=== PATIENT | male | born 1945 | race Asian ===

== ENCOUNTER 2019-09-09 20:58 | Inpatient (IN) | payer MEDICARE, OTHER ==
[~2019-09-09] VITALS: Ht 165.1 cm; Wt 74.1 kg
[2019-09-09] MEDS ORDERED: LYRICA75 M1 ORAL (21:13)
[2019-09-09] MEDS ORDERED: BROMOCRIPTINE2.5 MG PO (21:14)
[2019-09-09] MEDS ORDERED: ATORVASTATIN CA20 MG ORAL (21:14)
[2019-09-09] MEDS ORDERED: METFORMIN HCL500 M1 ORAL (21:15)
[2019-09-09] MEDS ORDERED: LEXAPRO10 MG ORAL (21:16)
[2019-09-09] MEDS ORDERED: FLOMAX0.4 MG ORAL (21:17)
[2019-09-09] MEDS ORDERED: JANUVIA25 MG ORAL (21:18)
[2019-09-09] MEDS ORDERED: CELEBREX200 MG ORAL (21:18)
--- NOTE | 2019-09-09 21:19 | Emergency Room Report ---
History of Present Illness General Chief Complaint: Fever Source: Patient, EMS Present Illness HPI This is a 73 yo Pashto speaking male with h/o htn, DM2 and colon cancer with ? met to lungs. He presents with c/o SOB and weakness. also with fever. onset for 3 days. decreased appetite. mild cough. no n/v/d. family called 911 and EMS said that his oxygenation on RA was 89%. worse with exertion. better with rest. no cp. history is limited bc of language barrier. At 1020pm, daughter came to ER and I was able to get a clearer picture. 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 It was dx at [facility] about 6 months ago. he was started on Cabergoline initially but could not tolerated the side effect. It was switched to Bromocriptine. He developed flu like sx 4-5 days ago with fever and cough. Got much worse today. When she visited him today, he was confused and was very weak. He complained of right sided pain and shortness of breath. she called 911. Pt has no h/o colon cancer. no lungs issues before. Allergies: Coded Allergies: No Known Allergies (Unverified , 09/09/19) Patient History Past Medical History: see triage record, old chart reviewed, DM, HTN Past Surgical History: other Pertinent Family History: none Social History: Denies: smoking Immunizations: other Reviewed Nursing Documentation: PMH: Agreed; PSxH: Agreed Nursing Documentation-PMH Past Medical History: No History, Except For Hx Diabetes: Yes Hx Cancer: Yes Review of Systems Constitutional: Reports: fever, weakness Eye: Denies: eye pain, blurred vision ENT: Denies: ear pain, nose congestion, throat swelling Respiratory: Reports: cough, shortness of breath Cardiovascular: Denies: chest pain, palpitations Gastrointestinal: Denies: abdominal pain, diarrhea, nausea, vomiting Musculoskeletal: Denies: back pain, joint pain Skin: Denies: rash Neurological: Denies: headache, numbness Endocrine: Denies: increased thirst, increased urine Hematologic/Lymphatic: Denies: easy bruising All Other Systems: negative except mentioned in HPI Physical Exam Vital Signs Date Time Temp Pulse Resp B/P (MAP) Pulse Ox O2 Delivery O2 Flow Rate FiO2 09/09/19 20:52 99.5 115 22 156/83 (107) 98 Non-Rebreather 15.0 vitals with htn and hypoxia Sp02 EP Interpretation: reviewed, abnormal General Appearance: alert, mild distress, Chronically Ill Head: normocephalic, atraumatic Eyes: bilateral eye PERRL, bilateral eye EOMI ENT: hearing grossly normal, normal pharynx Neck: full range of motion, supple, no meningismus Respiratory: chest non-tender, decreased breath sounds Cardiovascular #1: regular rate, rhythm, no murmur, tachycardia Gastrointestinal: normal bowel sounds, non tender, no mass, no organomegaly, no bruit, non-distended Musculoskeletal: back normal, normal range of motion, gait/station normal Psychiatric: mood/affect normal Procedures Critical Care Time Critical Care Time Critical care is mandated in this patient who presented with sepsis from pneumonia. Patient require my urgent intervention to attenuate the risks of metabolic collapse which may lead to cardiovascular collapse and . Critical care time is 35 minutes excluding any reportable procedure. Critical care time included evaluation, multiple reevaluation, looking at old charts, interpreting laboratory and diagnostic data, discussing case with patient and family and consultants, and charting. Medical Decision Making Diagnostic Impression: Primary Impression: Sepsis Qualified Codes: A41.9 - Sepsis, unspecified organism; R65.20 - Severe sepsis without septic shock; J96.01 - Acute respiratory failure with hypoxia Additional Impressions: Community acquired bacterial pneumonia Acute respiratory failure with hypoxemia ER Course Patient with sepsis from pneumonia. Influenza testing pending. He is improved with IV fluid and oxygen. Wide spectrum antibiotic started. Will admit for further work-up. I discussed the case with Dr. Rodríguez who will admit for Dr. Lemons. EKG Diagnostic Results Rate: tachycardiac Rhythm: NSR ST Segments: other - RBBB Rhythm Strip Diag. Results EP Interpretation: yes Rate: 97 Rhythm: NSR, no PVC's, no ectopy Chest X-Ray Diagnostic Results Chest X-Ray Diagnostic Results : Chest X-Ray Ordered: Yes # of Views/Limited/Complete: 1 View Indication: Shortness of Breath EP Interpretation: Yes Interpretation: no effusion, no pneumothorax, other - RLL infiltrate Impression: Other - RLL infiltrate Electronically Signed by: Rasheed Cowart MD Last Vital Signs Date Time Temp Pulse Resp B/P (MAP) Pulse Ox O2 Delivery O2 Flow Rate FiO2 09/09/19 20:52 99.5 115 22 156/83 (107) 98 Non-Rebreather 15.0 Status: improved Disposition: ADMITTED INPATIENT Condition: Serious Rasheed Cowart MD Sep 09, 2019 21:19
[2019-09-09] MEDS ORDERED: Cefepime HCl 1 GM in D5W 55 ML IVPB ONE (21:45)
[2019-09-09 22:00] VITALS: BP 94/52
[2019-09-09 22:10] LABS: HEMATOCRIT 35.5 % (42.0-52.0); HEMOGLOBIN 12.6 G/DL (14.2-18.0); MEAN CORPUSCULAR VOLUME 89 FL (80-99); PLATELET COUNT 244 K/UL (150-450); RED BLOOD COUNT 3.97 M/UL (4.70-6.10); RED CELL DISTRIBUTION WIDTH 10.4 % (11.6-14.8); WHITE BLOOD COUNT 16.9 K/UL (4.8-10.8)
[2019-09-09 22:11] LABS: BASOPHILS % (AUTO) 0.4 % (0.0-2.0); LYMPHOCYTES % (AUTO) 4.8 % (20.0-45.0); MONOCYTES % (AUTO) 4.7 % (1.0-10.0); NEUTROPHILS % (AUTO) 90.2 % (45.0-75.0)
[2019-09-09 22:15] LABS: ANION GAP 11 mmol/L (5-15); BLOOD UREA NITROGEN 22 mg/dL (7-18); CALCIUM 8.5 MG/DL (8.5-10.1); CARBON DIOXIDE 26 MMOL/L (21-32); CHLORIDE 95 MMOL/L (98-107); CREATININE 1.1 MG/DL (0.55-1.30); POTASSIUM 3.5 MMOL/L (3.5-5.1); SODIUM 132 MMOL/L (136-145)
[2019-09-09 22:29] LABS: ALANINE AMINOTRANSFERASE 17 U/L (12-78); ALBUMIN 3.2 G/DL (3.4-5.0); ALBUMIN/GLOBULIN RATIO 0.7 (1.0-2.7); ALKALINE PHOSPHATASE 51 U/L (46-116); ASPARTATE AMINO TRANSFERASE 11 U/L (15-37); BILIRUBIN,TOTAL 0.8 MG/DL (0.2-1.0); CKMB < 0.5 NG/ML (0.0-3.6); CREATINE KINASE 135 U/L (26-308)
[2019-09-09 22:34] LABS: APPEARANCE,URINE CLEAR; BILIRUBIN, URINE NEGATIVE (NEGATIVE); COLOR,URINE PALE YELLOW; GLUCOSE, URINE (UA) 4+ (NEGATIVE); KETONES,URINE 1+ (NEGATIVE); LEUKOCYTE ESTERASE ,URINE NEGATIVE (NEGATIVE); NITRITE,URINE NEGATIVE (NEGATIVE); PH,URINE 7 (4.5-8.0); PROTEIN,URINE 2+ (NEGATIVE); UROBILINOGEN,URINE NORMAL MG/DL (0.0-1.0)
[2019-09-09 22:36] LABS: INR 1.1 (0.9-1.1)
[2019-09-09] MEDS ORDERED: Miralax 17gm pkt ORAL PRN (23:15)
[2019-09-09] MEDS ORDERED: Acetaminophen 650 MG SUPP RECTAL PRN ×2 (23:15)
[2019-09-09] MEDS ORDERED: Ketorolac 30mg Inj IV ONE (23:45)
[2019-09-10] VITALS (7 sets, daily range): BP systolic 91–147; BP diastolic 56–77
[2019-09-10] MEDS ORDERED: Morphine Sulfate 2mg/ml Inj(IV/IM USE ONLY) IVP ONE ×4 (01:00→14:00)
[2019-09-10 07:28] LABS: ANION GAP 9 mmol/L (5-15); BLOOD UREA NITROGEN 20 mg/dL (7-18); CALCIUM 6.2 MG/DL (8.5-10.1); CARBON DIOXIDE 22 MMOL/L (21-32); CHLORIDE 104 MMOL/L (98-107); SODIUM 135 MMOL/L (136-145)
[2019-09-10 07:40] LABS: HEMATOCRIT 29.6 % (42.0-52.0); HEMOGLOBIN 10.3 G/DL (14.2-18.0); MEAN CORPUSCULAR VOLUME 91 FL (80-99); PLATELET COUNT 183 K/UL (150-450); RED BLOOD COUNT 3.25 M/UL (4.70-6.10); RED CELL DISTRIBUTION WIDTH 10.4 % (11.6-14.8); WHITE BLOOD COUNT 20.9 K/UL (4.8-10.8)
[2019-09-10] MEDS: Azithromycin 500 MG in NS 275 ML IV SCH (07:53)
[2019-09-10] MEDS: Lyrica 50mg cap ORAL SCH ×3 (09:00→18:00)
[2019-09-10] MEDS ORDERED: Heparin 5000 units/ml inj SUBQ SCH (09:00)
[2019-09-10] MEDS ORDERED: BROMOCRIPTINE 2.5 MG ORAL SCH (09:00)
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
[2019-09-10] MEDS: NovoLOG Insulin Flexpen SUBQ SCH ×4 (09:10→21:32)
[2019-09-10] MEDS: Cefepime HCl 2 GM in D5W 55 ML IVPB SCH ×2 (09:58→22:33)
[2019-09-10] MEDS: Tamsulosin 0.4mg cap ORAL SCH (10:58)
[2019-09-10] MEDS: Docusate 100mg cap ORAL SCH ×2 (11:03→21:31)
--- NOTE | 2019-09-10 11:33 | Diagnostic Imaging Report ---
Indication: Dyspnea Comparison: None A single view chest radiograph was obtained. Findings: Pulmonary vascular congestion demonstrated. Heart is enlarged. There is a right basilar pleural effusion present. There is also parenchymal infiltrate versus atelectasis. IMPRESSION: CHF with a right pleural effusion. Right basal pneumonia versus atelectasis.
--- NOTE | 2019-09-10 13:03 | Infectious Diseases Prog Note ---
Assessment/Plan Assessment/Plan Full consult dictated: A) 1) cap, sepsis, leukocytosis, fevers 2) pmh noted 3) allergies - nkda P) 1) cefepime and azithromycin, add vancomycin 2) check sputum culture, labs and chest x-ray 3) will f/u 4) thank you Subjective Allergies: Coded Allergies: No Known Allergies (Unverified , 09/09/19) Objective Vital Signs Last 24 Hour Vital Signs Date Time Temp Pulse Resp B/P (MAP) Pulse Ox O2 Delivery O2 Flow Rate FiO2 09/10/19 09:30 98.7 91 21 105/71 98 Room Air 09/10/19 05:45 98.4 92 16 102/60 97 Room Air 15.0 09/10/19 04:00 98.4 90 16 100/66 97 Room Air 15.0 09/10/19 02:00 99.1 96 20 92/60 97 Room Air 15.0 09/10/19 00:00 99.8 107 24 91/56 97 Room Air 15.0 09/09/19 22:00 99.8 111 24 94/52 97 Room Air 15.0 09/09/19 21:10 115 22 Non-Rebreather 15.0 09/09/19 20:52 99.5 115 22 156/83 (107) 98 Non-Rebreather 15.0 Height (Feet): 5 Height (Inches): 8.00 Weight (Pounds): 180 Microbiology Date/Time Source Procedure Growth Status 09/09/19 22:30 Nasal Nares - Final Complete 09/09/19 22:30 Nasal Nares - Final Complete Laboratory Tests Test 09/09/19 21:05 09/09/19 21:45 09/09/19 23:30 09/10/19 06:35 White Blood Count 16.9 K/UL (4.8-10.8) H 20.9 K/UL (4.8-10.8) H Red Blood Count 3.97 M/UL (4.70-6.10) L 3.25 M/UL (4.70-6.10) L Hemoglobin 12.6 G/DL (14.2-18.0) L 10.3 G/DL (14.2-18.0) L Hematocrit 35.5 % (42.0-52.0) L 29.6 % (42.0-52.0) L Mean Corpuscular Volume 89 FL (80-99) 91 FL (80-99) Mean Corpuscular Hemoglobin 31.8 PG (27.0-31.0) H 31.7 PG (27.0-31.0) H Mean Corpuscular Hemoglobin Concent 35.6 G/DL (32.0-36.0) 34.9 G/DL (32.0-36.0) Red Cell Distribution Width 10.4 % (11.6-14.8) L 10.4 % (11.6-14.8) L Platelet Count 244 K/UL (150-450) 183 K/UL (150-450) Mean Platelet Volume 5.6 FL (6.5-10.1) L 5.4 FL (6.5-10.1) L Neutrophils (%) (Auto) 90.2 % (45.0-75.0) H % (45.0-75.0) Lymphocytes (%) (Auto) 4.8 % (20.0-45.0) L % (20.0-45.0) Monocytes (%) (Auto) 4.7 % (1.0-10.0) % (1.0-10.0) Eosinophils (%) (Auto) 0.0 % (0.0-3.0) % (0.0-3.0) Basophils (%) (Auto) 0.4 % (0.0-2.0) % (0.0-2.0) Prothrombin Time 11.4 SEC (9.30-11.50) Prothromb Time International Ratio 1.1 (0.9-1.1) Activated Partial Thromboplast Time 30 SEC (23-33) Sodium Level 132 MMOL/L (136-145) L 135 MMOL/L (136-145) L Potassium Level 3.5 MMOL/L (3.5-5.1) 4.0 MMOL/L (3.5-5.1) Chloride Level 95 MMOL/L (98-107) L 104 MMOL/L (98-107) Carbon Dioxide Level 26 MMOL/L (21-32) 22 MMOL/L (21-32) Anion Gap 11 mmol/L (5-15) 9 mmol/L (5-15) Blood Urea Nitrogen 22 mg/dL (7-18) H 20 mg/dL (7-18) H Creatinine 1.1 MG/DL (0.55-1.30) 1.0 MG/DL (0.55-1.30) Estimat Glomerular Filtration Rate mL/min (>60) mL/min (>60) Glucose Level 276 MG/DL (74-106) H 186 MG/DL (74-106) H Lactic Acid Level 2.10 mmol/L (0.4-2.0) H 2.50 mmol/L (0.66-2.22) H Calcium Level 8.5 MG/DL (8.5-10.1) 6.2 MG/DL (8.5-10.1) #L Total Bilirubin 0.8 MG/DL (0.2-1.0) Aspartate Amino Transf (AST/SGOT) 11 U/L (15-37) L Alanine Aminotransferase (ALT/SGPT) 17 U/L (12-78) Alkaline Phosphatase 51 U/L (46-116) Total Creatine Kinase 135 U/L (26-308) Creatine Kinase MB < 0.5 NG/ML (0.0-3.6) Creatine Kinase MB Relative Index 0.3 Troponin I 0.006 ng/mL (0.000-0.056) Total Protein 7.7 G/DL (6.4-8.2) Albumin 3.2 G/DL (3.4-5.0) L Globulin 4.5 g/dL Albumin/Globulin Ratio 0.7 (1.0-2.7) L Urine Color Pale yellow Urine Appearance Clear Urine pH 7 (4.5-8.0) Urine Specific [place] 1.005 (1.005-1.035) Urine Protein 2+ (NEGATIVE) H Urine Glucose (UA) 4+ (NEGATIVE) H Urine Ketones 1+ (NEGATIVE) H Urine Blood 1+ (NEGATIVE) H Urine Nitrite Negative (NEGATIVE) Urine Bilirubin Negative (NEGATIVE) Urine Urobilinogen Normal MG/DL (0.0-1.0) Urine Leukocyte Esterase Negative (NEGATIVE) Urine RBC 0-2 /HPF (0 - 0) H Urine WBC 0 /HPF (0 - 0) Urine Squamous Epithelial Cells Few /LPF (NONE/OCC) Urine Bacteria None /HPF (NONE) Differential Total Cells Counted 100 Neutrophils % (Manual) 85 % (45-75) H Lymphocytes % (Manual) 7 % (20-45) L Monocytes % (Manual) 6 % (1-10) Eosinophils % (Manual) 0 % (0-3) Basophils % (Manual) 0 % (0-2) Band Neutrophils 2 % (0-8) Platelet Estimate Adequate Platelet Morphology Normal Hypochromasia 1+ Anisocytosis 1+ Hemoglobin A1c 6.9 % (4.3-6.0) H Magnesium Level 1.2 MG/DL (1.8-2.4) L Current Medications Medications (Trade) Dose Ordered Sig/Ishaan Route PRN Reason Start Time Stop Time Status Last Admin Dose Admin Acetaminophen (Tylenol) 650 mg Q4H PRN ORAL Mild Pain (Pain Scale 1-3) 09/09/19 23:15 10/09/19 23:14 Acetaminophen (Tylenol) 650 mg Q4H PRN ORAL fever 09/09/19 23:15 10/09/19 23:14 Acetaminophen (Tylenol) 650 mg Q4H PRN RECTAL Mild Pain (Pain Scale 1-3) 09/09/19 23:15 10/09/19 23:14 Acetaminophen (Tylenol) 650 mg Q4H PRN RECTAL fever 09/09/19 23:15 10/09/19 23:14 Albuterol/ Ipratropium (Albuterol/ Ipratropium) 3 ml Q6HR PRN HHN Shortness of Breath 09/09/19 23:15 09/14/19 23:14 Atorvastatin Calcium (Lipitor) 10 mg BEDTIME ORAL 09/10/19 21:00 10/10/19 20:59 UNV Azithromycin 500 mg/Sodium Chloride 275 ml @ 275 mls/hr Q24HRS IV 09/10/19 08:00 09/17/19 07:59 09/10/19 07:53 Bromocriptine Mesylate (Parlodel) 2.5 mg DAILY ORAL 09/10/19 09:00 10/10/19 08:59 Cefepime HCl 2 gm/ Dextrose 55 ml @ 110 mls/hr EVERY 12 HOURS IVPB 09/10/19 09:00 09/17/19 08:59 09/10/19 09:58 Dextrose (Dextrose 50%) 25 ml Q30M PRN IV Hypoglycemia 09/09/19 23:30 10/09/19 23:29 Dextrose (Dextrose 50%) 50 ml Q30M PRN IV Hypoglycemia 09/09/19 23:30 10/09/19 23:29 Docusate Sodium (Colace) 100 mg EVERY 12 HOURS ORAL 09/10/19 09:00 10/10/19 08:59 09/10/19 11:03 Escitalopram Oxalate (Lexapro) 5 mg DAILY ORAL 09/10/19 09:00 10/10/19 08:59 09/10/19 10:57 Heparin Sodium (Porcine) (Heparin 5000 units/ml) 5,000 units EVERY 12 HOURS SUBQ 09/10/19 09:00 10/10/19 08:59 09/10/19 11:02 Insulin Aspart (NovoLOG) BEFORE MEALS AND HS SUBQ 09/10/19 06:30 10/10/19 06:29 09/10/19 09:10 Ondansetron HCl (Zofran) 4 mg Q6H PRN IVP Nausea & Vomiting 09/09/19 23:15 10/09/19 23:14 09/10/19 10:17 Polyethylene Glycol (Miralax) 17 gm DAILYPRN PRN ORAL Constipation 09/09/19 23:15 10/09/19 23:14 Pregabalin (Lyrica) 50 mg THREE TIMES A DAY ORAL 09/10/19 09:00 10/10/19 08:59 Tamsulosin HCl (Flomax) 0.4 mg DAILY ORAL 09/10/19 09:00 10/10/19 08:59 09/10/19 10:58 Kesha Rebollar MD Sep 10, 2019 13:03
[2019-09-10] MEDS ORDERED: Hydromorphone 0.5mg/0.5ml inj IVP PRN (14:15)
[2019-09-10] MEDS ORDERED: Vancomycin 1.25gm/NS Premix IVPB ONE (16:00)
[2019-09-10 20:14] LABS: APPEARANCE,URINE TURBID; BILIRUBIN, URINE NEGATIVE (NEGATIVE); GLUCOSE, URINE (UA) 4+ (NEGATIVE); KETONES,URINE 1+ (NEGATIVE); LEUKOCYTE ESTERASE ,URINE NEGATIVE (NEGATIVE); NITRITE,URINE NEGATIVE (NEGATIVE); PH,URINE 6 (4.5-8.0); PROTEIN,URINE 3+ (NEGATIVE); UROBILINOGEN,URINE NORMAL MG/DL (0.0-1.0)
[2019-09-10 20:20] LABS: COLOR,URINE RED
--- NOTE | 2019-09-10 20:45 | Consultation ---
DATE OF CONSULTATION: 09/10/2019 ENDOCRINOLOGY CONSULTATION CONSULTING PHYSICIAN: Sunny Mcneil M.D. REFERRING PHYSICIAN: Tim Lemons M.D. REASON FOR CONSULTATION: 1. Diabetes management. 2. Hyperprolactinemia. HISTORY OF PRESENT ILLNESS: It is important to note that history is obtained mostly from the review of the chart and medical record and discussion with the patient's daughter at the bedside. The patient is not coherent enough to provide a history. The patient is a 73-year-old Georgian male with history of hypertension, diabetes, and colon cancer with questionable metastasis to the lungs, who also has a diagnosis of hyperprolactinemia followed at [facility]. The patient presented with shortness of breath and weakness and fever for the past 3 days, which was getting progressively worse. The patient's mental status has been deteriorating when the daughter came to visit him on Tuesday, found the situation to be grave and she called 911, therefore was brought to the emergency room for evaluation. Oxygenation was down to 89%. The patient was started on oxygen, antibiotic, diagnosed with sepsis, and admitted to the telemetry unit for observation and treatment. The history of prolactinemia goes back to last 6 months ago. Initially was treated with cabergoline, which he was not able to tolerate it because it would make him anxious and some confusion. Therefore, this medication was changed to bromocriptine and it is unsure that if the patient's mental status deteriorated again due to bromocriptine or the recent sepsis. Glucose is elevated to up to 300 and I was called to manage diabetes as well as prolactinemia. PAST MEDICAL HISTORY: 1. Diabetes. 2. Hypertension. 3. Hyperprolactinemia. 4. Colon cancer. PAST SURGICAL HISTORY: None. FAMILY HISTORY: Noncontributory. SOCIAL HISTORY: History of smoking. No alcohol or drug use. REVIEW OF SYSTEMS: Unobtainable. ALLERGIES TO MEDICATIONS: None. MEDICATIONS: Reviewed and reconciled. LABORATORY VALUES: WBC 20,000, hemoglobin 10, hematocrit 29, platelets of 183. Sodium 135, potassium 4, chloride 104, bicarb 22, BUN 20, creatinine 1.0, glucose of 186. Hemoglobin A1c of 6.9. Lactic acid of 2.5. PHYSICAL EXAMINATION: GENERAL: The patient is incoherent. VITAL SIGNS: Blood pressure is 147/74, pulse 86, temperature 100.4, respiratory rate 22. HEENT: Pupils are reactive to light. Sclerae anicteric. NECK: No JVD. HEART: Regular. LUNGS: Scattered rhonchi. ABDOMEN: Positive bowel sounds. EXTREMITIES: No clubbing, cyanosis, edema. DIAGNOSES: 1. Sepsis. 2. Diabetes out of control. 3. 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 4. Toxic metabolic encephalopathy. 5. Lactic acidosis. PLAN: 1. Do not resume oral diabetes medication, especially metformin since the patient's lactic acid is elevated. 2. We will treat the patient's diabetes with basal bolus insulin. We will start with Levemir 24 units now and then NovoLog 6 units before each meal to be held because if the patient is not eating. NovoLog sliding scale before meals and at bedtime will be in order. Further adjustment according to blood glucose values. 3. Bromocriptine should be discontinued and we will check a prolactin level. It could be a possible contributing factor to patient's encephalopathy and there is no need to use it in this acute setting. I will follow him during the hospital stay. The patient is normally followed by endocrinology service at [facility] Thank you, Dr. Lemons, for the courtesy of this consultation. Sunny Mcneil M.D. DR: MANJINDER JOB#: [id number] CC: BLANCA
[2019-09-10] MEDS ORDERED: Levemir Flexpen SUBQ SCH (21:00)
[2019-09-11] VITALS: BP 137/61
[2019-09-11] MEDS: Albuterol/Ipratropium 3ml neb HHN PRN ×2 (03:39→22:42)
[2019-09-11 04:00] VITALS: BP 145/66
[2019-09-11] MEDS: Vancomycin 750mg/NS 275ml IVPB SCH ×4 (04:46→15:48)
[2019-09-11] MEDS: NovoLOG Insulin Flexpen SUBQ SCH ×7 (06:20→21:40)
[2019-09-11 06:51] LABS: HEMATOCRIT 26.9 % (42.0-52.0); HEMOGLOBIN 9.5 G/DL (14.2-18.0); MEAN CORPUSCULAR VOLUME 90 FL (80-99); PLATELET COUNT 192 K/UL (150-450); RED BLOOD COUNT 2.99 M/UL (4.70-6.10); RED CELL DISTRIBUTION WIDTH 10.7 % (11.6-14.8); WHITE BLOOD COUNT 19.7 K/UL (4.8-10.8)
--- NOTE | 2019-09-11 07:03 | General Progress Note ---
Assessment/Plan Problem List: (1) Hyperprolactinemia ICD Codes: E22.1 - Hyperprolactinemia SNOMED: 317017172 (2) Lactic acidosis ICD Codes: E87.2 - Acidosis SNOMED: 81601702 (3) Diabetes mellitus out of control ICD Codes: E11.65 - Type 2 diabetes mellitus with hyperglycemia SNOMED: 54435763, 348464387 (4) Community acquired bacterial pneumonia ICD Codes: J15.9 - Unspecified bacterial pneumonia SNOMED: 860612629, 38066742 (5) Acute respiratory failure with hypoxemia ICD Codes: J96.01 - Acute respiratory failure with hypoxia SNOMED: 863670644 (6) Sepsis ICD Codes: A41.9 - Sepsis, unspecified organism SNOMED: 38018853, 48262776 Qualifiers: Qualified Codes: A41.9 - Sepsis, unspecified organism; R65.20 - Severe sepsis without septic shock; J96.01 - Acute respiratory failure with hypoxia Assessment/Plan: change Levemir to 20 units bid continue Novolog 6 units ac tid - hold if not eating continue NISS ac / hs continue to keep off Bromocriptine follow prolactin level - pending Subjective ROS Limited/Unobtainable: Yes Allergies: Coded Allergies: No Known Allergies (Unverified , 09/09/19) Subjective events noted fasting glucose still very high despite addition of Levemir 24 units last night Item Value Date Time Bedside Blood Glucose 264 mg/dl H 09/11/19 0630 Bedside Blood Glucose 335 mg/dl H 09/10/19 2132 Bedside Blood Glucose 315 mg/dl H 09/10/19 1630 Bedside Blood Glucose 404 mg/dl H 09/10/19 1343 Bedside Blood Glucose 155 mg/dl H 09/10/19 0910 Bedside Blood Glucose 155 mg/dl H 09/10/19 0650 Objective Last 24 Hour Vital Signs Date Time Temp Pulse Resp B/P (MAP) Pulse Ox O2 Delivery O2 Flow Rate FiO2 09/11/19 04:31 99.4 09/11/19 04:00 91 09/11/19 04:00 6.0 09/11/19 04:00 99.4 88 19 145/66 (92) 97 09/11/19 03:44 74 19 94 Nasal Cannula 3.0 32 09/11/19 03:43 94 Nasal Cannula 3.0 32 09/11/19 03:41 76 18 98 Simple Mask 6.0 74 18 94 09/11/19 00:00 6.0 09/11/19 00:00 98.2 84 18 137/61 (86) 98 09/11/19 00:00 78 09/10/19 21:00 Nasal Cannula 6.0 09/10/19 20:00 98.6 88 18 118/77 (91) 94 09/10/19 20:00 6.0 09/10/19 20:00 100 09/10/19 16:55 97 09/10/19 16:11 Nasal Cannula 6.0 09/10/19 15:30 100.4 86 22 147/74 (98) 94 09/10/19 14:50 98.5 89 23 145/84 94 Room Air 09/10/19 09:30 98.7 91 21 105/71 98 Room Air Intake and Output 09/10/19 09/11/19 19:00 07:00 Intake Total 480 ml Output Total 800 ml Balance 480 ml -800 ml Intake Oral 150 ml IV Total 330 ml Output Urine Total 800 ml Laboratory Tests 09/10/19 20:03: Urine Color Red, Urine Appearance Turbid, Urine pH 6, Urine Specific [place] 1.020, Urine Protein 3+H, Urine Glucose (UA) 4+H, Urine Ketones 1+H, Urine Blood 5+H, Urine Nitrite Negative, Urine Bilirubin Negative, Urine Urobilinogen Normal, Urine Leukocyte Esterase Negative, Urine RBC TntcH, Urine WBC 0-2, Urine Squamous Epithelial Cells Occasional, Urine Bacteria ModerateH 09/11/19 05:35: White Blood Count [Pending], Red Blood Count [Pending], Hemoglobin [Pending], Hematocrit [Pending], Mean Corpuscular Volume [Pending], Mean Corpuscular Hemoglobin [Pending], Mean Corpuscular Hemoglobin Concent [Pending], Red Cell Distribution Width [Pending], Platelet Count [Pending], Mean Platelet Volume [ Pending], Neutrophils (%) (Auto) [Pending], Lymphocytes (%) (Auto) [Pending], Monocytes (%) (Auto) [Pending], Eosinophils (%) (Auto) [Pending], Basophils (%) (Auto) [Pending], Sodium Level [Pending], Potassium Level [Pending], Chloride Level [Pending], Carbon Dioxide Level [Pending], Blood Urea Nitrogen [Pending], Creatinine [Pending], Estimat Glomerular Filtration Rate [Pending], Glucose Level [Pending], Lactic Acid Level [Pending], Calcium Level [Pending], Total Bilirubin [Pending], Aspartate Amino Transf (AST/SGOT) [Pending], Alanine Aminotransferase (ALT/SGPT) [Pending], Alkaline Phosphatase [Pending], Total Protein [Pending], Albumin [Pending], Globulin [Pending], Prolactin [Pending] Height (Feet): 5 Height (Inches): 5.00 Weight (Pounds): 155 General Appearance: lethargic Neck: normal alignment Cardiovascular: normal rate Respiratory/Chest: lungs clear Abdomen: normal bowel sounds Pelvis: normal external exam Objective Current Medications Medications (Trade) Dose Ordered Sig/Ishaan Route PRN Reason Start Time Stop Time Status Last Admin Dose Admin Acetaminophen (Tylenol) 650 mg Q4H PRN ORAL Mild Pain (Pain Scale 1-3) 09/09/19 23:15 10/09/19 23:14 09/11/19 03:23 Acetaminophen (Tylenol) 650 mg Q4H PRN ORAL fever 09/09/19 23:15 10/09/19 23:14 Acetaminophen (Tylenol) 650 mg Q4H PRN RECTAL Mild Pain (Pain Scale 1-3) 09/09/19 23:15 10/09/19 23:14 Acetaminophen (Tylenol) 650 mg Q4H PRN RECTAL fever 09/09/19 23:15 10/09/19 23:14 Albuterol/ Ipratropium (Albuterol/ Ipratropium) 3 ml Q6HR PRN HHN Shortness of Breath 09/09/19 23:15 09/14/19 23:14 09/11/19 03:39 Atorvastatin Calcium (Lipitor) 10 mg BEDTIME ORAL 09/10/19 21:00 10/10/19 20:59 09/10/19 21:31 Azithromycin 500 mg/Sodium Chloride 275 ml @ 275 mls/hr Q24HRS IV 09/10/19 08:00 09/17/19 07:59 09/10/19 07:53 Cefepime HCl 2 gm/ Dextrose 55 ml @ 110 mls/hr EVERY 12 HOURS IVPB 09/10/19 09:00 09/17/19 08:59 09/10/19 22:33 Dextrose (Dextrose 50%) 25 ml Q30M PRN IV Hypoglycemia 09/10/19 19:00 10/10/19 18:59 Dextrose (Dextrose 50%) 50 ml Q30M PRN IV Hypoglycemia 09/10/19 19:00 10/10/19 18:59 Docusate Sodium (Colace) 100 mg EVERY 12 HOURS ORAL 09/10/19 09:00 10/10/19 08:59 09/10/19 21:31 Escitalopram Oxalate (Lexapro) 5 mg DAILY ORAL 09/10/19 09:00 10/10/19 08:59 09/10/19 10:57 Hydromorphone HCl (Dilaudid) 0.5 mg Q4H PRN IVP For Pain 3-6 09/10/19 14:15 09/17/19 14:14 Hydromorphone HCl (Dilaudid) 1 mg Q4H PRN IVP For Pain 7-10 09/10/19 14:15 09/17/19 14:14 Insulin Aspart (NovoLOG) BEFORE MEALS AND HS SUBQ 09/10/19 06:30 10/10/19 06:29 09/11/19 06:20 Insulin Aspart (NovoLOG) 6 units NOVOTIAC SUBQ 09/11/19 06:30 10/11/19 06:29 09/11/19 06:20 Insulin Detemir (Levemir) 24 units BEDTIME SUBQ 09/10/19 21:00 10/10/19 20:59 09/10/19 21:32 Ondansetron HCl (Zofran) 4 mg Q6H PRN IVP Nausea & Vomiting 09/09/19 23:15 10/09/19 23:14 09/10/19 10:17 Polyethylene Glycol (Miralax) 17 gm DAILYPRN PRN ORAL Constipation 09/09/19 23:15 10/09/19 23:14 Pregabalin (Lyrica) 50 mg THREE TIMES A DAY ORAL 09/10/19 09:00 10/10/19 08:59 09/10/19 15:34 Tamsulosin HCl (Flomax) 0.4 mg DAILY ORAL 09/10/19 09:00 10/10/19 08:59 09/10/19 10:58 Vancomycin HCl (Vanco rx to dose) 1 ea DAILY PRN MISC Per rx protocol 09/10/19 13:15 10/10/19 13:14 Vancomycin HCl 750 mg/Sodium Chloride 275 ml @ 183.333 mls/hr Q12H IVPB 09/11/19 04:00 09/16/19 03:59 09/11/19 04:46 Sunny Mcneil MD Sep 11, 2019 07:03
[2019-09-11 07:50] LABS: ALANINE AMINOTRANSFERASE 334 U/L (12-78); ALBUMIN 2.2 G/DL (3.4-5.0); ALBUMIN/GLOBULIN RATIO 0.6 (1.0-2.7); ALKALINE PHOSPHATASE 49 U/L (46-116); ANION GAP 10 mmol/L (5-15); ASPARTATE AMINO TRANSFERASE 346 U/L (15-37); BILIRUBIN,TOTAL 0.5 MG/DL (0.2-1.0); BLOOD UREA NITROGEN 28 mg/dL (7-18); CALCIUM 7.6 MG/DL (8.5-10.1); CARBON DIOXIDE 20 MMOL/L (21-32); CHLORIDE 99 MMOL/L (98-107); CREATININE 1.1 MG/DL (0.55-1.30); POTASSIUM 3.4 MMOL/L (3.5-5.1); SODIUM 129 MMOL/L (136-145)
[2019-09-11 08:00] VITALS: BP 122/79
[2019-09-11] MEDS: Docusate 100mg cap ORAL SCH ×2 (08:38→21:37)
[2019-09-11] MEDS: Tamsulosin 0.4mg cap ORAL SCH (08:38)
[2019-09-11] MEDS: Lyrica 50mg cap ORAL SCH ×3 (08:39→18:00)
[2019-09-11] MEDS: Cefepime HCl 2 GM in D5W 55 ML IVPB SCH ×2 (08:41→21:44)
[2019-09-11] MEDS: Levemir Flexpen SUBQ SCH ×2 (08:53→18:13)
[2019-09-11] MEDS: Azithromycin 500 MG in NS 275 ML IV SCH (09:01)
--- NOTE | 2019-09-11 10:37 | Cardiac Electrophysiology PN ---
Subjective Subjective [id number] Objective Last 24 Hour Vital Signs Date Time Temp Pulse Resp B/P (MAP) Pulse Ox O2 Delivery O2 Flow Rate FiO2 09/11/19 08:00 97.5 86 20 122/79 (93) 96 09/11/19 08:00 86 09/11/19 04:31 99.4 09/11/19 04:00 91 09/11/19 04:00 6.0 09/11/19 04:00 99.4 88 19 145/66 (92) 97 09/11/19 03:44 74 19 94 Nasal Cannula 3.0 32 09/11/19 03:43 94 Nasal Cannula 3.0 32 09/11/19 03:41 76 18 98 Simple Mask 6.0 74 18 94 09/11/19 00:00 6.0 09/11/19 00:00 98.2 84 18 137/61 (86) 98 09/11/19 00:00 78 09/10/19 21:00 Nasal Cannula 6.0 09/10/19 20:00 98.6 88 18 118/77 (91) 94 09/10/19 20:00 6.0 09/10/19 20:00 100 09/10/19 16:55 97 09/10/19 16:11 Nasal Cannula 6.0 09/10/19 15:30 100.4 86 22 147/74 (98) 94 09/10/19 14:50 98.5 89 23 145/84 94 Room Air Intake and Output 09/10/19 09/11/19 19:00 07:00 Intake Total 480 ml Output Total 800 ml Balance 480 ml -800 ml Intake Oral 150 ml IV Total 330 ml Output Urine Total 800 ml Laboratory Tests Test 09/10/19 20:03 09/11/19 05:35 09/11/19 06:32 Urine Color Red Urine Appearance Turbid Urine pH 6 (4.5-8.0) Urine Specific [place] 1.020 (1.005-1.035) Urine Protein 3+ (NEGATIVE) H Urine Glucose (UA) 4+ (NEGATIVE) H Urine Ketones 1+ (NEGATIVE) H Urine Blood 5+ (NEGATIVE) H Urine Nitrite Negative (NEGATIVE) Urine Bilirubin Negative (NEGATIVE) Urine Urobilinogen Normal MG/DL (0.0-1.0) Urine Leukocyte Esterase Negative (NEGATIVE) Urine RBC Tntc /HPF (0 - 0) H Urine WBC 0-2 /HPF (0 - 0) Urine Squamous Epithelial Cells Occasional /LPF Urine Bacteria Moderate /HPF (NONE) H White Blood Count 19.7 K/UL (4.8-10.8) H Red Blood Count 2.99 M/UL (4.70-6.10) L Hemoglobin 9.5 G/DL (14.2-18.0) L Hematocrit 26.9 % (42.0-52.0) L Mean Corpuscular Volume 90 FL (80-99) Mean Corpuscular Hemoglobin 31.7 PG (27.0-31.0) H Mean Corpuscular Hemoglobin Concent 35.3 G/DL (32.0-36.0) Red Cell Distribution Width 10.7 % (11.6-14.8) L Platelet Count 192 K/UL (150-450) Mean Platelet Volume 5.4 FL (6.5-10.1) L Neutrophils (%) (Auto) % (45.0-75.0) Lymphocytes (%) (Auto) % (20.0-45.0) Monocytes (%) (Auto) % (1.0-10.0) Eosinophils (%) (Auto) % (0.0-3.0) Basophils (%) (Auto) % (0.0-2.0) Neutrophils % (Manual) Pending Lymphocytes % (Manual) Pending Platelet Estimate Pending Platelet Morphology Pending Sodium Level 129 MMOL/L (136-145) L Potassium Level 3.4 MMOL/L (3.5-5.1) L Chloride Level 99 MMOL/L (98-107) Carbon Dioxide Level 20 MMOL/L (21-32) L Anion Gap 10 mmol/L (5-15) Blood Urea Nitrogen 28 mg/dL (7-18) H Creatinine 1.1 MG/DL (0.55-1.30) Estimat Glomerular Filtration Rate mL/min (>60) Glucose Level 235 MG/DL (74-106) H Lactic Acid Level 1.60 mmol/L (0.4-2.0) Calcium Level 7.6 MG/DL (8.5-10.1) #L Total Bilirubin 0.5 MG/DL (0.2-1.0) Aspartate Amino Transf (AST/SGOT) 346 U/L (15-37) H Alanine Aminotransferase (ALT/SGPT) 334 U/L (12-78) H Alkaline Phosphatase 49 U/L (46-116) Total Protein 5.9 G/DL (6.4-8.2) L Albumin 2.2 G/DL (3.4-5.0) L Globulin 3.7 g/dL Albumin/Globulin Ratio 0.6 (1.0-2.7) L Prolactin Pending Magnesium Level 2.1 MG/DL (1.8-2.4) Microbiology Date/Time Source Procedure Growth Status 09/09/19 21:20 Blood Blood Culture - Preliminary NO GROWTH AFTER 24 HOURS Resulted 09/09/19 21:05 Blood Blood Culture - Preliminary NO GROWTH AFTER 24 HOURS Resulted 09/09/19 22:30 Nasal Nares - Final Complete 09/09/19 22:30 Nasal Nares - Final Complete 09/10/19 20:03 Urine,Clean Catch Urine Culture - Preliminary NO GROWTH Resulted Irving Joy MD Sep 11, 2019 10:37
[2019-09-11] MEDS: HYDROmorphone 1mg/ml Carpuject IVP PRN ×2 (10:47→19:11)
--- NOTE | 2019-09-11 10:49 | Consultation ---
History of Present Illness General Date patient seen: Sep 11, 2019 Chief Complaint: Fever Reason for Consultation: Pneumonia Present Illness HPI 73 yo Maori speaking male with h/o htn, DM2 and prolactinoma admitted after presenting with SOB and weakness. Noted fever at home with flu-like symptoms for about a week. Noted with b/l infiltrates and leukocytosis. Abx started with high oxygen need. Seen by ID and vancomycin now added. Still feeling weak but some improvement per daughter at bedside. Allergies: Coded Allergies: No Known Allergies (Unverified , 09/09/19) Medication History Scheduled Atorvastatin Calcium* (Atorvastatin Calcium*), 10 MG ORAL BEDTIME, (Reported) Celecoxib* (Celebrex*), 200 MG ORAL DAILY, (Reported) Escitalopram Oxalate* (Lexapro*), 5 MG ORAL DAILY, (Reported) Metformin Hcl* (Metformin Hcl*), 500 MG ORAL TWICE A DAY, (Reported) Pregabalin* (Lyrica*), 50 MG ORAL THREE TIMES A DAY, (Reported) Sitagliptin* (Januvia*), 100 MG ORAL DAILY, (Reported) Tamsulosin HCl (Flomax), 0.4 MG ORAL DAILY, (Reported) Miscellaneous Medications Bromocriptine Mesylate (Bromocriptine Mesylate), 2.5 MG PO, (Reported) Patient History Limited by: language barrier, medical condition History Provided By: Family Member, Medical Record Healthcare decision maker patient self Resuscitation status Full Code Advanced Directive on File Past Medical/Surgical History Past Medical/Surgical History: (1) Hyperprolactinemia (2) Diabetes mellitus out of control Review of Systems ROS Narrative Unable to obtain due to patient factors Physical Exam General Appearance: WD/WN, lethargic HEENT: normocephalic, atraumatic, mucous membranes moist Neck: supple, normal inspection Respiratory/Chest: crackles/rales Cardiovascular/Chest: normal rate, regular rhythm Abdomen: non tender, soft Extremities: no edema Skin Exam: normal pigmentation Neurologic: alert Last 24 Hour Vital Signs Date Time Temp Pulse Resp B/P (MAP) Pulse Ox O2 Delivery O2 Flow Rate FiO2 09/11/19 08:00 97.5 86 20 122/79 (93) 96 09/11/19 08:00 86 09/11/19 04:31 99.4 09/11/19 04:00 91 09/11/19 04:00 6.0 09/11/19 04:00 99.4 88 19 145/66 (92) 97 09/11/19 03:44 74 19 94 Nasal Cannula 3.0 32 09/11/19 03:43 94 Nasal Cannula 3.0 32 09/11/19 03:41 76 18 98 Simple Mask 6.0 74 18 94 09/11/19 00:00 6.0 09/11/19 00:00 98.2 84 18 137/61 (86) 98 09/11/19 00:00 78 09/10/19 21:00 Nasal Cannula 6.0 09/10/19 20:00 98.6 88 18 118/77 (91) 94 09/10/19 20:00 6.0 09/10/19 20:00 100 09/10/19 16:55 97 09/10/19 16:11 Nasal Cannula 6.0 09/10/19 15:30 100.4 86 22 147/74 (98) 94 09/10/19 14:50 98.5 89 23 145/84 94 Room Air Intake and Output 09/10/19 09/11/19 19:00 07:00 Intake Total 480 ml Output Total 800 ml Balance 480 ml -800 ml Intake Oral 150 ml IV Total 330 ml Output Urine Total 800 ml Laboratory Tests Test 09/10/19 20:03 09/11/19 05:35 09/11/19 06:32 Urine Color Red Urine Appearance Turbid Urine pH 6 (4.5-8.0) Urine Specific [place] 1.020 (1.005-1.035) Urine Protein 3+ (NEGATIVE) H Urine Glucose (UA) 4+ (NEGATIVE) H Urine Ketones 1+ (NEGATIVE) H Urine Blood 5+ (NEGATIVE) H Urine Nitrite Negative (NEGATIVE) Urine Bilirubin Negative (NEGATIVE) Urine Urobilinogen Normal MG/DL (0.0-1.0) Urine Leukocyte Esterase Negative (NEGATIVE) Urine RBC Tntc /HPF (0 - 0) H Urine WBC 0-2 /HPF (0 - 0) Urine Squamous Epithelial Cells Occasional /LPF Urine Bacteria Moderate /HPF (NONE) H White Blood Count 19.7 K/UL (4.8-10.8) H Red Blood Count 2.99 M/UL (4.70-6.10) L Hemoglobin 9.5 G/DL (14.2-18.0) L Hematocrit 26.9 % (42.0-52.0) L Mean Corpuscular Volume 90 FL (80-99) Mean Corpuscular Hemoglobin 31.7 PG (27.0-31.0) H Mean Corpuscular Hemoglobin Concent 35.3 G/DL (32.0-36.0) Red Cell Distribution Width 10.7 % (11.6-14.8) L Platelet Count 192 K/UL (150-450) Mean Platelet Volume 5.4 FL (6.5-10.1) L Neutrophils (%) (Auto) % (45.0-75.0) Lymphocytes (%) (Auto) % (20.0-45.0) Monocytes (%) (Auto) % (1.0-10.0) Eosinophils (%) (Auto) % (0.0-3.0) Basophils (%) (Auto) % (0.0-2.0) Neutrophils % (Manual) Pending Lymphocytes % (Manual) Pending Platelet Estimate Pending Platelet Morphology Pending Sodium Level 129 MMOL/L (136-145) L Potassium Level 3.4 MMOL/L (3.5-5.1) L Chloride Level 99 MMOL/L (98-107) Carbon Dioxide Level 20 MMOL/L (21-32) L Anion Gap 10 mmol/L (5-15) Blood Urea Nitrogen 28 mg/dL (7-18) H Creatinine 1.1 MG/DL (0.55-1.30) Estimat Glomerular Filtration Rate mL/min (>60) Glucose Level 235 MG/DL (74-106) H Lactic Acid Level 1.60 mmol/L (0.4-2.0) Calcium Level 7.6 MG/DL (8.5-10.1) #L Total Bilirubin 0.5 MG/DL (0.2-1.0) Aspartate Amino Transf (AST/SGOT) 346 U/L (15-37) H Alanine Aminotransferase (ALT/SGPT) 334 U/L (12-78) H Alkaline Phosphatase 49 U/L (46-116) Total Protein 5.9 G/DL (6.4-8.2) L Albumin 2.2 G/DL (3.4-5.0) L Globulin 3.7 g/dL Albumin/Globulin Ratio 0.6 (1.0-2.7) L Prolactin Pending Magnesium Level 2.1 MG/DL (1.8-2.4) Microbiology Date/Time Source Procedure Growth Status 09/10/19 20:03 Urine,Clean Catch Urine Culture - Preliminary NO GROWTH Resulted Height (Feet): 5 Height (Inches): 5.00 Weight (Pounds): 155 Medications Current Medications Medications (Trade) Dose Ordered Sig/Ishaan Route PRN Reason Start Time Stop Time Status Last Admin Dose Admin Acetaminophen (Tylenol) 650 mg Q4H PRN ORAL Mild Pain (Pain Scale 1-3) 09/09/19 23:15 10/09/19 23:14 09/11/19 03:23 Acetaminophen (Tylenol) 650 mg Q4H PRN ORAL fever 09/09/19 23:15 10/09/19 23:14 Acetaminophen (Tylenol) 650 mg Q4H PRN RECTAL Mild Pain (Pain Scale 1-3) 09/09/19 23:15 10/09/19 23:14 Acetaminophen (Tylenol) 650 mg Q4H PRN RECTAL fever 09/09/19 23:15 10/09/19 23:14 Albuterol/ Ipratropium (Albuterol/ Ipratropium) 3 ml Q6HR PRN HHN Shortness of Breath 09/09/19 23:15 09/14/19 23:14 09/11/19 03:39 Atorvastatin Calcium (Lipitor) 10 mg BEDTIME ORAL 09/10/19 21:00 10/10/19 20:59 09/10/19 21:31 Azithromycin 500 mg/Sodium Chloride 275 ml @ 275 mls/hr Q24HRS IV 09/10/19 08:00 09/17/19 07:59 09/11/19 09:01 Cefepime HCl 2 gm/ Dextrose 55 ml @ 110 mls/hr EVERY 12 HOURS IVPB 09/10/19 09:00 09/17/19 08:59 09/11/19 08:41 Dextrose (Dextrose 50%) 25 ml Q30M PRN IV Hypoglycemia 09/10/19 19:00 10/10/19 18:59 Dextrose (Dextrose 50%) 50 ml Q30M PRN IV Hypoglycemia 09/10/19 19:00 10/10/19 18:59 Docusate Sodium (Colace) 100 mg EVERY 12 HOURS ORAL 09/10/19 09:00 10/10/19 08:59 09/11/19 08:38 Escitalopram Oxalate (Lexapro) 5 mg DAILY ORAL 09/10/19 09:00 10/10/19 08:59 09/11/19 08:38 Hydromorphone HCl (Dilaudid) 0.5 mg Q4H PRN IVP For Pain 3-6 09/10/19 14:15 09/17/19 14:14 Hydromorphone HCl (Dilaudid) 1 mg Q4H PRN IVP For Pain 7-10 09/10/19 14:15 09/17/19 14:14 Insulin Aspart (NovoLOG) BEFORE MEALS AND HS SUBQ 09/10/19 06:30 10/10/19 06:29 09/11/19 06:20 Insulin Aspart (NovoLOG) 6 units NOVOTIAC SUBQ 09/11/19 06:30 10/11/19 06:29 09/11/19 06:20 Insulin Detemir (Levemir) 20 units BID SUBQ 09/11/19 09:00 10/10/19 20:59 09/11/19 08:53 Ondansetron HCl (Zofran) 4 mg Q6H PRN IVP Nausea & Vomiting 09/09/19 23:15 10/09/19 23:14 09/10/19 10:17 Polyethylene Glycol (Miralax) 17 gm DAILYPRN PRN ORAL Constipation 09/09/19 23:15 10/09/19 23:14 Pregabalin (Lyrica) 50 mg THREE TIMES A DAY ORAL 09/10/19 09:00 10/10/19 08:59 09/11/19 08:39 Tamsulosin HCl (Flomax) 0.4 mg DAILY ORAL 09/10/19 09:00 10/10/19 08:59 09/11/19 08:38 Vancomycin HCl (Vanco rx to dose) 1 ea DAILY PRN MISC Per rx protocol 09/10/19 13:15 10/10/19 13:14 Vancomycin HCl 750 mg/Sodium Chloride 275 ml @ 183.333 mls/hr Q12H IVPB 09/11/19 04:00 09/16/19 03:59 09/11/19 04:46 Assessment/Plan Problem List: (1) Community acquired bacterial pneumonia ICD Codes: J15.9 - Unspecified bacterial pneumonia SNOMED: 260123861, 11549798 (2) Acute respiratory failure with hypoxemia ICD Codes: J96.01 - Acute respiratory failure with hypoxia SNOMED: 911083377 (3) Lactic acidosis ICD Codes: E87.2 - Acidosis SNOMED: 00912219 (4) Hyperprolactinemia ICD Codes: E22.1 - Hyperprolactinemia SNOMED: 185387563 (5) Sepsis ICD Codes: A41.9 - Sepsis, unspecified organism SNOMED: 46760343, 13127712 Qualifiers: Qualified Codes: A41.9 - Sepsis, unspecified organism; R65.20 - Severe sepsis without septic shock; J96.01 - Acute respiratory failure with hypoxia (6) Diabetes mellitus out of control ICD Codes: E11.65 - Type 2 diabetes mellitus with hyperglycemia SNOMED: 53136094, 803224191 Assessment/Plan: Plan: * Abx per ID: cefepime/vanco/azithro * f/u cultures * f/u repeat CXr * Monitor volumes * Wean oxygen * Endocrine f/u Landry Barlow MD Sep 11, 2019 10:49
[2019-09-11 12:00] VITALS: BP 126/77
--- NOTE | 2019-09-11 13:30 | General Progress Note ---
Assessment/Plan Problem List: (1) Severe sepsis ICD Codes: A41.9 - Sepsis, unspecified organism; R65.20 - Severe sepsis without septic shock SNOMED: 68189528 (2) Acute respiratory failure with hypoxemia ICD Codes: J96.01 - Acute respiratory failure with hypoxia SNOMED: 862332362 (3) Encephalopathy due to infection ICD Codes: G93.49 - Other encephalopathy; B99.9 - Unspecified infectious disease SNOMED: 96959117, 49001214 (4) Community acquired bacterial pneumonia ICD Codes: J15.9 - Unspecified bacterial pneumonia SNOMED: 345054053, 65040479 (5) Diabetes mellitus out of control ICD Codes: E11.65 - Type 2 diabetes mellitus with hyperglycemia SNOMED: 02356891, 699541912 (6) Lactic acidosis ICD Codes: E87.2 - Acidosis SNOMED: 19086235 (7) Hyperprolactinemia ICD Codes: E22.1 - Hyperprolactinemia SNOMED: 631576974 Status: stable, progressing Assessment/Plan: 73 year old presented with fever, chills, sob. Found to be hypoxic, tachycardic and febrile, +leukocytosis, CXR with infiltrates. influenza A/B negative. #Sever sepsis secondary to CAP #Acute respiratory failure with hypoxia #Acute encephalopathy, infection and hypoxic Admit to telemetry cefepime and azithromycin, vancomycin check sputum culture, blood cultures IVF NPO speech therapy evaluation o2 to keep o2 sat >95% Monitor mental status pain control ID and pulmonary consults 2d echocardiogram #DM uncontrolled #Prolactinoma Hold home po meds Insulin basal bolus, monitor fsbg. increase hold Bromocriptine prolactin levels endocrinology consult Tarun Olson #Transient Afib Cardiology consult follow up 2D echocardiogram ASA #Hematuria #BPH hold heparin UA sent Flomax Vte ppx: heparin subq- hold due to hematuria Code: full code per daughter at bedside I spent 40 minutes on this encounter. >50% spent on counselling and care coordination. I spent an additional 35 minutes in reviewing records. Subjective Date patient seen: Sep 11, 2019 ROS Limited/Unobtainable: No Constitutional: Reports: malaise, weakness HEENT: Denies: no symptoms, eye pain, blurred vision, tearing, double vision, ear pain, ear discharge, nose pain, nose congestion, throat pain, throat swelling, mouth pain, mouth swelling, other Cardiovascular: Denies: no symptoms, chest pain, edema, irregular heart rate, lightheadedness, palpitations, syncope, other Respiratory: Reports: cough, shortness of breath Gastrointestinal/Abdominal: Denies: no symptoms, abdomen distended, abdominal pain, black stools, tarry stools, blood in stool, constipated, diarrhea, difficulty swallowing, nausea, poor appetite, poor fluid intake, rectal bleeding , vomiting, other Genitourinary: Reports: hematuria Neurologic/Psychiatric: Denies: no symptoms, anxiety, depressed, emotional problems, headache, numbness, paresthesia, pre-existing deficit, seizure, tingling, tremors, weakness, other Endocrine: Denies: no symptoms, excessive sweating, flushing, intolerance to cold, intolerance to heat, increased hunger, increased thirst, increased urine, unexplained weight gain, unexplained weight loss, other Hematologic/Lymphatic: Denies: no symptoms, anemia, easy bleeding, easy bruising, other Allergies: Coded Allergies: No Known Allergies (Unverified , 09/09/19) Subjective feeling somewhat better. stills ob, febrile last night. daughter at bedside. Brief burst of afib, converted to sinus Objective Last 24 Hour Vital Signs Date Time Temp Pulse Resp B/P (MAP) Pulse Ox O2 Delivery O2 Flow Rate FiO2 09/11/19 09:00 Nasal Cannula 6.0 09/11/19 08:00 97.5 86 20 122/79 (93) 96 09/11/19 08:00 6.0 09/11/19 08:00 86 09/11/19 04:31 99.4 09/11/19 04:00 91 09/11/19 04:00 6.0 09/11/19 04:00 99.4 88 19 145/66 (92) 97 09/11/19 03:44 74 19 94 Nasal Cannula 3.0 32 09/11/19 03:43 94 Nasal Cannula 3.0 32 09/11/19 03:41 76 18 98 Simple Mask 6.0 74 18 94 09/11/19 00:00 6.0 09/11/19 00:00 98.2 84 18 137/61 (86) 98 09/11/19 00:00 78 09/10/19 21:00 Nasal Cannula 6.0 09/10/19 20:00 98.6 88 18 118/77 (91) 94 09/10/19 20:00 6.0 09/10/19 20:00 100 09/10/19 16:55 97 09/10/19 16:11 Nasal Cannula 6.0 09/10/19 15:30 100.4 86 22 147/74 (98) 94 09/10/19 14:50 98.5 89 23 145/84 94 Room Air Intake and Output 09/10/19 09/11/19 19:00 07:00 Intake Total 480 ml Output Total 800 ml Balance 480 ml -800 ml Intake Oral 150 ml IV Total 330 ml Output Urine Total 800 ml Laboratory Tests 09/10/19 20:03: Urine Color Red, Urine Appearance Turbid, Urine pH 6, Urine Specific [place] 1.020, Urine Protein 3+H, Urine Glucose (UA) 4+H, Urine Ketones 1+H, Urine Blood 5+H, Urine Nitrite Negative, Urine Bilirubin Negative, Urine Urobilinogen Normal, Urine Leukocyte Esterase Negative, Urine RBC TntcH, Urine WBC 0-2, Urine Squamous Epithelial Cells Occasional, Urine Bacteria ModerateH 09/11/19 05:35: White Blood Count 19.7H, Red Blood Count 2.99L, Hemoglobin 9.5L, Hematocrit 26.9L, Mean Corpuscular Volume 90, Mean Corpuscular Hemoglobin 31.7H, Mean Corpuscular Hemoglobin Concent 35.3, Red Cell Distribution Width 10.7L, Platelet Count 192, Mean Platelet Volume 5.4L, Neutrophils (%) (Auto) , Lymphocytes (%) (Auto) , Monocytes (%) (Auto) , Eosinophils (%) (Auto) , Basophils (%) (Auto) , Differential Total Cells Counted 100, Neutrophils % ( Manual) 89H, Lymphocytes % (Manual) 5L, Monocytes % (Manual) 6, Eosinophils % ( Manual) 0, Basophils % (Manual) 0, Band Neutrophils 0, Platelet Estimate Adequate, Platelet Morphology Normal, Hypochromasia 2+, Anisocytosis 1+, Spherocytes 1+, Sodium Level 129L, Potassium Level 3.4L, Chloride Level 99, Carbon Dioxide Level 20L, Anion Gap 10, Blood Urea Nitrogen 28H, Creatinine 1.1 , Estimat Glomerular Filtration Rate , Glucose Level 235H, Lactic Acid Level 1.60, Calcium Level 7.6#L, Total Bilirubin 0.5, Aspartate Amino Transf (AST/SGOT ) 346H, Alanine Aminotransferase (ALT/SGPT) 334H, Alkaline Phosphatase 49, Total Protein 5.9L, Albumin 2.2L, Globulin 3.7, Albumin/Globulin Ratio 0.6L, Prolactin [Pending] 09/11/19 06:32: Magnesium Level 2.1 Height (Feet): 5 Height (Inches): 5.00 Weight (Pounds): 155 General Appearance: no apparent distress, alert EENT: PERRL/EOMI, normal ENT inspection Neck: non-tender, supple Cardiovascular: normal peripheral pulses, normal rate, regular rhythm, no gallop/murmur, no JVD Respiratory/Chest: no accessory muscle use, rhonchi - bilaterally, other - chest wall tender, anterior right side Abdomen: normal bowel sounds, non tender, soft, no organomegaly, no mass Extremities: normal range of motion, non-tender, normal inspection, no calf tenderness Neurologic: minister assistant II-XII grossly normal, no motor/sensory deficits, alert, oriented x 3, responsive Skin: normal pigmentation, warm/dry Rick Banerjee M.D. Sep 11, 2019 13:30
[2019-09-11 16:00] VITALS: BP 127/70
--- NOTE | 2019-09-11 17:30 | Consultation ---
DATE OF CONSULTATION: 09/11/2019 CARDIOLOGY CONSULTATION CONSULTING PHYSICIAN: Irving Joy M.D. REASON FOR CONSULTATION: Tachycardia, right bundle-branch block, management of hypertension. HISTORY OF PRESENT ILLNESS: The patient is a 73-year-old Italian gentleman with history of hypertension, diabetes, history of history of colon cancer with questionable metastasis to the lungs as well as history of prolactinemia, was followed up at [facility]. The patient presented to the emergency room for shortness of breath, weakness, and fever for the last three days. The patient's mental status was also deteriorating, so the daughter who is a pharmaceutical rep called 911 and was brought to the emergency room. The patient denies any prior myocardial infarction or coronary artery disease or congestive heart failure. Glucose was around 300. The patient was evaluated by Dr. Mcneil from diabetes perspective. REVIEW OF SYSTEMS: Review of systems cannot be obtained as currently the patient is confused. PAST MEDICAL HISTORY: As mentioned above. FAMILY HISTORY: Noncontributory. SOCIAL HISTORY: He lives at home. Does not smoke or drink alcohol. PHYSICAL EXAMINATION: VITAL SIGNS: Show blood pressure of 122/79, pulse 86, respirations 18, and temperature 97.5. HEAD AND NECK: No JVD. LUNGS: Clear. CARDIOVASCULAR: Regular S1 and S2 with no gallop or murmur. ABDOMEN: Soft. EXTREMITIES: No pitting edema. LABORATORY AND DIAGNOSTIC DATA: His EKG shows sinus tachycardia with complete right bundle-branch block. Labs show white count of 19.7, hemoglobin of 9.5, hematocrit of 27, and platelet count is 192. Sodium 129, potassium 3.4, BUN of 28, creatinine 1.1, glucose of 235. Hemoglobin A1c 6.9. Troponin was negative. ASSESSMENT AND PLAN: 1. Atrial fibrillation, rate of 110. The patient already converted to sinus rhythm. There is no known history of coronary artery disease or congestive heart failure or prior atrial fibrillation. We will get an echocardiogram and completely rule out myocardial infarction protocol. I will start the patient on beta imer at this time in view of his diabetes. We will watch the patient on telemetry. We will hold off on anticoagulation as well. 2. Complete right bundle-branch block. We will get an echocardiogram for further evaluation. 3. History of hypertension. Add p.r.n. clonidine and hydralazine. 4. Pneumonia on IV antibiotic. 5. Uncontrolled diabetes. 6. Hyperprolactinemia. Further evaluation by Dr. Mcneil. Thank you very much for allowing me to participate in the care of this patient. Please do not hesitate to contact me for any questions regarding my evaluation. Irving Joy M.D. DR: Carolina JOB#: [id number] CC:
[2019-09-11 20:00] VITALS: BP 130/78
--- NOTE | 2019-09-11 20:56 | Infectious Diseases Prog Note ---
Assessment/Plan Assessment/Plan A) 1) cap, sepsis, leukocytosis, fevers 2) pmh noted 3) allergies - nkda P) 1) cefepime, azithromycin and vancomycin 2) check sputum culture, labs and chest x-ray 3) monitor clinically and leukocytosis 4) will f/u Subjective Constitutional: Denies: fever HEENT: Reports: congestion Respiratory: Reports: shortness of breath Cardiovascular: Denies: chest pain Gastrointestinal/Abdominal: Denies: nausea, vomiting, diarrhea Allergies: Coded Allergies: No Known Allergies (Unverified , 09/09/19) Objective Vital Signs Last 24 Hour Vital Signs Date Time Temp Pulse Resp B/P (MAP) Pulse Ox O2 Delivery O2 Flow Rate FiO2 09/11/19 16:00 6.0 09/11/19 16:00 94 09/11/19 16:00 97.8 97 20 127/70 (89) 94 09/11/19 12:00 6.0 09/11/19 12:00 97 09/11/19 12:00 97.5 96 20 126/77 (93) 95 09/11/19 09:43 84 18 95 Nasal Cannula 3.0 32 09/11/19 09:43 95 Nasal Cannula 3.0 32 09/11/19 09:00 Nasal Cannula 6.0 09/11/19 08:00 97.5 86 20 122/79 (93) 96 09/11/19 08:00 6.0 09/11/19 08:00 86 09/11/19 04:31 99.4 09/11/19 04:00 91 09/11/19 04:00 6.0 09/11/19 04:00 99.4 88 19 145/66 (92) 97 09/11/19 03:44 74 19 94 Nasal Cannula 3.0 32 09/11/19 03:43 94 Nasal Cannula 3.0 32 09/11/19 03:41 76 18 98 Simple Mask 6.0 74 18 94 09/11/19 00:00 6.0 09/11/19 00:00 98.2 84 18 137/61 (86) 98 09/11/19 00:00 78 09/10/19 21:00 Nasal Cannula 6.0 Height (Feet): 5 Height (Inches): 5.00 Weight (Pounds): 155 General Appearance: no acute distress HEENT: normocephalic, atraumatic, anicteric, mucous membranes moist Respiratory/Chest: crackles/rales, rhonchi - bilaterally Cardiovascular: normal rate, regular rhythm Abdomen: normal bowel sounds, soft, non tender, no organomegaly Microbiology Date/Time Source Procedure Growth Status 09/09/19 21:20 Blood Blood Culture - Preliminary NO GROWTH AFTER 24 HOURS Resulted 09/09/19 21:05 Blood Blood Culture - Preliminary NO GROWTH AFTER 24 HOURS Resulted 09/09/19 22:30 Nasal Nares - Final Complete 09/09/19 22:30 Nasal Nares - Final Complete 09/10/19 20:03 Urine,Clean Catch Urine Culture - Preliminary NO GROWTH Resulted Laboratory Tests Test 09/11/19 05:35 09/11/19 06:32 White Blood Count 19.7 K/UL (4.8-10.8) H Red Blood Count 2.99 M/UL (4.70-6.10) L Hemoglobin 9.5 G/DL (14.2-18.0) L Hematocrit 26.9 % (42.0-52.0) L Mean Corpuscular Volume 90 FL (80-99) Mean Corpuscular Hemoglobin 31.7 PG (27.0-31.0) H Mean Corpuscular Hemoglobin Concent 35.3 G/DL (32.0-36.0) Red Cell Distribution Width 10.7 % (11.6-14.8) L Platelet Count 192 K/UL (150-450) Mean Platelet Volume 5.4 FL (6.5-10.1) L Neutrophils (%) (Auto) % (45.0-75.0) Lymphocytes (%) (Auto) % (20.0-45.0) Monocytes (%) (Auto) % (1.0-10.0) Eosinophils (%) (Auto) % (0.0-3.0) Basophils (%) (Auto) % (0.0-2.0) Differential Total Cells Counted 100 Neutrophils % (Manual) 89 % (45-75) H Lymphocytes % (Manual) 5 % (20-45) L Monocytes % (Manual) 6 % (1-10) Eosinophils % (Manual) 0 % (0-3) Basophils % (Manual) 0 % (0-2) Band Neutrophils 0 % (0-8) Platelet Estimate Adequate Platelet Morphology Normal Hypochromasia 2+ Anisocytosis 1+ Spherocytes 1+ Sodium Level 129 MMOL/L (136-145) L Potassium Level 3.4 MMOL/L (3.5-5.1) L Chloride Level 99 MMOL/L (98-107) Carbon Dioxide Level 20 MMOL/L (21-32) L Anion Gap 10 mmol/L (5-15) Blood Urea Nitrogen 28 mg/dL (7-18) H Creatinine 1.1 MG/DL (0.55-1.30) Estimat Glomerular Filtration Rate mL/min (>60) Glucose Level 235 MG/DL (74-106) H Lactic Acid Level 1.60 mmol/L (0.4-2.0) Calcium Level 7.6 MG/DL (8.5-10.1) #L Total Bilirubin 0.5 MG/DL (0.2-1.0) Aspartate Amino Transf (AST/SGOT) 346 U/L (15-37) H Alanine Aminotransferase (ALT/SGPT) 334 U/L (12-78) H Alkaline Phosphatase 49 U/L (46-116) Total Protein 5.9 G/DL (6.4-8.2) L Albumin 2.2 G/DL (3.4-5.0) L Globulin 3.7 g/dL Albumin/Globulin Ratio 0.6 (1.0-2.7) L Prolactin Pending Magnesium Level 2.1 MG/DL (1.8-2.4) Current Medications Medications (Trade) Dose Ordered Sig/Ishaan Route PRN Reason Start Time Stop Time Status Last Admin Dose Admin Acetaminophen (Tylenol) 650 mg Q4H PRN ORAL Mild Pain (Pain Scale 1-3) 09/09/19 23:15 10/09/19 23:14 09/11/19 03:23 Acetaminophen (Tylenol) 650 mg Q4H PRN ORAL fever 09/09/19 23:15 10/09/19 23:14 Acetaminophen (Tylenol) 650 mg Q4H PRN RECTAL Mild Pain (Pain Scale 1-3) 09/09/19 23:15 10/09/19 23:14 Acetaminophen (Tylenol) 650 mg Q4H PRN RECTAL fever 09/09/19 23:15 10/09/19 23:14 Albuterol/ Ipratropium (Albuterol/ Ipratropium) 3 ml Q6HR PRN HHN Shortness of Breath 09/09/19 23:15 09/14/19 23:14 09/11/19 03:39 Atorvastatin Calcium (Lipitor) 10 mg BEDTIME ORAL 09/10/19 21:00 10/10/19 20:59 09/10/19 21:31 Azithromycin 500 mg/Sodium Chloride 275 ml @ 275 mls/hr Q24HRS IV 09/10/19 08:00 09/17/19 07:59 09/11/19 09:01 Cefepime HCl 2 gm/ Dextrose 55 ml @ 110 mls/hr EVERY 12 HOURS IVPB 09/10/19 09:00 09/17/19 08:59 09/11/19 08:41 Dextrose (Dextrose 50%) 25 ml Q30M PRN IV Hypoglycemia 09/10/19 19:00 10/10/19 18:59 Dextrose (Dextrose 50%) 50 ml Q30M PRN IV Hypoglycemia 09/10/19 19:00 10/10/19 18:59 Docusate Sodium (Colace) 100 mg EVERY 12 HOURS ORAL 09/10/19 09:00 10/10/19 08:59 09/11/19 08:38 Escitalopram Oxalate (Lexapro) 5 mg DAILY ORAL 09/10/19 09:00 10/10/19 08:59 09/11/19 08:38 Hydromorphone HCl (Dilaudid) 0.5 mg Q4H PRN IVP For Pain 3-6 09/10/19 14:15 09/17/19 14:14 Hydromorphone HCl (Dilaudid) 1 mg Q4H PRN IVP For Pain 7-10 09/10/19 14:15 09/17/19 14:14 09/11/19 19:11 Insulin Aspart (NovoLOG) BEFORE MEALS AND HS SUBQ 09/11/19 16:30 10/11/19 16:29 09/11/19 18:13 Insulin Aspart (NovoLOG) 6 units NOVOTIAC SUBQ 09/11/19 06:30 10/11/19 06:29 09/11/19 18:12 Insulin Detemir (Levemir) 20 units BID SUBQ 09/11/19 09:00 10/10/19 20:59 09/11/19 18:13 Ondansetron HCl (Zofran) 4 mg Q6H PRN IVP Nausea & Vomiting 09/09/19 23:15 10/09/19 23:14 09/10/19 10:17 Polyethylene Glycol (Miralax) 17 gm DAILYPRN PRN ORAL Constipation 09/09/19 23:15 10/09/19 23:14 Pregabalin (Lyrica) 50 mg THREE TIMES A DAY ORAL 09/10/19 09:00 10/10/19 08:59 09/11/19 18:00 Sodium Chloride 1,000 ml @ 100 mls/hr Q10H IV 09/11/19 15:46 10/11/19 15:45 09/11/19 15:47 Tamsulosin HCl (Flomax) 0.4 mg DAILY ORAL 09/10/19 09:00 10/10/19 08:59 09/11/19 08:38 Vancomycin HCl (Vanco rx to dose) 1 ea DAILY PRN MISC Per rx protocol 09/10/19 13:15 10/10/19 13:14 Vancomycin HCl 750 mg/Sodium Chloride 275 ml @ 183.333 mls/hr Q12H IVPB 09/11/19 04:00 09/16/19 03:59 09/11/19 15:48 Kesha Rebollar MD Sep 11, 2019 20:56
[2019-09-12] VITALS: BP 138/83
--- NOTE | 2019-09-12 | Consultation ---
DATE OF CONSULTATION: 09/11/2019 INFECTIOUS DISEASE CONSULTATION CONSULTING PHYSICIAN: Kesha Rebollar M.D. ATTENDING PHYSICIAN: Tim Lemons M.D. REFERRING PHYSICIAN: Rick Banerjee M.D. REASON FOR CONSULTATION: Sepsis, pneumonia, fever, leukocytosis. CHIEF COMPLAINT: Coming into the hospital is sepsis and pneumonia. HISTORY OF PRESENT ILLNESS: This is a 73-year-old male, who comes into [facility] with altered mental status, sepsis, fevers, leukocytosis, SIRS criteria, severe sepsis, and pneumonia. The patient is not a very good historian at this time. He did come in with some congestion and hypoxia. Infectious Disease consultation was requested for antibiotic management. I saw the patient yesterday in the emergency room, put him on vancomycin, Rocephin, and azithromycin. Sputum culture at that time is pending. Blood and urine culture so far negative. Chest x-ray shows a right-sided infiltrate. The patient is sleeping. MAR was noted. Orders were noted. Notes and records were reviewed. Case was discussed with RN. REVIEW OF SYSTEMS: CONSTITUTIONAL: Generalized fatigue, weakness, and altered mental status. He came in with fevers. SKIN: No rash. No seizures. He has no Cali. No central lines. HEAD AND NECK: No head pain or neck pain. PULMONARY: Mild cough and congestion. No secretions or hemoptysis. CARDIAC: No chest pain or pressure. GENITOURINARY: No Cali. No CVA tenderness. He maybe mildly responsive, but not very responsive GASTROINTESTINAL: No nausea, vomiting, or diarrhea. No obvious abdominal pain. PAST MEDICAL HISTORY: The patient has past medical history of diabetes, hyperlipidemia, and prolactinoma. He does have a history of prolactinoma and cancer. Again, diabetes and hypertension, and also hyperlipidemia. ALLERGIES: No known drug allergies. No antibiotic allergies. SOCIAL HISTORY: Negative for smoking, alcohol, and drug abuse. FAMILY HISTORY: Negative for tuberculosis or cancer per the records. MEDICATIONS: Upon reviewing the MAR, he is on the following medications: he is on insulin. He is on vancomycin, Rocephin, Flagyl, atorvastatin, hydromorphone, and docusate. He is on Lexapro, Lyrica, tamsulosin, azithromycin, vancomycin, cefepime, albuterol treatments, acetaminophen, and Zofran. Outside medications were noted and reconciliated. PHYSICAL EXAMINATION: VITAL SIGNS: Temperature is 97.8, pulse rate 97, respiratory rate 20, and blood pressure 127/70. Saturation 94%. Temperature has been as high as 100.4. Pulse rate has been as high as 115 and respiratory rate has been as high as 24. GENERAL: Lethargic, weak, maybe opens his eyes occasionally, but somewhat lethargic. HEAD AND NECK: Oral exam, no thrush. Eye exam, no icterus. Normocephalic. Neck is supple. No JVD. HEART: Regular. No gallop or murmur. No friction rub. LUNGS: Few bilateral rhonchi with right-sided rales. ABDOMEN: Soft. Positive bowel sounds. Nontender. SKIN: No rash. MUSCULOSKELETAL: No effusions. Legs are without cellulitis. PERIPHERAL VASCULAR: No cyanosis or gangrene. GENITOURINARY: No Cali. LINE SITES: Without phlebitis. NEUROLOGIC: General weakness, poorly responsive, and lethargic. LABORATORY AND DIAGNOSTIC DATA: Cultures, urine and blood cultures are negative. Creatinine 1.1. LFTs are noted and elevated. White count 19.7, hemoglobin 9.5. White count was as high as 20.9. UA, leukocyte esterase negative. Blood and urine cultures negative. Chest x-ray shows right basal pneumonia. Possible atelectasis, probable infiltrate versus atelectasis of the right lung. Sputum culture pending. ASSESSMENT AND PLAN: 1. The patient has severe sepsis, SIRS criteria, fevers, leukocytosis, tachycardia, elevated respiratory rate, and altered mental status. The patient will be continued on antibiotics of vancomycin, cefepime, and azithromycin to cover community-acquired pneumonia with sepsis. Vancomycin and cefepime for gram-positive and gram-negative coverage for sepsis, and azithromycin for atypical coverage. Continue vancomycin, cefepime, and azithromycin for sepsis and pneumonia. Check cultures, labs, microbiology, legionella and sputum culture, followup chest x-ray. The patient does have altered mental status and does not wake up fairly soon. If mental status improves, the patient may need a lumbar puncture, however, neck is supple at this time. 2. Diabetes. 3. Hypertension. 4. Hyperlipidemia. 5. Blood sugar and blood pressure treatment per primary care team for diabetes, hypertension, and hyperlipidemia. 6. Hyponatremia. 7. Hypoxia. 8. Pulmonary followup. 9. History of prolactinoma. 10. No known drug allergies. 11. Social history is negative. 12. Family history is noncontributory. 13. MAR is noted. 14. Case was discussed with RN. 15. Continue treatment per primary consultants. 16. continue per primary team 17. Skin care protocol. 18. Orders were noted and entered. 19. The patient does have elevated LFTs. We will check a hepatitis panel and also abdominal ultrasound. Kesha Rebollar M.D. DR: REYNALDO JOB#: [id number] CC: [email or web address]
[2019-09-12] MEDS: HYDROmorphone 1mg/ml Carpuject IVP PRN ×3 (02:37→20:43)
[2019-09-12 03:37] LABS: ANION GAP 10 mmol/L (5-15); BLOOD UREA NITROGEN 16 mg/dL (7-18); CALCIUM 7.9 MG/DL (8.5-10.1); CARBON DIOXIDE 25 MMOL/L (21-32); CHLORIDE 97 MMOL/L (98-107); CREATININE 0.8 MG/DL (0.55-1.30); POTASSIUM 3.2 MMOL/L (3.5-5.1); SODIUM 132 MMOL/L (136-145)
[2019-09-12 04:00] VITALS: BP 141/84
[2019-09-12 04:04] LABS: CHOLESTEROL 94 MG/DL (< 200); HDL CHOLESTEROL 15 MG/DL (40-60); TRIGLYCERIDES 158 MG/DL (30-150)
[2019-09-12 04:21] LABS: HEMATOCRIT 29.7 % (42.0-52.0); HEMOGLOBIN 10.5 G/DL (14.2-18.0); MEAN CORPUSCULAR VOLUME 89 FL (80-99); PLATELET COUNT 221 K/UL (150-450); RED BLOOD COUNT 3.35 M/UL (4.70-6.10); RED CELL DISTRIBUTION WIDTH 10.2 % (11.6-14.8)
[2019-09-12 04:24] LABS: WHITE BLOOD COUNT 23.9 K/UL (4.8-10.8)
[2019-09-12] MEDS: Vancomycin 750mg/NS 275ml IVPB SCH ×2 (04:55)
[2019-09-12] MEDS: NovoLOG Insulin Flexpen SUBQ SCH ×7 (06:30→21:14)
[2019-09-12 08:00] VITALS: BP 142/83
[2019-09-12] MEDS: Azithromycin 500 MG in NS 275 ML IV SCH (08:07)
--- NOTE | 2019-09-12 08:37 | General Progress Note ---
Assessment/Plan Problem List: (1) Severe sepsis ICD Codes: A41.9 - Sepsis, unspecified organism; R65.20 - Severe sepsis without septic shock SNOMED: 16660274 (2) Acute respiratory failure with hypoxemia ICD Codes: J96.01 - Acute respiratory failure with hypoxia SNOMED: 054851644 (3) Encephalopathy due to infection ICD Codes: G93.49 - Other encephalopathy; B99.9 - Unspecified infectious disease SNOMED: 81376857, 42365948 (4) Community acquired bacterial pneumonia ICD Codes: J15.9 - Unspecified bacterial pneumonia SNOMED: 555463167, 96812206 (5) Diabetes mellitus out of control ICD Codes: E11.65 - Type 2 diabetes mellitus with hyperglycemia SNOMED: 02081322, 472617947 (6) Lactic acidosis ICD Codes: E87.2 - Acidosis SNOMED: 25233782 (7) Hyperprolactinemia ICD Codes: E22.1 - Hyperprolactinemia SNOMED: 246788602 (8) Pulmonary HTN ICD Codes: I27.20 - Pulmonary hypertension, unspecified SNOMED: 45095012 (9) Diastolic CHF, acute ICD Codes: I50.31 - Acute diastolic (congestive) heart failure SNOMED: 91424680, 039546629 (10) Pleural effusion, right ICD Codes: J90 - Pleural effusion, not elsewhere classified SNOMED: 64890580 Status: stable, progressing Assessment/Plan: 73 year old presented with fever, chills, sob. Found to be hypoxic, tachycardic and febrile, +leukocytosis, CXR with infiltrates. influenza A/B negative. #Sever sepsis secondary to CAP #Acute respiratory failure with hypoxia #Acute encephalopathy, infection and hypoxic #Right sided pleural effusion #Pulmonary HTN telemetry cefepime and azithromycin, vancomycin check sputum culture, blood cultures speech therapy evaluation appreciated--> pureed to ground texture o2 to keep o2 sat >95% Monitor mental status pain control ID and pulmonary consults IV lasix 40mg once. reassess, order daily, try diuresis then CT chest, then evaluate for thoracentesis. d/w Kris Barlow and Rufino #Diastolic CHF, acute #R pleural effusion #Transient Afib/Flutter #pulmonary HTN Echo reviewed: Diastolic dysfunction, pulmonary HTN, systolic function seems to be okay IV lasix 40 mg once, then reassess and order daily d/w cardiology Metoprolol 12.5 mg BID, ASA, Atorvastatin. Will hold Atorvastatin given rise in LFTs #Transaminitis, ?passive congestion, patten not obstructive , normal ALP and total bili AST/ALT 300's normal on admission monitor follow up hepatitis panel US abdomen reviewed: Gallbladder sludge and possible small stones. Mildly ectatic common bile duct, probably related to patient's age but downstream obstruction not completely excludable. Correlate with liver function tests, consider MRCP if clinically indicated. Liver demonstrates diffusely increased echogenicity, consistent with diffuse hepatocellular disease, most likely fatty change. Trace perihepatic ascites. Large right pleural effusion. Incidental finding small lateral renal cysts. Note inability to visualize portions of the abdominal aorta #DM uncontrolled #Prolactinoma Hold home po meds Insulin basal bolus, monitor fsbg. increase hold Bromocriptine prolactin levels endocrinology consult Tarun Olson #Hematuria #BPH hold heparin UA sent Flomax #Hypokalemia Replace Vte ppx: heparin subq- hold due to hematuria Code: full code per daughter at bedside I spent 40 minutes on this encounter. >50% spent on counselling and care coordination. case d/w daughter and RN at bedside. Subjective Date patient seen: Sep 12, 2019 Constitutional: Reports: diaphoresis, malaise HEENT: Denies: no symptoms, eye pain, blurred vision, tearing, double vision, ear pain, ear discharge, nose pain, nose congestion, throat pain, throat swelling, mouth pain, mouth swelling, other Cardiovascular: Denies: no symptoms, chest pain, edema, irregular heart rate, lightheadedness, palpitations, syncope, other Respiratory: Reports: cough, orthopnea, shortness of breath, SOB at rest Gastrointestinal/Abdominal: Reports: abdomen distended Genitourinary: Denies: no symptoms, burning, discharge, frequency, flank pain, hematuria, incontinence, pain, urgency, other Neurologic/Psychiatric: Denies: no symptoms, anxiety, depressed, emotional problems, headache, numbness, paresthesia, pre-existing deficit, seizure, tingling, tremors, weakness, other Endocrine: Denies: no symptoms, excessive sweating, flushing, intolerance to cold, intolerance to heat, increased hunger, increased thirst, increased urine, unexplained weight gain, unexplained weight loss, other Hematologic/Lymphatic: Denies: no symptoms, anemia, easy bleeding, easy bruising, other Allergies: Coded Allergies: No Known Allergies (Unverified , 09/09/19) Subjective seen and examined, daughter at bedside, patient feels like he is dying, he is alert and awake, in mild respiratory distress. audible wheezing. diaphoretic. Right chest hurts. interval development : bouts of Afib, worsening right sided effusion, echo with normal LV function, +diastolic dysfunction and pulmonary HTN, bnp 6000 AST/ALT in the 300's now, normal on admission. wbc increased to 23.9 Objective Last 24 Hour Vital Signs Date Time Temp Pulse Resp B/P (MAP) Pulse Ox O2 Delivery O2 Flow Rate FiO2 09/12/19 04:00 6.0 09/12/19 04:00 104 09/12/19 04:00 98.2 98 19 141/84 (103) 95 09/12/19 01:48 141 09/12/19 00:00 99.1 96 20 138/83 (101) 94 09/12/19 00:00 101 09/12/19 00:00 6.0 09/11/19 22:42 81 18 99 Nasal Cannula 3.0 32 82 18 96 09/11/19 21:00 Nasal Cannula 6.0 09/11/19 20:00 100 09/11/19 20:00 82 18 96 Nasal Cannula 3.0 32 09/11/19 20:00 98.6 97 20 130/78 (95) 94 09/11/19 20:00 3.0 09/11/19 20:00 96 Nasal Cannula 3.0 32 09/11/19 16:00 6.0 09/11/19 16:00 94 09/11/19 16:00 97.8 97 20 127/70 (89) 94 09/11/19 12:00 6.0 09/11/19 12:00 97 09/11/19 12:00 97.5 96 20 126/77 (93) 95 09/11/19 09:43 84 18 95 Nasal Cannula 3.0 32 09/11/19 09:43 95 Nasal Cannula 3.0 32 09/11/19 09:00 Nasal Cannula 6.0 Intake and Output 09/11/19 09/12/19 18:59 06:59 Intake Total 1580 ml Output Total 1200 ml 1200 ml Balance 380 ml -1200 ml Intake Oral 720 ml IV Total 860 ml Output Urine Total 1200 ml 1200 ml # Bowel Movements 1 Laboratory Tests 09/12/19 03:17: White Blood Count 23.9*H, Red Blood Count 3.35L, Hemoglobin 10.5L, Hematocrit 29.7L, Mean Corpuscular Volume 89, Mean Corpuscular Hemoglobin 31.3H, Mean Corpuscular Hemoglobin Concent 35.2, Red Cell Distribution Width 10.2L, Platelet Count 221, Mean Platelet Volume 5.7L, Neutrophils (%) (Auto) , Lymphocytes (%) (Auto) , Monocytes (%) (Auto) , Eosinophils (%) (Auto) , Basophils (%) (Auto) , Neutrophils % (Manual) [Pending], Lymphocytes % (Manual) [Pending], Platelet Estimate [Pending], Platelet Morphology [Pending], Sodium Level 132L, Potassium Level 3.2L, Chloride Level 97L, Carbon Dioxide Level 25, Anion Gap 10, Blood Urea Nitrogen 16, Creatinine 0.8, Estimat Glomerular Filtration Rate , Glucose Level 114#H, Calcium Level 7.9L, Troponin I 0.198H, Pro-B-Type Natriuretic Peptide 6819H, Triglycerides Level 158H, Cholesterol Level 94, LDL Cholesterol 45, HDL Cholesterol 15L, Cholesterol/HDL Ratio 6.3H, Thyroid Stimulating Hormone (TSH) 0.750, Vancomycin Level Trough [Pending], Hepatitis A IgM Antibody [Pending], Hepatitis B Surface Antigen [Pending], Hepatitis B Core IgM Antibody [Pending], Hepatitis C Antibody [Pending], Mycoplasma pneumoniae IgG Antibody [Pending], Mycoplasma pneumoniae IgM Ab Titer [Pending] Height (Feet): 5 Height (Inches): 5.00 Weight (Pounds): 154 General Appearance: alert, moderate distress EENT: PERRL/EOMI, normal ENT inspection Neck: non-tender, normal alignment, supple Cardiovascular: normal peripheral pulses, normal rate, regular rhythm, no gallop/murmur, no JVD Respiratory/Chest: crackles/rales Abdomen: normal bowel sounds, non tender, soft, no organomegaly, no mass, distended Extremities: normal range of motion, no calf tenderness Rick Banerjee M.D. Sep 12, 2019 08:37
[2019-09-12] MEDS: Levemir Flexpen SUBQ SCH ×2 (09:00→17:31)
[2019-09-12] MEDS: Docusate 100mg cap ORAL SCH ×2 (09:29→21:09)
--- NOTE | 2019-09-12 09:29 | Diagnostic Imaging Report ---
Indication: Abdominal distention, abnormal liver function tests, leukocytosis Technique: Black-scale and duplex images of the upper abdomen were obtained Comparison: none Findings: Gallbladder demonstrates sludge and possible small gallstones. Sonographic Steward's sign is negative. Common bile duct measures 7 mm in diameter. No intrahepatic biliary ductal dilatation. Liver demonstrates diffusely increased echogenicity, consistent with diffuse hepatocellular disease, most likely fatty change. Area of focal sparing is seen in the usual location adjacent to the gallbladder fossa. Portal vein and hepatic veins are patent. Pancreas is unremarkable. Spleen is unremarkable. Left kidney measures 11.9 cm in length. Right kidney measures 10.6 cm length. Both kidneys demonstrate normal echogenicity. There is no hydronephrosis. There are bilateral renal cysts noted. . Abdominal aorta is partially obscured by bowel gas, visualized portions are non-aneurysmal . There is trace perihepatic ascites. There is a large right pleural effusion Impression: Gallbladder sludge and possible small stones Mildly ectatic common bile duct, probably related to patient's age but downstream obstruction not completely excludable. Correlate with liver function tests, consider MRCP if clinically indicated Liver demonstrates diffusely increased echogenicity, consistent with diffuse hepatocellular disease, most likely fatty change. Trace perihepatic ascites Large right pleural effusion Incidental finding small lateral renal cysts Note inability to visualize portions of the abdominal aorta
[2019-09-12] MEDS: Lyrica 50mg cap ORAL SCH ×3 (09:30→17:26)
[2019-09-12] MEDS: Tamsulosin 0.4mg cap ORAL SCH (09:30)
[2019-09-12] MEDS: Aspirin Baby 81mg ORAL SCH (09:30)
[2019-09-12] MEDS: Cefepime HCl 2 GM in D5W 55 ML IVPB SCH ×2 (09:31→21:09)
--- NOTE | 2019-09-12 09:31 | Diagnostic Imaging Report ---
Indication: Shortness of breath Technique: One view of the chest Comparison: 09/09/2019 Findings: The heart is enlarged. There is increased interstitial edema. There is increased right pleural fluid. Impression: Increased and now large right pleural effusion Increased interstitial edema, over 3 days Cardiomegaly
[2019-09-12] MEDS: Metoprolol Tartrate 12.5mg TAB ORAL SCH ×2 (09:40→21:10)
[2019-09-12 12:00] VITALS: BP 123/74
--- NOTE | 2019-09-12 13:28 | Cardiac Electrophysiology PN ---
Assessment/Plan Assessment/Plan 1. Atrial fibrillation, rate of 110. The patient already converted to sinus rhythm. There is no known history of coronary artery disease or congestive heart failure or prior atrial fibrillation. Echo EF 55%. 2. Troponin leak negative to 0.198. Right side CP only when coughs. On Aspirin, Lopressor 12.5 bid and Lipitor 10 3. RBBB 3. HTN 4. Right sided pleural effusion. Started on Lasix 20 iv bid. May need Chest CT and Thoracentesis if not improved. 5. Pneumonia on IV antibiotic. 6. Uncontrolled diabetes. 7. Hyperprolactinemia. Further evaluation by Dr. Mcneil. DW Dr Banerjee. Subjective Subjective Had atrial fib overnight. Very weak. Objective Last 24 Hour Vital Signs Date Time Temp Pulse Resp B/P (MAP) Pulse Ox O2 Delivery O2 Flow Rate FiO2 09/12/19 12:18 85 21 97 Simple Mask 8.0 52 09/12/19 12:16 97 Simple Mask 8.0 52 09/12/19 11:14 98.0 09/12/19 09:40 92 142/83 09/12/19 09:00 Simple Mask 6.0 09/12/19 09:00 6.0 09/12/19 08:00 104 09/12/19 08:00 98.0 92 20 142/83 (102) 98 09/12/19 04:00 6.0 09/12/19 04:00 104 09/12/19 04:00 98.2 98 19 141/84 (103) 95 09/12/19 01:48 141 09/12/19 00:00 99.1 96 20 138/83 (101) 94 09/12/19 00:00 101 09/12/19 00:00 6.0 09/11/19 22:42 81 18 99 Nasal Cannula 3.0 32 82 18 96 09/11/19 21:00 Nasal Cannula 6.0 09/11/19 20:00 100 09/11/19 20:00 82 18 96 Nasal Cannula 3.0 32 09/11/19 20:00 98.6 97 20 130/78 (95) 94 09/11/19 20:00 3.0 09/11/19 20:00 96 Nasal Cannula 3.0 32 09/11/19 16:00 6.0 09/11/19 16:00 94 09/11/19 16:00 97.8 97 20 127/70 (89) 94 Intake and Output 09/11/19 09/12/19 19:00 07:00 Intake Total 1250 ml Output Total 1200 ml 1200 ml Balance 50 ml -1200 ml Intake Oral 720 ml IV Total 530 ml Output Urine Total 1200 ml 1200 ml # Bowel Movements 1 Laboratory Tests Test 09/12/19 03:17 White Blood Count 23.9 K/UL (4.8-10.8) *H Red Blood Count 3.35 M/UL (4.70-6.10) L Hemoglobin 10.5 G/DL (14.2-18.0) L Hematocrit 29.7 % (42.0-52.0) L Mean Corpuscular Volume 89 FL (80-99) Mean Corpuscular Hemoglobin 31.3 PG (27.0-31.0) H Mean Corpuscular Hemoglobin Concent 35.2 G/DL (32.0-36.0) Red Cell Distribution Width 10.2 % (11.6-14.8) L Platelet Count 221 K/UL (150-450) Mean Platelet Volume 5.7 FL (6.5-10.1) L Neutrophils (%) (Auto) % (45.0-75.0) Lymphocytes (%) (Auto) % (20.0-45.0) Monocytes (%) (Auto) % (1.0-10.0) Eosinophils (%) (Auto) % (0.0-3.0) Basophils (%) (Auto) % (0.0-2.0) Differential Total Cells Counted 100 Neutrophils % (Manual) 82 % (45-75) H Lymphocytes % (Manual) 4 % (20-45) L Monocytes % (Manual) 6 % (1-10) Eosinophils % (Manual) 0 % (0-3) Basophils % (Manual) 0 % (0-2) Band Neutrophils 8 % (0-8) Platelet Estimate Adequate Platelet Morphology Normal Red Blood Cell Morphology Normal Sodium Level 132 MMOL/L (136-145) L Potassium Level 3.2 MMOL/L (3.5-5.1) L Chloride Level 97 MMOL/L (98-107) L Carbon Dioxide Level 25 MMOL/L (21-32) Anion Gap 10 mmol/L (5-15) Blood Urea Nitrogen 16 mg/dL (7-18) Creatinine 0.8 MG/DL (0.55-1.30) Estimat Glomerular Filtration Rate mL/min (>60) Glucose Level 114 MG/DL (74-106) #H Calcium Level 7.9 MG/DL (8.5-10.1) L Troponin I 0.198 ng/mL (0.000-0.056) Pro-B-Type Natriuretic Peptide 6819 pg/mL (0-125) H Triglycerides Level 158 MG/DL (30-150) H Cholesterol Level 94 MG/DL (< 200) LDL Cholesterol 45 mg/dL (<100) HDL Cholesterol 15 MG/DL (40-60) L Cholesterol/HDL Ratio 6.3 (3.3-4.4) H Thyroid Stimulating Hormone (TSH) 0.750 uiU/mL (0.358-3.740) Vancomycin Level Trough 6.7 ug/mL (5.0-12.0) Hepatitis A IgM Antibody Pending Hepatitis B Surface Antigen Pending Hepatitis B Core IgM Antibody Pending Hepatitis C Antibody Pending Mycoplasma pneumoniae IgG Antibody Pending Mycoplasma pneumoniae IgM Ab Titer Pending Microbiology Date/Time Source Procedure Growth Status 09/09/19 21:20 Blood Blood Culture - Preliminary NO GROWTH AFTER 48 HOURS Resulted 09/09/19 21:05 Blood Blood Culture - Preliminary NO GROWTH AFTER 48 HOURS Resulted 09/09/19 22:30 Nasal Nares - Final Complete 09/09/19 22:30 Nasal Nares - Final Complete 09/10/19 20:03 Urine,Clean Catch Urine Culture - Preliminary NO GROWTH AFTER 24 HOURS Resulted Objective HEAD AND NECK: No JVD. LUNGS: Clear. CARDIOVASCULAR: Regular S1 and S2 with no gallop or murmur. ABDOMEN: Soft. EXTREMITIES: No pitting edema. Irving Joy MD Sep 12, 2019 13:28
--- NOTE | 2019-09-12 15:03 | Diagnostic Imaging Report ---
Clinical Indication: Shortness of breath, abnormal recent chest radiograph Technique: Spiral acquisitions obtained through the chest. No IV contrast utilized, reason not stated. Multiplanar reconstructions generated. Total dose length product 854 mGycm. CTDIvol(s) 18 mGy. Dose reduction achieved using automated exposure control Comparison: none Findings: There is a large right pleural effusion, occupying nearly 50% of the right hemithorax. There is resultant compressive atelectasis of most of the right lower lobe. There are also compressive atelectatic changes of nearly the entire right middle lobe. Only minimal atelectasis of the right upper lobe is demonstrated. Some fluid is also seen in the major fissure. There is a trace left pleural effusion. There are compressive atelectatic changes at the left lung base. Minimal atelectatic changes are seen in the left upper lobe. No definite nodules. The heart is borderline enlarged. There is minimal pericardial thickening versus fluid noted. The right main pulmonary artery is dilated, measuring 3.1 cm in diameter. The ascending thoracic aorta is ectatic but not frankly aneurysmal, measuring 4.2 cm. There are prominent but not frankly enlarged mediastinal lymph nodes demonstrated. The included thyroid is unremarkable. No axillary or chest wall mass or adenopathy. The bones are unremarkable. Included upper abdominal anatomy demonstrates a large right renal cyst. There is nonspecific bilateral perinephric fat stranding. Impression: Large right pleural effusion, occupying approximately 50% of the right hemithorax. This results in compressive atelectasis of most of the right lower and middle lobes. Trace left pleural effusion and minimal left basilar atelectatic changes Borderline cardiomegaly Dilated right main pulmonary artery, consistent with pulmonary arterial hypertension Ectatic but not frankly aneurysmal ascending thoracic aorta, measuring 4.2 cm. Incidental finding of large right renal cyst and nonspecific bilateral perinephric fat stranding The CT scanner at [facility] is accredited by the [employer] and the scans are performed using protocols designed to limit radiation exposure to as low as reasonably achievable to attain images of sufficient resolution adequate for diagnostic evaluation.
[2019-09-12] MEDS: Vancomycin 1 GM in NS 275 ML IVPB SCH (15:39)
[2019-09-12 16:00] VITALS: BP 139/92
--- NOTE | 2019-09-12 18:45 | General Progress Note ---
Assessment/Plan Problem List: (1) Hyperprolactinemia ICD Codes: E22.1 - Hyperprolactinemia SNOMED: 217668837 (2) Lactic acidosis ICD Codes: E87.2 - Acidosis SNOMED: 55115337 (3) Diabetes mellitus out of control ICD Codes: E11.65 - Type 2 diabetes mellitus with hyperglycemia SNOMED: 97941639, 068002582 (4) Community acquired bacterial pneumonia ICD Codes: J15.9 - Unspecified bacterial pneumonia SNOMED: 224279807, 68218615 (5) Acute respiratory failure with hypoxemia ICD Codes: J96.01 - Acute respiratory failure with hypoxia SNOMED: 098128457 (6) Sepsis ICD Codes: A41.9 - Sepsis, unspecified organism SNOMED: 56982757, 64639105 Qualifiers: Qualified Codes: A41.9 - Sepsis, unspecified organism; R65.20 - Severe sepsis without septic shock; J96.01 - Acute respiratory failure with hypoxia Status: stable, progressing Assessment/Plan: change Levemir to 16 units bid change Novolog to 4 units ac tid - hold if not eating continue NISS ac / hs continue to keep off Bromocriptine - to be resumed as OP elevated prolactin level noted Subjective ROS Limited/Unobtainable: Yes Allergies: Coded Allergies: No Known Allergies (Unverified , 09/09/19) Subjective events noted glucose values improved Item Value Date Time Bedside Blood Glucose 192 mg/dl H 09/12/19 1733 Bedside Blood Glucose 108 mg/dl 09/12/19 1150 Bedside Blood Glucose 76 mg/dl 09/12/19 0930 Bedside Blood Glucose 115 mg/dl 09/12/19 0630 Bedside Blood Glucose 167 mg/dl H 09/11/19 2140 Bedside Blood Glucose 275 mg/dl H 09/11/19 1813 Objective Last 24 Hour Vital Signs Date Time Temp Pulse Resp B/P (MAP) Pulse Ox O2 Delivery O2 Flow Rate FiO2 09/12/19 16:00 6.0 09/12/19 16:00 97.7 91 20 139/92 (108) 99 09/12/19 12:18 85 21 97 Simple Mask 8.0 52 09/12/19 12:16 97 Simple Mask 8.0 52 09/12/19 12:00 98.0 90 20 123/74 (90) 95 09/12/19 12:00 85 09/12/19 12:00 6.0 09/12/19 11:14 98.0 09/12/19 09:40 92 142/83 09/12/19 09:00 Simple Mask 6.0 09/12/19 09:00 6.0 09/12/19 08:00 104 09/12/19 08:00 98.0 92 20 142/83 (102) 98 09/12/19 04:00 6.0 09/12/19 04:00 104 09/12/19 04:00 98.2 98 19 141/84 (103) 95 09/12/19 01:48 141 09/12/19 00:00 99.1 96 20 138/83 (101) 94 09/12/19 00:00 101 09/12/19 00:00 6.0 09/11/19 22:42 81 18 99 Nasal Cannula 3.0 32 82 18 96 09/11/19 21:00 Nasal Cannula 6.0 09/11/19 20:00 100 09/11/19 20:00 82 18 96 Nasal Cannula 3.0 32 09/11/19 20:00 98.6 97 20 130/78 (95) 94 09/11/19 20:00 3.0 09/11/19 20:00 96 Nasal Cannula 3.0 32 Intake and Output 09/11/19 09/12/19 19:00 07:00 Intake Total 1250 ml Output Total 1200 ml 1200 ml Balance 50 ml -1200 ml Intake Oral 720 ml IV Total 530 ml Output Urine Total 1200 ml 1200 ml # Bowel Movements 1 Laboratory Tests 09/12/19 03:17: White Blood Count 23.9*H, Red Blood Count 3.35L, Hemoglobin 10.5L, Hematocrit 29.7L, Mean Corpuscular Volume 89, Mean Corpuscular Hemoglobin 31.3H, Mean Corpuscular Hemoglobin Concent 35.2, Red Cell Distribution Width 10.2L, Platelet Count 221, Mean Platelet Volume 5.7L, Neutrophils (%) (Auto) , Lymphocytes (%) (Auto) , Monocytes (%) (Auto) , Eosinophils (%) (Auto) , Basophils (%) (Auto) , Differential Total Cells Counted 100, Neutrophils % ( Manual) 82H, Lymphocytes % (Manual) 4L, Monocytes % (Manual) 6, Eosinophils % ( Manual) 0, Basophils % (Manual) 0, Band Neutrophils 8, Platelet Estimate Adequate, Platelet Morphology Normal, Red Blood Cell Morphology Normal, Sodium Level 132L, Potassium Level 3.2L, Chloride Level 97L, Carbon Dioxide Level 25, Anion Gap 10, Blood Urea Nitrogen 16, Creatinine 0.8, Estimat Glomerular Filtration Rate , Glucose Level 114#H, Calcium Level 7.9L, Troponin I 0.198H, Pro-B-Type Natriuretic Peptide 6819H, Triglycerides Level 158H, Cholesterol Level 94, LDL Cholesterol 45, HDL Cholesterol 15L, Cholesterol/HDL Ratio 6.3H, Thyroid Stimulating Hormone (TSH) 0.750, Vancomycin Level Trough 6.7, Hepatitis A IgM Antibody [Pending], Hepatitis B Surface Antigen [Pending], Hepatitis B Core IgM Antibody [Pending], Hepatitis C Antibody [Pending], Mycoplasma pneumoniae IgG Antibody [Pending], Mycoplasma pneumoniae IgM Ab Titer [Pending] 09/12/19 17:30: Urine Legionella Antigen [Pending] Height (Feet): 5 Height (Inches): 5.00 Weight (Pounds): 154 General Appearance: no apparent distress Neck: normal alignment Cardiovascular: normal rate Respiratory/Chest: chest wall non-tender Abdomen: normal bowel sounds Objective Current Medications Medications (Trade) Dose Ordered Sig/Ishaan Route PRN Reason Start Time Stop Time Status Last Admin Dose Admin Acetaminophen (Tylenol) 650 mg Q4H PRN ORAL Mild Pain (Pain Scale 1-3) 09/09/19 23:15 10/09/19 23:14 09/11/19 03:23 Acetaminophen (Tylenol) 650 mg Q4H PRN ORAL fever 09/09/19 23:15 10/09/19 23:14 Acetaminophen (Tylenol) 650 mg Q4H PRN RECTAL Mild Pain (Pain Scale 1-3) 09/09/19 23:15 10/09/19 23:14 Acetaminophen (Tylenol) 650 mg Q4H PRN RECTAL fever 09/09/19 23:15 10/09/19 23:14 Albuterol/ Ipratropium (Albuterol/ Ipratropium) 3 ml Q6HR PRN HHN Shortness of Breath 09/09/19 23:15 09/14/19 23:14 09/11/19 22:42 Aspirin (ASA) 81 mg DAILY ORAL 09/12/19 09:00 10/12/19 08:59 09/12/19 09:30 Atorvastatin Calcium (Lipitor) 10 mg BEDTIME ORAL 09/10/19 21:00 10/10/19 20:59 09/11/19 21:37 Azithromycin (Zithromax) 250 mg DAILY ORAL 09/13/19 09:00 09/20/19 08:59 Cefepime HCl 2 gm/ Dextrose 55 ml @ 110 mls/hr EVERY 12 HOURS IVPB 09/10/19 09:00 09/17/19 08:59 09/12/19 09:31 Dextrose (Dextrose 50%) 25 ml Q30M PRN IV Hypoglycemia 09/10/19 19:00 10/10/19 18:59 Dextrose (Dextrose 50%) 50 ml Q30M PRN IV Hypoglycemia 09/10/19 19:00 10/10/19 18:59 Docusate Sodium (Colace) 100 mg EVERY 12 HOURS ORAL 09/10/19 09:00 10/10/19 08:59 09/12/19 09:29 Escitalopram Oxalate (Lexapro) 5 mg DAILY ORAL 09/10/19 09:00 10/10/19 08:59 09/12/19 09:30 Furosemide (Lasix) 20 mg EVERY 12 HOURS IV 09/12/19 21:00 10/12/19 20:59 Hydromorphone HCl (Dilaudid) 0.5 mg Q4H PRN IVP For Pain 3-6 09/10/19 14:15 09/17/19 14:14 Hydromorphone HCl (Dilaudid) 1 mg Q4H PRN IVP For Pain 7-10 09/10/19 14:15 09/17/19 14:14 09/12/19 10:44 Insulin Aspart (NovoLOG) BEFORE MEALS AND HS SUBQ 09/11/19 16:30 10/11/19 16:29 09/12/19 17:33 Insulin Aspart (NovoLOG) 6 units NOVOTIAC SUBQ 09/11/19 06:30 10/11/19 06:29 09/11/19 18:12 Insulin Detemir (Levemir) 20 units BID SUBQ 09/11/19 09:00 10/10/19 20:59 09/12/19 17:31 Metoprolol Tartrate (Lopressor) 12.5 mg Q12HR ORAL 09/12/19 09:00 10/12/19 08:59 09/12/19 09:40 Ondansetron HCl (Zofran) 4 mg Q6H PRN IVP Nausea & Vomiting 09/09/19 23:15 10/09/19 23:14 09/10/19 10:17 Polyethylene Glycol (Miralax) 17 gm DAILYPRN PRN ORAL Constipation 09/09/19 23:15 10/09/19 23:14 Pregabalin (Lyrica) 50 mg THREE TIMES A DAY ORAL 09/10/19 09:00 10/10/19 08:59 09/12/19 17:26 Tamsulosin HCl (Flomax) 0.4 mg DAILY ORAL 09/10/19 09:00 10/10/19 08:59 09/12/19 09:30 Vancomycin HCl (Vanco rx to dose) 1 ea DAILY PRN MISC Per rx protocol 09/10/19 13:15 10/10/19 13:14 Vancomycin HCl 1 gm/Sodium Chloride 275 ml @ 183.708 mls/hr Q12HR@0300,1500 IVPB 09/12/19 15:00 09/17/19 14:59 09/12/19 15:39 Sunny Mcneil MD Sep 12, 2019 18:45
[2019-09-12 20:00] VITALS: BP 140/85
[2019-09-12] MEDS: Albuterol/Ipratropium 3ml neb HHN PRN (20:40)
[2019-09-13] VITALS: BP 152/91
[2019-09-13] MEDS: HYDROmorphone 1mg/ml Carpuject IVP PRN ×3 (01:37→13:48)
[2019-09-13] MEDS: Vancomycin 1 GM in NS 275 ML IVPB SCH ×2 (03:51→15:07)
[2019-09-13 04:00] VITALS: BP 133/71
[2019-09-13] MEDS: NovoLOG Insulin Flexpen SUBQ SCH ×7 (06:28→21:40)
[2019-09-13 06:52] LABS: HEMATOCRIT 29.1 % (42.0-52.0); HEMOGLOBIN 10.6 G/DL (14.2-18.0); MEAN CORPUSCULAR VOLUME 88 FL (80-99); PLATELET COUNT 223 K/UL (150-450); RED CELL DISTRIBUTION WIDTH 10.3 % (11.6-14.8); WHITE BLOOD COUNT 19.6 K/UL (4.8-10.8)
--- NOTE | 2019-09-13 07:02 | General Progress Note ---
Assessment/Plan Problem List: (1) Hyperprolactinemia ICD Codes: E22.1 - Hyperprolactinemia SNOMED: 453628073 (2) Lactic acidosis ICD Codes: E87.2 - Acidosis SNOMED: 81343851 (3) Diabetes mellitus out of control ICD Codes: E11.65 - Type 2 diabetes mellitus with hyperglycemia SNOMED: 47842619, 264614106 (4) Community acquired bacterial pneumonia ICD Codes: J15.9 - Unspecified bacterial pneumonia SNOMED: 061278870, 24370707 (5) Acute respiratory failure with hypoxemia ICD Codes: J96.01 - Acute respiratory failure with hypoxia SNOMED: 978403209 (6) Sepsis ICD Codes: A41.9 - Sepsis, unspecified organism SNOMED: 36326166, 15503974 Qualifiers: Qualified Codes: A41.9 - Sepsis, unspecified organism; R65.20 - Severe sepsis without septic shock; J96.01 - Acute respiratory failure with hypoxia Status: stable, progressing Assessment/Plan: continue Levemir 16 units bid continu Novolog 4 units ac tid - hold if not eating continue NISS ac / hs continue to keep off Bromocriptine - as it might have contributed to AMS elevated prolactin level noted he will follow with [facility] endo service Subjective Allergies: Coded Allergies: No Known Allergies (Unverified , 09/09/19) Subjective events noted glucose values improved Item Value Date Time Bedside Blood Glucose 149 mg/dl H 09/13/19 0628 Bedside Blood Glucose 200 mg/dl H 09/12/19 2114 Bedside Blood Glucose 192 mg/dl H 09/12/19 1733 Bedside Blood Glucose 108 mg/dl 09/12/19 1150 Bedside Blood Glucose 76 mg/dl 09/12/19 0930 Bedside Blood Glucose 115 mg/dl 09/12/19 0630 Objective Last 24 Hour Vital Signs Date Time Temp Pulse Resp B/P (MAP) Pulse Ox O2 Delivery O2 Flow Rate FiO2 09/13/19 04:00 85 09/13/19 00:00 98.6 98 25 152/91 (111) 97 09/13/19 00:00 114 09/12/19 21:10 81 140/85 09/12/19 21:00 Simple Mask 6.0 09/12/19 20:40 81 18 99 Simple Mask 8.0 90 18 95 09/12/19 20:16 87 20 96 Simple Mask 8.0 52 09/12/19 20:16 96 Simple Mask 8.0 52 09/12/19 20:00 6.0 09/12/19 20:00 98.2 101 24 140/85 (103) 99 09/12/19 20:00 94 09/12/19 16:00 6.0 09/12/19 16:00 97.7 91 20 139/92 (108) 99 09/12/19 16:00 87 09/12/19 12:18 85 21 97 Simple Mask 8.0 52 09/12/19 12:16 97 Simple Mask 8.0 52 09/12/19 12:00 98.0 90 20 123/74 (90) 95 09/12/19 12:00 85 09/12/19 12:00 6.0 09/12/19 11:14 98.0 09/12/19 09:40 92 142/83 09/12/19 09:00 Simple Mask 6.0 09/12/19 09:00 6.0 09/12/19 08:00 104 09/12/19 08:00 98.0 92 20 142/83 (102) 98 Intake and Output 09/12/19 09/13/19 19:00 07:00 Intake Total 118 ml 360 ml Output Total 2400 ml 3500 ml Balance -2282 ml -3140 ml Intake Oral 118 ml 360 ml Output Urine Total 2400 ml 3500 ml # Voids 5 8 Laboratory Tests 09/12/19 17:30: Urine Legionella Antigen [Pending] 09/13/19 05:54: White Blood Count [Pending], Red Blood Count [Pending], Hemoglobin [Pending], Hematocrit [Pending], Mean Corpuscular Volume [Pending], Mean Corpuscular Hemoglobin [Pending], Mean Corpuscular Hemoglobin Concent [Pending], Red Cell Distribution Width [Pending], Platelet Count [Pending], Mean Platelet Volume [ Pending], Neutrophils (%) (Auto) [Pending], Lymphocytes (%) (Auto) [Pending], Monocytes (%) (Auto) [Pending], Eosinophils (%) (Auto) [Pending], Basophils (%) (Auto) [Pending], Sodium Level [Pending], Potassium Level [Pending], Chloride Level [Pending], Carbon Dioxide Level [Pending], Blood Urea Nitrogen [Pending], Creatinine [Pending], Estimat Glomerular Filtration Rate [Pending], Glucose Level [Pending], Calcium Level [Pending], Total Bilirubin [Pending], Aspartate Amino Transf (AST/SGOT) [Pending], Alanine Aminotransferase (ALT/SGPT) [Pending] , Alkaline Phosphatase [Pending], Total Protein [Pending], Albumin [Pending], Globulin [Pending] Height (Feet): 5 Height (Inches): 5.00 Weight (Pounds): 154 General Appearance: no apparent distress Neck: normal alignment Cardiovascular: normal rate Respiratory/Chest: lungs clear Abdomen: normal bowel sounds Objective Current Medications Medications (Trade) Dose Ordered Sig/Ishaan Route PRN Reason Start Time Stop Time Status Last Admin Dose Admin Acetaminophen (Tylenol) 650 mg Q4H PRN ORAL Mild Pain (Pain Scale 1-3) 09/09/19 23:15 10/09/19 23:14 09/11/19 03:23 Acetaminophen (Tylenol) 650 mg Q4H PRN ORAL fever 09/09/19 23:15 10/09/19 23:14 Acetaminophen (Tylenol) 650 mg Q4H PRN RECTAL Mild Pain (Pain Scale 1-3) 09/09/19 23:15 10/09/19 23:14 Acetaminophen (Tylenol) 650 mg Q4H PRN RECTAL fever 09/09/19 23:15 10/09/19 23:14 Albuterol/ Ipratropium (Albuterol/ Ipratropium) 3 ml Q6HR PRN HHN Shortness of Breath 09/09/19 23:15 09/14/19 23:14 09/12/19 20:40 Aspirin (ASA) 81 mg DAILY ORAL 09/12/19 09:00 10/12/19 08:59 09/12/19 09:30 Atorvastatin Calcium (Lipitor) 10 mg BEDTIME ORAL 09/10/19 21:00 10/10/19 20:59 09/12/19 21:10 Azithromycin (Zithromax) 250 mg DAILY ORAL 09/13/19 09:00 09/20/19 08:59 Cefepime HCl 2 gm/ Dextrose 55 ml @ 110 mls/hr EVERY 12 HOURS IVPB 09/10/19 09:00 09/17/19 08:59 09/12/19 21:09 Dextrose (Dextrose 50%) 25 ml Q30M PRN IV Hypoglycemia 09/10/19 19:00 10/10/19 18:59 Dextrose (Dextrose 50%) 50 ml Q30M PRN IV Hypoglycemia 09/10/19 19:00 10/10/19 18:59 Docusate Sodium (Colace) 100 mg EVERY 12 HOURS ORAL 09/10/19 09:00 10/10/19 08:59 09/12/19 21:09 Escitalopram Oxalate (Lexapro) 5 mg DAILY ORAL 09/10/19 09:00 10/10/19 08:59 09/12/19 09:30 Furosemide (Lasix) 20 mg EVERY 12 HOURS IV 09/12/19 21:00 10/12/19 20:59 09/12/19 20:57 Hydromorphone HCl (Dilaudid) 0.5 mg Q4H PRN IVP For Pain 3-6 09/10/19 14:15 09/17/19 14:14 Hydromorphone HCl (Dilaudid) 1 mg Q4H PRN IVP For Pain 7-10 09/10/19 14:15 09/17/19 14:14 09/13/19 01:37 Insulin Aspart (NovoLOG) BEFORE MEALS AND HS SUBQ 09/11/19 16:30 10/11/19 16:29 09/13/19 06:28 Insulin Aspart (NovoLOG) 4 units NOVOTIAC SUBQ 09/13/19 06:30 10/11/19 06:29 09/13/19 06:28 Insulin Detemir (Levemir) 16 units BID SUBQ 09/13/19 09:00 10/10/19 20:59 Metoprolol Tartrate (Lopressor) 12.5 mg Q12HR ORAL 09/12/19 09:00 10/12/19 08:59 09/12/19 21:10 Ondansetron HCl (Zofran) 4 mg Q6H PRN IVP Nausea & Vomiting 09/09/19 23:15 10/09/19 23:14 09/10/19 10:17 Polyethylene Glycol (Miralax) 17 gm DAILYPRN PRN ORAL Constipation 09/09/19 23:15 10/09/19 23:14 Pregabalin (Lyrica) 50 mg THREE TIMES A DAY ORAL 09/10/19 09:00 10/10/19 08:59 09/12/19 17:26 Tamsulosin HCl (Flomax) 0.4 mg DAILY ORAL 09/10/19 09:00 10/10/19 08:59 09/12/19 09:30 Vancomycin HCl (Vanco rx to dose) 1 ea DAILY PRN MISC Per rx protocol 09/10/19 13:15 10/10/19 13:14 Vancomycin HCl 1 gm/Sodium Chloride 275 ml @ 183.708 mls/hr Q12HR@0300,1500 IVPB 09/12/19 15:00 09/17/19 14:59 09/13/19 03:51 Sunny Mcneil MD Sep 13, 2019 07:02
[2019-09-13 07:05] LABS: ALANINE AMINOTRANSFERASE 236 U/L (12-78); ALBUMIN 2.1 G/DL (3.4-5.0); ALBUMIN/GLOBULIN RATIO 0.5 (1.0-2.7); ALKALINE PHOSPHATASE 64 U/L (46-116); ANION GAP 6 mmol/L (5-15); ASPARTATE AMINO TRANSFERASE 102 U/L (15-37); BILIRUBIN,TOTAL 0.5 MG/DL (0.2-1.0); BLOOD UREA NITROGEN 11 mg/dL (7-18); CALCIUM 7.9 MG/DL (8.5-10.1); CARBON DIOXIDE 33 MMOL/L (21-32); CHLORIDE 93 MMOL/L (98-107); CREATININE 0.8 MG/DL (0.55-1.30); POTASSIUM 2.8 MMOL/L (3.5-5.1); SODIUM 132 MMOL/L (136-145)
[2019-09-13 08:00] VITALS: BP 164/95
--- NOTE | 2019-09-13 08:52 | Pulmonology Progress Note ---
Assessment/Plan Problems: (1) Community acquired bacterial pneumonia (2) Acute respiratory failure with hypoxemia (3) Lactic acidosis (4) Hyperprolactinemia (5) Sepsis (6) Diabetes mellitus out of control Assessment/Plan Plan: * Abx per ID: cefepime/vanco/[email or web address] * f/u cultures * Recommend thoracentesis eval with studies be sent for cytology, culture, ldh, total protein, glucose * Monitor volumes * Wean oxygen * Endocrine f/u Subjective ROS Limited/Unobtainable: Yes Interval Events: Noted large R effusion, WBC improved, getting diuresis Allergies: Coded Allergies: No Known Allergies (Unverified , 09/09/19) All Systems: reviewed and negative except above Objective Last 24 Hour Vital Signs Date Time Temp Pulse Resp B/P (MAP) Pulse Ox O2 Delivery O2 Flow Rate FiO2 09/13/19 07:50 89 20 98 Simple Mask 9.0 09/13/19 07:50 98 Simple Mask 9.0 09/13/19 04:00 85 09/13/19 04:00 97.8 90 19 133/71 (91) 97 09/13/19 04:00 8.0 09/13/19 00:00 98.6 98 25 152/91 (111) 97 09/13/19 00:00 114 09/12/19 21:10 81 140/85 09/12/19 21:00 Simple Mask 6.0 09/12/19 20:40 81 18 99 Simple Mask 8.0 90 18 95 09/12/19 20:16 87 20 96 Simple Mask 8.0 52 09/12/19 20:16 96 Simple Mask 8.0 52 09/12/19 20:00 6.0 09/12/19 20:00 98.2 101 24 140/85 (103) 99 09/12/19 20:00 94 09/12/19 16:00 6.0 09/12/19 16:00 97.7 91 20 139/92 (108) 99 09/12/19 16:00 87 09/12/19 12:18 85 21 97 Simple Mask 8.0 52 09/12/19 12:16 97 Simple Mask 8.0 52 09/12/19 12:00 98.0 90 20 123/74 (90) 95 09/12/19 12:00 85 1/29/20 12:00 6.0 09/12/19 11:14 98.0 09/12/19 09:40 92 142/83 09/12/19 09:00 Simple Mask 6.0 09/12/19 09:00 6.0 Intake and Output 09/12/19 09/13/19 19:00 07:00 Intake Total 118 ml 360 ml Output Total 2400 ml 3500 ml Balance -2282 ml -3140 ml Intake Oral 118 ml 360 ml Output Urine Total 2400 ml 3500 ml # Voids 5 8 General Appearance: no acute distress HEENT: atraumatic Respiratory/Chest: decreased breath sounds Cardiovascular: normal rate, regular rhythm Abdomen: soft, non tender Extremities: no edema Neurologic/Psychiatric: alert Microbiology Date/Time Source Procedure Growth Status 09/10/19 20:03 Urine,Clean Catch Urine Culture - Final NO GROWTH AFTER 48 HOURS Complete Laboratory Tests 09/12/19 17:30: Urine Legionella Antigen [Pending] 09/13/19 05:54: White Blood Count 19.6H, Red Blood Count 3.30L, Hemoglobin 10.6L, Hematocrit 29.1L, Mean Corpuscular Volume 88, Mean Corpuscular Hemoglobin 32.1H, Mean Corpuscular Hemoglobin Concent 36.4H, Red Cell Distribution Width 10.3L, Platelet Count 223, Mean Platelet Volume 5.6L, Neutrophils (%) (Auto) , Lymphocytes (%) (Auto) , Monocytes (%) (Auto) , Eosinophils (%) (Auto) , Basophils (%) (Auto) , Neutrophils % (Manual) [Pending], Lymphocytes % (Manual) [Pending], Platelet Estimate [Pending], Platelet Morphology [Pending], Sodium Level 132L, Potassium Level 2.8L, Chloride Level 93L, Carbon Dioxide Level 33H, Anion Gap 6, Blood Urea Nitrogen 11, Creatinine 0.8, Estimat Glomerular Filtration Rate , Glucose Level 149H, Calcium Level 7.9L, Total Bilirubin 0.5, Aspartate Amino Transf (AST/SGOT) 102H, Alanine Aminotransferase (ALT/SGPT) 236H , Alkaline Phosphatase 64, Total Protein 6.3L, Albumin 2.1L, Globulin 4.2, Albumin/Globulin Ratio 0.5L Current Medications Medications (Trade) Dose Ordered Sig/Ishaan Route PRN Reason Start Time Stop Time Status Last Admin Dose Admin Acetaminophen (Tylenol) 650 mg Q4H PRN ORAL Mild Pain (Pain Scale 1-3) 09/09/19 23:15 10/09/19 23:14 09/11/19 03:23 Acetaminophen (Tylenol) 650 mg Q4H PRN ORAL fever 09/09/19 23:15 10/09/19 23:14 Acetaminophen (Tylenol) 650 mg Q4H PRN RECTAL Mild Pain (Pain Scale 1-3) 09/09/19 23:15 10/09/19 23:14 Acetaminophen (Tylenol) 650 mg Q4H PRN RECTAL fever 09/09/19 23:15 10/09/19 23:14 Albuterol/ Ipratropium (Albuterol/ Ipratropium) 3 ml Q6HR PRN HHN Shortness of Breath 09/09/19 23:15 09/14/19 23:14 09/12/19 20:40 Aspirin (ASA) 81 mg DAILY ORAL 09/12/19 09:00 10/12/19 08:59 09/12/19 09:30 Atorvastatin Calcium (Lipitor) 10 mg BEDTIME ORAL 09/10/19 21:00 10/10/19 20:59 09/12/19 21:10 Azithromycin (Zithromax) 250 mg DAILY ORAL 09/13/19 09:00 09/20/19 08:59 Cefepime HCl 2 gm/ Dextrose 55 ml @ 110 mls/hr EVERY 12 HOURS IVPB 09/10/19 09:00 09/17/19 08:59 09/12/19 21:09 Dextrose (Dextrose 50%) 25 ml Q30M PRN IV Hypoglycemia 09/10/19 19:00 10/10/19 18:59 Dextrose (Dextrose 50%) 50 ml Q30M PRN IV Hypoglycemia 09/10/19 19:00 10/10/19 18:59 Docusate Sodium (Colace) 100 mg EVERY 12 HOURS ORAL 09/10/19 09:00 10/10/19 08:59 09/12/19 21:09 Escitalopram Oxalate (Lexapro) 5 mg DAILY ORAL 09/10/19 09:00 10/10/19 08:59 09/12/19 09:30 Furosemide (Lasix) 20 mg EVERY 12 HOURS IV 09/12/19 21:00 10/12/19 20:59 09/12/19 20:57 Hydromorphone HCl (Dilaudid) 0.5 mg Q4H PRN IVP For Pain 3-6 09/10/19 14:15 09/17/19 14:14 Hydromorphone HCl (Dilaudid) 1 mg Q4H PRN IVP For Pain 7-10 09/10/19 14:15 09/17/19 14:14 09/13/19 07:38 Insulin Aspart (NovoLOG) BEFORE MEALS AND HS SUBQ 09/11/19 16:30 10/11/19 16:29 09/13/19 06:28 Insulin Aspart (NovoLOG) 4 units NOVOTIAC SUBQ 09/13/19 06:30 10/11/19 06:29 09/13/19 06:28 Insulin Detemir (Levemir) 16 units BID SUBQ 09/13/19 09:00 10/10/19 20:59 Metoprolol Tartrate (Lopressor) 12.5 mg Q12HR ORAL 09/12/19 09:00 10/12/19 08:59 09/12/19 21:10 Ondansetron HCl (Zofran) 4 mg Q6H PRN IVP Nausea & Vomiting 09/09/19 23:15 10/09/19 23:14 09/10/19 10:17 Polyethylene Glycol (Miralax) 17 gm DAILYPRN PRN ORAL Constipation 09/09/19 23:15 10/09/19 23:14 Pregabalin (Lyrica) 50 mg THREE TIMES A DAY ORAL 09/10/19 09:00 10/10/19 08:59 09/12/19 17:26 Tamsulosin HCl (Flomax) 0.4 mg DAILY ORAL 09/10/19 09:00 10/10/19 08:59 09/12/19 09:30 Vancomycin HCl (Vanco rx to dose) 1 ea DAILY PRN MISC Per rx protocol 09/10/19 13:15 10/10/19 13:14 Vancomycin HCl 1 gm/Sodium Chloride 275 ml @ 183.708 mls/hr Q12HR@0300,1500 IVPB 09/12/19 15:00 09/17/19 14:59 09/13/19 03:51 Landry Barlow MD Sep 13, 2019 08:52
[2019-09-13] MEDS: Docusate 100mg cap ORAL SCH ×2 (09:40→21:34)
[2019-09-13] MEDS: Metoprolol Tartrate 12.5mg TAB ORAL SCH ×2 (09:40→21:35)
[2019-09-13] MEDS: Lyrica 50mg cap ORAL SCH ×3 (09:41→17:54)
[2019-09-13] MEDS: Azithromycin 250mg tab ORAL SCH (09:41)
[2019-09-13] MEDS: Tamsulosin 0.4mg cap ORAL SCH (09:41)
[2019-09-13] MEDS: Aspirin Baby 81mg ORAL SCH (09:41)
[2019-09-13] MEDS: Cefepime HCl 2 GM in D5W 55 ML IVPB SCH (09:42)
--- NOTE | 2019-09-13 09:43 | General Progress Note ---
Assessment/Plan Problem List: (1) Severe sepsis ICD Codes: A41.9 - Sepsis, unspecified organism; R65.20 - Severe sepsis without septic shock SNOMED: 87691709 (2) Acute respiratory failure with hypoxemia ICD Codes: J96.01 - Acute respiratory failure with hypoxia SNOMED: 881366010 (3) Encephalopathy due to infection ICD Codes: G93.49 - Other encephalopathy; B99.9 - Unspecified infectious disease SNOMED: 89503409, 37106967 (4) Community acquired bacterial pneumonia ICD Codes: J15.9 - Unspecified bacterial pneumonia SNOMED: 264084908, 40617561 (5) Diabetes mellitus out of control ICD Codes: E11.65 - Type 2 diabetes mellitus with hyperglycemia SNOMED: 19871875, 451734682 (6) Lactic acidosis ICD Codes: E87.2 - Acidosis SNOMED: 71941876 (7) Hyperprolactinemia ICD Codes: E22.1 - Hyperprolactinemia SNOMED: 484115460 (8) Pulmonary HTN ICD Codes: I27.20 - Pulmonary hypertension, unspecified SNOMED: 73741400 (9) Diastolic CHF, acute ICD Codes: I50.31 - Acute diastolic (congestive) heart failure SNOMED: 12677478, 431870231 (10) Pleural effusion, right ICD Codes: J90 - Pleural effusion, not elsewhere classified SNOMED: 16170194 Status: stable, progressing Assessment/Plan: 73 year old presented with fever, chills, sob. Found to be hypoxic, tachycardic and febrile, +leukocytosis, CXR with infiltrates. influenza A/B negative. #Sever sepsis secondary to CAP, ? empyema #Acute respiratory failure with hypoxia #Acute encephalopathy, infection and hypoxic #large Right sided pleural effusion #Pulmonary arterial HTN telemetry cefepime and azithromycin, vancomycin check sputum culture, blood cultures speech therapy evaluation appreciated--> pureed to ground texture o2 to keep o2 sat >95% Monitor mental status pain control ID and pulmonary consults IV lasix [address] chest reviewed: Large R effusion Thoracentesis today. Check fluid for culture, gram stain, cytology, LDH, total protein, glucose pulmonary and cardiology follow up for pulmonary arterial hypertension d/w Kris Barlow and Rufino #Diastolic CHF, acute #R pleural effusion #Transient Afib/Flutter #pulmonary arterial HTN Echo reviewed: Diastolic dysfunction, pulmonary HTN, systolic function seems to be okay IV lasix 40 mg once, 20 mg BID d/w cardiology Metoprolol 12.5 mg BID, ASA, Atorvastatin. Will hold Atorvastatin given rise in LFTs #Transaminitis, ?passive congestion, pattern not obstructive , normal ALP and total bili AST/ALT 300's normal on admission, now trending down monitor follow up hepatitis panel US abdomen reviewed: Gallbladder sludge and possible small stones. Mildly ectatic common bile duct, probably related to patient's age but downstream obstruction not completely excludable. Correlate with liver function tests, consider MRCP if clinically indicated. Liver demonstrates diffusely increased echogenicity, consistent with diffuse hepatocellular disease, most likely fatty change. Trace perihepatic ascites. Large right pleural effusion. Incidental finding small lateral renal cysts. Note inability to visualize portions of the abdominal aorta #DM uncontrolled #Prolactinoma Hold home po meds Insulin basal bolus, monitor fsbg. Levemir 16 units BID, NovoLog 4 units with meals, SSI hold Bromocriptine as may have been contributing to AMS prolactin levels reviewed and high ~100 endocrinology consult Tarun Olson #Hematuria #BPH hold heparin due to hematuria UA sent Flomax #Hypokalemia Replace Vte ppx: heparin subq- hold due to hematuria, SCD boots Code: full code per daughter at bedside I spent 40 minutes on this encounter. >50% spent on counselling and care coordination. case d/w daughter and RN at bedside. Subjective Date patient seen: Sep 13, 2019 ROS Limited/Unobtainable: No Constitutional: Reports: weakness HEENT: Denies: no symptoms, eye pain, blurred vision, tearing, double vision, ear pain, ear discharge, nose pain, nose congestion, throat pain, throat swelling, mouth pain, mouth swelling, other Cardiovascular: Denies: no symptoms, chest pain, edema, irregular heart rate, lightheadedness, palpitations, syncope, other Respiratory: Reports: orthopnea, shortness of breath, SOB with excertion Gastrointestinal/Abdominal: Denies: no symptoms, abdomen distended, abdominal pain, black stools, tarry stools, blood in stool, constipated, diarrhea, difficulty swallowing, nausea, poor appetite, poor fluid intake, rectal bleeding , vomiting, other Genitourinary: Denies: no symptoms, burning, discharge, frequency, flank pain, hematuria, incontinence, pain, urgency, other Neurologic/Psychiatric: Denies: no symptoms, anxiety, depressed, emotional problems, headache, numbness, paresthesia, pre-existing deficit, seizure, tingling, tremors, weakness, other Endocrine: Denies: no symptoms, excessive sweating, flushing, intolerance to cold, intolerance to heat, increased hunger, increased thirst, increased urine, unexplained weight gain, unexplained weight loss, other Hematologic/Lymphatic: Denies: no symptoms, anemia, easy bleeding, easy bruising, other Allergies: Coded Allergies: No Known Allergies (Unverified , 09/09/19) Subjective seen and examined, patient says he feels better today. breathing is better. afebrile vss AST/ALT, trending down WBC trending down responding well to diuresis CT chest: Large right effusion, possible loculation Objective Last 24 Hour Vital Signs Date Time Temp Pulse Resp B/P (MAP) Pulse Ox O2 Delivery O2 Flow Rate FiO2 09/13/19 08:00 91 09/13/19 07:50 89 20 98 Simple Mask 9.0 09/13/19 07:50 98 Simple Mask 9.0 09/13/19 04:00 85 09/13/19 04:00 97.8 90 19 133/71 (91) 97 09/13/19 04:00 8.0 09/13/19 00:00 98.6 98 25 152/91 (111) 97 09/13/19 00:00 114 09/12/19 21:10 81 140/85 09/12/19 21:00 Simple Mask 6.0 09/12/19 20:40 81 18 99 Simple Mask 8.0 90 18 95 09/12/19 20:16 87 20 96 Simple Mask 8.0 52 09/12/19 20:16 96 Simple Mask 8.0 52 09/12/19 20:00 6.0 09/12/19 20:00 98.2 101 24 140/85 (103) 99 09/12/19 20:00 94 09/12/19 16:00 6.0 09/12/19 16:00 97.7 91 20 139/92 (108) 99 09/12/19 16:00 87 09/12/19 12:18 85 21 97 Simple Mask 8.0 52 09/12/19 12:16 97 Simple Mask 8.0 52 09/12/19 12:00 98.0 90 20 123/74 (90) 95 09/12/19 12:00 85 09/12/19 12:00 6.0 09/12/19 11:14 98.0 Intake and Output 09/12/19 09/13/19 19:00 07:00 Intake Total 118 ml 360 ml Output Total 2400 ml 3500 ml Balance -2282 ml -3140 ml Intake Oral 118 ml 360 ml Output Urine Total 2400 ml 3500 ml # Voids 5 8 Laboratory Tests 09/12/19 17:30: Urine Legionella Antigen [Pending] 09/13/19 05:54: White Blood Count 19.6H, Red Blood Count 3.30L, Hemoglobin 10.6L, Hematocrit 29.1L, Mean Corpuscular Volume 88, Mean Corpuscular Hemoglobin 32.1H, Mean Corpuscular Hemoglobin Concent 36.4H, Red Cell Distribution Width 10.3L, Platelet Count 223, Mean Platelet Volume 5.6L, Neutrophils (%) (Auto) , Lymphocytes (%) (Auto) , Monocytes (%) (Auto) , Eosinophils (%) (Auto) , Basophils (%) (Auto) , Differential Total Cells Counted 100, Neutrophils % ( Manual) 83H, Lymphocytes % (Manual) 12L, Monocytes % (Manual) 4, Eosinophils % ( Manual) 1, Basophils % (Manual) 0, Band Neutrophils 0, Platelet Estimate Adequate, Platelet Morphology Normal, Hypochromasia 1+, Anisocytosis 1+, Sodium Level 132L, Potassium Level 2.8L, Chloride Level 93L, Carbon Dioxide Level 33H, Anion Gap 6, Blood Urea Nitrogen 11, Creatinine 0.8, Estimat Glomerular Filtration Rate , Glucose Level 149H, Calcium Level 7.9L, Total Bilirubin 0.5, Aspartate Amino Transf (AST/SGOT) 102H, Alanine Aminotransferase (ALT/SGPT) 236H , Alkaline Phosphatase 64, Total Protein 6.3L, Albumin 2.1L, Globulin 4.2, Albumin/Globulin Ratio 0.5L Height (Feet): 5 Height (Inches): 5.00 Weight (Pounds): 154 Objective General Appearance: alert, moderate distress EENT: PERRL/EOMI, normal ENT inspection Neck: non-tender, normal alignment, supple Cardiovascular: normal peripheral pulses, normal rate, regular rhythm, no gallop/murmur, no JVD Respiratory/Chest: rales Abdomen: normal bowel sounds, non tender, soft, no organomegaly, no mass, distended Extremities: normal range of motion, no calf tenderness Rick Banerjee M.D. Sep 13, 2019 09:43
[2019-09-13] MEDS: Levemir Flexpen SUBQ SCH ×2 (09:58→17:51)
--- NOTE | 2019-09-13 11:27 | Diagnostic Imaging Report ---
Indication: Shortness of breath Technique: One view of the chest Comparison: 09/12/2019 Findings: Previously demonstrated large right pleural effusion again demonstrated, may have improved slightly since previous exam. There is likewise suggestion of slightly increased aeration of the right lung. There is improved aeration of left lung, probably due to better inspiration on the current exam. The heart remains borderline enlarged. Impression: Equivocally minimally improved but still large right pleural effusion. Improved aeration of the left lung base, since previous day's exam Stable cardiomegaly
--- NOTE | 2019-09-13 12:43 | Pre-Procedure Note/Attestation ---
Pre-Procedure Note/Attestation Complete Prior to Procedure Planned Procedure: right Procedure Narrative: Thoracentesis Indications for Procedure Pre-Operative Diagnosis: pleural effusion Attestation I attest that I discussed the nature of the procedure; its benefits; risks and complications; and alternatives (and the risks and benefits of such alternatives ), prior to the procedure, with the patient (or the patient's legal technical sales representatives). I attest that, if there was a reasonable possibility of needing a blood transfusion, the patient (or the patient's legal technical sales representatives) was given the [facility] standardized written summary, pursuant to the [place] Blood Safety Act ([place] Health and Safety Code # 1645, as amended). I attest that I re-evaluated the patient just prior to the surgery and that there has been no change in the patient's H&P, except as documented below: Mynro Davila MD Sep 13, 2019 12:43
--- NOTE | 2019-09-13 14:01 | Diagnostic Imaging Report ---
Indication: Status post thoracentesis Technique: One view of the chest Comparison: 09/13/2019 Findings: Interim improvement of previously demonstrated right-sided pleural effusion. Some pleural fluid versus thickening persists, however. There is persistent interstitial prominence and hazy airspace opacity. There is no pneumothorax. Left lung and pleural space remain clear. The heart appears enlarged. Impression: Improved right pleural effusion, status post thoracentesis. There is residual pleural fluid versus thickening and right-sided parenchymal disease, however. No radiographically evident complication Cardiomegaly
--- NOTE | 2019-09-13 14:47 | Diagnostic Imaging Report ---
Indications: Pleural effusion Technique: Ultrasound used to localize optimal puncture site. Sterile prepping and draping right chest. Local anesthesia with 1% lidocaine. Under real-time ultrasound guidance, puncture pleural space using thoracentesis needle. Stylet removed. Catheter placed to vacuum bottle suction. Total 950 milliliters of fluid aspirated. Patient tolerated procedure well, without immediate complication. Findings: Followup sonography demonstrates markedly decreased pleural fluid Impression: Successful ultrasound-guided thoracentesis, yielding 950 milliliters of fluid
--- NOTE | 2019-09-13 15:44 | Cardiac Electrophysiology PN ---
Assessment/Plan Assessment/Plan 1. Atrial fibrillation, rate of 110. The patient already converted to sinus rhythm. There is no known history of coronary artery disease or congestive heart failure or prior atrial fibrillation. Echo EF 55%. 2. Troponin leak negative to 0.198. Right side CP only when coughs due to pleural effusion On Aspirin, Lopressor 12.5 bid and Lipitor 10 3. RBBB 3. HTN 4. Right sided pleural effusion. S/P Chest CT and 950cc Thoracentesis today. Awaiting Cytology On Lasix 20 iv bid 5. Pneumonia on IV antibiotic. 6. Uncontrolled diabetes. 7. Hyperprolactinemia. Further evaluation by Dr. Mcneil. 8. K 2.8m Replaced RIO RN and Dr Banerjee. Subjective Subjective No more atrial fib overnight. S/P 950cc yellow, greenish thoracentesis today. at bedside Objective Last 24 Hour Vital Signs Date Time Temp Pulse Resp B/P (MAP) Pulse Ox O2 Delivery O2 Flow Rate FiO2 09/13/19 12:00 6.0 09/13/19 12:00 96 09/13/19 09:40 97 164/95 09/13/19 09:00 Nasal Cannula 6.0 09/13/19 08:00 97.9 97 19 164/95 (118) 97 09/13/19 08:00 91 09/13/19 08:00 6.0 09/13/19 07:50 89 20 98 Simple Mask 9.0 09/13/19 07:50 98 Simple Mask 9.0 09/13/19 04:00 85 09/13/19 04:00 97.8 90 19 133/71 (91) 97 09/13/19 04:00 8.0 09/13/19 00:00 98.6 98 25 152/91 (111) 97 09/13/19 00:00 114 09/12/19 21:10 81 140/85 09/12/19 21:00 Simple Mask 6.0 09/12/19 20:40 81 18 99 Simple Mask 8.0 90 18 95 09/12/19 20:16 87 20 96 Simple Mask 8.0 52 09/12/19 20:16 96 Simple Mask 8.0 52 09/12/19 20:00 6.0 09/12/19 20:00 98.2 101 24 140/85 (103) 99 09/12/19 20:00 94 09/12/19 16:00 6.0 09/12/19 16:00 97.7 91 20 139/92 (108) 99 09/12/19 16:00 87 Intake and Output 09/12/19 09/13/19 19:00 07:00 Intake Total 118 ml 360 ml Output Total 2400 ml 3500 ml Balance -2282 ml -3140 ml Intake Oral 118 ml 360 ml Output Urine Total 2400 ml 3500 ml # Voids 5 8 Laboratory Tests Test 09/12/19 17:30 09/13/19 05:54 09/13/19 09:55 09/13/19 12:22 Urine Legionella Antigen Pending White Blood Count 19.6 K/UL (4.8-10.8) H Red Blood Count 3.30 M/UL (4.70-6.10) L Hemoglobin 10.6 G/DL (14.2-18.0) L Hematocrit 29.1 % (42.0-52.0) L Mean Corpuscular Volume 88 FL (80-99) Mean Corpuscular Hemoglobin 32.1 PG (27.0-31.0) H Mean Corpuscular Hemoglobin Concent 36.4 G/DL (32.0-36.0) H Red Cell Distribution Width 10.3 % (11.6-14.8) L Platelet Count 223 K/UL (150-450) Mean Platelet Volume 5.6 FL (6.5-10.1) L Neutrophils (%) (Auto) % (45.0-75.0) Lymphocytes (%) (Auto) % (20.0-45.0) Monocytes (%) (Auto) % (1.0-10.0) Eosinophils (%) (Auto) % (0.0-3.0) Basophils (%) (Auto) % (0.0-2.0) Differential Total Cells Counted 100 Neutrophils % (Manual) 83 % (45-75) H Lymphocytes % (Manual) 12 % (20-45) L Monocytes % (Manual) 4 % (1-10) Eosinophils % (Manual) 1 % (0-3) Basophils % (Manual) 0 % (0-2) Band Neutrophils 0 % (0-8) Platelet Estimate Adequate Platelet Morphology Normal Hypochromasia 1+ Anisocytosis 1+ Sodium Level 132 MMOL/L (136-145) L Potassium Level 2.8 MMOL/L (3.5-5.1) L Chloride Level 93 MMOL/L (98-107) L Carbon Dioxide Level 33 MMOL/L (21-32) H Anion Gap 6 mmol/L (5-15) Blood Urea Nitrogen 11 mg/dL (7-18) Creatinine 0.8 MG/DL (0.55-1.30) Estimat Glomerular Filtration Rate mL/min (>60) Glucose Level 149 MG/DL (74-106) H Calcium Level 7.9 MG/DL (8.5-10.1) L Total Bilirubin 0.5 MG/DL (0.2-1.0) Aspartate Amino Transf (AST/SGOT) 102 U/L (15-37) H Alanine Aminotransferase (ALT/SGPT) 236 U/L (12-78) H Alkaline Phosphatase 64 U/L (46-116) Total Protein 6.3 G/DL (6.4-8.2) L Albumin 2.1 G/DL (3.4-5.0) L Globulin 4.2 g/dL Albumin/Globulin Ratio 0.5 (1.0-2.7) L Prothrombin Time 11.1 SEC (9.30-11.50) Prothromb Time International Ratio 1.0 (0.9-1.1) Body Fluid Glucose Pending Body Fluid Total Protein Pending Body Fluid Lactate Dehydrogenase Pending Microbiology Date/Time Source Procedure Growth Status 09/10/19 20:03 Urine,Clean Catch Urine Culture - Final NO GROWTH AFTER 48 HOURS Complete Objective HEAD AND NECK: No JVD. LUNGS: Clear. CARDIOVASCULAR: Regular S1 and S2 with no gallop or murmur. ABDOMEN: Soft. EXTREMITIES: No pitting edema. Irving Joy MD Sep 13, 2019 15:44
[2019-09-13 16:00] VITALS: BP 130/73
--- NOTE | 2019-09-13 18:41 | Infectious Diseases Prog Note ---
Assessment/Plan Assessment/Plan ASSESSMENT AND PLAN: 1. sepsis, pneumonia, ? empyema, effusion, leukocytosis, fevers, sirs, elevated lft's - vancomycin, cefepime, flagyl, azithromycin - f/u on thoracentesis studies - monitor leukocytosis, fevers better - f/u chest x-ray - liver enzymes improved, hepatitis panel negative 2. Diabetes. 3. Hypertension. 4. Hyperlipidemia. 5. Blood sugar and blood pressure treatment per primary care team for diabetes, hypertension, and hyperlipidemia. 6. Hyponatremia. 7. Hypoxia. 8. Pulmonary followup. 9. History of prolactinoma. 10. No known drug allergies. 11. Social history is negative. 12. Family history is noncontributory. 13. MAR is noted. 14. Case was discussed with RN. 15. Continue treatment per primary consultants. 16. continue per primary team 17. Skin care protocol. 18. Orders were noted and entered. Subjective Constitutional: Reports: fatigue, other - much more alert ; Denies: fever HEENT: Reports: congestion - less Respiratory: Reports: shortness of breath - less Cardiovascular: Denies: chest pain Gastrointestinal/Abdominal: Denies: nausea, vomiting, diarrhea Genitourinary: Reports: other - no holloway Neurologic: Denies: headache Psychiatric: Denies: depression Skin: Denies: rash Hematologic: Denies: bleeding Musculoskeletal: Denies: pain Allergies: Coded Allergies: No Known Allergies (Unverified , 09/09/19) Objective Vital Signs Last 24 Hour Vital Signs Date Time Temp Pulse Resp B/P (MAP) Pulse Ox O2 Delivery O2 Flow Rate FiO2 09/13/19 16:00 97.3 67 20 130/73 (92) 95 09/13/19 16:00 6.0 09/13/19 12:00 6.0 09/13/19 12:00 96 09/13/19 09:40 97 164/95 09/13/19 09:00 Nasal Cannula 6.0 09/13/19 08:00 97.9 97 19 164/95 (118) 97 09/13/19 08:00 91 09/13/19 08:00 6.0 09/13/19 07:50 89 20 98 Simple Mask 9.0 09/13/19 07:50 98 Simple Mask 9.0 09/13/19 04:00 85 09/13/19 04:00 97.8 90 19 133/71 (91) 97 09/13/19 04:00 8.0 09/13/19 00:00 98.6 98 25 152/91 (111) 97 09/13/19 00:00 114 09/12/19 21:10 81 140/85 09/12/19 21:00 Simple Mask 6.0 09/12/19 20:40 81 18 99 Simple Mask 8.0 90 18 95 09/12/19 20:16 87 20 96 Simple Mask 8.0 52 09/12/19 20:16 96 Simple Mask 8.0 52 09/12/19 20:00 6.0 09/12/19 20:00 98.2 101 24 140/85 (103) 99 09/12/19 20:00 94 Height (Feet): 5 Height (Inches): 5.00 Weight (Pounds): 154 General Appearance: no acute distress HEENT: normocephalic, atraumatic, anicteric, mucous membranes moist Respiratory/Chest: no respiratory distress, no accessory muscle use, decreased breath sounds, crackles/rales, rhonchi - bilaterally Cardiovascular: normal rate, regular rhythm, no gallop/murmur, no JVD Abdomen: normal bowel sounds, soft, non tender, no organomegaly, non distended Genitourinary: other - no hollwoay Extremities: no cyanosis Skin: no rash 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 This results in compressive atelectasis of most of the right lower and middle lobes. Trace left pleural effusion and minimal left basilar atelectatic changes Borderline cardiomegaly Dilated right main pulmonary artery, consistent with pulmonary arterial hypertension Ectatic but not frankly aneurysmal ascending thoracic aorta, measuring 4.2 cm. Incidental finding of large right renal cyst and nonspecific bilateral perinephric fat stranding Chest x-ray - 09/13/19 - Indication: Shortness of breath Technique: One view of the chest Comparison: 09/12/2019 Findings: Previously demonstrated large right pleural effusion again demonstrated, may have improved slightly since previous exam. There is likewise suggestion of slightly increased aeration of the right lung. There is improved aeration of left lung, probably due to better inspiration on the current exam. The heart remains borderline enlarged. Impression: Equivocally minimally improved but still large right pleural effusion. Improved aeration of the left lung base, since previous day's exam Microbiology Date/Time Source Procedure Growth Status 09/09/19 21:20 Blood Blood Culture - Preliminary NO GROWTH AFTER 72 HOURS Resulted 09/09/19 22:30 Nasal Nares - Final Complete 09/09/19 22:30 Nasal Nares - Final Complete 09/10/19 20:03 Urine,Clean Catch Urine Culture - Final NO GROWTH AFTER 48 HOURS Complete Microbiology Date/Time Source Procedure Growth Status 09/10/19 20:03 Urine,Clean Catch Urine Culture - Final NO GROWTH AFTER 48 HOURS Complete Laboratory Tests Test 09/13/19 05:54 09/13/19 09:55 09/13/19 12:22 09/13/19 14:38 White Blood Count 19.6 K/UL (4.8-10.8) H Red Blood Count 3.30 M/UL (4.70-6.10) L Hemoglobin 10.6 G/DL (14.2-18.0) L Hematocrit 29.1 % (42.0-52.0) L Mean Corpuscular Volume 88 FL (80-99) Mean Corpuscular Hemoglobin 32.1 PG (27.0-31.0) H Mean Corpuscular Hemoglobin Concent 36.4 G/DL (32.0-36.0) H Red Cell Distribution Width 10.3 % (11.6-14.8) L Platelet Count 223 K/UL (150-450) Mean Platelet Volume 5.6 FL (6.5-10.1) L Neutrophils (%) (Auto) % (45.0-75.0) Lymphocytes (%) (Auto) % (20.0-45.0) Monocytes (%) (Auto) % (1.0-10.0) Eosinophils (%) (Auto) % (0.0-3.0) Basophils (%) (Auto) % (0.0-2.0) Differential Total Cells Counted 100 Neutrophils % (Manual) 83 % (45-75) H Lymphocytes % (Manual) 12 % (20-45) L Monocytes % (Manual) 4 % (1-10) Eosinophils % (Manual) 1 % (0-3) Basophils % (Manual) 0 % (0-2) Band Neutrophils 0 % (0-8) Platelet Estimate Adequate Platelet Morphology Normal Hypochromasia 1+ Anisocytosis 1+ Sodium Level 132 MMOL/L (136-145) L Potassium Level 2.8 MMOL/L (3.5-5.1) L 3.4 MMOL/L (3.5-5.1) L Chloride Level 93 MMOL/L (98-107) L Carbon Dioxide Level 33 MMOL/L (21-32) H Anion Gap 6 mmol/L (5-15) Blood Urea Nitrogen 11 mg/dL (7-18) Creatinine 0.8 MG/DL (0.55-1.30) Estimat Glomerular Filtration Rate mL/min (>60) Glucose Level 149 MG/DL (74-106) H Calcium Level 7.9 MG/DL (8.5-10.1) L Total Bilirubin 0.5 MG/DL (0.2-1.0) Aspartate Amino Transf (AST/SGOT) 102 U/L (15-37) H Alanine Aminotransferase (ALT/SGPT) 236 U/L (12-78) H Alkaline Phosphatase 64 U/L (46-116) Total Protein 6.3 G/DL (6.4-8.2) L Albumin 2.1 G/DL (3.4-5.0) L Globulin 4.2 g/dL Albumin/Globulin Ratio 0.5 (1.0-2.7) L Prothrombin Time 11.1 SEC (9.30-11.50) Prothromb Time International Ratio 1.0 (0.9-1.1) Body Fluid Glucose Pending Body Fluid Total Protein Pending Body Fluid Lactate Dehydrogenase Pending Current Medications Medications (Trade) Dose Ordered Sig/Ishaan Route PRN Reason Start Time Stop Time Status Last Admin Dose Admin Acetaminophen (Tylenol) 650 mg Q4H PRN ORAL Mild Pain (Pain Scale 1-3) 09/09/19 23:15 10/09/19 23:14 09/11/19 03:23 Acetaminophen (Tylenol) 650 mg Q4H PRN ORAL fever 09/09/19 23:15 10/09/19 23:14 Acetaminophen (Tylenol) 650 mg Q4H PRN RECTAL Mild Pain (Pain Scale 1-3) 09/09/19 23:15 10/09/19 23:14 Acetaminophen (Tylenol) 650 mg Q4H PRN RECTAL fever 09/09/19 23:15 10/09/19 23:14 Albuterol/ Ipratropium (Albuterol/ Ipratropium) 3 ml Q6HR PRN HHN Shortness of Breath 09/09/19 23:15 09/14/19 23:14 09/12/19 20:40 Aspirin (ASA) 81 mg DAILY ORAL 09/12/19 09:00 10/12/19 08:59 09/13/19 09:41 Atorvastatin Calcium (Lipitor) 10 mg BEDTIME ORAL 09/10/19 21:00 10/10/19 20:59 09/12/19 21:10 Azithromycin (Zithromax) 250 mg DAILY ORAL 09/13/19 09:00 09/20/19 08:59 09/13/19 09:41 Cefepime HCl 2 gm/ Sodium Chloride 55 ml @ 110 mls/hr EVERY 12 HOURS IVPB 09/13/19 21:00 09/17/19 23:59 Dextrose (Dextrose 50%) 25 ml Q30M PRN IV Hypoglycemia 09/10/19 19:00 10/10/19 18:59 Dextrose (Dextrose 50%) 50 ml Q30M PRN IV Hypoglycemia 09/10/19 19:00 10/10/19 18:59 Docusate Sodium (Colace) 100 mg EVERY 12 HOURS ORAL 09/10/19 09:00 10/10/19 08:59 09/13/19 09:40 Escitalopram Oxalate (Lexapro) 5 mg DAILY ORAL 09/10/19 09:00 10/10/19 08:59 09/13/19 09:41 Furosemide (Lasix) 20 mg EVERY 12 HOURS IV 09/12/19 21:00 10/12/19 20:59 09/13/19 09:41 Hydralazine HCl (Apresoline) 10 mg Q4H PRN IV sbp>150, dbp>100 09/13/19 14:15 10/13/19 14:14 Hydromorphone HCl (Dilaudid) 0.5 mg Q4H PRN IVP For Pain 3-6 09/10/19 14:15 09/17/19 14:14 Hydromorphone HCl (Dilaudid) 1 mg Q4H PRN IVP For Pain 7-10 09/10/19 14:15 09/17/19 14:14 09/13/19 13:48 Insulin Aspart (NovoLOG) BEFORE MEALS AND HS SUBQ 09/11/19 16:30 10/11/19 16:29 09/13/19 17:50 Insulin Aspart (NovoLOG) 4 units NOVOTIAC SUBQ 09/13/19 06:30 10/11/19 06:29 09/13/19 17:50 Insulin Detemir (Levemir) 16 units BID SUBQ 09/13/19 09:00 10/10/19 20:59 09/13/19 17:51 Metoprolol Tartrate (Lopressor) 12.5 mg Q12HR ORAL 09/12/19 09:00 10/12/19 08:59 09/13/19 09:40 Ondansetron HCl (Zofran) 4 mg Q6H PRN IVP Nausea & Vomiting 09/09/19 23:15 10/09/19 23:14 09/10/19 10:17 Polyethylene Glycol (Miralax) 17 gm DAILYPRN PRN ORAL Constipation 09/09/19 23:15 10/09/19 23:14 Pregabalin (Lyrica) 50 mg THREE TIMES A DAY ORAL 09/10/19 09:00 10/10/19 08:59 09/13/19 17:54 Tamsulosin HCl (Flomax) 0.4 mg DAILY ORAL 09/10/19 09:00 10/10/19 08:59 09/13/19 09:41 Vancomycin HCl (Vanco rx to dose) 1 ea DAILY PRN MISC Per rx protocol 09/10/19 13:15 10/10/19 13:14 Vancomycin HCl 1 gm/Sodium Chloride 275 ml @ 183.708 mls/hr Q12HR@0300,1500 IVPB 09/12/19 15:00 09/17/19 14:59 09/13/19 15:07 Kesha Rebollar MD Sep 13, 2019 18:41
[2019-09-13 20:00] VITALS: BP 126/72
[2019-09-13] MEDS: Cefepime HCl 2 GM in NS 55 ML IVPB SCH (23:09)
[2019-09-14] VITALS: BP 117/73
[2019-09-14] MEDS: Albuterol/Ipratropium 3ml neb HHN PRN (00:05)
[2019-09-14 04:00] VITALS: BP 120/81
[2019-09-14] MEDS: Vancomycin 1 GM in NS 275 ML IVPB SCH ×3 (04:44→20:37)
[2019-09-14 05:08] LABS: BASOPHILS % (AUTO) 0.8 % (0.0-2.0); EOSINOPHILS % (AUTO) 2.2 % (0.0-3.0); HEMATOCRIT 31.7 % (42.0-52.0); HEMOGLOBIN 11.2 G/DL (14.2-18.0); MEAN CORPUSCULAR VOLUME 87 FL (80-99); MONOCYTES % (AUTO) 10.9 % (1.0-10.0); PLATELET COUNT 244 K/UL (150-450); RED BLOOD COUNT 3.63 M/UL (4.70-6.10); RED CELL DISTRIBUTION WIDTH 10.4 % (11.6-14.8); WHITE BLOOD COUNT 15.8 K/UL (4.8-10.8)
[2019-09-14 05:26] LABS: ALANINE AMINOTRANSFERASE 200 U/L (12-78); ALBUMIN 2.1 G/DL (3.4-5.0); ALBUMIN/GLOBULIN RATIO 0.5 (1.0-2.7); ALKALINE PHOSPHATASE 65 U/L (46-116); ANION GAP 4 mmol/L (5-15); ASPARTATE AMINO TRANSFERASE 72 U/L (15-37); BILIRUBIN,TOTAL 0.5 MG/DL (0.2-1.0); BLOOD UREA NITROGEN 13 mg/dL (7-18); CALCIUM 8.1 MG/DL (8.5-10.1); CARBON DIOXIDE 34 MMOL/L (21-32); CHLORIDE 94 MMOL/L (98-107); CREATININE 0.7 MG/DL (0.55-1.30); POTASSIUM 3.1 MMOL/L (3.5-5.1); SODIUM 132 MMOL/L (136-145)
[2019-09-14] MEDS: NovoLOG Insulin Flexpen SUBQ SCH ×5 (05:56→21:55)
--- NOTE | 2019-09-14 06:53 | General Progress Note ---
Assessment/Plan Problem List: (1) Hyperprolactinemia ICD Codes: E22.1 - Hyperprolactinemia SNOMED: 986773252 (2) Lactic acidosis ICD Codes: E87.2 - Acidosis SNOMED: 86698102 (3) Diabetes mellitus out of control ICD Codes: E11.65 - Type 2 diabetes mellitus with hyperglycemia SNOMED: 18047500, 257444922 (4) Community acquired bacterial pneumonia ICD Codes: J15.9 - Unspecified bacterial pneumonia SNOMED: 603070094, 57183723 (5) Acute respiratory failure with hypoxemia ICD Codes: J96.01 - Acute respiratory failure with hypoxia SNOMED: 446806688 (6) Sepsis ICD Codes: A41.9 - Sepsis, unspecified organism SNOMED: 98637141, 63738274 Qualifiers: Qualified Codes: A41.9 - Sepsis, unspecified organism; R65.20 - Severe sepsis without septic shock; J96.01 - Acute respiratory failure with hypoxia Status: stable, progressing Assessment/Plan: continue Levemir 16 units bid continu Novolog 4 units ac tid - hold if not eating continue NISS ac / hs continue to keep off Bromocriptine - as it might have contributed to AMS elevated prolactin level noted he will follow with [facility] endo service Subjective ROS Limited/Unobtainable: Yes Allergies: Coded Allergies: No Known Allergies (Unverified , 09/09/19) Subjective events noted glucose values improved Item Value Date Time Bedside Blood Glucose 106 mg/dl 09/14/19 0647 Bedside Blood Glucose 179 mg/dl H 09/13/19 2140 Bedside Blood Glucose 190 mg/dl H 09/13/19 1751 Bedside Blood Glucose 239 mg/dl H 09/13/19 1219 Bedside Blood Glucose 156 mg/dl H 09/13/19 0958 Bedside Blood Glucose 149 mg/dl H 09/13/19 0630 Objective Last 24 Hour Vital Signs Date Time Temp Pulse Resp B/P (MAP) Pulse Ox O2 Delivery O2 Flow Rate FiO2 09/14/19 04:00 86 09/14/19 04:00 6.0 09/14/19 04:00 98.6 74 18 120/81 (94) 97 09/14/19 00:07 85 18 97 Simple Mask 6.0 83 18 94 09/14/19 00:00 Simple Mask 6.0 Simple Mask 6.0 Simple Mask 6.0 09/14/19 00:00 98.2 83 18 117/73 (88) 94 09/14/19 00:00 82 09/14/19 00:00 6.0 09/13/19 22:00 6.0 09/13/19 21:35 80 126/72 09/13/19 21:00 Nasal Cannula 4.0 Nasal Cannula 4.0 Nasal Cannula 4.0 09/13/19 20:00 77 09/13/19 20:00 98.4 80 18 126/72 (90) 94 09/13/19 20:00 4.0 09/13/19 19:45 78 20 95 Nasal Cannula 2.0 09/13/19 19:45 95 Nasal Cannula 2.0 28 09/13/19 16:00 97.3 67 20 130/73 (92) 95 09/13/19 16:00 6.0 09/13/19 16:00 86 09/13/19 12:00 6.0 09/13/19 12:00 96 09/13/19 09:40 97 164/95 09/13/19 09:00 Nasal Cannula 6.0 09/13/19 08:00 97.9 97 19 164/95 (118) 97 09/13/19 08:00 91 09/13/19 08:00 6.0 09/13/19 07:50 89 20 98 Simple Mask 9.0 09/13/19 07:50 98 Simple Mask 9.0 Intake and Output 09/13/19 09/14/19 19:00 07:00 Intake Total 118 ml Output Total 1900 ml 1000 ml Balance -1782 ml -1000 ml Intake Oral 118 ml Output Urine Total 1900 ml 1000 ml # Voids 4 Laboratory Tests 09/13/19 09:55: Prothrombin Time 11.1, Prothromb Time International Ratio 1.0 09/13/19 12:22: Body Fluid Glucose [Pending], Body Fluid Total Protein [Pending], Body Fluid Lactate Dehydrogenase [Pending] 09/13/19 14:38: Potassium Level 3.4L 09/14/19 01:50: Vancomycin Level Trough 9.8 09/14/19 04:30: White Blood Count 15.8H, Red Blood Count 3.63L, Hemoglobin 11.2L, Hematocrit 31.7L, Mean Corpuscular Volume 87, Mean Corpuscular Hemoglobin 31.0, Mean Corpuscular Hemoglobin Concent 35.4, Red Cell Distribution Width 10.4L, Platelet Count 244, Mean Platelet Volume 5.0L, Neutrophils (%) (Auto) 75.0, Lymphocytes (%) (Auto) 11.0L, Monocytes (%) (Auto) 10.9H, Eosinophils (%) (Auto ) 2.2, Basophils (%) (Auto) 0.8, Sodium Level 132L, Potassium Level 3.1L, Chloride Level 94L, Carbon Dioxide Level 34H, Anion Gap 4L, Blood Urea Nitrogen 13, Creatinine 0.7, Estimat Glomerular Filtration Rate , Glucose Level 53L, Calcium Level 8.1L, Total Bilirubin 0.5, Aspartate Amino Transf (AST/SGOT) 72H, Alanine Aminotransferase (ALT/SGPT) 200H, Alkaline Phosphatase 65, Total Protein 6.3L, Albumin 2.1L, Globulin 4.2, Albumin/Globulin Ratio 0.5L Height (Feet): 5 Height (Inches): 5.00 Weight (Pounds): 154 General Appearance: no apparent distress Neck: normal alignment Cardiovascular: normal rate Respiratory/Chest: lungs clear Abdomen: normal bowel sounds Pelvis: normal external exam Objective Current Medications Medications (Trade) Dose Ordered Sig/Ishaan Route PRN Reason Start Time Stop Time Status Last Admin Dose Admin Acetaminophen (Tylenol) 650 mg Q4H PRN ORAL Mild Pain (Pain Scale 1-3) 09/09/19 23:15 10/09/19 23:14 09/11/19 03:23 Acetaminophen (Tylenol) 650 mg Q4H PRN ORAL fever 09/09/19 23:15 10/09/19 23:14 Acetaminophen (Tylenol) 650 mg Q4H PRN RECTAL Mild Pain (Pain Scale 1-3) 09/09/19 23:15 10/09/19 23:14 Acetaminophen (Tylenol) 650 mg Q4H PRN RECTAL fever 09/09/19 23:15 10/09/19 23:14 Albuterol/ Ipratropium (Albuterol/ Ipratropium) 3 ml Q6HR PRN HHN Shortness of Breath 09/09/19 23:15 09/14/19 23:14 09/14/19 00:05 Aspirin (ASA) 81 mg DAILY ORAL 09/12/19 09:00 10/12/19 08:59 09/13/19 09:41 Atorvastatin Calcium (Lipitor) 10 mg BEDTIME ORAL 09/10/19 21:00 10/10/19 20:59 09/13/19 21:34 Azithromycin (Zithromax) 250 mg DAILY ORAL 09/13/19 09:00 09/20/19 08:59 09/13/19 09:41 Cefepime HCl 2 gm/ Sodium Chloride 55 ml @ 110 mls/hr EVERY 12 HOURS IVPB 09/13/19 21:00 09/17/19 23:59 09/13/19 23:09 Dextrose (Dextrose 50%) 25 ml Q30M PRN IV Hypoglycemia 09/10/19 19:00 10/10/19 18:59 Dextrose (Dextrose 50%) 50 ml Q30M PRN IV Hypoglycemia 09/10/19 19:00 10/10/19 18:59 Docusate Sodium (Colace) 100 mg EVERY 12 HOURS ORAL 09/10/19 09:00 10/10/19 08:59 09/13/19 21:34 Escitalopram Oxalate (Lexapro) 5 mg DAILY ORAL 09/10/19 09:00 10/10/19 08:59 09/13/19 09:41 Furosemide (Lasix) 20 mg EVERY 12 HOURS IV 09/12/19 21:00 10/12/19 20:59 09/13/19 21:41 Hydralazine HCl (Apresoline) 10 mg Q4H PRN IV sbp>150, dbp>100 09/13/19 14:15 10/13/19 14:14 Hydromorphone HCl (Dilaudid) 0.5 mg Q4H PRN IVP For Pain 3-6 09/10/19 14:15 09/17/19 14:14 Hydromorphone HCl (Dilaudid) 1 mg Q4H PRN IVP For Pain 7-10 09/10/19 14:15 09/17/19 14:14 09/13/19 13:48 Insulin Aspart (NovoLOG) BEFORE MEALS AND HS SUBQ 09/11/19 16:30 10/11/19 16:29 09/13/19 21:40 Insulin Aspart (NovoLOG) 4 units NOVOTIAC SUBQ 09/13/19 06:30 10/11/19 06:29 09/14/19 06:19 Insulin Detemir (Levemir) 16 units BID SUBQ 09/13/19 09:00 10/10/19 20:59 09/13/19 17:51 Metoprolol Tartrate (Lopressor) 12.5 mg Q12HR ORAL 09/12/19 09:00 10/12/19 08:59 09/13/19 21:35 Metronidazole 100 ml @ 100 mls/hr Q8H IVPB 09/13/19 20:00 09/20/19 19:59 09/14/19 04:45 Ondansetron HCl (Zofran) 4 mg Q6H PRN IVP Nausea & Vomiting 09/09/19 23:15 10/09/19 23:14 09/10/19 10:17 Polyethylene Glycol (Miralax) 17 gm DAILYPRN PRN ORAL Constipation 09/09/19 23:15 10/09/19 23:14 Pregabalin (Lyrica) 50 mg THREE TIMES A DAY ORAL 09/10/19 09:00 10/10/19 08:59 09/13/19 17:54 Tamsulosin HCl (Flomax) 0.4 mg DAILY ORAL 09/10/19 09:00 10/10/19 08:59 09/13/19 09:41 Vancomycin HCl (Vanco rx to dose) 1 ea DAILY PRN MISC Per rx protocol 09/10/19 13:15 10/10/19 13:14 Vancomycin HCl 1 gm/Sodium Chloride 275 ml @ 183.708 mls/hr Q8H IVPB 09/14/19 04:00 09/19/19 03:59 09/14/19 04:44 Sunny Mcneil MD Sep 14, 2019 06:53
[2019-09-14 08:00] VITALS: BP 140/83
[2019-09-14] MEDS: Metoprolol Tartrate 12.5mg TAB ORAL SCH ×2 (08:55→20:35)
[2019-09-14] MEDS: Aspirin Baby 81mg ORAL SCH (08:55)
[2019-09-14] MEDS: Lyrica 50mg cap ORAL SCH ×3 (08:55→17:03)
[2019-09-14] MEDS: Docusate 100mg cap ORAL SCH ×2 (08:55→20:36)
[2019-09-14] MEDS: Azithromycin 250mg tab ORAL SCH (08:55)
[2019-09-14] MEDS: Cefepime HCl 2 GM in NS 55 ML IVPB SCH (08:56)
[2019-09-14] MEDS: Tamsulosin 0.4mg cap ORAL SCH (08:56)
[2019-09-14] MEDS: Levemir Flexpen SUBQ SCH (09:00)
--- NOTE | 2019-09-14 09:09 | General Progress Note ---
Assessment/Plan Problem List: (1) Severe sepsis ICD Codes: A41.9 - Sepsis, unspecified organism; R65.20 - Severe sepsis without septic shock SNOMED: 85895644 (2) Acute respiratory failure with hypoxemia ICD Codes: J96.01 - Acute respiratory failure with hypoxia SNOMED: 282155502 (3) Encephalopathy due to infection ICD Codes: G93.49 - Other encephalopathy; B99.9 - Unspecified infectious disease SNOMED: 46967995, 71566019 (4) Community acquired bacterial pneumonia ICD Codes: J15.9 - Unspecified bacterial pneumonia SNOMED: 314653286, 89106169 (5) Diabetes mellitus out of control ICD Codes: E11.65 - Type 2 diabetes mellitus with hyperglycemia SNOMED: 77735449, 338018615 (6) Lactic acidosis ICD Codes: E87.2 - Acidosis SNOMED: 07409734 (7) Hyperprolactinemia ICD Codes: E22.1 - Hyperprolactinemia SNOMED: 794296382 (8) Pulmonary HTN ICD Codes: I27.20 - Pulmonary hypertension, unspecified SNOMED: 45881785 (9) Diastolic CHF, acute ICD Codes: I50.31 - Acute diastolic (congestive) heart failure SNOMED: 23495082, 388895630 (10) Pleural effusion, right ICD Codes: J90 - Pleural effusion, not elsewhere classified SNOMED: 14995836 Status: stable, progressing Assessment/Plan: 73 year old presented with fever, chills, sob. Found to be hypoxic, tachycardic and febrile, +leukocytosis, CXR with infiltrates. influenza A/B negative. #Sever sepsis secondary to CAP, ? empyema #Acute respiratory failure with hypoxia #Acute encephalopathy, infection and hypoxic #large Right sided pleural effusion #Pulmonary arterial HTN telemetry s/p thoracentesis 950 cc green pleural fluid took out. Check fluid for culture, gram stain, cytology, LDH, total protein, glucose cefepime and azithromycin, vancomycin check sputum culture, blood cultures speech therapy evaluation appreciated--> pureed to ground texture o2 to keep o2 sat >95% Monitor mental status pain control ID and pulmonary consults IV lasix [address] chest reviewed: Large R effusion now s/p thoracentesis Pulmonary and cardiology follow up for pulmonary arterial hypertension d/w Kris Barlow and Rufino #Diastolic CHF, acute #R pleural effusion #Transient Afib/Flutter #pulmonary arterial HTN Echo reviewed: Diastolic dysfunction, pulmonary HTN, systolic function seems to be okay IV lasix 40 mg once, 20 mg BID d/w cardiology Metoprolol 12.5 mg BID, ASA, Atorvastatin. #Transaminitis, ?passive congestion, pattern not obstructive , normal ALP and total bili AST/ALT 300's normal on admission, now trending down monitor follow up hepatitis panel US abdomen reviewed: Gallbladder sludge and possible small stones. Mildly ectatic common bile duct, probably related to patient's age but downstream obstruction not completely excludable. Correlate with liver function tests, consider MRCP if clinically indicated. Liver demonstrates diffusely increased echogenicity, consistent with diffuse hepatocellular disease, most likely fatty change. Trace perihepatic ascites. Large right pleural effusion. Incidental finding small lateral renal cysts. Note inability to visualize portions of the abdominal aorta #DM uncontrolled #Prolactinoma Hold home po meds Insulin basal bolus, monitor fsbg. Levemir 16 units BID, NovoLog 4 units with meals, SSI. hold Levemir and NovoLog due to poor po intake. continue sliding scale hold Bromocriptine as may have been contributing to AMS prolactin levels reviewed and high ~100 endocrinology consult Tarun Olson #Hematuria- resolved #BPH Dced heparin due to hematuria UA sent Flomax #Hypokalemia Replace Vte ppx: start lovenox 40 mg daily 09/14, SCD boots Code: full code per daughter at bedside I spent 40 minutes on this encounter. >50% spent on counselling and care coordination. case d/w daughter and RN at bedside. Subjective Date patient seen: Sep 14, 2019 ROS Limited/Unobtainable: No Constitutional: Reports: weakness HEENT: Denies: no symptoms, eye pain, blurred vision, tearing, double vision, ear pain, ear discharge, nose pain, nose congestion, throat pain, throat swelling, mouth pain, mouth swelling, other Cardiovascular: Reports: chest pain - right side when coughs Respiratory: Reports: cough, shortness of breath Gastrointestinal/Abdominal: Denies: no symptoms, abdomen distended, abdominal pain, black stools, tarry stools, blood in stool, constipated, diarrhea, difficulty swallowing, nausea, poor appetite, poor fluid intake, rectal bleeding , vomiting, other Genitourinary: Denies: no symptoms, burning, discharge, frequency, flank pain, hematuria, incontinence, pain, urgency, other Neurologic/Psychiatric: Denies: no symptoms, anxiety, depressed, emotional problems, headache, numbness, paresthesia, pre-existing deficit, seizure, tingling, tremors, weakness, other Endocrine: Reports: increased urine Hematologic/Lymphatic: Denies: no symptoms, anemia, easy bleeding, easy bruising, other Allergies: Coded Allergies: No Known Allergies (Unverified , 09/09/19) Subjective seen and examined, daughter and at bedside. s/p thoracentesis 09/13, 950 cc yellow/green fluid taken out he is afebrile, vss Objective Last 24 Hour Vital Signs Date Time Temp Pulse Resp B/P (MAP) Pulse Ox O2 Delivery O2 Flow Rate FiO2 09/14/19 08:55 86 140/83 09/14/19 08:18 4.0 09/14/19 08:15 Nasal Cannula 4.0 Nasal Cannula 4.0 Nasal Cannula 4.0 09/14/19 08:00 97.3 86 17 140/83 (102) 91 09/14/19 04:00 86 09/14/19 04:00 6.0 09/14/19 04:00 98.6 74 18 120/81 (94) 97 09/14/19 00:07 85 18 97 Simple Mask 6.0 83 18 94 09/14/19 00:00 Simple Mask 6.0 Simple Mask 6.0 Simple Mask 6.0 09/14/19 00:00 98.2 83 18 117/73 (88) 94 09/14/19 00:00 82 09/14/19 00:00 6.0 09/13/19 22:00 6.0 09/13/19 21:35 80 126/72 09/13/19 21:00 Nasal Cannula 4.0 Nasal Cannula 4.0 Nasal Cannula 4.0 09/13/19 20:00 77 09/13/19 20:00 98.4 80 18 126/72 (90) 94 09/13/19 20:00 4.0 09/13/19 19:45 78 20 95 Nasal Cannula 2.0 09/13/19 19:45 95 Nasal Cannula 2.0 28 09/13/19 16:00 97.3 67 20 130/73 (92) 95 09/13/19 16:00 6.0 09/13/19 16:00 86 09/13/19 12:00 6.0 09/13/19 12:00 96 09/13/19 09:40 97 164/95 Intake and Output 09/13/19 09/14/19 19:00 07:00 Intake Total 118 ml Output Total 1900 ml 1000 ml Balance -1782 ml -1000 ml Intake Oral 118 ml Output Urine Total 1900 ml 1000 ml # Voids 4 Laboratory Tests 09/13/19 09:55: Prothrombin Time 11.1, Prothromb Time International Ratio 1.0 09/13/19 12:22: Body Fluid Glucose [Pending], Body Fluid Total Protein [Pending], Body Fluid Lactate Dehydrogenase [Pending] 09/13/19 14:38: Potassium Level 3.4L 09/14/19 01:50: Vancomycin Level Trough 9.8 09/14/19 04:30: White Blood Count 15.8H, Red Blood Count 3.63L, Hemoglobin 11.2L, Hematocrit 31.7L, Mean Corpuscular Volume 87, Mean Corpuscular Hemoglobin 31.0, Mean Corpuscular Hemoglobin Concent 35.4, Red Cell Distribution Width 10.4L, Platelet Count 244, Mean Platelet Volume 5.0L, Neutrophils (%) (Auto) 75.0, Lymphocytes (%) (Auto) 11.0L, Monocytes (%) (Auto) 10.9H, Eosinophils (%) (Auto ) 2.2, Basophils (%) (Auto) 0.8, Sodium Level 132L, Potassium Level 3.1L, Chloride Level 94L, Carbon Dioxide Level 34H, Anion Gap 4L, Blood Urea Nitrogen 13, Creatinine 0.7, Estimat Glomerular Filtration Rate , Glucose Level 53L, Calcium Level 8.1L, Total Bilirubin 0.5, Aspartate Amino Transf (AST/SGOT) 72H, Alanine Aminotransferase (ALT/SGPT) 200H, Alkaline Phosphatase 65, Total Protein 6.3L, Albumin 2.1L, Globulin 4.2, Albumin/Globulin Ratio 0.5L Height (Feet): 5 Height (Inches): 5.00 Weight (Pounds): 154 Objective General Appearance: alert, moderate distress EENT: PERRL/EOMI, normal ENT inspection Neck: non-tender, normal alignment, supple Cardiovascular: normal peripheral pulses, normal rate, regular rhythm, no gallop/murmur, no JVD Respiratory/Chest: rales Abdomen: normal bowel sounds, non tender, soft, no organomegaly, no mass, distended Extremities: normal range of motion, no calf tenderness Rick Banerjee M.D. Sep 14, 2019 09:09
--- NOTE | 2019-09-14 10:31 | Cardiac Electrophysiology PN ---
Assessment/Plan Assessment/Plan 1. Atrial fibrillation, rate of 110. Converted to sinus rhythm. No known history of coronary artery disease or congestive heart failure or prior atrial fibrillation. Echo EF 55%. 2. Troponin leak negative to 0.198. Right side CP only when coughs due to pleural effusion On Aspirin, Lopressor 12.5 bid and Lipitor 10 3. RBBB 3. HTN 4. Right sided pleural effusion. S/P Chest CT and 950cc Thoracentesis 09/13/2019 Awaiting Cytology On Lasix 20 iv bid 5. Pneumonia on IV antibiotic. 6. Uncontrolled diabetes. 7. Hyperprolactinemia. Further evaluation by Dr. Mcneil. 8. K 2.8m Replaced but still 3.1 today. Add 40 KCL po daily DW RN., daughter and Dr Banerjee. Subjective Subjective No more atrial fib overnight. S/P 950cc yellow, greenish thoracentesis yesterday. Daughter at bedside Objective Last 24 Hour Vital Signs Date Time Temp Pulse Resp B/P (MAP) Pulse Ox O2 Delivery O2 Flow Rate FiO2 09/14/19 08:55 86 140/83 09/14/19 08:18 4.0 09/14/19 08:15 Nasal Cannula 4.0 Nasal Cannula 4.0 Nasal Cannula 4.0 09/14/19 08:00 97.3 86 17 140/83 (102) 91 09/14/19 08:00 81 09/14/19 04:00 86 09/14/19 04:00 6.0 09/14/19 04:00 98.6 74 18 120/81 (94) 97 09/14/19 00:07 85 18 97 Simple Mask 6.0 83 18 94 09/14/19 00:00 Simple Mask 6.0 Simple Mask 6.0 Simple Mask 6.0 09/14/19 00:00 98.2 83 18 117/73 (88) 94 09/14/19 00:00 82 09/14/19 00:00 6.0 09/13/19 22:00 6.0 09/13/19 21:35 80 126/72 09/13/19 21:00 Nasal Cannula 4.0 Nasal Cannula 4.0 Nasal Cannula 4.0 09/13/19 20:00 77 09/13/19 20:00 98.4 80 18 126/72 (90) 94 09/13/19 20:00 4.0 09/13/19 19:45 78 20 95 Nasal Cannula 2.0 09/13/19 19:45 95 Nasal Cannula 2.0 28 09/13/19 16:00 97.3 67 20 130/73 (92) 95 09/13/19 16:00 6.0 09/13/19 16:00 86 09/13/19 12:00 6.0 09/13/19 12:00 96 Intake and Output 09/13/19 09/14/19 19:00 07:00 Intake Total 118 ml Output Total 1900 ml 1000 ml Balance -1782 ml -1000 ml Intake Oral 118 ml Output Urine Total 1900 ml 1000 ml # Voids 4 Laboratory Tests Test 09/13/19 12:22 09/13/19 14:38 09/14/19 01:50 09/14/19 04:30 Body Fluid Glucose Pending Body Fluid Total Protein Pending Body Fluid Lactate Dehydrogenase Pending Potassium Level 3.4 MMOL/L (3.5-5.1) L 3.1 MMOL/L (3.5-5.1) L Vancomycin Level Trough 9.8 ug/mL (5.0-12.0) White Blood Count 15.8 K/UL (4.8-10.8) H Red Blood Count 3.63 M/UL (4.70-6.10) L Hemoglobin 11.2 G/DL (14.2-18.0) L Hematocrit 31.7 % (42.0-52.0) L Mean Corpuscular Volume 87 FL (80-99) Mean Corpuscular Hemoglobin 31.0 PG (27.0-31.0) Mean Corpuscular Hemoglobin Concent 35.4 G/DL (32.0-36.0) Red Cell Distribution Width 10.4 % (11.6-14.8) L Platelet Count 244 K/UL (150-450) Mean Platelet Volume 5.0 FL (6.5-10.1) L Neutrophils (%) (Auto) 75.0 % (45.0-75.0) Lymphocytes (%) (Auto) 11.0 % (20.0-45.0) L Monocytes (%) (Auto) 10.9 % (1.0-10.0) H Eosinophils (%) (Auto) 2.2 % (0.0-3.0) Basophils (%) (Auto) 0.8 % (0.0-2.0) Sodium Level 132 MMOL/L (136-145) L Chloride Level 94 MMOL/L (98-107) L Carbon Dioxide Level 34 MMOL/L (21-32) H Anion Gap 4 mmol/L (5-15) L Blood Urea Nitrogen 13 mg/dL (7-18) Creatinine 0.7 MG/DL (0.55-1.30) Estimat Glomerular Filtration Rate mL/min (>60) Glucose Level 53 MG/DL (74-106) L Calcium Level 8.1 MG/DL (8.5-10.1) L Total Bilirubin 0.5 MG/DL (0.2-1.0) Aspartate Amino Transf (AST/SGOT) 72 U/L (15-37) H Alanine Aminotransferase (ALT/SGPT) 200 U/L (12-78) H Alkaline Phosphatase 65 U/L (46-116) Total Protein 6.3 G/DL (6.4-8.2) L Albumin 2.1 G/DL (3.4-5.0) L Globulin 4.2 g/dL Albumin/Globulin Ratio 0.5 (1.0-2.7) L Microbiology Date/Time Source Procedure Growth Status 09/13/19 12:22 Body Fluid Drainage Gram Stain - Final Resulted 09/13/19 12:22 Body Fluid Drainage Body Fluid Culture - Preliminary NO GROWTH Resulted Objective HEAD AND NECK: No JVD. LUNGS: Clear. CARDIOVASCULAR: Regular S1 and S2 with no gallop or murmur. ABDOMEN: Soft. EXTREMITIES: No pitting edema. Irving Joy MD Sep 14, 2019 10:31
--- NOTE | 2019-09-14 10:54 | Pulmonology Progress Note ---
Assessment/Plan Problems: (1) Community acquired bacterial pneumonia (2) Acute respiratory failure with hypoxemia (3) Lactic acidosis (4) Hyperprolactinemia (5) Sepsis (6) Diabetes mellitus out of control Assessment/Plan Plan: * Abx per ID: [email or web address] * f/u cultures * f/u pleural fluid studies * Repeat CXR in several days * Monitor volumes * Wean oxygen * Endocrine f/u Subjective ROS Limited/Unobtainable: Yes Interval Events: 950 cc yellow green thoracentesis done yesterday. WBC down. feels better Allergies: Coded Allergies: No Known Allergies (Unverified , 09/09/19) All Systems: reviewed and negative except above Objective Last 24 Hour Vital Signs Date Time Temp Pulse Resp B/P (MAP) Pulse Ox O2 Delivery O2 Flow Rate FiO2 09/14/19 08:55 86 140/83 09/14/19 08:18 4.0 09/14/19 08:15 Nasal Cannula 4.0 Nasal Cannula 4.0 Nasal Cannula 4.0 09/14/19 08:00 97.3 86 17 140/83 (102) 91 09/14/19 08:00 81 09/14/19 04:00 86 09/14/19 04:00 6.0 09/14/19 04:00 98.6 74 18 120/81 (94) 97 09/14/19 00:07 85 18 97 Simple Mask 6.0 83 18 94 09/14/19 00:00 Simple Mask 6.0 Simple Mask 6.0 Simple Mask 6.0 09/14/19 00:00 98.2 83 18 117/73 (88) 94 09/14/19 00:00 82 09/14/19 00:00 6.0 09/13/19 22:00 6.0 09/13/19 21:35 80 126/72 09/13/19 21:00 Nasal Cannula 4.0 Nasal Cannula 4.0 Nasal Cannula 4.0 09/13/19 20:00 77 09/13/19 20:00 98.4 80 18 126/72 (90) 94 09/13/19 20:00 4.0 09/13/19 19:45 78 20 95 Nasal Cannula 2.0 09/13/19 19:45 95 Nasal Cannula 2.0 28 09/13/19 16:00 97.3 67 20 130/73 (92) 95 09/13/19 16:00 6.0 09/13/19 16:00 86 09/13/19 12:00 6.0 09/13/19 12:00 96 Intake and Output 09/13/19 09/14/19 19:00 07:00 Intake Total 118 ml Output Total 1900 ml 1000 ml Balance -1782 ml -1000 ml Intake Oral 118 ml Output Urine Total 1900 ml 1000 ml # Voids 4 General Appearance: no acute distress HEENT: mucous membranes moist Respiratory/Chest: decreased breath sounds - on right Cardiovascular: normal rate, regular rhythm Abdomen: soft, non tender, non distended Extremities: no edema Neurologic/Psychiatric: alert Microbiology Date/Time Source Procedure Growth Status 09/13/19 12:22 Body Fluid Drainage Gram Stain - Final Resulted 09/13/19 12:22 Body Fluid Drainage Body Fluid Culture - Preliminary NO GROWTH Resulted Laboratory Tests 09/13/19 12:22: Body Fluid Glucose [Pending], Body Fluid Total Protein [Pending], Body Fluid Lactate Dehydrogenase [Pending] 09/13/19 14:38: Potassium Level 3.4L 09/14/19 01:50: Vancomycin Level Trough 9.8 09/14/19 04:30: Potassium Level 3.1L, White Blood Count 15.8H, Red Blood Count 3.63L, Hemoglobin 11.2L, Hematocrit 31.7L, Mean Corpuscular Volume 87, Mean Corpuscular Hemoglobin 31.0, Mean Corpuscular Hemoglobin Concent 35.4, Red Cell Distribution Width 10.4L, Platelet Count 244, Mean Platelet Volume 5.0L, Neutrophils (%) (Auto) 75.0, Lymphocytes (%) (Auto) 11.0L, Monocytes (%) (Auto) 10.9H, Eosinophils (%) (Auto) 2.2, Basophils (%) (Auto) 0.8, Sodium Level 132L, Chloride Level 94L, Carbon Dioxide Level 34H, Anion Gap 4L, Blood Urea Nitrogen 13, Creatinine 0.7, Estimat Glomerular Filtration Rate , Glucose Level 53L, Calcium Level 8.1L, Total Bilirubin 0.5, Aspartate Amino Transf (AST/SGOT) 72H, Alanine Aminotransferase (ALT/SGPT) 200H, Alkaline Phosphatase 65, Total Protein 6.3L, Albumin 2.1L, Globulin 4.2, Albumin/Globulin Ratio 0.5L Current Medications Medications (Trade) Dose Ordered Sig/Ishaan Route PRN Reason Start Time Stop Time Status Last Admin Dose Admin Acetaminophen (Tylenol) 650 mg Q4H PRN ORAL Mild Pain (Pain Scale 1-3) 09/09/19 23:15 10/09/19 23:14 09/11/19 03:23 Acetaminophen (Tylenol) 650 mg Q4H PRN ORAL fever 09/09/19 23:15 10/09/19 23:14 Acetaminophen (Tylenol) 650 mg Q4H PRN RECTAL Mild Pain (Pain Scale 1-3) 09/09/19 23:15 10/09/19 23:14 Acetaminophen (Tylenol) 650 mg Q4H PRN RECTAL fever 09/09/19 23:15 10/09/19 23:14 Albuterol/ Ipratropium (Albuterol/ Ipratropium) 3 ml Q6HR PRN HHN Shortness of Breath 09/09/19 23:15 09/14/19 23:14 09/14/19 00:05 Aspirin (ASA) 81 mg DAILY ORAL 09/12/19 09:00 10/12/19 08:59 09/14/19 08:55 Atorvastatin Calcium (Lipitor) 10 mg BEDTIME ORAL 09/10/19 21:00 10/10/19 20:59 09/13/19 21:34 Azithromycin (Zithromax) 250 mg DAILY ORAL 09/13/19 09:00 09/20/19 08:59 09/14/19 08:55 Cefepime HCl 2 gm/ Sodium Chloride 55 ml @ 110 mls/hr Q24H IVPB 09/15/19 09:00 09/20/19 20:59 Dextrose (Dextrose 50%) 25 ml Q30M PRN IV Hypoglycemia 09/10/19 19:00 10/10/19 18:59 Dextrose (Dextrose 50%) 50 ml Q30M PRN IV Hypoglycemia 09/10/19 19:00 10/10/19 18:59 Docusate Sodium (Colace) 100 mg EVERY 12 HOURS ORAL 09/10/19 09:00 10/10/19 08:59 09/14/19 08:55 Enoxaparin Sodium (Lovenox) 40 mg DAILY SUBQ 09/14/19 10:45 10/14/19 10:44 Escitalopram Oxalate (Lexapro) 5 mg DAILY ORAL 09/10/19 09:00 10/10/19 08:59 09/14/19 08:56 Furosemide (Lasix) 20 mg EVERY 12 HOURS IV 09/12/19 21:00 10/12/19 20:59 09/14/19 08:55 Hydralazine HCl (Apresoline) 10 mg Q4H PRN IV sbp>150, dbp>100 09/13/19 14:15 10/13/19 14:14 Hydromorphone HCl (Dilaudid) 0.5 mg Q4H PRN IVP For Pain 3-6 09/10/19 14:15 09/17/19 14:14 Hydromorphone HCl (Dilaudid) 1 mg Q4H PRN IVP For Pain 7-10 09/10/19 14:15 09/17/19 14:14 09/13/19 13:48 Insulin Aspart (NovoLOG) BEFORE MEALS AND HS SUBQ 09/11/19 16:30 10/11/19 16:29 09/13/19 21:40 Metoprolol Tartrate (Lopressor) 12.5 mg Q12HR ORAL 09/12/19 09:00 10/12/19 08:59 09/14/19 08:55 Metronidazole 100 ml @ 100 mls/hr Q8H IVPB 09/13/19 20:00 09/20/19 19:59 09/14/19 04:45 Ondansetron HCl (Zofran) 4 mg Q6H PRN IVP Nausea & Vomiting 09/09/19 23:15 10/09/19 23:14 09/10/19 10:17 Polyethylene Glycol (Miralax) 17 gm DAILYPRN PRN ORAL Constipation 09/09/19 23:15 10/09/19 23:14 Potassium Chloride (K-Dur) 40 meq DAILY ORAL 09/15/19 09:00 10/15/19 08:59 Potassium Chloride (K-Dur) 60 meq ONCE ORAL 09/14/19 10:30 09/14/19 11:30 Pregabalin (Lyrica) 50 mg THREE TIMES A DAY ORAL 09/10/19 09:00 10/10/19 08:59 09/14/19 08:55 Tamsulosin HCl (Flomax) 0.4 mg DAILY ORAL 09/10/19 09:00 10/10/19 08:59 09/14/19 08:56 Vancomycin HCl (Vanco rx to dose) 1 ea DAILY PRN MISC Per rx protocol 09/10/19 13:15 10/10/19 13:14 Vancomycin HCl 1 gm/Sodium Chloride 275 ml @ 183.708 mls/hr Q8H IVPB 09/14/19 04:00 09/19/19 03:59 09/14/19 04:44 Landry Barlow MD Sep 14, 2019 10:54
[2019-09-14] MEDS: Enoxaparin 40mg Inj SUBQ SCH (11:02)
[2019-09-14 12:00] VITALS: BP 117/70
[2019-09-14 16:00] VITALS: BP 121/71
[2019-09-14 20:00] VITALS: BP 131/78
[2019-09-14] MEDS: HYDROmorphone 1mg/ml Carpuject IVP PRN (21:20)
[2019-09-15] VITALS: BP 126/94
[2019-09-15 03:07] LABS: BASOPHILS % (AUTO) 0.8 % (0.0-2.0); EOSINOPHILS % (AUTO) 2.2 % (0.0-3.0); HEMATOCRIT 32.4 % (42.0-52.0); HEMOGLOBIN 11.5 G/DL (14.2-18.0); LYMPHOCYTES % (AUTO) 10.3 % (20.0-45.0); MEAN CORPUSCULAR VOLUME 88 FL (80-99); MONOCYTES % (AUTO) 10.5 % (1.0-10.0); NEUTROPHILS % (AUTO) 76.3 % (45.0-75.0); PLATELET COUNT 280 K/UL (150-450); RED CELL DISTRIBUTION WIDTH 10.2 % (11.6-14.8); WHITE BLOOD COUNT 16.4 K/UL (4.8-10.8)
[2019-09-15 03:24] LABS: ANION GAP 6 mmol/L (5-15); BLOOD UREA NITROGEN 14 mg/dL (7-18); CALCIUM 7.6 MG/DL (8.5-10.1); CARBON DIOXIDE 36 MMOL/L (21-32); CHLORIDE 90 MMOL/L (98-107); CREATININE 0.8 MG/DL (0.55-1.30); POTASSIUM 3.3 MMOL/L (3.5-5.1); SODIUM 132 MMOL/L (136-145)
[2019-09-15 04:00] VITALS: BP 122/62
[2019-09-15] MEDS: Vancomycin 1 GM in NS 275 ML IVPB SCH ×3 (04:55→20:09)
[2019-09-15] MEDS: NovoLOG Insulin Flexpen SUBQ SCH ×4 (06:30→20:18)
[2019-09-15 08:00] VITALS: BP 134/70
[2019-09-15] MEDS: Docusate 100mg cap ORAL SCH ×2 (09:01→20:10)
[2019-09-15] MEDS: Lyrica 50mg cap ORAL SCH ×3 (09:01→17:35)
[2019-09-15] MEDS: Aspirin Baby 81mg ORAL SCH (09:01)
[2019-09-15] MEDS: Azithromycin 250mg tab ORAL SCH (09:01)
[2019-09-15] MEDS: Tamsulosin 0.4mg cap ORAL SCH (09:01)
[2019-09-15] MEDS: Cefepime HCl 2 GM in NS 55 ML IVPB SCH (09:03)
[2019-09-15] MEDS: Metoprolol Tartrate 12.5mg TAB ORAL SCH ×2 (09:04→20:10)
[2019-09-15] MEDS: Enoxaparin 40mg Inj SUBQ SCH (09:10)
[2019-09-15] MEDS: HYDROmorphone 1mg/ml Carpuject IVP PRN ×2 (11:58→20:14)
[2019-09-15 12:00] VITALS: BP 127/69
--- NOTE | 2019-09-15 12:31 | Cardiac Electrophysiology PN ---
Assessment/Plan Assessment/Plan 1. Atrial fibrillation, rate of 110. Converted to sinus rhythm. No known history of CAD or CHF or prior atrial fibrillation. Echo EF 55%. 2. Troponin leak negative to 0.198. Right side CP only when coughs due to pleural effusion On Aspirin, Lopressor 12.5 bid and Lipitor 10 3. RBBB 3. HTN 4. Right sided pleural effusion. S/P Chest CT and 950cc Thoracentesis 09/13/2019 Awaiting Cytology. On Lasix 20 iv bid 5. Pneumonia on IV antibiotic. 6. Uncontrolled diabetes. 7. Hyperprolactinemia. Further evaluation by Dr. Mcneil. 8. K 3.1, On 40 KCL po daily DW RN and daughter Subjective Subjective No more atrial fib overnight. S/P 950cc yellow, greenish thoracentesis . Daughter at bedside Objective Last 24 Hour Vital Signs Date Time Temp Pulse Resp B/P (MAP) Pulse Ox O2 Delivery O2 Flow Rate FiO2 09/15/19 09:04 80 134/70 09/15/19 08:12 Nasal Cannula 4.0 Nasal Cannula 4.0 Nasal Cannula 4.0 09/15/19 08:00 97.9 80 20 134/70 (91) 93 09/15/19 08:00 79 09/15/19 04:00 98.9 88 16 122/62 (82) 93 09/15/19 04:00 85 09/15/19 00:00 77 09/15/19 00:00 98.4 86 18 126/94 (105) 94 09/14/19 21:12 80 20 94 Nasal Cannula 3.0 09/14/19 21:11 94 Nasal Cannula 3.0 32 09/14/19 21:00 Nasal Cannula 4.0 Nasal Cannula 4.0 Nasal Cannula 4.0 09/14/19 20:35 90 131/78 09/14/19 20:00 85 09/14/19 20:00 98.8 90 18 131/78 (95) 95 09/14/19 16:00 79 09/14/19 16:00 4.0 09/14/19 16:00 98.8 76 18 121/71 (88) 96 Intake and Output 09/14/19 09/15/19 19:00 07:00 Intake Total 890 ml Output Total 1000 ml Balance 890 ml -1000 ml Other 890 ml Output Urine Total 1000 ml Laboratory Tests Test 09/15/19 02:59 White Blood Count 16.4 K/UL (4.8-10.8) H Red Blood Count 3.70 M/UL (4.70-6.10) L Hemoglobin 11.5 G/DL (14.2-18.0) L Hematocrit 32.4 % (42.0-52.0) L Mean Corpuscular Volume 88 FL (80-99) Mean Corpuscular Hemoglobin 31.0 PG (27.0-31.0) Mean Corpuscular Hemoglobin Concent 35.5 G/DL (32.0-36.0) Red Cell Distribution Width 10.2 % (11.6-14.8) L Platelet Count 280 K/UL (150-450) Mean Platelet Volume 5.2 FL (6.5-10.1) L Neutrophils (%) (Auto) 76.3 % (45.0-75.0) H Lymphocytes (%) (Auto) 10.3 % (20.0-45.0) L Monocytes (%) (Auto) 10.5 % (1.0-10.0) H Eosinophils (%) (Auto) 2.2 % (0.0-3.0) Basophils (%) (Auto) 0.8 % (0.0-2.0) Sodium Level 132 MMOL/L (136-145) L Potassium Level 3.3 MMOL/L (3.5-5.1) L Chloride Level 90 MMOL/L (98-107) L Carbon Dioxide Level 36 MMOL/L (21-32) H Anion Gap 6 mmol/L (5-15) Blood Urea Nitrogen 14 mg/dL (7-18) Creatinine 0.8 MG/DL (0.55-1.30) Estimat Glomerular Filtration Rate mL/min (>60) Glucose Level 137 MG/DL (74-106) H Calcium Level 7.6 MG/DL (8.5-10.1) L Magnesium Level 1.3 MG/DL (1.8-2.4) L Vancomycin Level Trough 16.4 ug/mL (5.0-12.0) H Microbiology Date/Time Source Procedure Growth Status 09/13/19 12:22 Body Fluid Drainage Gram Stain - Final Resulted 09/13/19 12:22 Body Fluid Drainage Body Fluid Culture - Preliminary NO GROWTH AFTER 48 HOURS Resulted Objective HEAD AND NECK: No JVD. LUNGS: Clear. CARDIOVASCULAR: Regular S1 and S2 with no gallop or murmur. ABDOMEN: Soft. EXTREMITIES: No pitting edema. Irving Joy MD Sep 15, 2019 12:31
--- NOTE | 2019-09-15 12:45 | General Progress Note ---
Assessment/Plan Problem List: (1) Pulmonary HTN ICD Codes: I27.20 - Pulmonary hypertension, unspecified SNOMED: 87249470 (2) Pleural effusion, right ICD Codes: J90 - Pleural effusion, not elsewhere classified SNOMED: 90622255 (3) Diastolic CHF, acute ICD Codes: I50.31 - Acute diastolic (congestive) heart failure SNOMED: 78894123, 985282943 (4) Community acquired bacterial pneumonia ICD Codes: J15.9 - Unspecified bacterial pneumonia SNOMED: 480398177, 39907204 (5) Acute respiratory failure with hypoxemia ICD Codes: J96.01 - Acute respiratory failure with hypoxia SNOMED: 576575088 (6) Hyperprolactinemia ICD Codes: E22.1 - Hyperprolactinemia SNOMED: 967705172 (7) Sepsis ICD Codes: A41.9 - Sepsis, unspecified organism SNOMED: 84574793, 77284425 Qualifiers: Qualified Codes: A41.9 - Sepsis, unspecified organism; R65.20 - Severe sepsis without septic shock; J96.01 - Acute respiratory failure with hypoxia (8) Lactic acidosis ICD Codes: E87.2 - Acidosis SNOMED: 97740325 (9) Diabetes mellitus out of control ICD Codes: E11.65 - Type 2 diabetes mellitus with hyperglycemia SNOMED: 56061042, 893795354 (10) Severe sepsis ICD Codes: A41.9 - Sepsis, unspecified organism; R65.20 - Severe sepsis without septic shock SNOMED: 02807678 (11) Diastolic dysfunction ICD Codes: I51.89 - Other ill-defined heart diseases SNOMED: 6973264 (12) Encephalopathy due to infection ICD Codes: G93.49 - Other encephalopathy; B99.9 - Unspecified infectious disease SNOMED: 47395768, 54766388 Status: stable, progressing Assessment/Plan: 73 year old presented with fever, chills, sob. Found to be hypoxic, tachycardic and febrile, +leukocytosis, CXR with infiltrates. influenza A/B negative. #Sever sepsis secondary to CAP, ? empyema #Acute respiratory failure with hypoxia #Acute encephalopathy, infection and hypoxic #large Right sided pleural effusion #Pulmonary arterial HTN telemetry s/p thoracentesis 950 cc green pleural fluid took out. Check fluid for culture, gram stain, cytology, LDH, total protein, glucose cefepime and azithromycin, vancomycin check sputum culture, blood cultures speech therapy evaluation appreciated--> pureed to ground texture o2 to keep o2 sat >95%, downtitrate prn. Monitor mental status pain control ID and pulmonary consults IV lasix [address] chest reviewed: Large R effusion now s/p thoracentesis Holloway inserted for patient comfort given diuresis. (09/15) Pulmonary and cardiology follow up for pulmonary arterial hypertension PT consult ruben (09/15) d/w Dr Joy. #Diastolic CHF, acute #R pleural effusion #Transient Afib/Flutter #pulmonary arterial HTN Echo reviewed: Diastolic dysfunction, pulmonary HTN, systolic function seems to be okay IV lasix 40 mg once, 20 mg BID d/w cardiology Metoprolol 12.5 mg BID, ASA, Atorvastatin. #Transaminitis, ?passive congestion, pattern not obstructive , normal ALP and total bili AST/ALT 300's normal on admission, now trending down monitor follow up hepatitis panel US abdomen reviewed: Gallbladder sludge and possible small stones. Mildly ectatic common bile duct, probably related to patient's age but downstream obstruction not completely excludable. Correlate with liver function tests, consider MRCP if clinically indicated. Liver demonstrates diffusely increased echogenicity, consistent with diffuse hepatocellular disease, most likely fatty change. Trace perihepatic ascites. Large right pleural effusion. Incidental finding small lateral renal cysts. Note inability to visualize portions of the abdominal aorta #DM uncontrolled #Prolactinoma Hold home po meds Insulin basal bolus, monitor fsbg. Levemir 16 units BID, NovoLog 4 units with meals, SSI. hold Levemir and NovoLog due to poor po intake. continue sliding scale hold Bromocriptine as may have been contributing to AMS prolactin levels reviewed and high ~100 endocrinology consult Tarun Olson #Hematuria- resolved #BPH Dced heparin due to hematuria UA sent Flomax #Hypokalemia #Hypomagnesemia Replace Vte ppx: start lovenox 40 mg daily 09/14, SCD boots Code: full code per daughter at bedside I spent 36 minutes on this encounter. >50% spent on counselling and care coordination. case d/w daughter, , RN and cardiology. Extra 35 minutes spent on chart review of relevant information regarding patient care, including labs, imaging, clinical practice consultant/RN notes, and all other pertinent information on patient care. Subjective Date patient seen: Sep 15, 2019 Time patient seen: 12:00 ROS Limited/Unobtainable: No Constitutional: Reports: no symptoms, chills, diaphoresis, fever, malaise, weakness, other HEENT: Denies: no symptoms, eye pain, blurred vision, tearing, double vision, ear pain, ear discharge, nose pain, nose congestion, throat pain, throat swelling, mouth pain, mouth swelling, other Cardiovascular: Denies: no symptoms, chest pain, edema, irregular heart rate, lightheadedness, palpitations, syncope, other Respiratory: Reports: no symptoms, cough, orthopnea, shortness of breath, SOB with excertion, SOB at rest, sputum, stridor, wheezing, other Gastrointestinal/Abdominal: Denies: no symptoms, abdomen distended, abdominal pain, black stools, tarry stools, blood in stool, constipated, diarrhea, difficulty swallowing, nausea, poor appetite, poor fluid intake, rectal bleeding , vomiting, other Genitourinary: Denies: no symptoms, burning, discharge, frequency, flank pain, hematuria, incontinence, pain, urgency, other Neurologic/Psychiatric: Denies: no symptoms, anxiety, depressed, emotional problems, headache, numbness, paresthesia, pre-existing deficit, seizure, tingling, tremors, weakness, other Endocrine: Denies: no symptoms, excessive sweating, flushing, intolerance to cold, intolerance to heat, increased hunger, increased thirst, increased urine, unexplained weight gain, unexplained weight loss, other Hematologic/Lymphatic: Denies: no symptoms, anemia, easy bleeding, easy bruising, other Allergies: Coded Allergies: No Known Allergies (Unverified , 09/09/19) All Systems: reviewed and negative except above Subjective still complaining of SOB, very weak. Complianing of frequent urination on Lasix. Discussed plan of care with daughter, at bedside in Hungarian. Decided to insert holloway for patient comfort. Also decided to order PT. Objective Last 24 Hour Vital Signs Date Time Temp Pulse Resp B/P (MAP) Pulse Ox O2 Delivery O2 Flow Rate FiO2 09/15/19 09:04 80 134/70 09/15/19 08:12 Nasal Cannula 4.0 Nasal Cannula 4.0 Nasal Cannula 4.0 09/15/19 08:00 97.9 80 20 134/70 (91) 93 09/15/19 08:00 79 09/15/19 04:00 98.9 88 16 122/62 (82) 93 09/15/19 04:00 85 09/15/19 00:00 77 09/15/19 00:00 98.4 86 18 126/94 (105) 94 09/14/19 21:12 80 20 94 Nasal Cannula 3.0 09/14/19 21:11 94 Nasal Cannula 3.0 32 09/14/19 21:00 Nasal Cannula 4.0 Nasal Cannula 4.0 Nasal Cannula 4.0 09/14/19 20:35 90 131/78 09/14/19 20:00 85 09/14/19 20:00 98.8 90 18 131/78 (95) 95 09/14/19 16:00 79 09/14/19 16:00 4.0 09/14/19 16:00 98.8 76 18 121/71 (88) 96 Intake and Output 09/14/19 09/15/19 19:00 07:00 Intake Total 890 ml Output Total 1000 ml Balance 890 ml -1000 ml Other 890 ml Output Urine Total 1000 ml Laboratory Tests 09/15/19 02:59: White Blood Count 16.4H, Red Blood Count 3.70L, Hemoglobin 11.5L, Hematocrit 32.4L, Mean Corpuscular Volume 88, Mean Corpuscular Hemoglobin 31.0, Mean Corpuscular Hemoglobin Concent 35.5, Red Cell Distribution Width 10.2L, Platelet Count 280, Mean Platelet Volume 5.2L, Neutrophils (%) (Auto) 76.3H, Lymphocytes (%) (Auto) 10.3L, Monocytes (%) (Auto) 10.5H, Eosinophils (%) (Auto ) 2.2, Basophils (%) (Auto) 0.8, Sodium Level 132L, Potassium Level 3.3L, Chloride Level 90L, Carbon Dioxide Level 36H, Anion Gap 6, Blood Urea Nitrogen 14, Creatinine 0.8, Estimat Glomerular Filtration Rate , Glucose Level 137H, Calcium Level 7.6L, Magnesium Level 1.3L, Vancomycin Level Trough 16.4H Height (Feet): 5 Height (Inches): 5.00 Weight (Pounds): 154 General Appearance: alert, mild distress, alert oriented x3 EENT: PERRL/EOMI Neck: supple Cardiovascular: normal rate, regular rhythm, no gallop/murmur Respiratory/Chest: lungs clear, no respiratory distress Abdomen: normal bowel sounds, non tender, soft Extremities: normal range of motion Edema: no edema noted Arm (L), no edema noted Arm (R), no edema noted Leg (L), no edema noted Leg (R), no edema noted Pedal (L), no edema noted Pedal (R), no edema noted Generalized Edema: non-pitting Neurologic: alert, oriented x 3, responsive Malik Rascon M.D. Sep 15, 2019 12:45
--- NOTE | 2019-09-15 13:19 | General Progress Note ---
Assessment/Plan Problem List: (1) Hyperprolactinemia ICD Codes: E22.1 - Hyperprolactinemia SNOMED: 277031223 (2) Lactic acidosis ICD Codes: E87.2 - Acidosis SNOMED: 43740086 (3) Diabetes mellitus out of control ICD Codes: E11.65 - Type 2 diabetes mellitus with hyperglycemia SNOMED: 20481154, 381608985 (4) Community acquired bacterial pneumonia ICD Codes: J15.9 - Unspecified bacterial pneumonia SNOMED: 575514267, 89895124 (5) Acute respiratory failure with hypoxemia ICD Codes: J96.01 - Acute respiratory failure with hypoxia SNOMED: 262246969 (6) Sepsis ICD Codes: A41.9 - Sepsis, unspecified organism SNOMED: 73646406, 84909221 Qualifiers: Qualified Codes: A41.9 - Sepsis, unspecified organism; R65.20 - Severe sepsis without septic shock; J96.01 - Acute respiratory failure with hypoxia Status: stable, progressing Assessment/Plan: start Levemir 10 units daily continue NISS ac / hs continue to keep off Bromocriptine - as it might have contributed to AMS elevated prolactin level noted he will follow with [facility] endo service Subjective ROS Limited/Unobtainable: Yes Allergies: Coded Allergies: No Known Allergies (Unverified , 09/09/19) Subjective events noted glucose values elevated scheduled Levemir and Novolog well held due to poor oral intake is at bedside Item Value Date Time Bedside Blood Glucose 360 mg/dl H 09/15/19 1207 Bedside Blood Glucose 203 mg/dl H 09/15/19 0630 Bedside Blood Glucose 257 mg/dl H 09/14/19 2155 Bedside Blood Glucose 192 mg/dl H 09/14/19 1702 Objective Last 24 Hour Vital Signs Date Time Temp Pulse Resp B/P (MAP) Pulse Ox O2 Delivery O2 Flow Rate FiO2 09/15/19 12:00 97.7 74 20 127/69 (88) 96 09/15/19 09:04 80 134/70 09/15/19 08:12 Nasal Cannula 4.0 Nasal Cannula 4.0 Nasal Cannula 4.0 09/15/19 08:00 97.9 80 20 134/70 (91) 93 09/15/19 08:00 79 09/15/19 04:00 98.9 88 16 122/62 (82) 93 09/15/19 04:00 85 09/15/19 00:00 77 09/15/19 00:00 98.4 86 18 126/94 (105) 94 09/14/19 21:12 80 20 94 Nasal Cannula 3.0 09/14/19 21:11 94 Nasal Cannula 3.0 32 09/14/19 21:00 Nasal Cannula 4.0 Nasal Cannula 4.0 Nasal Cannula 4.0 09/14/19 20:35 90 131/78 09/14/19 20:00 85 09/14/19 20:00 98.8 90 18 131/78 (95) 95 09/14/19 16:00 79 09/14/19 16:00 4.0 09/14/19 16:00 98.8 76 18 121/71 (88) 96 Intake and Output 09/14/19 09/15/19 19:00 07:00 Intake Total 890 ml Output Total 1000 ml Balance 890 ml -1000 ml Other 890 ml Output Urine Total 1000 ml Laboratory Tests 09/15/19 02:59: White Blood Count 16.4H, Red Blood Count 3.70L, Hemoglobin 11.5L, Hematocrit 32.4L, Mean Corpuscular Volume 88, Mean Corpuscular Hemoglobin 31.0, Mean Corpuscular Hemoglobin Concent 35.5, Red Cell Distribution Width 10.2L, Platelet Count 280, Mean Platelet Volume 5.2L, Neutrophils (%) (Auto) 76.3H, Lymphocytes (%) (Auto) 10.3L, Monocytes (%) (Auto) 10.5H, Eosinophils (%) (Auto ) 2.2, Basophils (%) (Auto) 0.8, Sodium Level 132L, Potassium Level 3.3L, Chloride Level 90L, Carbon Dioxide Level 36H, Anion Gap 6, Blood Urea Nitrogen 14, Creatinine 0.8, Estimat Glomerular Filtration Rate , Glucose Level 137H, Calcium Level 7.6L, Magnesium Level 1.3L, Vancomycin Level Trough 16.4H Height (Feet): 5 Height (Inches): 5.00 Weight (Pounds): 154 General Appearance: no apparent distress Neck: normal alignment Cardiovascular: normal rate Respiratory/Chest: decreased breath sounds Abdomen: normal bowel sounds Edema: no edema noted Arm (L), no edema noted Arm (R), no edema noted Leg (L), no edema noted Leg (R), no edema noted Pedal (L), no edema noted Pedal (R), no edema noted Generalized Objective Current Medications Medications (Trade) Dose Ordered Sig/Ishaan Route PRN Reason Start Time Stop Time Status Last Admin Dose Admin Acetaminophen (Tylenol) 650 mg Q4H PRN ORAL Mild Pain (Pain Scale 1-3) 09/09/19 23:15 10/09/19 23:14 09/11/19 03:23 Acetaminophen (Tylenol) 650 mg Q4H PRN ORAL fever 09/09/19 23:15 10/09/19 23:14 Acetaminophen (Tylenol) 650 mg Q4H PRN RECTAL Mild Pain (Pain Scale 1-3) 09/09/19 23:15 10/09/19 23:14 Acetaminophen (Tylenol) 650 mg Q4H PRN RECTAL fever 09/09/19 23:15 10/09/19 23:14 Aspirin (ASA) 81 mg DAILY ORAL 09/12/19 09:00 10/12/19 08:59 09/15/19 09:01 Atorvastatin Calcium (Lipitor) 10 mg BEDTIME ORAL 09/10/19 21:00 10/10/19 20:59 09/13/19 21:34 Azithromycin (Zithromax) 250 mg DAILY ORAL 09/13/19 09:00 09/20/19 08:59 09/15/19 09:01 Cefepime HCl 2 gm/ Sodium Chloride 55 ml @ 110 mls/hr Q24H IVPB 09/15/19 09:00 09/20/19 20:59 09/15/19 09:03 Dextrose (Dextrose 50%) 25 ml Q30M PRN IV Hypoglycemia 09/10/19 19:00 10/10/19 18:59 Dextrose (Dextrose 50%) 50 ml Q30M PRN IV Hypoglycemia 09/10/19 19:00 10/10/19 18:59 Docusate Sodium (Colace) 100 mg EVERY 12 HOURS ORAL 09/10/19 09:00 10/10/19 08:59 09/15/19 09:01 Enoxaparin Sodium (Lovenox) 40 mg DAILY SUBQ 09/14/19 10:45 10/14/19 10:44 09/15/19 09:10 Escitalopram Oxalate (Lexapro) 5 mg DAILY ORAL 09/10/19 09:00 10/10/19 08:59 09/15/19 09:03 Furosemide (Lasix) 20 mg EVERY 12 HOURS IV 09/12/19 21:00 10/12/19 20:59 09/15/19 09:02 Hydralazine HCl (Apresoline) 10 mg Q4H PRN IV sbp>150, dbp>100 09/13/19 14:15 10/13/19 14:14 Hydromorphone HCl (Dilaudid) 0.5 mg Q4H PRN IVP For Pain 3-6 09/10/19 14:15 09/17/19 14:14 Hydromorphone HCl (Dilaudid) 1 mg Q4H PRN IVP For Pain 7-10 09/10/19 14:15 09/17/19 14:14 09/15/19 11:58 Insulin Aspart (NovoLOG) BEFORE MEALS AND HS SUBQ 09/11/19 16:30 10/11/19 16:29 09/15/19 12:07 Magnesium Sulfate 100 ml @ 100 mls/hr Q1H IVPB 09/15/19 13:00 09/15/19 16:59 Metoprolol Tartrate (Lopressor) 12.5 mg Q12HR ORAL 09/12/19 09:00 10/12/19 08:59 09/15/19 09:04 Metronidazole 100 ml @ 100 mls/hr Q8H IVPB 09/13/19 20:00 09/20/19 19:59 09/15/19 11:58 Ondansetron HCl (Zofran) 4 mg Q6H PRN IVP Nausea & Vomiting 09/09/19 23:15 10/09/19 23:14 09/10/19 10:17 Polyethylene Glycol (Miralax) 17 gm DAILYPRN PRN ORAL Constipation 09/09/19 23:15 10/09/19 23:14 Potassium Chloride (K-Dur) 40 meq DAILY ORAL 09/15/19 09:00 10/15/19 08:59 09/15/19 09:03 Pregabalin (Lyrica) 50 mg THREE TIMES A DAY ORAL 09/10/19 09:00 10/10/19 08:59 09/15/19 12:35 Tamsulosin HCl (Flomax) 0.4 mg DAILY ORAL 09/10/19 09:00 10/10/19 08:59 09/15/19 09:01 Vancomycin HCl (Vanco rx to dose) 1 ea DAILY PRN MISC Per rx protocol 09/10/19 13:15 10/10/19 13:14 Vancomycin HCl 1 gm/Sodium Chloride 275 ml @ 183.708 mls/hr Q8H IVPB 09/14/19 04:00 09/19/19 03:59 09/15/19 11:58 Sunny Mcneil MD Sep 15, 2019 13:19
[2019-09-15 16:00] VITALS: BP 132/75
[2019-09-15] MEDS: Levemir Flexpen SUBQ SCH (16:42)
--- NOTE | 2019-09-15 17:20 | Infectious Diseases Prog Note ---
Assessment/Plan Assessment/Plan ASSESSMENT AND PLAN: 1. sepsis, pneumonia, ? empyema, effusion, leukocytosis, fevers, sirs, elevated lft's - vancomycin, cefepime, flagyl, azithromycin - day # 5 abx - f/u on thoracentesis studies - culture negative to date - monitor leukocytosis, fevers better - f/u chest x-ray - liver enzymes improved, hepatitis panel negative - d/w daughter 2. Diabetes. 3. Hypertension. 4. Hyperlipidemia. 5. Blood sugar and blood pressure treatment per primary care team for diabetes, hypertension, and hyperlipidemia. 6. Hyponatremia. 7. Hypoxia. 8. Pulmonary followup. 9. History of prolactinoma. 10. No known drug allergies. 11. Social history is negative. 12. Family history is noncontributory. 13. MAR is noted. 14. Case was discussed with RN. 15. Continue treatment per primary consultants. 16. continue per primary team 17. Skin care protocol. 18. Orders were noted and entered. Subjective Constitutional: Reports: fatigue; Denies: fever HEENT: Reports: congestion - less Respiratory: Reports: shortness of breath - less Cardiovascular: Denies: chest pain Gastrointestinal/Abdominal: Denies: nausea, vomiting, diarrhea Genitourinary: Reports: other - no holloway ; Denies: dysuria, hematuria Neurologic: Denies: headache Psychiatric: Denies: depression Skin: Denies: rash Hematologic: Denies: bleeding Musculoskeletal: Denies: pain Allergies: Coded Allergies: No Known Allergies (Unverified , 09/09/19) Objective Vital Signs Last 24 Hour Vital Signs Date Time Temp Pulse Resp B/P (MAP) Pulse Ox O2 Delivery O2 Flow Rate FiO2 09/15/19 16:00 97.9 80 20 132/75 (94) 93 09/15/19 12:00 97.7 74 20 127/69 (88) 96 09/15/19 12:00 73 09/15/19 09:04 80 134/70 09/15/19 08:12 Nasal Cannula 4.0 Nasal Cannula 4.0 Nasal Cannula 4.0 09/15/19 08:00 97.9 80 20 134/70 (91) 93 09/15/19 08:00 79 09/15/19 04:00 98.9 88 16 122/62 (82) 93 2/1/20 04:00 85 09/15/19 00:00 77 09/15/19 00:00 98.4 86 18 126/94 (105) 94 09/14/19 21:12 80 20 94 Nasal Cannula 3.0 09/14/19 21:11 94 Nasal Cannula 3.0 32 09/14/19 21:00 Nasal Cannula 4.0 Nasal Cannula 4.0 Nasal Cannula 4.0 09/14/19 20:35 90 131/78 09/14/19 20:00 85 09/14/19 20:00 98.8 90 18 131/78 (95) 95 Height (Feet): 5 Height (Inches): 5.00 Weight (Pounds): 154 General Appearance: no acute distress HEENT: normocephalic, atraumatic, anicteric, mucous membranes moist Respiratory/Chest: decreased breath sounds - right , crackles/rales, rhonchi - bilaterally Cardiovascular: normal rate, regular rhythm, no gallop/murmur, no JVD Abdomen: normal bowel sounds, soft, non tender, no organomegaly, non distended Genitourinary: other - no holloway Extremities: no cyanosis Skin: no rash Neurologic/Psychiatric: caul fat puller II-XII grossly normal, alert, responsive Lymphatic: no neck adenopathy Musculoskeletal: no effusion Objective CT chest - Impression: Large right pleural effusion, occupying approximately 50% of the right hemithorax. This results in compressive atelectasis of most of the right lower and middle lobes. Trace left pleural effusion and minimal left basilar atelectatic changes Borderline cardiomegaly Dilated right main pulmonary artery, consistent with pulmonary arterial hypertension Ectatic but not frankly aneurysmal ascending thoracic aorta, measuring 4.2 cm. Incidental finding of large right renal cyst and nonspecific bilateral perinephric fat stranding Chest x-ray - 09/13/19 - Indication: Shortness of breath Technique: One view of the chest Comparison: 09/12/2019 Findings: Previously demonstrated large right pleural effusion again demonstrated, may have improved slightly since previous exam. There is likewise suggestion of slightly increased aeration of the right lung. There is improved aeration of left lung, probably due to better inspiration on the current exam. The heart remains borderline enlarged. Impression: Equivocally minimally improved but still large right pleural effusion. Improved aeration of the left lung base, since previous day's exam Microbiology Date/Time Source Procedure Growth Status 1/26/20 21:20 Blood Blood Culture - Final NO GROWTH AFTER 5 DAYS Complete 09/13/19 12:22 Body Fluid Drainage Gram Stain - Final Resulted 09/13/19 12:22 Body Fluid Drainage Body Fluid Culture - Preliminary NO GROWTH AFTER 48 HOURS Resulted 09/09/19 22:30 Nasal Nares - Final Complete 09/09/19 22:30 Nasal Nares - Final Complete 09/10/19 20:03 Urine,Clean Catch Urine Culture - Final NO GROWTH AFTER 48 HOURS Complete Microbiology Date/Time Source Procedure Growth Status 09/13/19 12:22 Body Fluid Drainage Gram Stain - Final Resulted 09/13/19 12:22 Body Fluid Drainage Body Fluid Culture - Preliminary NO GROWTH AFTER 48 HOURS Resulted Laboratory Tests Test 09/15/19 02:59 White Blood Count 16.4 K/UL (4.8-10.8) H Red Blood Count 3.70 M/UL (4.70-6.10) L Hemoglobin 11.5 G/DL (14.2-18.0) L Hematocrit 32.4 % (42.0-52.0) L Mean Corpuscular Volume 88 FL (80-99) Mean Corpuscular Hemoglobin 31.0 PG (27.0-31.0) Mean Corpuscular Hemoglobin Concent 35.5 G/DL (32.0-36.0) Red Cell Distribution Width 10.2 % (11.6-14.8) L Platelet Count 280 K/UL (150-450) Mean Platelet Volume 5.2 FL (6.5-10.1) L Neutrophils (%) (Auto) 76.3 % (45.0-75.0) H Lymphocytes (%) (Auto) 10.3 % (20.0-45.0) L Monocytes (%) (Auto) 10.5 % (1.0-10.0) H Eosinophils (%) (Auto) 2.2 % (0.0-3.0) Basophils (%) (Auto) 0.8 % (0.0-2.0) Sodium Level 132 MMOL/L (136-145) L Potassium Level 3.3 MMOL/L (3.5-5.1) L Chloride Level 90 MMOL/L (98-107) L Carbon Dioxide Level 36 MMOL/L (21-32) H Anion Gap 6 mmol/L (5-15) Blood Urea Nitrogen 14 mg/dL (7-18) Creatinine 0.8 MG/DL (0.55-1.30) Estimat Glomerular Filtration Rate mL/min (>60) Glucose Level 137 MG/DL (74-106) H Calcium Level 7.6 MG/DL (8.5-10.1) L Magnesium Level 1.3 MG/DL (1.8-2.4) L Vancomycin Level Trough 16.4 ug/mL (5.0-12.0) H Current Medications Medications (Trade) Dose Ordered Sig/Ishaan Route PRN Reason Start Time Stop Time Status Last Admin Dose Admin Acetaminophen (Tylenol) 650 mg Q4H PRN ORAL Mild Pain (Pain Scale 1-3) 09/09/19 23:15 10/09/19 23:14 09/11/19 03:23 Acetaminophen (Tylenol) 650 mg Q4H PRN ORAL fever 09/09/19 23:15 10/09/19 23:14 Acetaminophen (Tylenol) 650 mg Q4H PRN RECTAL Mild Pain (Pain Scale 1-3) 09/09/19 23:15 10/09/19 23:14 Acetaminophen (Tylenol) 650 mg Q4H PRN RECTAL fever 09/09/19 23:15 10/09/19 23:14 Aspirin (ASA) 81 mg DAILY ORAL 09/12/19 09:00 10/12/19 08:59 09/15/19 09:01 Atorvastatin Calcium (Lipitor) 10 mg BEDTIME ORAL 09/10/19 21:00 10/10/19 20:59 09/13/19 21:34 Azithromycin (Zithromax) 250 mg DAILY ORAL 09/13/19 09:00 09/20/19 08:59 09/15/19 09:01 Cefepime HCl 2 gm/ Sodium Chloride 55 ml @ 110 mls/hr Q24H IVPB 09/15/19 09:00 09/20/19 20:59 09/15/19 09:03 Dextrose (Dextrose 50%) 25 ml Q30M PRN IV Hypoglycemia 09/15/19 13:30 10/15/19 13:29 Dextrose (Dextrose 50%) 50 ml Q30M PRN IV Hypoglycemia 09/15/19 13:30 10/15/19 13:29 Docusate Sodium (Colace) 100 mg EVERY 12 HOURS ORAL 09/10/19 09:00 10/10/19 08:59 09/15/19 09:01 Enoxaparin Sodium (Lovenox) 40 mg DAILY SUBQ 09/14/19 10:45 10/14/19 10:44 09/15/19 09:10 Escitalopram Oxalate (Lexapro) 5 mg DAILY ORAL 09/10/19 09:00 10/10/19 08:59 09/15/19 09:03 Furosemide (Lasix) 20 mg BID IV 09/15/19 18:00 10/12/19 20:59 Hydralazine HCl (Apresoline) 10 mg Q4H PRN IV sbp>150, dbp>100 09/13/19 14:15 10/13/19 14:14 Hydromorphone HCl (Dilaudid) 0.5 mg Q4H PRN IVP For Pain 3-6 09/10/19 14:15 09/17/19 14:14 Hydromorphone HCl (Dilaudid) 1 mg Q4H PRN IVP For Pain 7-10 09/10/19 14:15 09/17/19 14:14 09/15/19 11:58 Insulin Aspart (NovoLOG) BEFORE MEALS AND HS SUBQ 09/11/19 16:30 10/11/19 16:29 09/15/19 16:43 Insulin Detemir (Levemir) 10 units DAILY SUBQ 09/15/19 15:00 10/15/19 14:59 09/15/19 16:42 Metoprolol Tartrate (Lopressor) 12.5 mg Q12HR ORAL 09/12/19 09:00 10/12/19 08:59 09/15/19 09:04 Metronidazole 100 ml @ 100 mls/hr Q8H IVPB 09/13/19 20:00 09/20/19 19:59 09/15/19 11:58 Ondansetron HCl (Zofran) 4 mg Q6H PRN IVP Nausea & Vomiting 09/09/19 23:15 10/09/19 23:14 09/10/19 10:17 Polyethylene Glycol (Miralax) 17 gm DAILYPRN PRN ORAL Constipation 09/09/19 23:15 10/09/19 23:14 Potassium Chloride (K-Dur) 40 meq DAILY ORAL 09/15/19 09:00 10/15/19 08:59 09/15/19 09:03 Pregabalin (Lyrica) 50 mg THREE TIMES A DAY ORAL 09/10/19 09:00 10/10/19 08:59 09/15/19 12:35 Tamsulosin HCl (Flomax) 0.4 mg DAILY ORAL 09/10/19 09:00 10/10/19 08:59 09/15/19 09:01 Vancomycin HCl (Vanco rx to dose) 1 ea DAILY PRN MISC Per rx protocol 09/10/19 13:15 10/10/19 13:14 Vancomycin HCl 1 gm/Sodium Chloride 275 ml @ 183.708 mls/hr Q8H IVPB 09/14/19 04:00 09/19/19 03:59 09/15/19 11:58 Kesha Rebollar MD Sep 15, 2019 17:20
[2019-09-15 18:34] LABS: ALANINE AMINOTRANSFERASE 114 U/L (12-78); ALBUMIN 2.2 G/DL (3.4-5.0); ALBUMIN/GLOBULIN RATIO 0.7 (1.0-2.7); ALKALINE PHOSPHATASE 74 U/L (46-116); ANION GAP 6 mmol/L (5-15); ASPARTATE AMINO TRANSFERASE 20 U/L (15-37); BILIRUBIN,TOTAL 0.3 MG/DL (0.2-1.0); BLOOD UREA NITROGEN 18 mg/dL (7-18); CALCIUM 7.5 MG/DL (8.5-10.1); CARBON DIOXIDE 32 MMOL/L (21-32); CHLORIDE 88 MMOL/L (98-107); CREATININE 0.9 MG/DL (0.55-1.30); POTASSIUM 3.8 MMOL/L (3.5-5.1); SODIUM 126 MMOL/L (136-145)
[2019-09-15 18:54] LABS: BASOPHILS % (AUTO) 0.6 % (0.0-2.0); EOSINOPHILS % (AUTO) 1.8 % (0.0-3.0); HEMATOCRIT 35.1 % (42.0-52.0); HEMOGLOBIN 11.2 G/DL (14.2-18.0); LYMPHOCYTES % (AUTO) 8.3 % (20.0-45.0); MEAN CORPUSCULAR VOLUME 93 FL (80-99); MONOCYTES % (AUTO) 8.9 % (1.0-10.0); NEUTROPHILS % (AUTO) 80.4 % (45.0-75.0); PLATELET COUNT 280 K/UL (150-450); RED BLOOD COUNT 3.75 M/UL (4.70-6.10); RED CELL DISTRIBUTION WIDTH 11.3 % (11.6-14.8); WHITE BLOOD COUNT 17.3 K/UL (4.8-10.8)
--- NOTE | 2019-09-15 18:55 | Pulmonology Progress Note ---
Assessment/Plan Assessment/Plan (1) Community acquired bacterial pneumonia (2) Acute respiratory failure with hypoxemia (3) Lactic acidosis (4) Hyperprolactinemia (5) Sepsis (6) Diabetes mellitus out of control Assessment/Plan Plan: * Abx per ID: cefepime/vanco/azithro * f/u cultures * f/u pleural fluid studies all pending * Repeat CXR next week * Monitor volumes * Wean oxygen * Endocrine f/u Subjective ROS Limited/Unobtainable: Yes Allergies: Coded Allergies: No Known Allergies (Unverified , 09/09/19) Subjective awake minimal po postiive cough no diarrhea on o2 Objective Last 24 Hour Vital Signs Date Time Temp Pulse Resp B/P (MAP) Pulse Ox O2 Delivery O2 Flow Rate FiO2 09/15/19 16:00 90 09/15/19 16:00 97.9 80 20 132/75 (94) 93 09/15/19 12:00 97.7 74 20 127/69 (88) 96 09/15/19 12:00 73 09/15/19 09:04 80 134/70 09/15/19 08:12 Nasal Cannula 4.0 Nasal Cannula 4.0 Nasal Cannula 4.0 09/15/19 08:00 97.9 80 20 134/70 (91) 93 09/15/19 08:00 79 09/15/19 04:00 98.9 88 16 122/62 (82) 93 09/15/19 04:00 85 09/15/19 00:00 77 09/15/19 00:00 98.4 86 18 126/94 (105) 94 09/14/19 21:12 80 20 94 Nasal Cannula 3.0 09/14/19 21:11 94 Nasal Cannula 3.0 32 09/14/19 21:00 Nasal Cannula 4.0 Nasal Cannula 4.0 Nasal Cannula 4.0 09/14/19 20:35 90 131/78 09/14/19 20:00 85 09/14/19 20:00 98.8 90 18 131/78 (95) 95 Intake and Output 09/14/19 09/15/19 19:00 07:00 Intake Total 890 ml Output Total 1000 ml Balance 890 ml -1000 ml Other 890 ml Output Urine Total 1000 ml General Appearance: WD/WN Respiratory/Chest: rhonchi Cardiovascular: normal rate, regular rhythm Abdomen: no organomegaly Extremities: no cyanosis Skin: no lesions Neurologic/Psychiatric: alert, oriented x 3, responsive Microbiology Date/Time Source Procedure Growth Status 09/13/19 12:22 Body Fluid Drainage Gram Stain - Final Resulted 09/13/19 12:22 Body Fluid Drainage Body Fluid Culture - Preliminary NO GROWTH AFTER 48 HOURS Resulted Laboratory Tests 09/15/19 02:59: White Blood Count 16.4H, Red Blood Count 3.70L, Hemoglobin 11.5L, Hematocrit 32.4L, Mean Corpuscular Volume 88, Mean Corpuscular Hemoglobin 31.0, Mean Corpuscular Hemoglobin Concent 35.5, Red Cell Distribution Width 10.2L, Platelet Count 280, Mean Platelet Volume 5.2L, Neutrophils (%) (Auto) 76.3H, Lymphocytes (%) (Auto) 10.3L, Monocytes (%) (Auto) 10.5H, Eosinophils (%) (Auto ) 2.2, Basophils (%) (Auto) 0.8, Sodium Level 132L, Potassium Level 3.3L, Chloride Level 90L, Carbon Dioxide Level 36H, Anion Gap 6, Blood Urea Nitrogen 14, Creatinine 0.8, Estimat Glomerular Filtration Rate , Glucose Level 137H, Calcium Level 7.6L, Magnesium Level 1.3L, Vancomycin Level Trough 16.4H 09/15/19 17:30: White Blood Count [Pending], Red Blood Count [Pending], Hemoglobin [Pending], Hematocrit [Pending], Mean Corpuscular Volume [Pending], Mean Corpuscular Hemoglobin [Pending], Mean Corpuscular Hemoglobin Concent [Pending], Red Cell Distribution Width [Pending], Platelet Count [Pending], Mean Platelet Volume [ Pending], Neutrophils (%) (Auto) [Pending], Lymphocytes (%) (Auto) [Pending], Monocytes (%) (Auto) [Pending], Eosinophils (%) (Auto) [Pending], Basophils (%) (Auto) [Pending], Sodium Level [Pending], Potassium Level [Pending], Chloride Level [Pending], Carbon Dioxide Level [Pending], Blood Urea Nitrogen [Pending], Creatinine [Pending], Estimat Glomerular Filtration Rate [Pending], Glucose Level [Pending], Calcium Level [Pending], Total Bilirubin [Pending], Aspartate Amino Transf (AST/SGOT) [Pending], Alanine Aminotransferase (ALT/SGPT) [Pending] , Alkaline Phosphatase [Pending], Total Protein [Pending], Albumin [Pending], Globulin [Pending] Current Medications Medications (Trade) Dose Ordered Sig/Ishaan Route PRN Reason Start Time Stop Time Status Last Admin Dose Admin Acetaminophen (Tylenol) 650 mg Q4H PRN ORAL Mild Pain (Pain Scale 1-3) 09/09/19 23:15 10/09/19 23:14 09/11/19 03:23 Acetaminophen (Tylenol) 650 mg Q4H PRN ORAL fever 09/09/19 23:15 10/09/19 23:14 Acetaminophen (Tylenol) 650 mg Q4H PRN RECTAL Mild Pain (Pain Scale 1-3) 09/09/19 23:15 10/09/19 23:14 Acetaminophen (Tylenol) 650 mg Q4H PRN RECTAL fever 09/09/19 23:15 10/09/19 23:14 Aspirin (ASA) 81 mg DAILY ORAL 09/12/19 09:00 10/12/19 08:59 09/15/19 09:01 Atorvastatin Calcium (Lipitor) 10 mg BEDTIME ORAL 09/10/19 21:00 10/10/19 20:59 09/13/19 21:34 Azithromycin (Zithromax) 250 mg DAILY ORAL 09/13/19 09:00 09/20/19 08:59 09/15/19 09:01 Cefepime HCl 2 gm/ Sodium Chloride 55 ml @ 110 mls/hr Q24H IVPB 09/15/19 09:00 09/20/19 20:59 09/15/19 09:03 Dextrose (Dextrose 50%) 25 ml Q30M PRN IV Hypoglycemia 09/15/19 13:30 10/15/19 13:29 Dextrose (Dextrose 50%) 50 ml Q30M PRN IV Hypoglycemia 09/15/19 13:30 10/15/19 13:29 Docusate Sodium (Colace) 100 mg EVERY 12 HOURS ORAL 09/10/19 09:00 10/10/19 08:59 09/15/19 09:01 Enoxaparin Sodium (Lovenox) 40 mg DAILY SUBQ 09/14/19 10:45 10/14/19 10:44 09/15/19 09:10 Escitalopram Oxalate (Lexapro) 5 mg DAILY ORAL 09/10/19 09:00 10/10/19 08:59 09/15/19 09:03 Furosemide (Lasix) 20 mg BID IV 09/15/19 18:00 10/12/19 20:59 09/15/19 17:35 Hydralazine HCl (Apresoline) 10 mg Q4H PRN IV sbp>150, dbp>100 09/13/19 14:15 10/13/19 14:14 Hydromorphone HCl (Dilaudid) 0.5 mg Q4H PRN IVP For Pain 3-6 09/10/19 14:15 09/17/19 14:14 Hydromorphone HCl (Dilaudid) 1 mg Q4H PRN IVP For Pain 7-10 09/10/19 14:15 09/17/19 14:14 09/15/19 11:58 Insulin Aspart (NovoLOG) BEFORE MEALS AND HS SUBQ 09/11/19 16:30 10/11/19 16:29 09/15/19 16:43 Insulin Detemir (Levemir) 10 units DAILY SUBQ 09/15/19 15:00 10/15/19 14:59 09/15/19 16:42 Metoprolol Tartrate (Lopressor) 12.5 mg Q12HR ORAL 09/12/19 09:00 10/12/19 08:59 09/15/19 09:04 Metronidazole 100 ml @ 100 mls/hr Q8H IVPB 09/13/19 20:00 09/20/19 19:59 09/15/19 11:58 Ondansetron HCl (Zofran) 4 mg Q6H PRN IVP Nausea & Vomiting 09/09/19 23:15 10/09/19 23:14 09/10/19 10:17 Polyethylene Glycol (Miralax) 17 gm DAILYPRN PRN ORAL Constipation 09/09/19 23:15 10/09/19 23:14 Potassium Chloride (K-Dur) 40 meq DAILY ORAL 09/15/19 09:00 10/15/19 08:59 09/15/19 09:03 Pregabalin (Lyrica) 50 mg THREE TIMES A DAY ORAL 09/10/19 09:00 10/10/19 08:59 09/15/19 17:35 Tamsulosin HCl (Flomax) 0.4 mg DAILY ORAL 09/10/19 09:00 10/10/19 08:59 09/15/19 09:01 Vancomycin HCl (Vanco rx to dose) 1 ea DAILY PRN MISC Per rx protocol 09/10/19 13:15 10/10/19 13:14 Vancomycin HCl 1 gm/Sodium Chloride 275 ml @ 183.708 mls/hr Q8H IVPB 09/14/19 04:00 09/19/19 03:59 09/15/19 11:58 Aziza Bishop DO Sep 15, 2019 18:55
[2019-09-15 20:00] VITALS: BP 144/73
[2019-09-16] VITALS: BP 125/76
[2019-09-16 04:00] VITALS: BP 134/73
[2019-09-16] MEDS: Vancomycin 1 GM in NS 275 ML IVPB SCH ×4 (04:25→20:40)
[2019-09-16] MEDS: NovoLOG Insulin Flexpen SUBQ SCH ×6 (05:44→20:42)
--- NOTE | 2019-09-16 07:08 | General Progress Note ---
Assessment/Plan Problem List: (1) Hyperprolactinemia ICD Codes: E22.1 - Hyperprolactinemia SNOMED: 075801899 (2) Lactic acidosis ICD Codes: E87.2 - Acidosis SNOMED: 72612300 (3) Diabetes mellitus out of control ICD Codes: E11.65 - Type 2 diabetes mellitus with hyperglycemia SNOMED: 58954425, 319849766 (4) Community acquired bacterial pneumonia ICD Codes: J15.9 - Unspecified bacterial pneumonia SNOMED: 384031443, 73384764 (5) Acute respiratory failure with hypoxemia ICD Codes: J96.01 - Acute respiratory failure with hypoxia SNOMED: 037884710 (6) Sepsis ICD Codes: A41.9 - Sepsis, unspecified organism SNOMED: 56949695, 24883349 Qualifiers: Qualified Codes: A41.9 - Sepsis, unspecified organism; R65.20 - Severe sepsis without septic shock; J96.01 - Acute respiratory failure with hypoxia Status: stable, progressing Assessment/Plan: continue Levemir 10 units daily add low dose Novolog 3 units act id - hold if not eating continue NISS ac / hs continue to keep off Bromocriptine - as it might have contributed to AMS elevated prolactin level noted he will follow with [facility] endo service Subjective ROS Limited/Unobtainable: Yes Allergies: Coded Allergies: No Known Allergies (Unverified , 09/09/19) Subjective events noted fasting glucose improved after Levemir 10 units daily added mealtime glucose is elevated Item Value Date Time Bedside Blood Glucose 181 mg/dl H 09/16/19 0630 Bedside Blood Glucose 356 mg/dl H 09/15/19 2100 Bedside Blood Glucose 340 mg/dl H 09/15/19 1643 Bedside Blood Glucose 360 mg/dl H 09/15/19 1207 Bedside Blood Glucose 203 mg/dl H 09/15/19 0630 Objective Last 24 Hour Vital Signs Date Time Temp Pulse Resp B/P (MAP) Pulse Ox O2 Delivery O2 Flow Rate FiO2 09/16/19 04:00 98.1 73 18 134/73 (93) 93 09/16/19 04:00 72 09/16/19 00:00 73 09/16/19 00:00 97.3 70 16 125/76 (92) 96 09/15/19 22:12 100.2 09/15/19 21:00 Nasal Cannula 3.0 09/15/19 20:10 78 144/87 09/15/19 20:00 83 09/15/19 20:00 100.8 86 18 144/73 (96) 93 09/15/19 19:38 82 20 95 Nasal Cannula 3.0 09/15/19 19:38 95 Nasal Cannula 3.0 32 09/15/19 16:00 90 09/15/19 16:00 97.9 80 20 132/75 (94) 93 09/15/19 12:00 97.7 74 20 127/69 (88) 96 09/15/19 12:00 73 09/15/19 09:04 80 134/70 09/15/19 09:00 Nasal Cannula 2.0 Nasal Cannula 2.0 Nasal Cannula 2.0 09/15/19 08:12 Nasal Cannula 4.0 Nasal Cannula 4.0 Nasal Cannula 4.0 09/15/19 08:00 97.9 80 20 134/70 (91) 93 09/15/19 08:00 79 Intake and Output 09/15/19 09/16/19 18:59 06:59 Intake Total 784 ml 1275 ml Output Total 800 ml Balance -16 ml 1275 ml Intake Oral 354 ml 125 ml IV Total 430 ml 1150 ml Output Urine Total 800 ml # Voids 4 5 Laboratory Tests 09/15/19 17:30: White Blood Count 17.3H, Red Blood Count 3.75L, Hemoglobin 11.2L, Hematocrit 35.1L, Mean Corpuscular Volume 93, Mean Corpuscular Hemoglobin 29.9, Mean Corpuscular Hemoglobin Concent 32.0, Red Cell Distribution Width 11.3L, Platelet Count 280, Mean Platelet Volume 6.1L, Neutrophils (%) (Auto) 80.4H, Lymphocytes (%) (Auto) 8.3L, Monocytes (%) (Auto) 8.9, Eosinophils (%) (Auto) 1.8, Basophils (%) (Auto) 0.6, Sodium Level 126L, Potassium Level 3.8, Chloride Level 88L, Carbon Dioxide Level 32, Anion Gap 6, Blood Urea Nitrogen 18, Creatinine 0.9, Estimat Glomerular Filtration Rate , Glucose Level 360#H, Calcium Level 7.5L, Total Bilirubin 0.3, Aspartate Amino Transf (AST/SGOT) 20, Alanine Aminotransferase (ALT/SGPT) 114H, Alkaline Phosphatase 74, Total Protein 5.5L, Albumin 2.2L, Globulin 3.3, Albumin/Globulin Ratio 0.7L 09/16/19 02:53: Vancomycin Level Trough 15.9H Height (Feet): 5 Height (Inches): 5.00 Weight (Pounds): 154 General Appearance: no apparent distress Neck: normal alignment Cardiovascular: normal rate Respiratory/Chest: decreased breath sounds Abdomen: normal bowel sounds Objective Current Medications Medications (Trade) Dose Ordered Sig/Ishaan Route PRN Reason Start Time Stop Time Status Last Admin Dose Admin Acetaminophen (Tylenol) 650 mg Q4H PRN ORAL Mild Pain (Pain Scale 1-3) 09/09/19 23:15 10/09/19 23:14 09/11/19 03:23 Acetaminophen (Tylenol) 650 mg Q4H PRN ORAL fever 09/09/19 23:15 10/09/19 23:14 09/15/19 20:11 Acetaminophen (Tylenol) 650 mg Q4H PRN RECTAL Mild Pain (Pain Scale 1-3) 09/09/19 23:15 10/09/19 23:14 Acetaminophen (Tylenol) 650 mg Q4H PRN RECTAL fever 09/09/19 23:15 10/09/19 23:14 Aspirin (ASA) 81 mg DAILY ORAL 09/12/19 09:00 10/12/19 08:59 09/15/19 09:01 Atorvastatin Calcium (Lipitor) 10 mg BEDTIME ORAL 09/10/19 21:00 10/10/19 20:59 09/15/19 20:10 Azithromycin (Zithromax) 250 mg DAILY ORAL 09/13/19 09:00 09/20/19 08:59 09/15/19 09:01 Cefepime HCl 2 gm/ Sodium Chloride 55 ml @ 110 mls/hr Q24H IVPB 09/15/19 09:00 09/20/19 20:59 09/15/19 09:03 Dextrose (Dextrose 50%) 25 ml Q30M PRN IV Hypoglycemia 09/15/19 13:30 10/15/19 13:29 Dextrose (Dextrose 50%) 50 ml Q30M PRN IV Hypoglycemia 09/15/19 13:30 10/15/19 13:29 Docusate Sodium (Colace) 100 mg EVERY 12 HOURS ORAL 09/10/19 09:00 10/10/19 08:59 09/15/19 20:10 Enoxaparin Sodium (Lovenox) 40 mg DAILY SUBQ 09/14/19 10:45 10/14/19 10:44 09/15/19 09:10 Escitalopram Oxalate (Lexapro) 5 mg DAILY ORAL 09/10/19 09:00 10/10/19 08:59 09/15/19 09:03 Furosemide (Lasix) 20 mg BID IV 09/15/19 18:00 10/12/19 20:59 09/15/19 17:35 Hydralazine HCl (Apresoline) 10 mg Q4H PRN IV sbp>150, dbp>100 09/13/19 14:15 10/13/19 14:14 Hydromorphone HCl (Dilaudid) 0.5 mg Q4H PRN IVP For Pain 3-6 09/10/19 14:15 09/17/19 14:14 Hydromorphone HCl (Dilaudid) 1 mg Q4H PRN IVP For Pain 7-10 09/10/19 14:15 09/17/19 14:14 09/15/19 20:14 Insulin Aspart (NovoLOG) BEFORE MEALS AND HS SUBQ 09/11/19 16:30 10/11/19 16:29 09/16/19 05:44 Insulin Detemir (Levemir) 10 units DAILY SUBQ 09/15/19 15:00 10/15/19 14:59 09/15/19 16:42 Metoprolol Tartrate (Lopressor) 12.5 mg Q12HR ORAL 09/12/19 09:00 10/12/19 08:59 09/15/19 20:10 Metronidazole 100 ml @ 100 mls/hr Q8H IVPB 09/13/19 20:00 09/20/19 19:59 09/16/19 04:30 Ondansetron HCl (Zofran) 4 mg Q6H PRN IVP Nausea & Vomiting 09/09/19 23:15 10/09/19 23:14 09/10/19 10:17 Polyethylene Glycol (Miralax) 17 gm DAILYPRN PRN ORAL Constipation 09/09/19 23:15 10/09/19 23:14 Potassium Chloride (K-Dur) 40 meq DAILY ORAL 09/15/19 09:00 10/15/19 08:59 09/15/19 09:03 Pregabalin (Lyrica) 50 mg THREE TIMES A DAY ORAL 09/10/19 09:00 10/10/19 08:59 09/15/19 17:35 Tamsulosin HCl (Flomax) 0.4 mg DAILY ORAL 09/10/19 09:00 10/10/19 08:59 09/15/19 09:01 Vancomycin HCl (Vanco rx to dose) 1 ea DAILY PRN MISC Per rx protocol 09/10/19 13:15 10/10/19 13:14 Vancomycin HCl 1 gm/Sodium Chloride 275 ml @ 183.708 mls/hr Q8H IVPB 09/14/19 04:00 09/19/19 03:59 09/16/19 04:30 Sunny Mcneil MD Sep 16, 2019 07:08
[2019-09-16] MEDS: HYDROmorphone 1mg/ml Carpuject IVP PRN ×2 (07:14→15:49)
[2019-09-16 08:00] VITALS: BP 126/74
[2019-09-16] MEDS: Azithromycin 250mg tab ORAL SCH (08:55)
[2019-09-16] MEDS: Cefepime HCl 2 GM in NS 55 ML IVPB SCH ×2 (08:55→20:40)
[2019-09-16] MEDS: Lyrica 50mg cap ORAL SCH ×3 (08:55→17:31)
[2019-09-16] MEDS: Docusate 100mg cap ORAL SCH ×2 (08:56→20:40)
[2019-09-16] MEDS: Aspirin Baby 81mg ORAL SCH (08:56)
[2019-09-16] MEDS: Metoprolol Tartrate 12.5mg TAB ORAL SCH ×2 (08:56→20:40)
[2019-09-16] MEDS: Tamsulosin 0.4mg cap ORAL SCH (08:56)
[2019-09-16] MEDS: Enoxaparin 40mg Inj SUBQ SCH (08:57)
[2019-09-16] MEDS: Levemir Flexpen SUBQ SCH (09:03)
[2019-09-16] MEDS ORDERED: Tubing IV Secondary IV ONE (10:06)
[2019-09-16] MEDS ORDERED: NS 275ml ONE (10:06)
[2019-09-16 12:00] VITALS: BP 115/65
--- NOTE | 2019-09-16 13:03 | Infectious Diseases Prog Note ---
Assessment/Plan Assessment/Plan ASSESSMENT AND PLAN: 1. sepsis, pneumonia, ? empyema, effusion, leukocytosis, fevers, sirs, elevated lft's - vancomycin, cefepime, flagyl, azithromycin - day # 6 abx - f/u on thoracentesis studies - culture negative to date - monitor leukocytosis, fevers better - f/u chest x-ray - liver enzymes improved, hepatitis panel negative - d/w daughter 2. Diabetes. 3. Hypertension. 4. Hyperlipidemia. 5. Blood sugar and blood pressure treatment per primary care team for diabetes, hypertension, and hyperlipidemia. 6. Hyponatremia. 7. Hypoxia. 8. Pulmonary followup. 9. History of prolactinoma. 10. No known drug allergies. 11. Social history is negative. 12. Family history is noncontributory. 13. MAR is noted. 14. Case was discussed with RN. 15. Continue treatment per primary consultants. 16. continue per primary team 17. Skin care protocol. 18. Orders were noted and entered. Subjective Constitutional: Denies: fever HEENT: Reports: congestion - less Respiratory: Reports: shortness of breath - less Cardiovascular: Denies: chest pain Gastrointestinal/Abdominal: Denies: nausea, vomiting, diarrhea Genitourinary: Denies: dysuria, hematuria Neurologic: Denies: headache Psychiatric: Denies: depression Skin: Denies: rash Hematologic: Denies: bleeding Musculoskeletal: Denies: pain Allergies: Coded Allergies: No Known Allergies (Unverified , 09/09/19) Objective Vital Signs Last 24 Hour Vital Signs Date Time Temp Pulse Resp B/P (MAP) Pulse Ox O2 Delivery O2 Flow Rate FiO2 09/16/19 09:00 Nasal Cannula 2.0 09/16/19 08:56 72 126/74 09/16/19 08:00 73 09/16/19 08:00 97.9 72 20 126/74 (91) 96 09/16/19 04:00 98.1 73 18 134/73 (93) 93 09/16/19 04:00 72 09/16/19 00:00 73 09/16/19 00:00 97.3 70 16 125/76 (92) 96 09/15/19 22:12 100.2 09/15/19 21:00 Nasal Cannula 3.0 09/15/19 20:10 78 144/87 09/15/19 20:00 83 09/15/19 20:00 100.8 86 18 144/73 (96) 93 09/15/19 19:38 82 20 95 Nasal Cannula 3.0 09/15/19 19:38 95 Nasal Cannula 3.0 32 09/15/19 16:00 90 09/15/19 16:00 97.9 80 20 132/75 (94) 93 Height (Feet): 5 Height (Inches): 5.00 Weight (Pounds): 154 General Appearance: no acute distress HEENT: normocephalic, atraumatic, anicteric, mucous membranes moist Respiratory/Chest: crackles/rales, rhonchi - bilaterally Cardiovascular: normal rate, regular rhythm, no gallop/murmur, no JVD Abdomen: normal bowel sounds, soft, non tender, no organomegaly, non distended Genitourinary: other - no holloway, no cva pain Extremities: no cyanosis Skin: no rash 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 This results in compressive atelectasis of most of the right lower and middle lobes. Trace left pleural effusion and minimal left basilar atelectatic changes Borderline cardiomegaly Dilated right main pulmonary artery, consistent with pulmonary arterial hypertension Ectatic but not frankly aneurysmal ascending thoracic aorta, measuring 4.2 cm. Incidental finding of large right renal cyst and nonspecific bilateral perinephric fat stranding Chest x-ray - 09/13/19 - Indication: Shortness of breath Technique: One view of the chest Comparison: 09/12/2019 Findings: Previously demonstrated large right pleural effusion again demonstrated, may have improved slightly since previous exam. There is likewise suggestion of slightly increased aeration of the right lung. There is improved aeration of left lung, probably due to better inspiration on the current exam. The heart remains borderline enlarged. Impression: Equivocally minimally improved but still large right pleural effusion. Improved aeration of the left lung base, since previous day's exam Microbiology Date/Time Source Procedure Growth Status 09/09/19 21:20 Blood Blood Culture - Final NO GROWTH AFTER 5 DAYS Complete 09/13/19 12:22 Body Fluid Drainage Gram Stain - Final Resulted 09/13/19 12:22 Body Fluid Drainage Body Fluid Culture - Preliminary NO GROWTH AFTER 72 HOURS Resulted 09/09/19 22:30 Nasal Nares - Final Complete 09/09/19 22:30 Nasal Nares - Final Complete 09/10/19 20:03 Urine,Clean Catch Urine Culture - Final NO GROWTH AFTER 48 HOURS Complete Laboratory Tests Test 09/15/19 17:30 09/16/19 02:53 White Blood Count 17.3 K/UL (4.8-10.8) H Red Blood Count 3.75 M/UL (4.70-6.10) L Hemoglobin 11.2 G/DL (14.2-18.0) L Hematocrit 35.1 % (42.0-52.0) L Mean Corpuscular Volume 93 FL (80-99) Mean Corpuscular Hemoglobin 29.9 PG (27.0-31.0) Mean Corpuscular Hemoglobin Concent 32.0 G/DL (32.0-36.0) Red Cell Distribution Width 11.3 % (11.6-14.8) L Platelet Count 280 K/UL (150-450) Mean Platelet Volume 6.1 FL (6.5-10.1) L Neutrophils (%) (Auto) 80.4 % (45.0-75.0) H Lymphocytes (%) (Auto) 8.3 % (20.0-45.0) L Monocytes (%) (Auto) 8.9 % (1.0-10.0) Eosinophils (%) (Auto) 1.8 % (0.0-3.0) Basophils (%) (Auto) 0.6 % (0.0-2.0) Sodium Level 126 MMOL/L (136-145) L Potassium Level 3.8 MMOL/L (3.5-5.1) Chloride Level 88 MMOL/L (98-107) L Carbon Dioxide Level 32 MMOL/L (21-32) Anion Gap 6 mmol/L (5-15) Blood Urea Nitrogen 18 mg/dL (7-18) Creatinine 0.9 MG/DL (0.55-1.30) Estimat Glomerular Filtration Rate mL/min (>60) Glucose Level 360 MG/DL (74-106) #H Calcium Level 7.5 MG/DL (8.5-10.1) L Total Bilirubin 0.3 MG/DL (0.2-1.0) Aspartate Amino Transf (AST/SGOT) 20 U/L (15-37) Alanine Aminotransferase (ALT/SGPT) 114 U/L (12-78) H Alkaline Phosphatase 74 U/L (46-116) Total Protein 5.5 G/DL (6.4-8.2) L Albumin 2.2 G/DL (3.4-5.0) L Globulin 3.3 g/dL Albumin/Globulin Ratio 0.7 (1.0-2.7) L Vancomycin Level Trough 15.9 ug/mL (5.0-12.0) H Current Medications Medications (Trade) Dose Ordered Sig/Ishaan Route PRN Reason Start Time Stop Time Status Last Admin Dose Admin Acetaminophen (Tylenol) 650 mg Q4H PRN ORAL Mild Pain (Pain Scale 1-3) 09/09/19 23:15 10/09/19 23:14 09/11/19 03:23 Acetaminophen (Tylenol) 650 mg Q4H PRN ORAL fever 09/09/19 23:15 10/09/19 23:14 09/15/19 20:11 Acetaminophen (Tylenol) 650 mg Q4H PRN RECTAL Mild Pain (Pain Scale 1-3) 09/09/19 23:15 10/09/19 23:14 Acetaminophen (Tylenol) 650 mg Q4H PRN RECTAL fever 09/09/19 23:15 10/09/19 23:14 Aspirin (ASA) 81 mg DAILY ORAL 09/12/19 09:00 10/12/19 08:59 09/16/19 08:56 Atorvastatin Calcium (Lipitor) 10 mg BEDTIME ORAL 09/10/19 21:00 10/10/19 20:59 09/15/19 20:10 Azithromycin (Zithromax) 250 mg DAILY ORAL 09/13/19 09:00 09/20/19 08:59 09/16/19 08:55 Cefepime HCl 2 gm/ Sodium Chloride 55 ml @ 110 mls/hr Q24H IVPB 09/15/19 09:00 09/20/19 20:59 09/16/19 08:55 Dextrose (Dextrose 50%) 25 ml Q30M PRN IV Hypoglycemia 09/15/19 13:30 10/15/19 13:29 Dextrose (Dextrose 50%) 50 ml Q30M PRN IV Hypoglycemia 09/15/19 13:30 10/15/19 13:29 Docusate Sodium (Colace) 100 mg EVERY 12 HOURS ORAL 09/10/19 09:00 10/10/19 08:59 09/16/19 08:56 Enoxaparin Sodium (Lovenox) 40 mg DAILY SUBQ 09/14/19 10:45 10/14/19 10:44 09/16/19 08:57 Escitalopram Oxalate (Lexapro) 5 mg DAILY ORAL 09/10/19 09:00 10/10/19 08:59 09/16/19 08:56 Furosemide (Lasix) 20 mg BID IV 09/15/19 18:00 10/12/19 20:59 09/16/19 08:56 Hydralazine HCl (Apresoline) 10 mg Q4H PRN IV sbp>150, dbp>100 09/13/19 14:15 10/13/19 14:14 Hydromorphone HCl (Dilaudid) 0.5 mg Q4H PRN IVP For Pain 3-6 09/10/19 14:15 09/17/19 14:14 Hydromorphone HCl (Dilaudid) 1 mg Q4H PRN IVP For Pain 7-10 09/10/19 14:15 09/17/19 14:14 09/16/19 07:14 Insulin Aspart (NovoLOG) BEFORE MEALS AND HS SUBQ 09/11/19 16:30 10/11/19 16:29 09/16/19 11:34 Insulin Aspart (NovoLOG) 3 units NOVOTIAC SUBQ 09/16/19 11:50 10/16/19 11:49 09/16/19 11:33 Insulin Detemir (Levemir) 10 units DAILY SUBQ 09/15/19 15:00 10/15/19 14:59 09/16/19 09:03 Metoprolol Tartrate (Lopressor) 12.5 mg Q12HR ORAL 09/12/19 09:00 10/12/19 08:59 09/16/19 08:56 Metronidazole 100 ml @ 100 mls/hr Q8H IVPB 09/13/19 20:00 09/20/19 19:59 09/16/19 11:32 Ondansetron HCl (Zofran) 4 mg Q6H PRN IVP Nausea & Vomiting 09/09/19 23:15 10/09/19 23:14 09/10/19 10:17 Polyethylene Glycol (Miralax) 17 gm DAILYPRN PRN ORAL Constipation 09/09/19 23:15 10/09/19 23:14 Potassium Chloride (K-Dur) 40 meq DAILY ORAL 09/15/19 09:00 10/15/19 08:59 09/16/19 08:56 Pregabalin (Lyrica) 50 mg THREE TIMES A DAY ORAL 09/10/19 09:00 10/10/19 08:59 09/16/19 12:42 Tamsulosin HCl (Flomax) 0.4 mg DAILY ORAL 09/10/19 09:00 10/10/19 08:59 09/16/19 08:56 Vancomycin HCl (Vanco rx to dose) 1 ea DAILY PRN MISC Per rx protocol 09/10/19 13:15 10/10/19 13:14 Vancomycin HCl 1 gm/Sodium Chloride 275 ml @ 183.708 mls/hr Q8H IVPB 09/14/19 04:00 09/19/19 03:59 09/16/19 11:32 Kesha Rebollar MD Sep 16, 2019 13:03
[2019-09-16 13:22] LABS: HEMATOCRIT 36.4 % (42.0-52.0); HEMOGLOBIN 12.4 G/DL (14.2-18.0); MEAN CORPUSCULAR VOLUME 90 FL (80-99); PLATELET COUNT 354 K/UL (150-450); RED BLOOD COUNT 4.02 M/UL (4.70-6.10); RED CELL DISTRIBUTION WIDTH 10.7 % (11.6-14.8); WHITE BLOOD COUNT 21.4 K/UL (4.8-10.8)
--- NOTE | 2019-09-16 13:22 | General Progress Note ---
Assessment/Plan Problem List: (1) Pulmonary HTN ICD Codes: I27.20 - Pulmonary hypertension, unspecified SNOMED: 99467921 (2) Pleural effusion, right ICD Codes: J90 - Pleural effusion, not elsewhere classified SNOMED: 56864990 (3) Diastolic CHF, acute ICD Codes: I50.31 - Acute diastolic (congestive) heart failure SNOMED: 23545837, 467926957 (4) Community acquired bacterial pneumonia ICD Codes: J15.9 - Unspecified bacterial pneumonia SNOMED: 657995165, 71935742 (5) Acute respiratory failure with hypoxemia ICD Codes: J96.01 - Acute respiratory failure with hypoxia SNOMED: 314656903 (6) Hyperprolactinemia ICD Codes: E22.1 - Hyperprolactinemia SNOMED: 329731351 (7) Sepsis ICD Codes: A41.9 - Sepsis, unspecified organism SNOMED: 16268278, 29217278 Qualifiers: Qualified Codes: A41.9 - Sepsis, unspecified organism; R65.20 - Severe sepsis without septic shock; J96.01 - Acute respiratory failure with hypoxia (8) Lactic acidosis ICD Codes: E87.2 - Acidosis SNOMED: 17315502 (9) Diabetes mellitus out of control ICD Codes: E11.65 - Type 2 diabetes mellitus with hyperglycemia SNOMED: 71343082, 013482933 (10) Severe sepsis ICD Codes: A41.9 - Sepsis, unspecified organism; R65.20 - Severe sepsis without septic shock SNOMED: 28583513 (11) Diastolic dysfunction ICD Codes: I51.89 - Other ill-defined heart diseases SNOMED: 2854815 (12) Encephalopathy due to infection ICD Codes: G93.49 - Other encephalopathy; B99.9 - Unspecified infectious disease SNOMED: 63665409, 17306507 Status: stable, progressing Assessment/Plan: 73 year old presented with fever, chills, sob. Found to be hypoxic, tachycardic and febrile, +leukocytosis, CXR with infiltrates. influenza A/B negative. #Sever sepsis secondary to CAP, ? empyema #Acute respiratory failure with hypoxia #Acute encephalopathy, infection and hypoxic #large Right sided pleural effusion #Pulmonary arterial HTN telemetry s/p thoracentesis 950 cc green pleural fluid took out. fluid culture NGTD, LDH elevated at ~1300, exudative. cefepime and azithromycin, vancomycin, flagyl, per ID recs. check sputum culture, blood cultures speech therapy evaluation appreciated--> pureed to ground texture o2 to keep o2 sat >95%, downtitrate prn. pain control ID and pulmonary consults Decrease lasix to 20 PO daily (from IV 20 BID) CT chest reviewed: Large R effusion now s/p thoracentesis Pulmonary and cardiology follow up for pulmonary arterial hypertension PT following #Diastolic CHF, acute #R pleural effusion #Transient Afib/Flutter #pulmonary arterial HTN Echo reviewed: Diastolic dysfunction, pulmonary HTN, systolic function seems to be okay Lasix 20 PO daily d/w cardiology Metoprolol 12.5 mg BID, ASA, Atorvastatin. #Transaminitis, ?passive congestion, pattern not obstructive , normal ALP and total bili AST/ALT 300's normal on admission, now trending down monitor follow up hepatitis panel -> negative US abdomen reviewed: Gallbladder sludge and possible small stones. Mildly ectatic common bile duct, probably related to patient's age but downstream obstruction not completely excludable. Correlate with liver function tests, consider MRCP if clinically indicated. Liver demonstrates diffusely increased echogenicity, consistent with diffuse hepatocellular disease, most likely fatty change. Trace perihepatic ascites. Large right pleural effusion. Incidental finding small lateral renal cysts. Note inability to visualize portions of the abdominal aorta #DM uncontrolled #Prolactinoma Hold home po meds Insulin basal bolus, monitor fsbg. Levemir 16 units BID, NovoLog 4 units with meals, SSI. hold Levemir and NovoLog due to poor po intake. continue sliding scale hold Bromocriptine as may have been contributing to AMS prolactin levels reviewed and high ~100 endocrinology consult Tarun Olson #Hematuria- resolved #BPH Dced heparin due to hematuria UA sent Flomax #Hypokalemia #Hypomagnesemia Replace #GERD -Protonix 40 daily ordered Vte ppx: start lovenox 40 mg daily 09/14, SCD boots Code: full code per daughter at bedside I spent 36 minutes on this encounter. >50% spent on counselling and care coordination. Subjective Date patient seen: Sep 16, 2019 Time patient seen: 12:15 ROS Limited/Unobtainable: No Constitutional: Denies: no symptoms, chills, diaphoresis, fever, malaise, weakness, other HEENT: Denies: no symptoms, eye pain, blurred vision, tearing, double vision, ear pain, ear discharge, nose pain, nose congestion, throat pain, throat swelling, mouth pain, mouth swelling, other Cardiovascular: Denies: no symptoms, chest pain, edema, irregular heart rate, lightheadedness, palpitations, syncope, other Respiratory: Reports: cough, shortness of breath, SOB with excertion Gastrointestinal/Abdominal: Denies: no symptoms, abdomen distended, abdominal pain, black stools, tarry stools, blood in stool, constipated, diarrhea, difficulty swallowing, nausea, poor appetite, poor fluid intake, rectal bleeding , vomiting, other Genitourinary: Reports: urgency Neurologic/Psychiatric: Denies: no symptoms, anxiety, depressed, emotional problems, headache, numbness, paresthesia, pre-existing deficit, seizure, tingling, tremors, weakness, other Endocrine: Denies: no symptoms, excessive sweating, flushing, intolerance to cold, intolerance to heat, increased hunger, increased thirst, increased urine, unexplained weight gain, unexplained weight loss, other Hematologic/Lymphatic: Denies: no symptoms, anemia, easy bleeding, easy bruising, other Allergies: Coded Allergies: No Known Allergies (Unverified , 09/09/19) All Systems: reviewed and negative except above Subjective Worked with PT, was able to get up to the bathroom for first time. Overall, looking/feeling like the best he's been, per daughter and patient. Still complaining of urinary frequency from lasix. Also requesting something for heartburn. Objective Last 24 Hour Vital Signs Date Time Temp Pulse Resp B/P (MAP) Pulse Ox O2 Delivery O2 Flow Rate FiO2 09/16/19 09:00 Nasal Cannula 2.0 09/16/19 08:56 72 126/74 09/16/19 08:00 73 09/16/19 08:00 97.9 72 20 126/74 (91) 96 09/16/19 04:00 98.1 73 18 134/73 (93) 93 09/16/19 04:00 72 09/16/19 00:00 73 09/16/19 00:00 97.3 70 16 125/76 (92) 96 09/15/19 22:12 100.2 09/15/19 21:00 Nasal Cannula 3.0 09/15/19 20:10 78 144/87 09/15/19 20:00 83 09/15/19 20:00 100.8 86 18 144/73 (96) 93 09/15/19 19:38 82 20 95 Nasal Cannula 3.0 09/15/19 19:38 95 Nasal Cannula 3.0 32 09/15/19 16:00 90 09/15/19 16:00 97.9 80 20 132/75 (94) 93 Intake and Output 09/15/19 09/16/19 19:00 07:00 Intake Total 1184 ml 875 ml Output Total 800 ml Balance 384 ml 875 ml Intake Oral 354 ml 125 ml IV Total 830 ml 750 ml Output Urine Total 800 ml # Voids 4 5 Laboratory Tests 09/15/19 17:30: White Blood Count 17.3H, Red Blood Count 3.75L, Hemoglobin 11.2L, Hematocrit 35.1L, Mean Corpuscular Volume 93, Mean Corpuscular Hemoglobin 29.9, Mean Corpuscular Hemoglobin Concent 32.0, Red Cell Distribution Width 11.3L, Platelet Count 280, Mean Platelet Volume 6.1L, Neutrophils (%) (Auto) 80.4H, Lymphocytes (%) (Auto) 8.3L, Monocytes (%) (Auto) 8.9, Eosinophils (%) (Auto) 1.8, Basophils (%) (Auto) 0.6, Sodium Level 126L, Potassium Level 3.8, Chloride Level 88L, Carbon Dioxide Level 32, Anion Gap 6, Blood Urea Nitrogen 18, Creatinine 0.9, Estimat Glomerular Filtration Rate , Glucose Level 360#H, Calcium Level 7.5L, Total Bilirubin 0.3, Aspartate Amino Transf (AST/SGOT) 20, Alanine Aminotransferase (ALT/SGPT) 114H, Alkaline Phosphatase 74, Total Protein 5.5L, Albumin 2.2L, Globulin 3.3, Albumin/Globulin Ratio 0.7L 09/16/19 02:53: Vancomycin Level Trough 15.9H Height (Feet): 5 Height (Inches): 5.00 Weight (Pounds): 154 General Appearance: WD/WN, no apparent distress, alert EENT: PERRL/EOMI, normal ENT inspection Neck: supple Cardiovascular: normal rate, regular rhythm, no gallop/murmur Respiratory/Chest: lungs clear, normal breath sounds, no respiratory distress Abdomen: normal bowel sounds, non tender, soft Edema: no edema noted Arm (L), no edema noted Arm (R), no edema noted Leg (L), no edema noted Leg (R), no edema noted Pedal (L), no edema noted Pedal (R), no edema noted 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 Sep 16, 2019 13:22
[2019-09-16 13:37] LABS: ANION GAP 3 mmol/L (5-15); BLOOD UREA NITROGEN 17 mg/dL (7-18); CALCIUM 7.7 MG/DL (8.5-10.1); CARBON DIOXIDE 34 MMOL/L (21-32); CHLORIDE 91 MMOL/L (98-107); CREATININE 0.9 MG/DL (0.55-1.30); POTASSIUM 3.8 MMOL/L (3.5-5.1); SODIUM 128 MMOL/L (136-145)
[2019-09-16 16:00] VITALS: BP 114/55
--- NOTE | 2019-09-16 17:46 | Pulmonology Progress Note ---
Assessment/Plan Assessment/Plan (1) Community acquired bacterial pneumonia (2) Acute respiratory failure with hypoxemia (3) Lactic acidosis (4) Hyperprolactinemia (5) Sepsis (6) Diabetes mellitus out of control Assessment/Plan Plan: * Abx per ID: cefepime/vanco/azithro * f/u cultures * f/u pleural fluid studies all pending * Repeat CXR am * may need repeat thora * Monitor volumes * Wean oxygen * Endocrine f/u Subjective Constitutional: Reports: no symptoms HEENT: Repors: no symptoms Respiratory: Reports: productive cough, shortness of breath Cardiovascular: Reports: no symptoms Allergies: Coded Allergies: No Known Allergies (Unverified , 09/09/19) Subjective awake minimal po postiive cough more shortness of breath today no diarrhea on o2 Objective Last 24 Hour Vital Signs Date Time Temp Pulse Resp B/P (MAP) Pulse Ox O2 Delivery O2 Flow Rate FiO2 09/16/19 16:00 97.7 80 20 114/55 (74) 96 09/16/19 12:00 78 09/16/19 12:00 97.8 74 20 115/65 (82) 99 09/16/19 09:00 Nasal Cannula 2.0 09/16/19 08:56 72 126/74 09/16/19 08:00 73 09/16/19 08:00 97.9 72 20 126/74 (91) 96 09/16/19 04:00 98.1 73 18 134/73 (93) 93 09/16/19 04:00 72 09/16/19 00:00 73 09/16/19 00:00 97.3 70 16 125/76 (92) 96 09/15/19 22:12 100.2 09/15/19 21:00 Nasal Cannula 3.0 09/15/19 20:10 78 144/87 09/15/19 20:00 83 09/15/19 20:00 100.8 86 18 144/73 (96) 93 09/15/19 19:38 82 20 95 Nasal Cannula 3.0 09/15/19 19:38 95 Nasal Cannula 3.0 32 Intake and Output 09/15/19 09/16/19 19:00 07:00 Intake Total 1184 ml 875 ml Output Total 800 ml Balance 384 ml 875 ml Intake Oral 354 ml 125 ml IV Total 830 ml 750 ml Output Urine Total 800 ml # Voids 4 5 General Appearance: WD/WN Respiratory/Chest: decreased breath sounds, crackles/rales Cardiovascular: normal rate, regular rhythm Abdomen: soft, non tender, no organomegaly Extremities: no cyanosis, no clubbing Neurologic/Psychiatric: alert, oriented x 3, responsive Laboratory Tests 09/16/19 02:53: Vancomycin Level Trough 15.9H 09/16/19 13:05: White Blood Count 21.4H, Red Blood Count 4.02L, Hemoglobin 12.4L, Hematocrit 36.4L, Mean Corpuscular Volume 90, Mean Corpuscular Hemoglobin 30.8, Mean Corpuscular Hemoglobin Concent 34.1, Red Cell Distribution Width 10.7L, Platelet Count 354, Mean Platelet Volume 5.2L, Neutrophils (%) (Auto) , Lymphocytes (%) (Auto) , Monocytes (%) (Auto) , Eosinophils (%) (Auto) , Basophils (%) (Auto) , Differential Total Cells Counted 100, Neutrophils % ( Manual) 86H, Lymphocytes % (Manual) 8L, Monocytes % (Manual) 4, Eosinophils % ( Manual) 2, Basophils % (Manual) 0, Band Neutrophils 0, Platelet Estimate Adequate, Platelet Morphology Normal, Red Blood Cell Morphology Normal, Sodium Level 128L, Potassium Level 3.8, Chloride Level 91L, Carbon Dioxide Level 34H, Anion Gap 3L, Blood Urea Nitrogen 17, Creatinine 0.9, Estimat Glomerular Filtration Rate , Glucose Level 320H, Calcium Level 7.7L Current Medications Medications (Trade) Dose Ordered Sig/Ishaan Route PRN Reason Start Time Stop Time Status Last Admin Dose Admin Acetaminophen (Tylenol) 650 mg Q4H PRN ORAL Mild Pain (Pain Scale 1-3) 09/09/19 23:15 10/09/19 23:14 09/11/19 03:23 Acetaminophen (Tylenol) 650 mg Q4H PRN ORAL fever 09/09/19 23:15 10/09/19 23:14 09/15/19 20:11 Acetaminophen (Tylenol) 650 mg Q4H PRN RECTAL Mild Pain (Pain Scale 1-3) 09/09/19 23:15 10/09/19 23:14 Acetaminophen (Tylenol) 650 mg Q4H PRN RECTAL fever 09/09/19 23:15 10/09/19 23:14 Aspirin (ASA) 81 mg DAILY ORAL 09/12/19 09:00 10/12/19 08:59 09/16/19 08:56 Atorvastatin Calcium (Lipitor) 10 mg BEDTIME ORAL 09/10/19 21:00 10/10/19 20:59 09/15/19 20:10 Cefepime HCl 2 gm/ Sodium Chloride 55 ml @ 110 mls/hr Q12HR IVPB 09/16/19 21:00 09/23/19 20:59 Dextrose (Dextrose 50%) 25 ml Q30M PRN IV Hypoglycemia 09/15/19 13:30 10/15/19 13:29 Dextrose (Dextrose 50%) 50 ml Q30M PRN IV Hypoglycemia 09/15/19 13:30 10/15/19 13:29 Docusate Sodium (Colace) 100 mg EVERY 12 HOURS ORAL 09/10/19 09:00 10/10/19 08:59 09/16/19 08:56 Enoxaparin Sodium (Lovenox) 40 mg DAILY SUBQ 09/14/19 10:45 10/14/19 10:44 09/16/19 08:57 Escitalopram Oxalate (Lexapro) 5 mg DAILY ORAL 09/10/19 09:00 10/10/19 08:59 09/16/19 08:56 Furosemide (Lasix) 20 mg DAILY ORAL 09/17/19 09:00 10/17/19 08:59 Hydralazine HCl (Apresoline) 10 mg Q4H PRN IV sbp>150, dbp>100 09/13/19 14:15 10/13/19 14:14 Hydromorphone HCl (Dilaudid) 0.5 mg Q4H PRN IVP For Pain 3-6 09/10/19 14:15 09/17/19 14:14 Hydromorphone HCl (Dilaudid) 1 mg Q4H PRN IVP For Pain 7-10 09/10/19 14:15 09/17/19 14:14 09/16/19 15:49 Insulin Aspart (NovoLOG) BEFORE MEALS AND HS SUBQ 09/11/19 16:30 10/11/19 16:29 09/16/19 17:34 Insulin Aspart (NovoLOG) 3 units NOVOTIAC SUBQ 09/16/19 11:50 10/16/19 11:49 09/16/19 17:34 Insulin Detemir (Levemir) 10 units DAILY SUBQ 09/15/19 15:00 10/15/19 14:59 09/16/19 09:03 Metoprolol Tartrate (Lopressor) 12.5 mg Q12HR ORAL 09/12/19 09:00 10/12/19 08:59 09/16/19 08:56 Metronidazole (Flagyl) 500 mg Q8H ORAL 09/16/19 20:00 09/23/19 19:59 Ondansetron HCl (Zofran) 4 mg Q6H PRN IVP Nausea & Vomiting 09/09/19 23:15 10/09/19 23:14 09/10/19 10:17 Pantoprazole (Protonix) 40 mg DAILY ORAL 09/16/19 13:30 10/16/19 13:29 09/16/19 13:44 Polyethylene Glycol (Miralax) 17 gm DAILYPRN PRN ORAL Constipation 09/09/19 23:15 10/09/19 23:14 Potassium Chloride (K-Dur) 40 meq DAILY ORAL 09/15/19 09:00 10/15/19 08:59 09/16/19 08:56 Pregabalin (Lyrica) 50 mg THREE TIMES A DAY ORAL 09/10/19 09:00 10/10/19 08:59 09/16/19 17:31 Tamsulosin HCl (Flomax) 0.4 mg DAILY ORAL 09/10/19 09:00 10/10/19 08:59 09/16/19 08:56 Vancomycin HCl (Vanco rx to dose) 1 ea DAILY PRN MISC Per rx protocol 09/10/19 13:15 10/10/19 13:14 Vancomycin HCl 1 gm/Sodium Chloride 275 ml @ 183.708 mls/hr Q8H IVPB 09/14/19 04:00 09/19/19 03:59 09/16/19 11:32 Aziza Bishop DO Sep 16, 2019 17:46
[2019-09-16 20:00] VITALS: BP 130/73
[2019-09-16] MEDS: metroNIDAZOLE 500mg tab ORAL SCH (20:00)
[2019-09-17] VITALS: BP 134/89
[2019-09-17 04:00] VITALS: BP 123/67
[2019-09-17] MEDS: Vancomycin 1 GM in NS 275 ML IVPB SCH ×3 (04:45→20:00)
[2019-09-17] MEDS: metroNIDAZOLE 500mg tab ORAL SCH (04:45)
[2019-09-17] MEDS: NovoLOG Insulin Flexpen SUBQ SCH ×7 (06:13→21:00)
--- NOTE | 2019-09-17 06:52 | General Progress Note ---
Assessment/Plan Problem List: (1) Hyperprolactinemia ICD Codes: E22.1 - Hyperprolactinemia SNOMED: 975683934 (2) Lactic acidosis ICD Codes: E87.2 - Acidosis SNOMED: 15202341 (3) Diabetes mellitus out of control ICD Codes: E11.65 - Type 2 diabetes mellitus with hyperglycemia SNOMED: 19319906, 051571263 (4) Community acquired bacterial pneumonia ICD Codes: J15.9 - Unspecified bacterial pneumonia SNOMED: 351226729, 48908412 (5) Acute respiratory failure with hypoxemia ICD Codes: J96.01 - Acute respiratory failure with hypoxia SNOMED: 159354623 (6) Sepsis ICD Codes: A41.9 - Sepsis, unspecified organism SNOMED: 17328989, 79006471 Qualifiers: Qualified Codes: A41.9 - Sepsis, unspecified organism; R65.20 - Severe sepsis without septic shock; J96.01 - Acute respiratory failure with hypoxia Status: stable, progressing Assessment/Plan: continue Levemir 10 units daily continue Novolog 3 units ac tid - hold if not eating continue NISS ac / hs continue to keep off Bromocriptine he will follow with [facility] endo service Subjective ROS Limited/Unobtainable: Yes Allergies: Coded Allergies: No Known Allergies (Unverified , 09/09/19) Subjective events noted glycemic control improved Item Value Date Time Bedside Blood Glucose 169 mg/dl H 09/17/19 0613 Bedside Blood Glucose 201 mg/dl H 09/16/19 2100 Bedside Blood Glucose 224 mg/dl H 09/16/19 1734 Bedside Blood Glucose 337 mg/dl H 09/16/19 1134 Bedside Blood Glucose 185 mg/dl H 09/16/19 0903 Bedside Blood Glucose 181 mg/dl H 09/16/19 0630 Objective Last 24 Hour Vital Signs Date Time Temp Pulse Resp B/P (MAP) Pulse Ox O2 Delivery O2 Flow Rate FiO2 09/17/19 04:00 98.8 85 18 123/67 (85) 96 09/17/19 04:00 73 09/17/19 00:00 100.0 79 16 134/89 (104) 94 09/17/19 00:00 77 09/16/19 21:00 Nasal Cannula 2.0 09/16/19 20:40 82 130/73 09/16/19 20:10 96 Nasal Cannula 2.0 28 2/2/20 20:00 74 09/16/19 20:00 99.0 82 18 130/73 (92) 94 09/16/19 16:00 79 09/16/19 16:00 97.7 80 20 114/55 (74) 96 09/16/19 12:00 78 09/16/19 12:00 97.8 74 20 115/65 (82) 99 09/16/19 09:00 Nasal Cannula 2.0 09/16/19 08:56 72 126/74 09/16/19 08:00 73 09/16/19 08:00 97.9 72 20 126/74 (91) 96 Intake and Output 09/16/19 09/17/19 19:00 07:00 Intake Total 330 ml Output Total 700 ml Balance -700 ml 330 ml IV Total 330 ml Output Urine Total 700 ml # Voids 3 # Bowel Movements 3 Laboratory Tests 09/16/19 13:05: White Blood Count 21.4H, Red Blood Count 4.02L, Hemoglobin 12.4L, Hematocrit 36.4L, Mean Corpuscular Volume 90, Mean Corpuscular Hemoglobin 30.8, Mean Corpuscular Hemoglobin Concent 34.1, Red Cell Distribution Width 10.7L, Platelet Count 354, Mean Platelet Volume 5.2L, Neutrophils (%) (Auto) , Lymphocytes (%) (Auto) , Monocytes (%) (Auto) , Eosinophils (%) (Auto) , Basophils (%) (Auto) , Differential Total Cells Counted 100, Neutrophils % ( Manual) 86H, Lymphocytes % (Manual) 8L, Monocytes % (Manual) 4, Eosinophils % ( Manual) 2, Basophils % (Manual) 0, Band Neutrophils 0, Platelet Estimate Adequate, Platelet Morphology Normal, Red Blood Cell Morphology Normal, Sodium Level 128L, Potassium Level 3.8, Chloride Level 91L, Carbon Dioxide Level 34H, Anion Gap 3L, Blood Urea Nitrogen 17, Creatinine 0.9, Estimat Glomerular Filtration Rate , Glucose Level 320H, Calcium Level 7.7L 09/17/19 05:30: White Blood Count [Pending], Red Blood Count [Pending], Hemoglobin [Pending], Hematocrit [Pending], Mean Corpuscular Volume [Pending], Mean Corpuscular Hemoglobin [Pending], Mean Corpuscular Hemoglobin Concent [Pending], Red Cell Distribution Width [Pending], Platelet Count [Pending], Mean Platelet Volume [ Pending], Neutrophils (%) (Auto) [Pending], Lymphocytes (%) (Auto) [Pending], Monocytes (%) (Auto) [Pending], Eosinophils (%) (Auto) [Pending], Basophils (%) (Auto) [Pending], Sodium Level [Pending], Potassium Level [Pending], Chloride Level [Pending], Carbon Dioxide Level [Pending], Blood Urea Nitrogen [Pending], Creatinine [Pending], Estimat Glomerular Filtration Rate [Pending], Glucose Level [Pending], Calcium Level [Pending], Total Bilirubin [Pending], Direct Bilirubin [Pending], Aspartate Amino Transf (AST/SGOT) [Pending], Alanine Aminotransferase (ALT/SGPT) [Pending], Alkaline Phosphatase [Pending], Total Protein [Pending], Albumin [Pending], Globulin [Pending] Height (Feet): 5 Height (Inches): 5.00 Weight (Pounds): 154 General Appearance: no apparent distress Neck: normal alignment Cardiovascular: normal rate Respiratory/Chest: lungs clear Abdomen: normal bowel sounds Pelvis: normal external exam Objective Current Medications Medications (Trade) Dose Ordered Sig/Ishaan Route PRN Reason Start Time Stop Time Status Last Admin Dose Admin Acetaminophen (Tylenol) 650 mg Q4H PRN ORAL Mild Pain (Pain Scale 1-3) 09/09/19 23:15 10/09/19 23:14 09/11/19 03:23 Acetaminophen (Tylenol) 650 mg Q4H PRN ORAL fever 09/09/19 23:15 10/09/19 23:14 09/15/19 20:11 Acetaminophen (Tylenol) 650 mg Q4H PRN RECTAL Mild Pain (Pain Scale 1-3) 09/09/19 23:15 10/09/19 23:14 Acetaminophen (Tylenol) 650 mg Q4H PRN RECTAL fever 09/09/19 23:15 10/09/19 23:14 Aspirin (ASA) 81 mg DAILY ORAL 09/12/19 09:00 10/12/19 08:59 09/16/19 08:56 Atorvastatin Calcium (Lipitor) 10 mg BEDTIME ORAL 09/10/19 21:00 10/10/19 20:59 09/16/19 20:40 Cefepime HCl 2 gm/ Sodium Chloride 55 ml @ 110 mls/hr Q12HR IVPB 09/16/19 21:00 09/23/19 20:59 09/16/19 20:40 Dextrose (Dextrose 50%) 25 ml Q30M PRN IV Hypoglycemia 09/15/19 13:30 10/15/19 13:29 Dextrose (Dextrose 50%) 50 ml Q30M PRN IV Hypoglycemia 09/15/19 13:30 10/15/19 13:29 Docusate Sodium (Colace) 100 mg EVERY 12 HOURS ORAL 09/10/19 09:00 10/10/19 08:59 09/16/19 20:40 Enoxaparin Sodium (Lovenox) 40 mg DAILY SUBQ 09/14/19 10:45 10/14/19 10:44 09/16/19 08:57 Escitalopram Oxalate (Lexapro) 5 mg DAILY ORAL 09/10/19 09:00 10/10/19 08:59 09/16/19 08:56 Furosemide (Lasix) 20 mg DAILY ORAL 09/17/19 09:00 10/17/19 08:59 Hydralazine HCl (Apresoline) 10 mg Q4H PRN IV sbp>150, dbp>100 09/13/19 14:15 10/13/19 14:14 Hydromorphone HCl (Dilaudid) 0.5 mg Q4H PRN IVP For Pain 3-6 09/10/19 14:15 09/17/19 14:14 Hydromorphone HCl (Dilaudid) 1 mg Q4H PRN IVP For Pain 7-10 09/10/19 14:15 09/17/19 14:14 09/16/19 15:49 Insulin Aspart (NovoLOG) BEFORE MEALS AND HS SUBQ 09/11/19 16:30 10/11/19 16:29 09/17/19 06:13 Insulin Aspart (NovoLOG) 3 units NOVOTIAC SUBQ 09/16/19 11:50 10/16/19 11:49 09/17/19 06:13 Insulin Detemir (Levemir) 10 units DAILY SUBQ 09/15/19 15:00 10/15/19 14:59 09/16/19 09:03 Metoprolol Tartrate (Lopressor) 12.5 mg Q12HR ORAL 09/12/19 09:00 10/12/19 08:59 09/16/19 20:40 Metronidazole (Flagyl) 500 mg Q8H ORAL 09/16/19 20:00 09/23/19 19:59 09/17/19 04:45 Ondansetron HCl (Zofran) 4 mg Q6H PRN IVP Nausea & Vomiting 09/09/19 23:15 10/09/19 23:14 09/10/19 10:17 Pantoprazole (Protonix) 40 mg DAILY ORAL 09/16/19 13:30 10/16/19 13:29 09/16/19 13:44 Polyethylene Glycol (Miralax) 17 gm DAILYPRN PRN ORAL Constipation 09/09/19 23:15 10/09/19 23:14 Potassium Chloride (K-Dur) 40 meq DAILY ORAL 09/15/19 09:00 10/15/19 08:59 09/16/19 08:56 Pregabalin (Lyrica) 50 mg THREE TIMES A DAY ORAL 09/10/19 09:00 10/10/19 08:59 09/16/19 17:31 Tamsulosin HCl (Flomax) 0.4 mg DAILY ORAL 09/10/19 09:00 10/10/19 08:59 09/16/19 08:56 Vancomycin HCl (Vanco rx to dose) 1 ea DAILY PRN MISC Per rx protocol 09/10/19 13:15 10/10/19 13:14 Vancomycin HCl 1 gm/Sodium Chloride 275 ml @ 183.708 mls/hr Q8H IVPB 09/14/19 04:00 09/19/19 03:59 09/17/19 04:45 Sunny Mcneil MD Sep 17, 2019 06:52
[2019-09-17 07:09] LABS: ALANINE AMINOTRANSFERASE 76 U/L (12-78); ALBUMIN 2.1 G/DL (3.4-5.0); ALKALINE PHOSPHATASE 57 U/L (46-116); ASPARTATE AMINO TRANSFERASE 27 U/L (15-37); BILIRUBIN,DIRECT < 0.1 MG/DL (0.0-0.3); BILIRUBIN,TOTAL 0.6 MG/DL (0.2-1.0)
[2019-09-17 07:10] LABS: ALANINE AMINOTRANSFERASE 77 U/L (12-78); ALBUMIN 2.1 G/DL (3.4-5.0); ALBUMIN/GLOBULIN RATIO 0.5 (1.0-2.7); ALKALINE PHOSPHATASE 59 U/L (46-116); ANION GAP 6 mmol/L (5-15); ASPARTATE AMINO TRANSFERASE 27 U/L (15-37); BILIRUBIN,TOTAL 0.6 MG/DL (0.2-1.0); BLOOD UREA NITROGEN 13 mg/dL (7-18); CALCIUM 7.4 MG/DL (8.5-10.1); CARBON DIOXIDE 30 MMOL/L (21-32); CHLORIDE 91 MMOL/L (98-107); CREATININE 0.8 MG/DL (0.55-1.30); POTASSIUM 3.9 MMOL/L (3.5-5.1); SODIUM 127 MMOL/L (136-145)
[2019-09-17 07:11] LABS: HEMATOCRIT 32.4 % (42.0-52.0); HEMOGLOBIN 11.6 G/DL (14.2-18.0); MEAN CORPUSCULAR VOLUME 88 FL (80-99); PLATELET COUNT 318 K/UL (150-450); RED BLOOD COUNT 3.67 M/UL (4.70-6.10); RED CELL DISTRIBUTION WIDTH 10.7 % (11.6-14.8)
--- NOTE | 2019-09-17 07:41 | Cardiac Electrophysiology PN ---
Assessment/Plan Assessment/Plan 1. Atrial fibrillation, rate of 110. Converted to sinus rhythm. No history of CAD or CHF or prior atrial fibrillation. Echo EF 55%. 2. Troponin leak negative to 0.198. Right side CP only when coughs due to pleural effusion On Aspirin, Lopressor 12.5 bid and Lipitor 10 3. RBBB 3. HTN 4. Right sided pleural effusion. S/P Chest CT and 950cc Thoracentesis 09/13/2019 Awaiting Cytology. On Lasix 20 po daily. CXR pending today. May need another thoracemtesis today. 5. Pneumonia on IV antibiotic. WBC rising to 21 K 6. Uncontrolled diabetes. 7. Hyperprolactinemia. Further evaluation by Dr. Mcneil. 8. K 3.1, On 40 KCL po daily DW RN Subjective Subjective No more atrial fib. In SR with BBB. S/P 950cc yellow, greenish thoracentesis . RN at bedside. Objective Last 24 Hour Vital Signs Date Time Temp Pulse Resp B/P (MAP) Pulse Ox O2 Delivery O2 Flow Rate FiO2 09/17/19 04:00 98.8 85 18 123/67 (85) 96 09/17/19 04:00 73 09/17/19 00:00 100.0 79 16 134/89 (104) 94 09/17/19 00:00 77 09/16/19 21:00 Nasal Cannula 2.0 09/16/19 20:40 82 130/73 09/16/19 20:10 96 Nasal Cannula 2.0 28 09/16/19 20:00 74 09/16/19 20:00 99.0 82 18 130/73 (92) 94 09/16/19 16:00 79 09/16/19 16:00 97.7 80 20 114/55 (74) 96 09/16/19 12:00 78 09/16/19 12:00 97.8 74 20 115/65 (82) 99 09/16/19 09:00 Nasal Cannula 2.0 09/16/19 08:56 72 126/74 09/16/19 08:00 73 09/16/19 08:00 97.9 72 20 126/74 (91) 96 Intake and Output 09/16/19 09/17/19 19:00 07:00 Intake Total 570 ml Output Total 700 ml 970 ml Balance -700 ml -400 ml Intake Oral 240 ml IV Total 330 ml Output Urine Total 700 ml 970 ml # Voids 3 # Bowel Movements 3 Laboratory Tests Test 09/16/19 13:05 09/17/19 05:30 White Blood Count 21.4 K/UL (4.8-10.8) H Pending Red Blood Count 4.02 M/UL (4.70-6.10) L Pending Hemoglobin 12.4 G/DL (14.2-18.0) L Pending Hematocrit 36.4 % (42.0-52.0) L Pending Mean Corpuscular Volume 90 FL (80-99) Pending Mean Corpuscular Hemoglobin 30.8 PG (27.0-31.0) Pending Mean Corpuscular Hemoglobin Concent 34.1 G/DL (32.0-36.0) Pending Red Cell Distribution Width 10.7 % (11.6-14.8) L Pending Platelet Count 354 K/UL (150-450) Pending Mean Platelet Volume 5.2 FL (6.5-10.1) L Pending Neutrophils (%) (Auto) % (45.0-75.0) Pending Lymphocytes (%) (Auto) % (20.0-45.0) Pending Monocytes (%) (Auto) % (1.0-10.0) Pending Eosinophils (%) (Auto) % (0.0-3.0) Pending Basophils (%) (Auto) % (0.0-2.0) Pending Differential Total Cells Counted 100 Neutrophils % (Manual) 86 % (45-75) H Lymphocytes % (Manual) 8 % (20-45) L Monocytes % (Manual) 4 % (1-10) Eosinophils % (Manual) 2 % (0-3) Basophils % (Manual) 0 % (0-2) Band Neutrophils 0 % (0-8) Platelet Estimate Adequate Platelet Morphology Normal Red Blood Cell Morphology Normal Sodium Level 128 MMOL/L (136-145) L 127 MMOL/L (136-145) L Potassium Level 3.8 MMOL/L (3.5-5.1) 3.9 MMOL/L (3.5-5.1) Chloride Level 91 MMOL/L (98-107) L 91 MMOL/L (98-107) L Carbon Dioxide Level 34 MMOL/L (21-32) H 30 MMOL/L (21-32) Anion Gap 3 mmol/L (5-15) L 6 mmol/L (5-15) Blood Urea Nitrogen 17 mg/dL (7-18) 13 mg/dL (7-18) Creatinine 0.9 MG/DL (0.55-1.30) 0.8 MG/DL (0.55-1.30) Estimat Glomerular Filtration Rate mL/min (>60) mL/min (>60) Glucose Level 320 MG/DL (74-106) H 183 MG/DL (74-106) #H Calcium Level 7.7 MG/DL (8.5-10.1) L 7.4 MG/DL (8.5-10.1) L Total Bilirubin 0.6 MG/DL (0.2-1.0) Direct Bilirubin < 0.1 MG/DL (0.0-0.3) Aspartate Amino Transf (AST/SGOT) 27 U/L (15-37) Alanine Aminotransferase (ALT/SGPT) 76 U/L (12-78) Alkaline Phosphatase 57 U/L (46-116) Total Protein 6.1 G/DL (6.4-8.2) L Albumin 2.1 G/DL (3.4-5.0) L Globulin 4.0 g/dL Albumin/Globulin Ratio 0.5 (1.0-2.7) L Objective HEAD AND NECK: No JVD. LUNGS: Decreased breath sounds on Right CARDIOVASCULAR: Regular S1 and S2 with no gallop or murmur. ABDOMEN: Soft. EXTREMITIES: No pitting edema. Irving Joy MD Sep 17, 2019 07:41
[2019-09-17 08:22] VITALS: BP 134/76
--- NOTE | 2019-09-17 08:52 | General Progress Note ---
Assessment/Plan Problem List: (1) Severe sepsis ICD Codes: A41.9 - Sepsis, unspecified organism; R65.20 - Severe sepsis without septic shock SNOMED: 27930188 (2) Acute respiratory failure with hypoxemia ICD Codes: J96.01 - Acute respiratory failure with hypoxia SNOMED: 210000446 (3) Encephalopathy due to infection ICD Codes: G93.49 - Other encephalopathy; B99.9 - Unspecified infectious disease SNOMED: 18623535, 81661459 (4) Community acquired bacterial pneumonia ICD Codes: J15.9 - Unspecified bacterial pneumonia SNOMED: 052837061, 29180155 (5) Diabetes mellitus out of control ICD Codes: E11.65 - Type 2 diabetes mellitus with hyperglycemia SNOMED: 59810505, 341243373 (6) Lactic acidosis ICD Codes: E87.2 - Acidosis SNOMED: 04103869 (7) Hyperprolactinemia ICD Codes: E22.1 - Hyperprolactinemia SNOMED: 491635099 (8) Pulmonary HTN ICD Codes: I27.20 - Pulmonary hypertension, unspecified SNOMED: 66070219 (9) Diastolic CHF, acute ICD Codes: I50.31 - Acute diastolic (congestive) heart failure SNOMED: 93083701, 600253127 (10) Pleural effusion, right ICD Codes: J90 - Pleural effusion, not elsewhere classified SNOMED: 18100688 Status: stable, progressing Assessment/Plan: 73 year old presented with fever, chills, sob. Found to be hypoxic, tachycardic and febrile, +leukocytosis, CXR with infiltrates. influenza A/B negative. #Sever sepsis secondary to CAP, Likely empyema , pleural fluid exudative in nature. culture negative for 72hrs. febrile with worsening wbc #Acute respiratory failure with hypoxia #Acute encephalopathy, infection and hypoxic #large Right sided pleural effusion #Pulmonary arterial HTN telemetry s/p thoracentesis 950 cc green pleural fluid took out. Exudate follow up fluid for culture and cytology cefepime and azithromycin, vancomycin, metronidazole. spoke with ID, will change to Zosyn, vancomycin, Fluconazole. Repeat blood cultures, UA sent today 2/3 May need repeat thoracentesis, vs thoracic surgery involvement. speech therapy evaluation appreciated--> pureed to ground texture o2 to keep o2 sat >95% Monitor mental status pain control ID and pulmonary consults IV lasix 20 mg daily Pulmonary and cardiology follow up for pulmonary arterial hypertension d/w Kris Barlow and Heydi #Diastolic CHF, acute #R pleural effusion #Transient Afib/Flutter #pulmonary arterial HTN Echo reviewed: Diastolic dysfunction, pulmonary HTN, systolic function seems to be okay IV lasix 40 mg once, 20 mg daily d/w cardiology Metoprolol 12.5 mg BID, ASA, Atorvastatin. #Transaminitis, ?passive congestion, pattern not obstructive , normal ALP and total bili AST/ALT 300's normal on admission, now trending down monitor follow up hepatitis panel US abdomen reviewed: Gallbladder sludge and possible small stones. Mildly ectatic common bile duct, probably related to patient's age but downstream obstruction not completely excludable. Correlate with liver function tests, consider MRCP if clinically indicated. Liver demonstrates diffusely increased echogenicity, consistent with diffuse hepatocellular disease, most likely fatty change. Trace perihepatic ascites. Large right pleural effusion. Incidental finding small lateral renal cysts. Note inability to visualize portions of the abdominal aorta #DM uncontrolled #Prolactinoma Hold home po meds Insulin basal bolus, monitor fsbg. Levemir 10 units daily , NovoLog 3 units with meals (hold if not eating), SSI. hold Bromocriptine as may have been contributing to AMS prolactin levels reviewed and high ~100 endocrinology consult Tarun Olson #Hematuria- resolved #BPH Dced heparin due to hematuria, resumed lovenox for dvt ppx. no evidence of hematuria so far. UA sent Flomax #Hypokalemia Replace as needed kdur 40 meq daily Vte ppx: start lovenox 40 mg daily 09/14, SCD boots Code: full code per daughter at bedside I spent 40 minutes on this encounter. >50% spent on counselling and care coordination. case d/w daughter and RN at bedside. I spent an additional 35 minutes in reviewing events over the weekend, library sales consultant findings and imagining and labs. Subjective Date patient seen: Sep 17, 2019 ROS Limited/Unobtainable: No Constitutional: Reports: fever, weakness HEENT: Denies: no symptoms, eye pain, blurred vision, tearing, double vision, ear pain, ear discharge, nose pain, nose congestion, throat pain, throat swelling, mouth pain, mouth swelling, other Cardiovascular: Denies: no symptoms, chest pain, edema, irregular heart rate, lightheadedness, palpitations, syncope, other Respiratory: Reports: shortness of breath Gastrointestinal/Abdominal: Denies: no symptoms, abdomen distended, abdominal pain, black stools, tarry stools, blood in stool, constipated, diarrhea, difficulty swallowing, nausea, poor appetite, poor fluid intake, rectal bleeding , vomiting, other Genitourinary: Denies: no symptoms, burning, discharge, frequency, flank pain, hematuria, incontinence, pain, urgency, other Neurologic/Psychiatric: Denies: no symptoms, anxiety, depressed, emotional problems, headache, numbness, paresthesia, pre-existing deficit, seizure, tingling, tremors, weakness, other Endocrine: Denies: no symptoms, excessive sweating, flushing, intolerance to cold, intolerance to heat, increased hunger, increased thirst, increased urine, unexplained weight gain, unexplained weight loss, other Hematologic/Lymphatic: Denies: no symptoms, anemia, easy bleeding, easy bruising, other Allergies: Coded Allergies: No Known Allergies (Unverified , 09/09/19) Subjective seen and examined. Events over the weekend reviewed. Her is febrile this morning , worsening wbc, per RN got up with PT yesterday. Repeat CXR doen this morning, not read yet, seems worse Objective Last 24 Hour Vital Signs Date Time Temp Pulse Resp B/P (MAP) Pulse Ox O2 Delivery O2 Flow Rate FiO2 09/17/19 08:24 76 09/17/19 08:22 97.1 76 20 134/76 (95) 09/17/19 04:00 98.8 85 18 123/67 (85) 96 09/17/19 04:00 73 09/17/19 00:00 100.0 79 16 134/89 (104) 94 09/17/19 00:00 77 09/16/19 21:00 Nasal Cannula 2.0 09/16/19 20:40 82 130/73 09/16/19 20:10 96 Nasal Cannula 2.0 28 09/16/19 20:00 74 09/16/19 20:00 99.0 82 18 130/73 (92) 94 09/16/19 16:00 79 09/16/19 16:00 97.7 80 20 114/55 (74) 96 09/16/19 12:00 78 09/16/19 12:00 97.8 74 20 115/65 (82) 99 2/2/20 09:00 Nasal Cannula 2.0 09/16/19 08:56 72 126/74 Intake and Output 09/16/19 09/17/19 19:00 07:00 Intake Total 845 ml Output Total 700 ml 970 ml Balance -700 ml -125 ml Intake Oral 240 ml IV Total 605 ml Output Urine Total 700 ml 970 ml # Voids 3 # Bowel Movements 3 Laboratory Tests 09/16/19 13:05: White Blood Count 21.4H, Red Blood Count 4.02L, Hemoglobin 12.4L, Hematocrit 36.4L, Mean Corpuscular Volume 90, Mean Corpuscular Hemoglobin 30.8, Mean Corpuscular Hemoglobin Concent 34.1, Red Cell Distribution Width 10.7L, Platelet Count 354, Mean Platelet Volume 5.2L, Neutrophils (%) (Auto) , Lymphocytes (%) (Auto) , Monocytes (%) (Auto) , Eosinophils (%) (Auto) , Basophils (%) (Auto) , Differential Total Cells Counted 100, Neutrophils % ( Manual) 86H, Lymphocytes % (Manual) 8L, Monocytes % (Manual) 4, Eosinophils % ( Manual) 2, Basophils % (Manual) 0, Band Neutrophils 0, Platelet Estimate Adequate, Platelet Morphology Normal, Red Blood Cell Morphology Normal, Sodium Level 128L, Potassium Level 3.8, Chloride Level 91L, Carbon Dioxide Level 34H, Anion Gap 3L, Blood Urea Nitrogen 17, Creatinine 0.9, Estimat Glomerular Filtration Rate , Glucose Level 320H, Calcium Level 7.7L 09/17/19 05:30: White Blood Count [Pending], Red Blood Count [Pending], Hemoglobin [Pending], Hematocrit [Pending], Mean Corpuscular Volume [Pending], Mean Corpuscular Hemoglobin [Pending], Mean Corpuscular Hemoglobin Concent [Pending], Red Cell Distribution Width [Pending], Platelet Count [Pending], Mean Platelet Volume [ Pending], Neutrophils (%) (Auto) [Pending], Lymphocytes (%) (Auto) [Pending], Monocytes (%) (Auto) [Pending], Eosinophils (%) (Auto) [Pending], Basophils (%) (Auto) [Pending], Sodium Level 127L, Potassium Level 3.9, Chloride Level 91L, Carbon Dioxide Level 30, Anion Gap 6, Blood Urea Nitrogen 13, Creatinine 0.8, Estimat Glomerular Filtration Rate , Glucose Level 183#H, Calcium Level 7.4L, Total Bilirubin 0.6, Direct Bilirubin < 0.1, Aspartate Amino Transf (AST/SGOT) 27, Alanine Aminotransferase (ALT/SGPT) 76, Alkaline Phosphatase 57, Total Protein 6.1L, Albumin 2.1L, Globulin 4.0, Albumin/Globulin Ratio 0.5L Height (Feet): 5 Height (Inches): 5.00 Weight (Pounds): 154 Objective General Appearance: alert, moderate distress EENT: PERRL/EOMI, normal ENT inspection Neck: non-tender, normal alignment, supple Cardiovascular: normal peripheral pulses, normal rate, regular rhythm, no gallop/murmur, no JVD Respiratory/Chest: rales Abdomen: normal bowel sounds, non tender, soft, no organomegaly, no mass, distended Extremities: normal range of motion, no calf tenderness Rick Banerjee M.D. Sep 17, 2019 08:52
[2019-09-17 09:05] LABS: WHITE BLOOD COUNT 23.4 K/UL (4.8-10.8)
[2019-09-17] MEDS: Lyrica 50mg cap ORAL SCH ×3 (09:32→17:34)
[2019-09-17] MEDS: Aspirin Baby 81mg ORAL SCH (09:32)
[2019-09-17] MEDS: Docusate 100mg cap ORAL SCH ×2 (09:32→17:35)
[2019-09-17] MEDS: Cefepime HCl 2 GM in NS 55 ML IVPB SCH (09:32)
[2019-09-17] MEDS: Tamsulosin 0.4mg cap ORAL SCH ×2 (09:33→17:34)
[2019-09-17] MEDS: Metoprolol Tartrate 12.5mg TAB ORAL SCH ×2 (09:34→21:00)
[2019-09-17] MEDS: Enoxaparin 40mg Inj SUBQ SCH (09:36)
[2019-09-17] MEDS: Levemir Flexpen SUBQ SCH (09:54)
[2019-09-17 10:47] LABS: PHOSPHORUS 2.3 MG/DL (2.5-4.9)
[2019-09-17 11:04] LABS: APPEARANCE,URINE CLEAR; BILIRUBIN, URINE NEGATIVE (NEGATIVE); COLOR,URINE PALE YELLOW; GLUCOSE, URINE (UA) 2+ (NEGATIVE); KETONES,URINE NEGATIVE (NEGATIVE); LEUKOCYTE ESTERASE ,URINE NEGATIVE (NEGATIVE); NITRITE,URINE NEGATIVE (NEGATIVE); PH,URINE 8 (4.5-8.0); PROTEIN,URINE 2+ (NEGATIVE); UROBILINOGEN,URINE NORMAL MG/DL (0.0-1.0)
[2019-09-17] MEDS: Fluconazole 100mg tab ORAL SCH (11:14)
[2019-09-17 11:23] LABS: FERRITIN 822 NG/ML (8-388)
--- NOTE | 2019-09-17 11:43 | Infectious Diseases Prog Note ---
Assessment/Plan Assessment/Plan ASSESSMENT AND PLAN: 1. sepsis, pneumonia, ? empyema, effusion, leukocytosis, fevers, sirs, elevated lft's - vancomycin and zosyn - day # 7 abx - diflucan for fungal coverage - fungemia risk - leukocytosis worse, febrile - f/u on thoracentesis studies - culture negative to date - surveillance cultures and chest x-ray, monitor labs - pulmonary f/u - ? thoracic surgery evaluation - d/w Dr. Banerjee 2. Diabetes. 3. Hypertension. 4. Hyperlipidemia. 5. Blood sugar and blood pressure treatment per primary care team for diabetes, hypertension, and hyperlipidemia. 6. Hyponatremia. 7. Hypoxia. 8. Pulmonary followup. 9. History of prolactinoma. 10. No known drug allergies. 11. Social history is negative. 12. Family history is noncontributory. 13. MAR is noted. 14. Case was discussed with RN. 15. Continue treatment per primary consultants. 16. continue per primary team 17. Skin care protocol. 18. Orders were noted and entered. Subjective Constitutional: Denies: fever HEENT: Denies: congestion Respiratory: Denies: shortness of breath Cardiovascular: Denies: chest pain Gastrointestinal/Abdominal: Denies: nausea, vomiting Genitourinary: Denies: dysuria, hematuria Allergies: Coded Allergies: No Known Allergies (Unverified , 09/09/19) Objective Vital Signs Last 24 Hour Vital Signs Date Time Temp Pulse Resp B/P (MAP) Pulse Ox O2 Delivery O2 Flow Rate FiO2 09/17/19 09:34 76 134/76 09/17/19 09:00 Nasal Cannula 2.0 09/17/19 08:24 79 09/17/19 08:22 97.1 76 20 134/76 (95) 09/17/19 04:00 98.8 85 18 123/67 (85) 96 09/17/19 04:00 73 09/17/19 00:00 100.0 79 16 134/89 (104) 94 09/17/19 00:00 77 09/16/19 21:00 Nasal Cannula 2.0 09/16/19 20:40 82 130/73 09/16/19 20:10 96 Nasal Cannula 2.0 28 09/16/19 20:00 74 09/16/19 20:00 99.0 82 18 130/73 (92) 94 2/2/20 16:00 79 09/16/19 16:00 97.7 80 20 114/55 (74) 96 09/16/19 12:00 78 09/16/19 12:00 97.8 74 20 115/65 (82) 99 Height (Feet): 5 Height (Inches): 5.00 Weight (Pounds): 154 General Appearance: no acute distress HEENT: normocephalic, atraumatic, anicteric Respiratory/Chest: no accessory muscle use, crackles/rales, rhonchi - bilaterally Cardiovascular: normal rate, regular rhythm Abdomen: normal bowel sounds, soft, non tender, no organomegaly Objective CT chest - Impression: Large right pleural effusion, occupying approximately 50% of the right hemithorax. This results in compressive atelectasis of most of the right lower and middle lobes. Trace left pleural effusion and minimal left basilar atelectatic changes Borderline cardiomegaly Dilated right main pulmonary artery, consistent with pulmonary arterial hypertension Ectatic but not frankly aneurysmal ascending thoracic aorta, measuring 4.2 cm. Incidental finding of large right renal cyst and nonspecific bilateral perinephric fat stranding Chest x-ray - 09/13/19 - Indication: Shortness of breath Technique: One view of the chest Comparison: 09/12/2019 Findings: Previously demonstrated large right pleural effusion again demonstrated, may have improved slightly since previous exam. There is likewise suggestion of slightly increased aeration of the right lung. There is improved aeration of left lung, probably due to better inspiration on the current exam. The heart remains borderline enlarged. Impression: Equivocally minimally improved but still large right pleural effusion. Improved aeration of the left lung base, since previous day's exam Laboratory Tests Test 09/16/19 13:05 09/17/19 05:30 09/17/19 10:40 09/17/19 10:47 White Blood Count 21.4 K/UL (4.8-10.8) H 23.4 K/UL (4.8-10.8) *H Red Blood Count 4.02 M/UL (4.70-6.10) L 3.67 M/UL (4.70-6.10) L Hemoglobin 12.4 G/DL (14.2-18.0) L 11.6 G/DL (14.2-18.0) L Hematocrit 36.4 % (42.0-52.0) L 32.4 % (42.0-52.0) L Mean Corpuscular Volume 90 FL (80-99) 88 FL (80-99) Mean Corpuscular Hemoglobin 30.8 PG (27.0-31.0) 31.6 PG (27.0-31.0) H Mean Corpuscular Hemoglobin Concent 34.1 G/DL (32.0-36.0) 35.9 G/DL (32.0-36.0) Red Cell Distribution Width 10.7 % (11.6-14.8) L 10.7 % (11.6-14.8) L Platelet Count 354 K/UL (150-450) 318 K/UL (150-450) Mean Platelet Volume 5.2 FL (6.5-10.1) L 4.9 FL (6.5-10.1) L Neutrophils (%) (Auto) % (45.0-75.0) % (45.0-75.0) Lymphocytes (%) (Auto) % (20.0-45.0) % (20.0-45.0) Monocytes (%) (Auto) % (1.0-10.0) % (1.0-10.0) Eosinophils (%) (Auto) % (0.0-3.0) % (0.0-3.0) Basophils (%) (Auto) % (0.0-2.0) % (0.0-2.0) Differential Total Cells Counted 100 100 Neutrophils % (Manual) 86 % (45-75) H 85 % (45-75) H Lymphocytes % (Manual) 8 % (20-45) L 5 % (20-45) L Monocytes % (Manual) 4 % (1-10) 9 % (1-10) Eosinophils % (Manual) 2 % (0-3) 1 % (0-3) Basophils % (Manual) 0 % (0-2) 0 % (0-2) Band Neutrophils 0 % (0-8) 0 % (0-8) Platelet Estimate Adequate Adequate Platelet Morphology Normal Normal Red Blood Cell Morphology Normal Sodium Level 128 MMOL/L (136-145) L 127 MMOL/L (136-145) L Potassium Level 3.8 MMOL/L (3.5-5.1) 3.9 MMOL/L (3.5-5.1) Chloride Level 91 MMOL/L (98-107) L 91 MMOL/L (98-107) L Carbon Dioxide Level 34 MMOL/L (21-32) H 30 MMOL/L (21-32) Anion Gap 3 mmol/L (5-15) L 6 mmol/L (5-15) Blood Urea Nitrogen 17 mg/dL (7-18) 13 mg/dL (7-18) Creatinine 0.9 MG/DL (0.55-1.30) 0.8 MG/DL (0.55-1.30) Estimat Glomerular Filtration Rate mL/min (>60) mL/min (>60) Glucose Level 320 MG/DL (74-106) H 183 MG/DL (74-106) #H Calcium Level 7.7 MG/DL (8.5-10.1) L 7.4 MG/DL (8.5-10.1) L Polychromasia 1+ Osmolality Pending Uric Acid 2.0 MG/DL (2.6-7.2) L Phosphorus Level 2.3 MG/DL (2.5-4.9) L Magnesium Level 1.6 MG/DL (1.8-2.4) L Total Bilirubin 0.6 MG/DL (0.2-1.0) Direct Bilirubin < 0.1 MG/DL (0.0-0.3) Aspartate Amino Transf (AST/SGOT) 27 U/L (15-37) Alanine Aminotransferase (ALT/SGPT) 76 U/L (12-78) Alkaline Phosphatase 57 U/L (46-116) Total Protein 6.1 G/DL (6.4-8.2) L Albumin 2.1 G/DL (3.4-5.0) L Globulin 4.0 g/dL Albumin/Globulin Ratio 0.5 (1.0-2.7) L Urine Color Pale yellow Urine Appearance Clear Urine pH 8 (4.5-8.0) Urine Specific [place] 1.010 (1.005-1.035) Urine Protein 2+ (NEGATIVE) H Urine Glucose (UA) 2+ (NEGATIVE) H Urine Ketones Negative (NEGATIVE) Urine Blood Negative (NEGATIVE) Urine Nitrite Negative (NEGATIVE) Urine Bilirubin Negative (NEGATIVE) Urine Urobilinogen Normal MG/DL (0.0-1.0) Urine Leukocyte Esterase Negative (NEGATIVE) Urine RBC 0 /HPF (0 - 0) Urine WBC 0-2 /HPF (0 - 0) Urine Squamous Epithelial Cells Occasional /LPF Urine Bacteria Occasional /HPF (NONE) Urine Osmolality Pending Urine Random Sodium 108 mmol/L (20-110) Urine Creatinine 56.3 MG/DL (30.0-125.0) Iron Level Pending Unsaturated Iron Binding Pending Ferritin 822 NG/ML (8-388) H Vitamin B12 Level Pending Folate Pending Current Medications Medications (Trade) Dose Ordered Sig/Ishaan Route PRN Reason Start Time Stop Time Status Last Admin Dose Admin Acetaminophen (Tylenol) 650 mg Q4H PRN ORAL Mild Pain (Pain Scale 1-3) 09/09/19 23:15 10/09/19 23:14 09/11/19 03:23 Acetaminophen (Tylenol) 650 mg Q4H PRN ORAL fever 09/09/19 23:15 10/09/19 23:14 09/15/19 20:11 Acetaminophen (Tylenol) 650 mg Q4H PRN RECTAL Mild Pain (Pain Scale 1-3) 09/09/19 23:15 10/09/19 23:14 Acetaminophen (Tylenol) 650 mg Q4H PRN RECTAL fever 09/09/19 23:15 10/09/19 23:14 Aspirin (ASA) 81 mg DAILY ORAL 09/12/19 09:00 10/12/19 08:59 09/17/19 09:32 Atorvastatin Calcium (Lipitor) 10 mg BEDTIME ORAL 09/10/19 21:00 10/10/19 20:59 09/16/19 20:40 Dextrose (Dextrose 50%) 25 ml Q30M PRN IV Hypoglycemia 09/15/19 13:30 10/15/19 13:29 Dextrose (Dextrose 50%) 50 ml Q30M PRN IV Hypoglycemia 09/15/19 13:30 10/15/19 13:29 Docusate Sodium (Colace) 100 mg EVERY 12 HOURS ORAL 09/10/19 09:00 10/10/19 08:59 09/17/19 09:32 Enoxaparin Sodium (Lovenox) 40 mg DAILY SUBQ 09/14/19 10:45 10/14/19 10:44 09/17/19 09:36 Escitalopram Oxalate (Lexapro) 5 mg DAILY ORAL 09/10/19 09:00 10/10/19 08:59 09/17/19 09:33 Fluconazole (Diflucan) 200 mg DAILY ORAL 09/17/19 10:30 09/24/19 10:29 09/17/19 11:14 Furosemide (Lasix) 20 mg DAILY ORAL 09/17/19 09:00 10/17/19 08:59 09/17/19 09:33 Hydralazine HCl (Apresoline) 10 mg Q4H PRN IV sbp>150, dbp>100 09/13/19 14:15 10/13/19 14:14 Hydromorphone HCl (Dilaudid) 0.5 mg Q4H PRN IVP For Pain 3-6 09/10/19 14:15 09/17/19 14:14 Hydromorphone HCl (Dilaudid) 1 mg Q4H PRN IVP For Pain 7-10 09/10/19 14:15 09/17/19 14:14 09/16/19 15:49 Insulin Aspart (NovoLOG) BEFORE MEALS AND HS SUBQ 09/11/19 16:30 10/11/19 16:29 09/17/19 06:13 Insulin Aspart (NovoLOG) 3 units NOVOTIAC SUBQ 09/16/19 11:50 10/16/19 11:49 09/17/19 06:13 Insulin Detemir (Levemir) 10 units DAILY SUBQ 09/15/19 15:00 10/15/19 14:59 09/17/19 09:54 Metoprolol Tartrate (Lopressor) 12.5 mg Q12HR ORAL 09/12/19 09:00 10/12/19 08:59 09/17/19 09:34 Ondansetron HCl (Zofran) 4 mg Q6H PRN IVP Nausea & Vomiting 09/09/19 23:15 10/09/19 23:14 09/10/19 10:17 Pantoprazole (Protonix) 40 mg DAILY ORAL 09/16/19 13:30 10/16/19 13:29 09/17/19 09:33 Piperacillin Sod/ Tazobactam Sod 3.375 gm/Sodium Chloride 110 ml @ 27.5 mls/hr EVERY 8 HOURS IVPB 09/17/19 11:00 09/22/19 10:59 Polyethylene Glycol (Miralax) 17 gm DAILYPRN PRN ORAL Constipation 09/09/19 23:15 10/09/19 23:14 Potassium Chloride (K-Dur) 40 meq DAILY ORAL 09/15/19 09:00 10/15/19 08:59 09/17/19 09:34 Pregabalin (Lyrica) 50 mg THREE TIMES A DAY ORAL 09/10/19 09:00 10/10/19 08:59 09/17/19 09:32 Tamsulosin HCl (Flomax) 0.4 mg DAILY ORAL 09/10/19 09:00 10/10/19 08:59 09/17/19 09:33 Vancomycin HCl (Vanco rx to dose) 1 ea DAILY PRN MISC Per rx protocol 09/10/19 13:15 10/10/19 13:14 Vancomycin HCl 1 gm/Sodium Chloride 275 ml @ 183.708 mls/hr Q8H IVPB 09/14/19 04:00 09/19/19 03:59 09/17/19 04:45 Kesha Rebollar MD Sep 17, 2019 11:43
[2019-09-17 11:44] LABS: % IRON SATURATION 11 % (15-50); IRON 15 ug/dL (50-175); TOTAL IRON BINDING CAPACITY 139 ug/dL (250-450)
[2019-09-17 12:00] VITALS: BP 115/73
[2019-09-17] MEDS: Piperacillin/Tazobactam 3.375 GM in NS 110 ML IVPB SCH ×2 (12:03→22:00)
[2019-09-17] MEDS: HYDROmorphone 1mg/ml Carpuject IVP PRN ×2 (12:31→19:55)
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
[2019-09-17] MEDS ORDERED: Potassium Phosphate 15mm/250ml 250 ML IVPB SCH (15:00)
--- NOTE | 2019-09-17 15:05 | Pulmonology Progress Note ---
Assessment/Plan Assessment/Plan Pulmonary Progress Note Assessment/Plan (1) Community acquired bacterial pneumonia (2) Acute respiratory failure with hypoxemia (3) Lactic acidosis (4) Hyperprolactinemia (5) Sepsis (6) Diabetes mellitus out of control (7) Pleural effusion s/p thoracentesis Assessment/Plan Plan: * Abx per ID: [email or web address] * f/u cultures * f/u pleural fluid studies all pending * Repeat CXR am * may need repeat thora * Monitor volumes * Wean oxygen * Endocrine f/u Subjective Constitutional: Reports: no symptoms HEENT: Repors: no symptoms Respiratory: Reports: productive cough, shortness of breath Cardiovascular: Reports: no symptoms Allergies: Coded Allergies: No Known Allergies (Unverified , 09/09/19) Subjective awake minimal po postiive cough more shortness of breath today no diarrhea on o2 Objective Vital Signs Noted General Appearance: WD/WN Respiratory/Chest: decreased breath sounds at bases Cardiovascular: normal rate, regular rhythm Abdomen: soft, non tender, no organomegaly Extremities: no cyanosis, no clubbing Neurologic/Psychiatric: alert, oriented x 3, responsive Laboratory Tests 09/16/19 02:53: Vancomycin Level Trough 15.9H 09/16/19 13:05: White Blood Count 21.4H, Red Blood Count 4.02L, Hemoglobin 12.4L, Hematocrit 36.4L, Mean Corpuscular Volume 90, Mean Corpuscular Hemoglobin 30.8, Mean Corpuscular Hemoglobin Concent 34.1, Red Cell Distribution Width 10.7L, Platelet Count 354, Mean Platelet Volume 5.2L, Neutrophils (%) (Auto) , Lymphocytes (%) (Auto) , Monocytes (%) (Auto) , Eosinophils (%) (Auto) , Basophils (%) (Auto) , Differential Total Cells Counted 100, Neutrophils % ( Manual) 86H, Lymphocytes % (Manual) 8L, Monocytes % (Manual) 4, Eosinophils % ( Manual) 2, Basophils % (Manual) 0, Band Neutrophils 0, Platelet Estimate Adequate, Platelet Morphology Normal, Red Blood Cell Morphology Normal, Sodium Level 128L, Potassium Level 3.8, Chloride Level 91L, Carbon Dioxide Level 34H, Anion Gap 3L, Blood Urea Nitrogen 17, Creatinine 0.9, Estimat Glomerular Filtration Rate , Glucose Level 320H, Calcium Level 7.7L Current Medications Medications (Trade) Dose Ordered Sig/Ishaan Route PRN Reason Start Time Stop Time Status Last Admin Dose Admin Acetaminophen (Tylenol) 650 mg Q4H PRN ORAL Mild Pain (Pain Scale 1-3) 09/09/19 23:15 10/09/19 23:14 09/11/19 03:23 Acetaminophen (Tylenol) 650 mg Q4H PRN ORAL fever 09/09/19 23:15 10/09/19 23:14 09/15/19 20:11 Acetaminophen (Tylenol) 650 mg Q4H PRN RECTAL Mild Pain (Pain Scale 1-3) 09/09/19 23:15 10/09/19 23:14 Acetaminophen (Tylenol) 650 mg Q4H PRN RECTAL fever 09/09/19 23:15 10/09/19 23:14 Aspirin (ASA) 81 mg DAILY ORAL 09/12/19 09:00 10/12/19 08:59 09/16/19 08:56 Atorvastatin Calcium (Lipitor) 10 mg BEDTIME ORAL 09/10/19 21:00 10/10/19 20:59 09/15/19 20:10 Cefepime HCl 2 gm/ Sodium Chloride 55 ml @ 110 mls/hr Q12HR IVPB 09/16/19 21:00 09/23/19 20:59 Dextrose (Dextrose 50%) 25 ml Q30M PRN IV Hypoglycemia 09/15/19 13:30 10/15/19 13:29 Dextrose (Dextrose 50%) 50 ml Q30M PRN IV Hypoglycemia 09/15/19 13:30 10/15/19 13:29 Docusate Sodium (Colace) 100 mg EVERY 12 HOURS ORAL 09/10/19 09:00 10/10/19 08:59 09/16/19 08:56 Enoxaparin Sodium (Lovenox) 40 mg DAILY SUBQ 09/14/19 10:45 10/14/19 10:44 09/16/19 08:57 Escitalopram Oxalate (Lexapro) 5 mg DAILY ORAL 09/10/19 09:00 10/10/19 08:59 09/16/19 08:56 Furosemide (Lasix) 20 mg DAILY ORAL 09/17/19 09:00 10/17/19 08:59 Hydralazine HCl (Apresoline) 10 mg Q4H PRN IV sbp>150, dbp>100 09/13/19 14:15 10/13/19 14:14 Hydromorphone HCl (Dilaudid) 0.5 mg Q4H PRN IVP For Pain 3-6 09/10/19 14:15 09/17/19 14:14 Hydromorphone HCl (Dilaudid) 1 mg Q4H PRN IVP For Pain 7-10 09/10/19 14:15 09/17/19 14:14 09/16/19 15:49 Insulin Aspart (NovoLOG) BEFORE MEALS AND HS SUBQ 09/11/19 16:30 10/11/19 16:29 09/16/19 17:34 Insulin Aspart (NovoLOG) 3 units NOVOTIAC SUBQ 09/16/19 11:50 10/16/19 11:49 09/16/19 17:34 Insulin Detemir (Levemir) 10 units DAILY SUBQ 09/15/19 15:00 10/15/19 14:59 09/16/19 09:03 Metoprolol Tartrate (Lopressor) 12.5 mg Q12HR ORAL 09/12/19 09:00 10/12/19 08:59 09/16/19 08:56 Metronidazole (Flagyl) 500 mg Q8H ORAL 09/16/19 20:00 09/23/19 19:59 Ondansetron HCl (Zofran) 4 mg Q6H PRN IVP Nausea & Vomiting 09/09/19 23:15 10/09/19 23:14 09/10/19 10:17 Pantoprazole (Protonix) 40 mg DAILY ORAL 09/16/19 13:30 10/16/19 13:29 09/16/19 13:44 Polyethylene Glycol (Miralax) 17 gm DAILYPRN PRN ORAL Constipation 09/09/19 23:15 10/09/19 23:14 Potassium Chloride (K-Dur) 40 meq DAILY ORAL 09/15/19 09:00 10/15/19 08:59 09/16/19 08:56 Pregabalin (Lyrica) 50 mg THREE TIMES A DAY ORAL 09/10/19 09:00 10/10/19 08:59 09/16/19 17:31 Tamsulosin HCl (Flomax) 0.4 mg DAILY ORAL 09/10/19 09:00 10/10/19 08:59 09/16/19 08:56 Vancomycin HCl (Vanco rx to dose) 1 ea DAILY PRN MISC Per rx protocol 09/10/19 13:15 10/10/19 13:14 Vancomycin HCl 1 gm/Sodium Chloride 275 ml @ 183.708 mls/hr Q8H IVPB 09/14/19 04:00 09/19/19 03:59 09/16/19 11:32 Subjective ROS Limited/Unobtainable: No Allergies: Coded Allergies: No Known Allergies (Unverified , 09/09/19) Objective Last 24 Hour Vital Signs Date Time Temp Pulse Resp B/P (MAP) Pulse Ox O2 Delivery O2 Flow Rate FiO2 09/17/19 12:00 97.7 74 20 115/73 (87) 93 09/17/19 12:00 71 09/17/19 09:34 76 134/76 09/17/19 09:00 Nasal Cannula 2.0 09/17/19 08:24 79 09/17/19 08:22 97.1 76 20 134/76 (95) 09/17/19 04:00 98.8 85 18 123/67 (85) 96 09/17/19 04:00 73 09/17/19 00:00 100.0 79 16 134/89 (104) 94 09/17/19 00:00 77 09/16/19 21:00 Nasal Cannula 2.0 09/16/19 20:40 82 130/73 09/16/19 20:10 96 Nasal Cannula 2.0 28 09/16/19 20:00 74 09/16/19 20:00 99.0 82 18 130/73 (92) 94 09/16/19 16:00 79 09/16/19 16:00 97.7 80 20 114/55 (74) 96 Intake and Output 09/16/19 09/17/19 19:00 07:00 Intake Total 845 ml Output Total 700 ml 970 ml Balance -700 ml -125 ml Intake Oral 240 ml IV Total 605 ml Output Urine Total 700 ml 970 ml # Voids 3 # Bowel Movements 3 Laboratory Tests 09/17/19 05:30: White Blood Count 23.4*H, Red Blood Count 3.67L, Hemoglobin 11.6L, Hematocrit 32.4L, Mean Corpuscular Volume 88, Mean Corpuscular Hemoglobin 31.6H, Mean Corpuscular Hemoglobin Concent 35.9, Red Cell Distribution Width 10.7L, Platelet Count 318, Mean Platelet Volume 4.9L, Neutrophils (%) (Auto) , Lymphocytes (%) (Auto) , Monocytes (%) (Auto) , Eosinophils (%) (Auto) , Basophils (%) (Auto) , Differential Total Cells Counted 100, Neutrophils % ( Manual) 85H, Lymphocytes % (Manual) 5L, Monocytes % (Manual) 9, Eosinophils % ( Manual) 1, Basophils % (Manual) 0, Band Neutrophils 0, Platelet Estimate Adequate, Platelet Morphology Normal, Polychromasia 1+, Sodium Level 127L, Potassium Level 3.9, Chloride Level 91L, Carbon Dioxide Level 30, Anion Gap 6, Blood Urea Nitrogen 13, Creatinine 0.8, Estimat Glomerular Filtration Rate , Glucose Level 183#H, Osmolality 267L, Uric Acid 2.0L, Calcium Level 7.4L, Phosphorus Level 2.3L, Magnesium Level 1.6L, Total Bilirubin 0.6, Direct Bilirubin < 0.1, Aspartate Amino Transf (AST/SGOT) 27, Alanine Aminotransferase (ALT/SGPT) 76, Alkaline Phosphatase 57, Total Protein 6.1L, Albumin 2.1L, Globulin 4.0, Albumin/Globulin Ratio 0.5L 09/17/19 10:40: Urine Color Pale yellow, Urine Appearance Clear, Urine pH 8, Urine Specific [place] 1.010, Urine Protein 2+H, Urine Glucose (UA) 2+H, Urine Ketones Negative , Urine Blood Negative, Urine Nitrite Negative, Urine Bilirubin Negative, Urine Urobilinogen Normal, Urine Leukocyte Esterase Negative, Urine RBC 0, Urine WBC 0 -2, Urine Squamous Epithelial Cells Occasional, Urine Bacteria Occasional, Urine Osmolality 467H, Urine Random Sodium 108, Urine Creatinine 56.3 09/17/19 10:47: Iron Level 15L, Total Iron Binding Capacity 139L, Percent Iron Saturation 11L, Unsaturated Iron Binding 124, Ferritin 822H, Vitamin B12 Level 1521H, Folate 19.5 Current Medications Medications (Trade) Dose Ordered Sig/Ishaan Route PRN Reason Start Time Stop Time Status Last Admin Dose Admin Acetaminophen (Tylenol) 650 mg Q4H PRN ORAL Mild Pain (Pain Scale 1-3) 09/09/19 23:15 10/09/19 23:14 09/11/19 03:23 Acetaminophen (Tylenol) 650 mg Q4H PRN ORAL fever 09/09/19 23:15 10/09/19 23:14 09/15/19 20:11 Aspirin (ASA) 81 mg DAILY ORAL 09/12/19 09:00 10/12/19 08:59 09/17/19 09:32 Atorvastatin Calcium (Lipitor) 10 mg BEDTIME ORAL 09/10/19 21:00 10/10/19 20:59 09/16/19 20:40 Dextrose (Dextrose 50%) 25 ml Q30M PRN IV Hypoglycemia 09/15/19 13:30 10/15/19 13:29 Dextrose (Dextrose 50%) 50 ml Q30M PRN IV Hypoglycemia 09/15/19 13:30 10/15/19 13:29 Docusate Sodium (Colace) 100 mg EVERY 12 HOURS ORAL 09/10/19 09:00 09/17/19 18:00 09/17/19 09:32 Docusate Sodium (Colace) 100 mg TID ORAL 09/17/19 18:00 10/10/19 08:59 Enoxaparin Sodium (Lovenox) 40 mg DAILY SUBQ 09/14/19 10:45 10/14/19 10:44 09/17/19 09:36 Escitalopram Oxalate (Lexapro) 5 mg DAILY ORAL 09/10/19 09:00 10/10/19 08:59 09/17/19 09:33 Fluconazole (Diflucan) 200 mg DAILY ORAL 09/17/19 10:30 09/24/19 10:29 09/17/19 11:14 Furosemide (Lasix) 20 mg EVERY 8 HOURS IV 09/17/19 14:20 10/17/19 14:19 09/17/19 14:51 Hydralazine HCl (Apresoline) 10 mg Q4H PRN IV sbp>150, dbp>100 09/13/19 14:15 10/13/19 14:14 Insulin Aspart (NovoLOG) BEFORE MEALS AND HS SUBQ 09/11/19 16:30 10/11/19 16:29 09/17/19 12:03 Insulin Aspart (NovoLOG) 3 units NOVOTIAC SUBQ 09/16/19 11:50 10/16/19 11:49 09/17/19 12:04 Insulin Detemir (Levemir) 10 units DAILY SUBQ 09/15/19 15:00 10/15/19 14:59 09/17/19 09:54 Magnesium Sulfate 100 ml @ 100 mls/hr Q1H IVPB 09/17/19 14:15 09/17/19 18:14 09/17/19 14:49 Metoprolol Tartrate (Lopressor) 12.5 mg Q12HR ORAL 09/12/19 09:00 10/12/19 08:59 09/17/19 09:34 Ondansetron HCl (Zofran) 4 mg Q6H PRN IVP Nausea & Vomiting 09/09/19 23:15 10/09/19 23:14 09/10/19 10:17 Pantoprazole (Protonix) 40 mg BID ORAL 09/17/19 18:00 10/16/19 13:29 Piperacillin Sod/ Tazobactam Sod 3.375 gm/Sodium Chloride 110 ml @ 27.5 mls/hr EVERY 8 HOURS IVPB 09/17/19 11:00 09/22/19 10:59 09/17/19 12:03 Polyethylene Glycol (Miralax) 17 gm DAILYPRN PRN ORAL Constipation 09/09/19 23:15 10/09/19 23:14 Potassium Phosphate 250 ml @ 62.5 mls/hr Q4H IVPB 09/17/19 20:00 09/18/19 03:59 Potassium Chloride (K-Dur) 40 meq BID ORAL 09/17/19 18:00 10/15/19 08:59 Pregabalin (Lyrica) 50 mg THREE TIMES A DAY ORAL 09/10/19 09:00 10/10/19 08:59 09/17/19 09:32 Sodium Chloride 250 ml @ 30 mls/hr ONCE ONCE IV 09/17/19 17:00 09/18/19 01:19 Tamsulosin HCl (Flomax) 0.4 mg BID ORAL 09/17/19 18:00 10/10/19 08:59 Vancomycin HCl (Vanco rx to dose) 1 ea DAILY PRN MISC Per rx protocol 09/10/19 13:15 10/10/19 13:14 Vancomycin HCl 1 gm/Sodium Chloride 275 ml @ 183.708 mls/hr Q8H IVPB 09/17/19 12:00 09/22/19 23:59 09/17/19 12:13 Malcom Bejarano MD Sep 17, 2019 15:05
[2019-09-17 16:00] VITALS: BP 106/57
[2019-09-17] MEDS ORDERED: NaCl 3% 500ml 250 ML IV ONE ×2 (16:00→17:00)
--- NOTE | 2019-09-17 16:32 | Diagnostic Imaging Report ---
Indication: Dyspnea Comparison: 09/13/2019 A single view chest radiograph was obtained. Findings: There is a pleural-based convex density lateral right lung base which has increased in size. The heart is enlarged. Mild pulmonary vascular congestion may be present. Mild basal atelectasis is present. IMPRESSION: Pleural-based density on the right appears larger. Associated compressive atelectasis.
--- NOTE | 2019-09-17 18:30 | Consultation ---
DATE OF CONSULTATION: 09/17/2019 SURGEON: Yash Gonzalez M.D., specialty in Thoracic Surgery. REFERRING PHYSICIAN: Rick Banerjee M.D. HISTORY OF PRESENT ILLNESS: The patient is a 73-year-old Icelandic speaking male who was admitted to [facility] complaining of shortness of breath, weakness as well as intermittent fevers. Workup including a chest CT scan demonstrated right-sided loculated pleural effusion for which the patient underwent thoracentesis. The patient continues to deteriorate from respiratory standpoint and thoracic surgery was then consulted for a surgical intervention. PAST MEDICAL HISTORY: 1. Prolactinoma. 2. Diabetes. 3. Hyperlipidemia. PAST SURGICAL HISTORY: None. MEDICATIONS: Reviewed. ALLERGIES: No known drug allergies. FAMILY AND SOCIAL HISTORY: Noncontributory. PHYSICAL EXAMINATION: VITAL SIGNS: He is noted to be afebrile. His vitals are within normal limits. CARDIAC: Regular rate and rhythm. No gallops. No murmur. RESPIRATORY: Clear to auscultation on the left and crackles noted on the right. ABDOMEN: Soft, nondistended, and nontender with normoactive bowel sounds. EXTREMITIES: No evidence of cyanosis, clubbing, or edema. LABORATORY AND DIAGNOSTIC DATA: Performed on September 17, 2019 show white count of 23, hemoglobin 11, hematocrit of 32, and platelet count of 318. Sodium is 127, potassium 3.9, chloride is 91, bicarb is 30, BUN is 13, creatinine 0.8, and glucose is 183. PT is 11, PTT is 30, INR is 1.0. A chest CT scan was performed on 09/12/19, which show large right-sided pleural effusion occupying 50% of the right hemothorax. There is a compressive atelectasis of the right middle and lower lobes. ASSESSMENT/PLAN: This is a 73-year-old male who presented with respiratory distress associated with radiographic imaging study of right-sided pleural effusion. The patient was evaluated at bedside. After reviewing his clinical database, we will request a preoperative cardiology clearance prior to surgical intervention. Chest CT scan should also be repeated due to worsening of the symptoms. Thank you for referring this patient to my attention. If there is any questions in regards to this patient's clinical care, please do not hesitate to contact me. Aguila M.D. DR: Beck JOB#: [id number] CC: [email or web address]
--- NOTE | 2019-09-17 18:39 | Diagnostic Imaging Report ---
Indication: Chest pain Technique: Continuous helical transaxial imaging of the chest was obtained from the thoracic inlet to the upper abdomen. No intravenous contrast was administered. Coronal 2-D reformats were also obtained. Total Dose length Product (DLP): 736.[address] Dose Index Volume (CTDIvol): 16.7 mGy Comparison: 09/12/2019 CT chest Findings: There is a persistent moderate right pleural effusion demonstrated. Study is done without contrast material. There is the suggestion of some loculation of the effusion with suggestion of linear septations within the effusion. Also the pleural effusion has a nongravity dependent lateral component and configuration. The pleural effusion has decreased in size compared to the last CT from 09/12/2019. On 09/13/2019, a thoracentesis was done yielding 950 cc. Again, there is compressive atelectasis of part of the right lower lobe. Underlying pneumonia is difficult to exclude. There is a small amount of fluid also extending into the major fissure. Aorta is ectatic and mildly calcified. The heart is enlarged. The left lung appears relatively clear. There may be mild pulmonary vascular congestion as the hilar vessels are somewhat prominent. There is no interstitial edema or airspace disease of note. Small hiatal hernia is present. Visualized part of the upper abdomen is unremarkable. IMPRESSION: Mild to moderate partially loculated right pleural effusion decreased in size compared to the previous study from 09/12/2019. Associated compressive atelectasis of part of the right lower lobe. Mild pulmonary vascular congestion is not excluded. Correlate clinically Generalized cardiomegaly Atherosclerotic vascular disease. Hiatal hernia. The CT scanner at [facility] is accredited by the [employer] and the scans are performed using dose optimization techniques as appropriate to a performed exam including Automatic Exposure control.
[2019-09-17] MEDS ORDERED: Hydromorphone 0.5mg/0.5ml inj IVP PRN (19:00)
[2019-09-17 20:00] VITALS: BP 124/70
[2019-09-17] MEDS: Potassium Phosphate 15mm/250ml 250 ML IVPB SCH (20:42)
[2019-09-18] VITALS: BP 112/66
[2019-09-18] MEDS: Potassium Phosphate 15mm/250ml 250 ML IVPB SCH
[2019-09-18 04:00] VITALS: BP 110/75
[2019-09-18] MEDS: Vancomycin 1 GM in NS 275 ML IVPB SCH ×3 (04:17→20:48)
[2019-09-18] MEDS: Piperacillin/Tazobactam 3.375 GM in NS 110 ML IVPB SCH ×3 (05:59→22:00)
--- NOTE | 2019-09-18 06:13 | General Progress Note ---
Assessment/Plan Problem List: (1) Hyperprolactinemia ICD Codes: E22.1 - Hyperprolactinemia SNOMED: 267861322 (2) Lactic acidosis ICD Codes: E87.2 - Acidosis SNOMED: 97054414 (3) Diabetes mellitus out of control ICD Codes: E11.65 - Type 2 diabetes mellitus with hyperglycemia SNOMED: 77057897, 081846815 (4) Community acquired bacterial pneumonia ICD Codes: J15.9 - Unspecified bacterial pneumonia SNOMED: 077629237, 95029810 (5) Acute respiratory failure with hypoxemia ICD Codes: J96.01 - Acute respiratory failure with hypoxia SNOMED: 661453535 (6) Sepsis ICD Codes: A41.9 - Sepsis, unspecified organism SNOMED: 80999980, 34270665 Qualifiers: Qualified Codes: A41.9 - Sepsis, unspecified organism; R65.20 - Severe sepsis without septic shock; J96.01 - Acute respiratory failure with hypoxia Status: stable, progressing Assessment/Plan: increase Levemir to 18 units daily increas Novolog to 6 units ac tid - hold if not eating continue NISS ac / hs continue to keep off Bromocriptine he will follow with [facility] endo service Subjective ROS Limited/Unobtainable: Yes Allergies: Coded Allergies: No Known Allergies (Unverified , 09/09/19) Subjective events noted glycemic values very high he received all the scheduled insulin Item Value Date Time Bedside Blood Glucose 302 mg/dl H 09/17/19 2100 Bedside Blood Glucose 335 mg/dl H 09/17/19 1738 Bedside Blood Glucose 224 mg/dl H 09/17/19 1204 Objective Last 24 Hour Vital Signs Date Time Temp Pulse Resp B/P (MAP) Pulse Ox O2 Delivery O2 Flow Rate FiO2 09/18/19 04:00 98.6 85 18 110/75 (87) 94 09/18/19 04:00 85 09/18/19 00:00 75 09/18/19 00:00 97.5 75 22 112/66 (81) 94 09/17/19 21:00 Nasal Cannula 2.0 09/17/19 21:00 78 124/70 09/17/19 20:11 98 Nasal Cannula 2.0 28 09/17/19 20:00 83 09/17/19 20:00 97.7 83 22 124/70 (88) 92 09/17/19 16:00 75 09/17/19 16:00 97.0 69 20 106/57 (73) 98 09/17/19 12:00 97.7 74 20 115/73 (87) 93 09/17/19 12:00 71 09/17/19 09:34 76 134/76 09/17/19 09:00 Nasal Cannula 2.0 09/17/19 08:24 79 09/17/19 08:22 97.1 76 20 134/76 (95) Intake and Output 09/17/19 09/18/19 19:00 07:00 Intake Total 480 ml Output Total 1050 ml Balance -570 ml Intake Oral 480 ml Output Urine Total 1050 ml # Voids 3 Laboratory Tests 09/17/19 10:40: Urine Color Pale yellow, Urine Appearance Clear, Urine pH 8, Urine Specific [place] 1.010, Urine Protein 2+H, Urine Glucose (UA) 2+H, Urine Ketones Negative , Urine Blood Negative, Urine Nitrite Negative, Urine Bilirubin Negative, Urine Urobilinogen Normal, Urine Leukocyte Esterase Negative, Urine RBC 0, Urine WBC 0 -2, Urine Squamous Epithelial Cells Occasional, Urine Bacteria Occasional, Urine Osmolality 467H, Urine Random Sodium 108, Urine Creatinine 56.3 09/17/19 10:47: Iron Level 15L, Total Iron Binding Capacity 139L, Percent Iron Saturation 11L, Unsaturated Iron Binding 124, Ferritin 822H, Vitamin B12 Level 1521H, Folate 19.5 Height (Feet): 5 Height (Inches): 5.00 Weight (Pounds): 154 General Appearance: no apparent distress Neck: normal alignment Cardiovascular: normal rate Respiratory/Chest: decreased breath sounds Abdomen: normal bowel sounds Objective Current Medications Medications (Trade) Dose Ordered Sig/Ishaan Route PRN Reason Start Time Stop Time Status Last Admin Dose Admin Acetaminophen (Tylenol) 650 mg Q4H PRN ORAL fever 09/09/19 23:15 10/09/19 23:14 09/15/19 20:11 Acetaminophen (Tylenol) 650 mg Q4H PRN ORAL Mild Pain (Pain Scale 1-3) 09/09/19 23:15 10/09/19 23:14 09/17/19 18:19 Aspirin (ASA) 81 mg DAILY ORAL 09/12/19 09:00 10/12/19 08:59 09/17/19 09:32 Atorvastatin Calcium (Lipitor) 10 mg BEDTIME ORAL 09/10/19 21:00 10/10/19 20:59 09/17/19 21:00 Dextrose (Dextrose 50%) 25 ml Q30M PRN IV Hypoglycemia 09/15/19 13:30 10/15/19 13:29 Dextrose (Dextrose 50%) 50 ml Q30M PRN IV Hypoglycemia 09/15/19 13:30 10/15/19 13:29 Docusate Sodium (Colace) 100 mg TID ORAL 09/17/19 18:00 10/10/19 08:59 09/17/19 17:35 Enoxaparin Sodium (Lovenox) 40 mg DAILY SUBQ 09/14/19 10:45 10/14/19 10:44 09/17/19 09:36 Escitalopram Oxalate (Lexapro) 5 mg DAILY ORAL 09/10/19 09:00 10/10/19 08:59 09/17/19 09:33 Fluconazole (Diflucan) 200 mg DAILY ORAL 09/17/19 10:30 09/24/19 10:29 09/17/19 11:14 Furosemide (Lasix) 20 mg EVERY 8 HOURS IV 09/17/19 14:20 10/17/19 14:19 09/18/19 05:59 Hydralazine HCl (Apresoline) 10 mg Q4H PRN IV sbp>150, dbp>100 09/13/19 14:15 10/13/19 14:14 Hydromorphone HCl (Dilaudid) 0.5 mg Q4H PRN IVP Moderate Pain (Pain Scale 4-6) 09/17/19 19:00 09/24/19 18:59 Hydromorphone HCl (Dilaudid) 1 mg Q4H PRN IVP Severe Pain (Pain Scale 7-10) 09/17/19 19:00 09/24/19 18:59 09/17/19 19:55 Insulin Aspart (NovoLOG) BEFORE MEALS AND HS SUBQ 09/11/19 16:30 10/11/19 16:29 09/17/19 21:00 Insulin Aspart (NovoLOG) 3 units NOVOTIAC SUBQ 09/16/19 11:50 10/16/19 11:49 09/17/19 17:37 Insulin Detemir (Levemir) 10 units DAILY SUBQ 09/15/19 15:00 10/15/19 14:59 09/17/19 09:54 Metoprolol Tartrate (Lopressor) 12.5 mg Q12HR ORAL 09/12/19 09:00 10/12/19 08:59 09/17/19 21:00 Ondansetron HCl (Zofran) 4 mg Q6H PRN IVP Nausea & Vomiting 09/09/19 23:15 10/09/19 23:14 09/10/19 10:17 Pantoprazole (Protonix) 40 mg BID ORAL 09/17/19 18:00 10/16/19 13:29 09/17/19 17:34 Piperacillin Sod/ Tazobactam Sod 3.375 gm/Sodium Chloride 110 ml @ 27.5 mls/hr EVERY 8 HOURS IVPB 09/17/19 11:00 09/22/19 10:59 09/18/19 05:59 Polyethylene Glycol (Miralax) 17 gm DAILYPRN PRN ORAL Constipation 09/09/19 23:15 10/09/19 23:14 Potassium Chloride (K-Dur) 40 meq BID ORAL 09/17/19 18:00 10/15/19 08:59 09/17/19 17:35 Pregabalin (Lyrica) 50 mg THREE TIMES A DAY ORAL 09/10/19 09:00 10/10/19 08:59 09/17/19 17:34 Tamsulosin HCl (Flomax) 0.4 mg BID ORAL 09/17/19 18:00 10/10/19 08:59 09/17/19 17:34 Vancomycin HCl (Vanco rx to dose) 1 ea DAILY PRN MISC Per rx protocol 09/10/19 13:15 10/10/19 13:14 Vancomycin HCl 1 gm/Sodium Chloride 275 ml @ 183.708 mls/hr Q8H IVPB 09/17/19 12:00 09/22/19 23:59 09/18/19 04:17 Sunny Mcneil MD Sep 18, 2019 06:13
[2019-09-18] MEDS: NovoLOG Insulin Flexpen SUBQ SCH ×7 (06:15→20:48)
[2019-09-18 07:22] LABS: HEMATOCRIT 31.8 % (42.0-52.0); HEMOGLOBIN 11.5 G/DL (14.2-18.0); MEAN CORPUSCULAR VOLUME 88 FL (80-99); PLATELET COUNT 354 K/UL (150-450); RED BLOOD COUNT 3.63 M/UL (4.70-6.10); RED CELL DISTRIBUTION WIDTH 10.7 % (11.6-14.8); WHITE BLOOD COUNT 21.4 K/UL (4.8-10.8)
[2019-09-18 07:44] LABS: ALANINE AMINOTRANSFERASE 63 U/L (12-78); ALBUMIN 2.2 G/DL (3.4-5.0); ALBUMIN/GLOBULIN RATIO 0.5 (1.0-2.7); ALKALINE PHOSPHATASE 61 U/L (46-116); ANION GAP 6 mmol/L (5-15); ASPARTATE AMINO TRANSFERASE 24 U/L (15-37); BILIRUBIN,DIRECT 0.2 MG/DL (0.0-0.3); BILIRUBIN,TOTAL 0.5 MG/DL (0.2-1.0); BLOOD UREA NITROGEN 13 mg/dL (7-18); CALCIUM 7.6 MG/DL (8.5-10.1); CARBON DIOXIDE 32 MMOL/L (21-32); CHLORIDE 92 MMOL/L (98-107); CREATININE 0.8 MG/DL (0.55-1.30); POTASSIUM 4.2 MMOL/L (3.5-5.1); SODIUM 130 MMOL/L (136-145)
--- NOTE | 2019-09-18 07:55 | Cardiac Electrophysiology PN ---
Assessment/Plan Assessment/Plan 1. Atrial fibrillation, rate of 110. Converted to sinus rhythm. No history of CAD or CHF or prior atrial fibrillation. Echo EF 55%. 2. Troponin leak negative to 0.198. Right side CP only when coughs due to pleural effusion On Aspirin, Lopressor 12.5 bid and Lipitor 10 3. RBBB 4. HTN 5. Right sided pleural effusion. S/P Chest CT and 950cc Thoracentesis 09/13/2019 On Lasix 20 po daily. Had repeat Chest CT. Evaluated by Dr. Rhodes for VATS. No CAD or CHF. OK to proceed at moderate risk 6. Pneumonia on IV antibiotic. WBC 21 K 6. Uncontrolled diabetes. 7. Hyperprolactinemia. Further evaluation by Dr. Mcneil. 8. K 3.1, On 40 KCL po daily DW RN and Dr. Banerjee Subjective Subjective No more atrial fib. In SR with BBB. S/P 950cc yellow, greenish thoracentesis . RN at bedside. Was evaluated by Dr RHODES for VATS.Had Chest CT repeat yesterday Objective Last 24 Hour Vital Signs Date Time Temp Pulse Resp B/P (MAP) Pulse Ox O2 Delivery O2 Flow Rate FiO2 09/18/19 04:00 98.6 85 18 110/75 (87) 94 09/18/19 04:00 85 09/18/19 00:00 75 09/18/19 00:00 97.5 75 22 112/66 (81) 94 09/17/19 21:00 Nasal Cannula 2.0 09/17/19 21:00 78 124/70 09/17/19 20:11 98 Nasal Cannula 2.0 28 09/17/19 20:00 83 09/17/19 20:00 97.7 83 22 124/70 (88) 92 09/17/19 16:00 75 09/17/19 16:00 97.0 69 20 106/57 (73) 98 09/17/19 12:00 97.7 74 20 115/73 (87) 93 09/17/19 12:00 71 09/17/19 09:34 76 134/76 09/17/19 09:00 Nasal Cannula 2.0 09/17/19 08:24 79 09/17/19 08:22 97.1 76 20 134/76 (95) Intake and Output 09/17/19 09/18/19 19:00 07:00 Intake Total 480 ml 618 ml Output Total 1050 ml 1400 ml Balance -570 ml -782 ml Intake Oral 480 ml 618 ml Output Urine Total 1050 ml 1400 ml # Voids 3 5 Laboratory Tests Test 09/17/19 10:40 09/17/19 10:47 09/18/19 05:48 Urine Color Pale yellow Urine Appearance Clear Urine pH 8 (4.5-8.0) Urine Specific [place] 1.010 (1.005-1.035) Urine Protein 2+ (NEGATIVE) H Urine Glucose (UA) 2+ (NEGATIVE) H Urine Ketones Negative (NEGATIVE) Urine Blood Negative (NEGATIVE) Urine Nitrite Negative (NEGATIVE) Urine Bilirubin Negative (NEGATIVE) Urine Urobilinogen Normal MG/DL (0.0-1.0) Urine Leukocyte Esterase Negative (NEGATIVE) Urine RBC 0 /HPF (0 - 0) Urine WBC 0-2 /HPF (0 - 0) Urine Squamous Epithelial Cells Occasional /LPF Urine Bacteria Occasional /HPF (NONE) Urine Osmolality 467 mOsm/kg (429-449) H Urine Random Sodium 108 mmol/L (20-110) Urine Creatinine 56.3 MG/DL (30.0-125.0) Iron Level 15 ug/dL (50-175) L Total Iron Binding Capacity 139 ug/dL (250-450) L Percent Iron Saturation 11 % (15-50) L Unsaturated Iron Binding 124 ug/dL (112-346) Ferritin 822 NG/ML (8-388) H Vitamin B12 Level 1521 PG/ML (193-986) H Folate 19.5 NG/ML (8.6-58.9) White Blood Count 21.4 K/UL (4.8-10.8) H Red Blood Count 3.63 M/UL (4.70-6.10) L Hemoglobin 11.5 G/DL (14.2-18.0) L Hematocrit 31.8 % (42.0-52.0) L Mean Corpuscular Volume 88 FL (80-99) Mean Corpuscular Hemoglobin 31.6 PG (27.0-31.0) H Mean Corpuscular Hemoglobin Concent 36.0 G/DL (32.0-36.0) Red Cell Distribution Width 10.7 % (11.6-14.8) L Platelet Count 354 K/UL (150-450) Mean Platelet Volume 5.0 FL (6.5-10.1) L Neutrophils (%) (Auto) % (45.0-75.0) Lymphocytes (%) (Auto) % (20.0-45.0) Monocytes (%) (Auto) % (1.0-10.0) Eosinophils (%) (Auto) % (0.0-3.0) Basophils (%) (Auto) % (0.0-2.0) Neutrophils % (Manual) Pending Lymphocytes % (Manual) Pending Platelet Estimate Pending Platelet Morphology Pending Sodium Level Pending Potassium Level Pending Chloride Level Pending Carbon Dioxide Level Pending Blood Urea Nitrogen Pending Creatinine Pending Estimat Glomerular Filtration Rate Pending Glucose Level Pending Uric Acid Pending Calcium Level Pending Phosphorus Level Pending Magnesium Level Pending Total Bilirubin Pending Direct Bilirubin Pending Aspartate Amino Transf (AST/SGOT) Pending Alanine Aminotransferase (ALT/SGPT) Pending Alkaline Phosphatase Pending Troponin I Pending C-Reactive Protein, Quantitative Pending Pro-B-Type Natriuretic Peptide Pending Total Protein Pending Albumin Pending Globulin Pending Prostate Specific Antigen Pending Estradiol (E2) Level Pending Total Testosterone Pending Objective HEAD AND NECK: No JVD. LUNGS: Decreased breath sounds on Right CARDIOVASCULAR: Regular S1 and S2 with no gallop or murmur. ABDOMEN: Soft. EXTREMITIES: No pitting edema. Irving Joy MD Sep 18, 2019 07:55
[2019-09-18 08:00] VITALS: BP 128/72
[2019-09-18 08:17] LABS: PHOSPHORUS 3.5 MG/DL (2.5-4.9)
[2019-09-18] MEDS: Tamsulosin 0.4mg cap ORAL SCH ×2 (09:18→17:14)
[2019-09-18] MEDS: Metoprolol Tartrate 12.5mg TAB ORAL SCH ×2 (09:18→20:49)
[2019-09-18] MEDS: Lyrica 50mg cap ORAL SCH ×3 (09:18→17:17)
[2019-09-18] MEDS: Aspirin Baby 81mg ORAL SCH (09:18)
[2019-09-18] MEDS: Docusate 100mg cap ORAL SCH ×3 (09:19→17:16)
[2019-09-18] MEDS: Fluconazole 100mg tab ORAL SCH (09:19)
[2019-09-18] MEDS: Enoxaparin 40mg Inj SUBQ SCH (09:22)
[2019-09-18] MEDS: Levemir Flexpen SUBQ SCH (09:23)
[2019-09-18] MEDS: HYDROmorphone 1mg/ml Carpuject IVP PRN ×2 (09:29→14:56)
[2019-09-18] MEDS ORDERED: NaCl 3% 500ml 500 ML IV ONE (09:30)
--- NOTE | 2019-09-18 09:38 | General Progress Note ---
Assessment/Plan Problem List: (1) Severe sepsis ICD Codes: A41.9 - Sepsis, unspecified organism; R65.20 - Severe sepsis without septic shock SNOMED: 04101754 (2) Acute respiratory failure with hypoxemia ICD Codes: J96.01 - Acute respiratory failure with hypoxia SNOMED: 978181877 (3) Encephalopathy due to infection ICD Codes: G93.49 - Other encephalopathy; B99.9 - Unspecified infectious disease SNOMED: 55162377, 67916078 (4) Community acquired bacterial pneumonia ICD Codes: J15.9 - Unspecified bacterial pneumonia SNOMED: 591056167, 00692345 (5) Diabetes mellitus out of control ICD Codes: E11.65 - Type 2 diabetes mellitus with hyperglycemia SNOMED: 09614679, 537044133 (6) Lactic acidosis ICD Codes: E87.2 - Acidosis SNOMED: 18483679 (7) Hyperprolactinemia ICD Codes: E22.1 - Hyperprolactinemia SNOMED: 904772223 (8) Pulmonary HTN ICD Codes: I27.20 - Pulmonary hypertension, unspecified SNOMED: 80653710 (9) Diastolic CHF, acute ICD Codes: I50.31 - Acute diastolic (congestive) heart failure SNOMED: 86815547, 333619372 (10) Pleural effusion, right ICD Codes: J90 - Pleural effusion, not elsewhere classified SNOMED: 54756486 Status: stable, progressing Assessment/Plan: 73 year old presented with fever, chills, sob. Found to be hypoxic, tachycardic and febrile, +leukocytosis, CXR with infiltrates. influenza A/B negative. #Sever sepsis secondary to CAP, Likely empyema , pleural fluid exudative in nature. culture negative for 72hrs. febrile with worsening wbc. Evaluated by CT surgery Dr. Gonzalez for possible VATS #Acute respiratory failure with hypoxia #Acute encephalopathy, infection and hypoxic #large Right sided pleural effusion #Pulmonary arterial HTN telemetry s/p thoracentesis 950 cc green pleural fluid took out. Exudate follow up fluid for culture and cytology cefepime and azithromycin, vancomycin, metronidazole. spoke with ID, changed to Zosyn, vancomycin, Fluconazole. Repeat blood cultures, UA sent today 2/3, UA negative, blood cultures negative to date May need repeat thoracentesis, vs thoracic surgery involvement. speech therapy evaluation appreciated--> pureed to ground texture o2 to keep o2 sat >95% Monitor mental status pain control ID and pulmonary consults IV lasix 20 mg daily Pulmonary and cardiology follow up for pulmonary arterial hypertension d/w Kris Barlow and Heydi Discussed with cardiology. patient is at moderate risk for the VATS procedure and stable to proceed. #Diastolic CHF, acute #R pleural effusion #Transient Afib/Flutter #pulmonary arterial HTN Echo reviewed: Diastolic dysfunction, pulmonary HTN, systolic function seems to be okay IV lasix 40 mg once, 20 mg daily d/w cardiology Metoprolol 12.5 mg BID, ASA, Atorvastatin. #Transaminitis, ?passive congestion, pattern not obstructive , normal ALP and total bili AST/ALT 300's normal on admission, now trending down monitor follow up hepatitis panel US abdomen reviewed: Gallbladder sludge and possible small stones. Mildly ectatic common bile duct, probably related to patient's age but downstream obstruction not completely excludable. Correlate with liver function tests, consider MRCP if clinically indicated. Liver demonstrates diffusely increased echogenicity, consistent with diffuse hepatocellular disease, most likely fatty change. Trace perihepatic ascites. Large right pleural effusion. Incidental finding small lateral renal cysts. Note inability to visualize portions of the abdominal aorta #DM uncontrolled #Prolactinoma Hold home po meds Insulin basal bolus, monitor fsbg. Levemir 18 units daily , NovoLog 6 units with meals (hold if not eating), SSI. hold Bromocriptine as may have been contributing to AMS prolactin levels reviewed and high ~100 endocrinology consult Tarun Olson #Hematuria- resolved #BPH Dced heparin due to hematuria, resumed lovenox for dvt ppx. no evidence of hematuria so far. UA sent Flomax #Hypokalemia Replace as needed kdur 40 meq daily Vte ppx: start lovenox 40 mg daily 09/14, SCD boots Code: full code per daughter at bedside I spent 40 minutes on this encounter. >50% spent on counselling and care coordination. case d/w daughter and RN at bedside. I spent an additional 35 minutes in reviewing events over the weekend, lean consultant findings and imagining and labs. Subjective Date patient seen: Sep 18, 2019 ROS Limited/Unobtainable: No Constitutional: Reports: malaise, weakness HEENT: Denies: no symptoms, eye pain, blurred vision, tearing, double vision, ear pain, ear discharge, nose pain, nose congestion, throat pain, throat swelling, mouth pain, mouth swelling, other Respiratory: Reports: shortness of breath Gastrointestinal/Abdominal: Denies: no symptoms, abdomen distended, abdominal pain, black stools, tarry stools, blood in stool, constipated, diarrhea, difficulty swallowing, nausea, poor appetite, poor fluid intake, rectal bleeding , vomiting, other Genitourinary: Denies: no symptoms, burning, discharge, frequency, flank pain, hematuria, incontinence, pain, urgency, other Neurologic/Psychiatric: Denies: no symptoms, anxiety, depressed, emotional problems, headache, numbness, paresthesia, pre-existing deficit, seizure, tingling, tremors, weakness, other Endocrine: Denies: no symptoms, excessive sweating, flushing, intolerance to cold, intolerance to heat, increased hunger, increased thirst, increased urine, unexplained weight gain, unexplained weight loss, other Hematologic/Lymphatic: Denies: no symptoms, anemia, easy bleeding, easy bruising, other Allergies: Coded Allergies: No Known Allergies (Unverified , 09/09/19) Subjective Seen and examined at bedside CT surgery Dr. Gonzalez for possible VATS. Had repeat CT showed persistent large loculated effusion. Fingerstick blood glucoses running high. Insulin adjusted by endocrine this morning. Continues to have shortness of breath. T-max 100.0 Objective Last 24 Hour Vital Signs Date Time Temp Pulse Resp B/P (MAP) Pulse Ox O2 Delivery O2 Flow Rate FiO2 09/18/19 09:18 84 128/72 09/18/19 08:26 Nasal Cannula 2.0 09/18/19 08:00 97.3 84 20 128/72 (90) 100 09/18/19 04:00 98.6 85 18 110/75 (87) 94 09/18/19 04:00 85 09/18/19 00:00 75 09/18/19 00:00 97.5 75 22 112/66 (81) 94 09/17/19 21:00 Nasal Cannula 2.0 09/17/19 21:00 78 124/70 09/17/19 20:11 98 Nasal Cannula 2.0 28 09/17/19 20:00 83 09/17/19 20:00 97.7 83 22 124/70 (88) 92 09/17/19 16:00 75 09/17/19 16:00 97.0 69 20 106/57 (73) 98 09/17/19 12:00 97.7 74 20 115/73 (87) 93 09/17/19 12:00 71 09/17/19 09:34 76 134/76 Intake and Output 09/17/19 09/18/19 19:00 07:00 Intake Total 480 ml 618 ml Output Total 1050 ml 1400 ml Balance -570 ml -782 ml Intake Oral 480 ml 618 ml Output Urine Total 1050 ml 1400 ml # Voids 3 5 Laboratory Tests 09/17/19 10:40: Urine Color Pale yellow, Urine Appearance Clear, Urine pH 8, Urine Specific [place] 1.010, Urine Protein 2+H, Urine Glucose (UA) 2+H, Urine Ketones Negative , Urine Blood Negative, Urine Nitrite Negative, Urine Bilirubin Negative, Urine Urobilinogen Normal, Urine Leukocyte Esterase Negative, Urine RBC 0, Urine WBC 0 -2, Urine Squamous Epithelial Cells Occasional, Urine Bacteria Occasional, Urine Osmolality 467H, Urine Random Sodium 108, Urine Creatinine 56.3 09/17/19 10:47: Iron Level 15L, Total Iron Binding Capacity 139L, Percent Iron Saturation 11L, Unsaturated Iron Binding 124, Ferritin 822H, Vitamin B12 Level 1521H, Folate 19.5 09/18/19 05:48: White Blood Count 21.4H, Red Blood Count 3.63L, Hemoglobin 11.5L, Hematocrit 31.8L, Mean Corpuscular Volume 88, Mean Corpuscular Hemoglobin 31.6H, Mean Corpuscular Hemoglobin Concent 36.0, Red Cell Distribution Width 10.7L, Platelet Count 354, Mean Platelet Volume 5.0L, Neutrophils (%) (Auto) , Lymphocytes (%) (Auto) , Monocytes (%) (Auto) , Eosinophils (%) (Auto) , Basophils (%) (Auto) , Neutrophils % (Manual) [Pending], Lymphocytes % (Manual) [Pending], Platelet Estimate [Pending], Platelet Morphology [Pending], Sodium Level 130L, Potassium Level 4.2, Chloride Level 92L, Carbon Dioxide Level 32, Anion Gap 6, Blood Urea Nitrogen 13, Creatinine 0.8, Estimat Glomerular Filtration Rate , Glucose Level 164H, Uric Acid 1.5L, Calcium Level 7.6L, Phosphorus Level 3.5, Magnesium Level 1.9, Total Bilirubin 0.5, Direct Bilirubin 0.2, Aspartate Amino Transf (AST/SGOT) 24, Alanine Aminotransferase ( ALT/SGPT) 63, Alkaline Phosphatase 61, Troponin I 0.005, C-Reactive Protein, Quantitative 10.5H, Pro-B-Type Natriuretic Peptide 551H, Total Protein 6.5, Albumin 2.2L, Globulin 4.3, Albumin/Globulin Ratio 0.5L, Prostate Specific Antigen 2.36, Estradiol (E2) Level [Pending], Total Testosterone [Pending] Height (Feet): 5 Height (Inches): 5.00 Weight (Pounds): 154 Objective General Appearance: alert, moderate distress EENT: PERRL/EOMI, normal ENT inspection Neck: non-tender, normal alignment, supple Cardiovascular: normal peripheral pulses, normal rate, regular rhythm, no gallop/murmur, no JVD Respiratory/Chest: rales Abdomen: normal bowel sounds, non tender, soft, no organomegaly, no mass, distended Extremities: normal range of motion, no calf tenderness Rick Banerjee M.D. Sep 18, 2019 09:38
[2019-09-18 12:00] VITALS: BP 103/68
--- NOTE | 2019-09-18 14:28 | Nephrology Progress Note ---
Assessment/Plan Problem List: (1) Hyponatremia (2) Electrolyte imbalance (3) Sepsis (4) Diabetes mellitus out of control (5) Diabetic nephropathy Assessment HypoNatremia, Low serum Os, Low Uric Acid , high [place] ( on Lasix though) Electrolyte imbalance Sepsis / Pneumonia CHF / Pleural effusion HypoAlbuminemia Mild Anemia of chronic disease long h/o DM / Proteinuria , Nephropathy High Prolactin level BPH Atrial Fibrillation Troponin Leak Plan PO Fluid Restriction 3% Saline + IV Lasix- Keep I<O Mag, Phos, KCl supplement as needed Flomax Monitor lytes and chemistries per consultants Subjective ROS Limited/Unobtainable: No Constitutional: Reports: malaise, weakness Objective Objective Last 24 Hour Vital Signs Date Time Temp Pulse Resp B/P (MAP) Pulse Ox O2 Delivery O2 Flow Rate FiO2 09/18/19 12:00 71 09/18/19 12:00 97.7 89 20 103/68 (80) 97 09/18/19 09:18 84 128/72 09/18/19 08:26 Nasal Cannula 2.0 09/18/19 08:00 88 09/18/19 08:00 97.3 84 20 128/72 (90) 100 09/18/19 04:00 98.6 85 18 110/75 (87) 94 09/18/19 04:00 85 09/18/19 00:00 75 09/18/19 00:00 97.5 75 22 112/66 (81) 94 09/17/19 21:00 Nasal Cannula 2.0 09/17/19 21:00 78 124/70 09/17/19 20:11 98 Nasal Cannula 2.0 28 09/17/19 20:00 83 09/17/19 20:00 97.7 83 22 124/70 (88) 92 09/17/19 16:00 75 09/17/19 16:00 97.0 69 20 106/57 (73) 98 Intake and Output 09/17/19 09/18/19 19:00 07:00 Intake Total 480 ml 618 ml Output Total 1050 ml 1400 ml Balance -570 ml -782 ml Intake Oral 480 ml 618 ml Output Urine Total 1050 ml 1400 ml # Voids 3 5 Laboratory Tests 09/18/19 05:48: White Blood Count 21.4H, Red Blood Count 3.63L, Hemoglobin 11.5L, Hematocrit 31.8L, Mean Corpuscular Volume 88, Mean Corpuscular Hemoglobin 31.6H, Mean Corpuscular Hemoglobin Concent 36.0, Red Cell Distribution Width 10.7L, Platelet Count 354, Mean Platelet Volume 5.0L, Neutrophils (%) (Auto) , Lymphocytes (%) (Auto) , Monocytes (%) (Auto) , Eosinophils (%) (Auto) , Basophils (%) (Auto) , Differential Total Cells Counted 100, Neutrophils % ( Manual) 86H, Lymphocytes % (Manual) 11L, Monocytes % (Manual) 2, Eosinophils % ( Manual) 1, Basophils % (Manual) 0, Band Neutrophils 0, Platelet Estimate Adequate, Platelet Morphology Normal, Hypochromasia 1+, Anisocytosis 1+, Sodium Level 130L, Potassium Level 4.2, Chloride Level 92L, Carbon Dioxide Level 32, Anion Gap 6, Blood Urea Nitrogen 13, Creatinine 0.8, Estimat Glomerular Filtration Rate , Glucose Level 164H, Uric Acid 1.5L, Calcium Level 7.6L, Phosphorus Level 3.5, Magnesium Level 1.9, Total Bilirubin 0.5, Direct Bilirubin 0.2, Aspartate Amino Transf (AST/SGOT) 24, Alanine Aminotransferase ( ALT/SGPT) 63, Alkaline Phosphatase 61, Troponin I 0.005, C-Reactive Protein, Quantitative 10.5H, Pro-B-Type Natriuretic Peptide 551H, Total Protein 6.5, Albumin 2.2L, Globulin 4.3, Albumin/Globulin Ratio 0.5L, Prostate Specific Antigen 2.36, Estradiol (E2) Level [Pending], Total Testosterone [Pending] Height (Feet): 5 Height (Inches): 5.00 Weight (Pounds): 154 General Appearance: mild distress Cardiovascular: tachycardia Respiratory/Chest: decreased breath sounds Abdomen: distended Max Garcia MD Sep 18, 2019 14:28
[2019-09-18 16:00] VITALS: BP 118/69
--- NOTE | 2019-09-18 17:24 | Infectious Diseases Prog Note ---
Assessment/Plan Assessment/Plan ASSESSMENT AND PLAN: 1. sepsis, pneumonia, ? empyema, effusion, leukocytosis, fevers, sirs, elevated lft's - vancomycin and zosyn - day # 8 abx - diflucan added for fungal coverage - fungemia risk - leukocytosis slt better today, fevers better today - f/u on thoracentesis studies - culture negative to date - CT chest noted - loculated effusion noted - f/u on surveillance cultures and labs, f/u chest x-ray - pulmonary and thoracic surgery f/u - ? surgery - d/w daughter at length 2. Diabetes. 3. Hypertension. 4. Hyperlipidemia. 5. Blood sugar and blood pressure treatment per primary care team for diabetes, hypertension, and hyperlipidemia. 6. Hyponatremia. 7. Hypoxia. 8. Pulmonary followup. 9. History of prolactinoma. 10. No known drug allergies. 11. Social history is negative. 12. Family history is noncontributory. 13. MAR is noted. 14. Case was discussed with RN. 15. Continue treatment per primary consultants. 16. continue per primary team 17. Skin care protocol. 18. Orders were noted and entered. Subjective Constitutional: Reports: fever, fatigue HEENT: Denies: congestion Respiratory: Denies: shortness of breath Cardiovascular: Denies: chest pain Gastrointestinal/Abdominal: Denies: nausea, vomiting, diarrhea Genitourinary: Denies: dysuria, hematuria Neurologic: Reports: other - alert and responsive Psychiatric: Denies: depression Skin: Denies: rash Hematologic: Denies: bleeding Musculoskeletal: Denies: pain Allergies: Coded Allergies: No Known Allergies (Unverified , 09/09/19) Objective Vital Signs Last 24 Hour Vital Signs Date Time Temp Pulse Resp B/P (MAP) Pulse Ox O2 Delivery O2 Flow Rate FiO2 09/18/19 12:00 71 09/18/19 12:00 97.7 89 20 103/68 (80) 97 09/18/19 09:18 84 128/72 09/18/19 08:26 Nasal Cannula 2.0 09/18/19 08:00 88 09/18/19 08:00 97.3 84 20 128/72 (90) 100 09/18/19 04:00 98.6 85 18 110/75 (87) 94 09/18/19 04:00 85 09/18/19 00:00 75 09/18/19 00:00 97.5 75 22 112/66 (81) 94 09/17/19 21:00 Nasal Cannula 2.0 09/17/19 21:00 78 124/70 09/17/19 20:11 98 Nasal Cannula 2.0 28 09/17/19 20:00 83 09/17/19 20:00 97.7 83 22 124/70 (88) 92 Height (Feet): 5 Height (Inches): 5.00 Weight (Pounds): 154 General Appearance: no acute distress HEENT: normocephalic, atraumatic, anicteric, mucous membranes moist Respiratory/Chest: decreased breath sounds - right , crackles/rales, rhonchi - bilaterally Cardiovascular: normal rate, regular rhythm, no gallop/murmur, no JVD Abdomen: normal bowel sounds, soft, non tender, no organomegaly, non distended Genitourinary: other - no holloway Extremities: no cyanosis Skin: no rash Neurologic/Psychiatric: valve repairer II-XII grossly normal, alert, oriented x 3, responsive Lymphatic: no neck adenopathy Musculoskeletal: no effusion Objective CT chest - 09/12/19 - Impression: Large right pleural effusion, occupying approximately 50% of the right hemithorax. This results in compressive atelectasis of most of the right lower and middle lobes. Trace left pleural effusion and minimal left basilar atelectatic changes Borderline cardiomegaly Dilated right main pulmonary artery, consistent with pulmonary arterial hypertension Ectatic but not frankly aneurysmal ascending thoracic aorta, measuring 4.2 cm. Incidental finding of large right renal cyst and nonspecific bilateral perinephric fat stranding Chest x-ray - 09/13/19 - Indication: Shortness of breath Technique: One view of the chest Comparison: 09/12/2019 Findings: Previously demonstrated large right pleural effusion again demonstrated, may have improved slightly since previous exam. There is likewise suggestion of slightly increased aeration of the right lung. There is improved aeration of left lung, probably due to better inspiration on the current exam. The heart remains borderline enlarged. Impression: Equivocally minimally improved but still large right pleural effusion. Improved aeration of the left lung base, since previous day's exam Chest x-ray - 09/17/19 - Procedure: XRAY Chest 1v Indication: Dyspnea Comparison: 09/13/2019 A single view chest radiograph was obtained. Findings: There is a pleural-based convex density lateral right lung base which has increased in size. The heart is enlarged. Mild pulmonary vascular congestion may be present. Mild basal atelectasis is present. IMPRESSION: Pleural-based density on the right appears larger. Associated compressive atelectasis. CT chest - 09/17/19 - IMPRESSION: Mild to moderate partially loculated right pleural effusion decreased in size compared to the previous study from 09/12/2019. Associated compressive atelectasis of part of the right lower lobe. Mild pulmonary vascular congestion is not excluded. Correlate clinically Generalized cardiomegaly Atherosclerotic vascular disease. Hiatal hernia. Microbiology Date/Time Source Procedure Growth Status 09/09/19 21:20 Blood Blood Culture - Final NO GROWTH AFTER 5 DAYS Complete 09/13/19 12:22 Body Fluid Drainage Gram Stain - Final Complete 09/13/19 12:22 Body Fluid Drainage Body Fluid Culture - Final NO GROWTH Complete 09/09/19 22:30 Nasal Nares - Final Complete 09/09/19 22:30 Nasal Nares - Final Complete 09/10/19 20:03 Urine,Clean Catch Urine Culture - Final NO GROWTH AFTER 48 HOURS Complete Laboratory Tests Test 09/18/19 05:48 White Blood Count 21.4 K/UL (4.8-10.8) H Red Blood Count 3.63 M/UL (4.70-6.10) L Hemoglobin 11.5 G/DL (14.2-18.0) L Hematocrit 31.8 % (42.0-52.0) L Mean Corpuscular Volume 88 FL (80-99) Mean Corpuscular Hemoglobin 31.6 PG (27.0-31.0) H Mean Corpuscular Hemoglobin Concent 36.0 G/DL (32.0-36.0) Red Cell Distribution Width 10.7 % (11.6-14.8) L Platelet Count 354 K/UL (150-450) Mean Platelet Volume 5.0 FL (6.5-10.1) L Neutrophils (%) (Auto) % (45.0-75.0) Lymphocytes (%) (Auto) % (20.0-45.0) Monocytes (%) (Auto) % (1.0-10.0) Eosinophils (%) (Auto) % (0.0-3.0) Basophils (%) (Auto) % (0.0-2.0) Differential Total Cells Counted 100 Neutrophils % (Manual) 86 % (45-75) H Lymphocytes % (Manual) 11 % (20-45) L Monocytes % (Manual) 2 % (1-10) Eosinophils % (Manual) 1 % (0-3) Basophils % (Manual) 0 % (0-2) Band Neutrophils 0 % (0-8) Platelet Estimate Adequate Platelet Morphology Normal Hypochromasia 1+ Anisocytosis 1+ Sodium Level 130 MMOL/L (136-145) L Potassium Level 4.2 MMOL/L (3.5-5.1) Chloride Level 92 MMOL/L (98-107) L Carbon Dioxide Level 32 MMOL/L (21-32) Anion Gap 6 mmol/L (5-15) Blood Urea Nitrogen 13 mg/dL (7-18) Creatinine 0.8 MG/DL (0.55-1.30) Estimat Glomerular Filtration Rate mL/min (>60) Glucose Level 164 MG/DL (74-106) H Uric Acid 1.5 MG/DL (2.6-7.2) L Calcium Level 7.6 MG/DL (8.5-10.1) L Phosphorus Level 3.5 MG/DL (2.5-4.9) Magnesium Level 1.9 MG/DL (1.8-2.4) Total Bilirubin 0.5 MG/DL (0.2-1.0) Direct Bilirubin 0.2 MG/DL (0.0-0.3) Aspartate Amino Transf (AST/SGOT) 24 U/L (15-37) Alanine Aminotransferase (ALT/SGPT) 63 U/L (12-78) Alkaline Phosphatase 61 U/L (46-116) Troponin I 0.005 ng/mL (0.000-0.056) C-Reactive Protein, Quantitative 10.5 mg/dL (0.00-0.90) H Pro-B-Type Natriuretic Peptide 551 pg/mL (0-125) H Total Protein 6.5 G/DL (6.4-8.2) Albumin 2.2 G/DL (3.4-5.0) L Globulin 4.3 g/dL Albumin/Globulin Ratio 0.5 (1.0-2.7) L Prostate Specific Antigen 2.36 ng/mL (0.13-4.0) Estradiol (E2) Level Pending Total Testosterone Pending Current Medications Medications (Trade) Dose Ordered Sig/Ishaan Route PRN Reason Start Time Stop Time Status Last Admin Dose Admin Acetaminophen (Tylenol) 650 mg Q4H PRN ORAL fever 09/09/19 23:15 10/09/19 23:14 09/15/19 20:11 Acetaminophen (Tylenol) 650 mg Q4H PRN ORAL Mild Pain (Pain Scale 1-3) 09/09/19 23:15 10/09/19 23:14 09/17/19 18:19 Aspirin (ASA) 81 mg DAILY ORAL 09/12/19 09:00 10/12/19 08:59 09/18/19 09:18 Atorvastatin Calcium (Lipitor) 10 mg BEDTIME ORAL 09/10/19 21:00 10/10/19 20:59 09/17/19 21:00 Dextrose (Dextrose 50%) 25 ml Q30M PRN IV Hypoglycemia 09/15/19 13:30 10/15/19 13:29 Dextrose (Dextrose 50%) 50 ml Q30M PRN IV Hypoglycemia 09/15/19 13:30 10/15/19 13:29 Docusate Sodium (Colace) 100 mg TID ORAL 09/17/19 18:00 10/10/19 08:59 09/18/19 13:32 Enoxaparin Sodium (Lovenox) 40 mg DAILY SUBQ 09/14/19 10:45 10/14/19 10:44 09/18/19 09:22 Escitalopram Oxalate (Lexapro) 5 mg DAILY ORAL 09/10/19 09:00 10/10/19 08:59 09/18/19 09:19 Fluconazole (Diflucan) 200 mg DAILY ORAL 09/17/19 10:30 09/24/19 10:29 09/18/19 09:19 Furosemide (Lasix) 20 mg EVERY 8 HOURS IV 09/17/19 14:20 10/17/19 14:19 09/18/19 13:32 Hydralazine HCl (Apresoline) 10 mg Q4H PRN IV sbp>150, dbp>100 09/13/19 14:15 10/13/19 14:14 Hydromorphone HCl (Dilaudid) 0.5 mg Q4H PRN IVP Moderate Pain (Pain Scale 4-6) 09/17/19 19:00 09/24/19 18:59 Hydromorphone HCl (Dilaudid) 1 mg Q4H PRN IVP Severe Pain (Pain Scale 7-10) 09/17/19 19:00 09/24/19 18:59 09/18/19 14:56 Insulin Aspart (NovoLOG) BEFORE MEALS AND HS SUBQ 09/11/19 16:30 10/11/19 16:29 09/18/19 11:30 Insulin Aspart (NovoLOG) 6 units NOVOTIAC SUBQ 09/18/19 06:30 10/16/19 11:49 09/18/19 12:26 Insulin Detemir (Levemir) 18 units DAILY SUBQ 09/18/19 09:00 10/15/19 14:59 09/18/19 09:23 Metoprolol Tartrate (Lopressor) 12.5 mg Q12HR ORAL 09/12/19 09:00 10/12/19 08:59 09/18/19 09:18 Ondansetron HCl (Zofran) 4 mg Q6H PRN IVP Nausea & Vomiting 09/09/19 23:15 10/09/19 23:14 09/10/19 10:17 Pantoprazole (Protonix) 40 mg BID ORAL 09/17/19 18:00 10/16/19 13:29 09/18/19 09:18 Piperacillin Sod/ Tazobactam Sod 3.375 gm/Sodium Chloride 110 ml @ 27.5 mls/hr EVERY 8 HOURS IVPB 09/17/19 11:00 09/22/19 10:59 09/18/19 14:52 Polyethylene Glycol (Miralax) 17 gm DAILYPRN PRN ORAL Constipation 09/09/19 23:15 10/09/19 23:14 Potassium Chloride (K-Dur) 40 meq BID ORAL 09/17/19 18:00 10/15/19 08:59 09/18/19 09:18 Pregabalin (Lyrica) 50 mg THREE TIMES A DAY ORAL 09/10/19 09:00 10/10/19 08:59 09/18/19 13:33 Sodium Chloride 500 ml @ 30 mls/hr ONCE ONCE IV 09/18/19 09:30 09/19/19 02:09 09/18/19 10:07 Tamsulosin HCl (Flomax) 0.4 mg BID ORAL 09/17/19 18:00 10/10/19 08:59 09/18/19 09:18 Vancomycin HCl (Vanco rx to dose) 1 ea DAILY PRN MISC Per rx protocol 09/10/19 13:15 10/10/19 13:14 Vancomycin HCl 1 gm/Sodium Chloride 275 ml @ 183.708 mls/hr Q8H IVPB 09/17/19 12:00 09/22/19 23:59 09/18/19 12:00 Kesha Rebollar MD Sep 18, 2019 17:24
[2019-09-18 20:00] VITALS: BP 137/75
[2019-09-19] VITALS: BP 139/41
[2019-09-19 04:00] VITALS: BP 111/72
[2019-09-19] MEDS: Vancomycin 1 GM in NS 275 ML IVPB SCH ×2 (04:01→12:35)
[2019-09-19] MEDS: Piperacillin/Tazobactam 3.375 GM in NS 110 ML IVPB SCH ×2 (06:04→15:56)
[2019-09-19] MEDS: NovoLOG Insulin Flexpen SUBQ SCH ×6 (06:04→17:14)
--- NOTE | 2019-09-19 06:50 | General Progress Note ---
Assessment/Plan Problem List: (1) Hyperprolactinemia ICD Codes: E22.1 - Hyperprolactinemia SNOMED: 559407972 (2) Lactic acidosis ICD Codes: E87.2 - Acidosis SNOMED: 22684735 (3) Diabetes mellitus out of control ICD Codes: E11.65 - Type 2 diabetes mellitus with hyperglycemia SNOMED: 68604262, 790852072 (4) Community acquired bacterial pneumonia ICD Codes: J15.9 - Unspecified bacterial pneumonia SNOMED: 358279216, 54176639 (5) Acute respiratory failure with hypoxemia ICD Codes: J96.01 - Acute respiratory failure with hypoxia SNOMED: 751741966 (6) Sepsis ICD Codes: A41.9 - Sepsis, unspecified organism SNOMED: 84485614, 13354373 Qualifiers: Qualified Codes: A41.9 - Sepsis, unspecified organism; R65.20 - Severe sepsis without septic shock; J96.01 - Acute respiratory failure with hypoxia Status: stable, progressing Assessment/Plan: contineu Levemir 18 units daily continue Novolog 6 units ac tid - hold if not eating continue NISS ac / hs continue to keep off Bromocriptine he will follow with [facility] endo service Subjective ROS Limited/Unobtainable: Yes Allergies: Coded Allergies: No Known Allergies (Unverified , 09/09/19) Subjective events noted glycemic values improved Item Value Date Time Bedside Blood Glucose 139 mg/dl H 09/19/19 0605 Bedside Blood Glucose 239 mg/dl H 09/18/19 2100 Bedside Blood Glucose 299 mg/dl H 09/18/19 1715 Bedside Blood Glucose 310 mg/dl H 09/18/19 1226 Bedside Blood Glucose 158 mg/dl H 09/18/19 0923 Bedside Blood Glucose 158 mg/dl H 09/18/19 0626 Objective Last 24 Hour Vital Signs Date Time Temp Pulse Resp B/P (MAP) Pulse Ox O2 Delivery O2 Flow Rate FiO2 09/19/19 04:00 90 09/19/19 04:00 97.8 90 18 111/72 (85) 97 09/19/19 00:00 98.0 98 20 139/41 (73) 98 09/19/19 00:00 98 09/18/19 21:00 Nasal Cannula 2.0 09/18/19 20:49 78 128/74 09/18/19 20:00 97 Nasal Cannula 2.0 28 09/18/19 20:00 97.2 78 20 137/75 (95) 96 09/18/19 20:00 78 09/18/19 16:00 97.4 80 20 118/69 (85) 96 09/18/19 16:00 82 09/18/19 12:00 71 09/18/19 12:00 97.7 89 20 103/68 (80) 97 09/18/19 09:18 84 128/72 09/18/19 08:26 Nasal Cannula 2.0 09/18/19 08:00 88 09/18/19 08:00 97.3 84 20 128/72 (90) 100 Intake and Output 09/18/19 09/19/19 19:00 07:00 Intake Total 937.416 ml Output Total 1650 ml Balance -712.584 ml Intake Oral 570 ml IV Total 367.416 ml Output Urine Total 1650 ml # Voids 5 Laboratory Tests 09/19/19 05:44: White Blood Count [Pending], Red Blood Count [Pending], Hemoglobin [Pending], Hematocrit [Pending], Mean Corpuscular Volume [Pending], Mean Corpuscular Hemoglobin [Pending], Mean Corpuscular Hemoglobin Concent [Pending], Red Cell Distribution Width [Pending], Platelet Count [Pending], Mean Platelet Volume [ Pending], Neutrophils (%) (Auto) [Pending], Lymphocytes (%) (Auto) [Pending], Monocytes (%) (Auto) [Pending], Eosinophils (%) (Auto) [Pending], Basophils (%) (Auto) [Pending], Sodium Level [Pending], Potassium Level [Pending], Chloride Level [Pending], Carbon Dioxide Level [Pending], Blood Urea Nitrogen [Pending], Creatinine [Pending], Estimat Glomerular Filtration Rate [Pending], Glucose Level [Pending], Uric Acid [Pending], Calcium Level [Pending], Phosphorus Level [Pending], Magnesium Level [Pending], Total Bilirubin [Pending], Direct Bilirubin [Pending], Aspartate Amino Transf (AST/SGOT) [Pending], Alanine Aminotransferase (ALT/SGPT) [Pending], Alkaline Phosphatase [Pending], Total Protein [Pending], Albumin [Pending], Globulin [Pending] Height (Feet): 5 Height (Inches): 5.00 Weight (Pounds): 154 General Appearance: no apparent distress Neck: normal alignment Cardiovascular: normal rate Respiratory/Chest: decreased breath sounds Abdomen: normal bowel sounds Pelvis: normal external exam Objective Current Medications Medications (Trade) Dose Ordered Sig/Ishaan Route PRN Reason Start Time Stop Time Status Last Admin Dose Admin Acetaminophen (Tylenol) 650 mg Q4H PRN ORAL fever 09/09/19 23:15 10/09/19 23:14 09/15/19 20:11 Acetaminophen (Tylenol) 650 mg Q4H PRN ORAL Mild Pain (Pain Scale 1-3) 09/09/19 23:15 10/09/19 23:14 09/17/19 18:19 Aspirin (ASA) 81 mg DAILY ORAL 09/12/19 09:00 10/12/19 08:59 09/18/19 09:18 Atorvastatin Calcium (Lipitor) 10 mg BEDTIME ORAL 09/10/19 21:00 10/10/19 20:59 09/17/19 21:00 Dextrose (Dextrose 50%) 25 ml Q30M PRN IV Hypoglycemia 09/15/19 13:30 10/15/19 13:29 Dextrose (Dextrose 50%) 50 ml Q30M PRN IV Hypoglycemia 09/15/19 13:30 10/15/19 13:29 Docusate Sodium (Colace) 100 mg TID ORAL 09/17/19 18:00 10/10/19 08:59 09/18/19 17:16 Enoxaparin Sodium (Lovenox) 40 mg DAILY SUBQ 09/14/19 10:45 10/14/19 10:44 09/18/19 09:22 Escitalopram Oxalate (Lexapro) 5 mg DAILY ORAL 09/10/19 09:00 10/10/19 08:59 09/18/19 09:19 Fluconazole (Diflucan) 200 mg DAILY ORAL 09/17/19 10:30 09/24/19 10:29 09/18/19 09:19 Furosemide (Lasix) 20 mg EVERY 8 HOURS IV 09/17/19 14:20 10/17/19 14:19 09/19/19 06:04 Hydralazine HCl (Apresoline) 10 mg Q4H PRN IV sbp>150, dbp>100 09/13/19 14:15 10/13/19 14:14 Hydromorphone HCl (Dilaudid) 0.5 mg Q4H PRN IVP Moderate Pain (Pain Scale 4-6) 09/17/19 19:00 09/24/19 18:59 Hydromorphone HCl (Dilaudid) 1 mg Q4H PRN IVP Severe Pain (Pain Scale 7-10) 09/17/19 19:00 09/24/19 18:59 09/18/19 14:56 Insulin Aspart (NovoLOG) BEFORE MEALS AND HS SUBQ 09/11/19 16:30 10/11/19 16:29 09/18/19 20:48 Insulin Aspart (NovoLOG) 6 units NOVOTIAC SUBQ 09/18/19 06:30 10/16/19 11:49 09/19/19 06:05 Insulin Detemir (Levemir) 18 units DAILY SUBQ 09/18/19 09:00 10/15/19 14:59 09/18/19 09:23 Metoprolol Tartrate (Lopressor) 12.5 mg Q12HR ORAL 09/12/19 09:00 10/12/19 08:59 09/18/19 09:18 Ondansetron HCl (Zofran) 4 mg Q6H PRN IVP Nausea & Vomiting 09/09/19 23:15 10/09/19 23:14 09/10/19 10:17 Pantoprazole (Protonix) 40 mg BID ORAL 09/17/19 18:00 10/16/19 13:29 09/18/19 17:17 Piperacillin Sod/ Tazobactam Sod 3.375 gm/Sodium Chloride 110 ml @ 27.5 mls/hr EVERY 8 HOURS IVPB 09/17/19 11:00 09/22/19 10:59 09/19/19 06:04 Polyethylene Glycol (Miralax) 17 gm DAILYPRN PRN ORAL Constipation 09/09/19 23:15 10/09/19 23:14 Potassium Chloride (K-Dur) 40 meq BID ORAL 09/17/19 18:00 10/15/19 08:59 09/18/19 17:14 Pregabalin (Lyrica) 50 mg THREE TIMES A DAY ORAL 09/10/19 09:00 10/10/19 08:59 09/18/19 17:17 Tamsulosin HCl (Flomax) 0.4 mg BID ORAL 09/17/19 18:00 10/10/19 08:59 09/18/19 17:14 Vancomycin HCl (Vanco rx to dose) 1 ea DAILY PRN MISC Per rx protocol 09/10/19 13:15 10/10/19 13:14 Vancomycin HCl 1 gm/Sodium Chloride 275 ml @ 183.708 mls/hr Q8H IVPB 09/17/19 12:00 09/22/19 23:59 09/19/19 04:01 Sunny Mcneil MD Sep 19, 2019 06:50
[2019-09-19 06:56] LABS: HEMATOCRIT 31.5 % (42.0-52.0); HEMOGLOBIN 11.3 G/DL (14.2-18.0); MEAN CORPUSCULAR VOLUME 88 FL (80-99); PLATELET COUNT 383 K/UL (150-450); RED BLOOD COUNT 3.58 M/UL (4.70-6.10); RED CELL DISTRIBUTION WIDTH 10.9 % (11.6-14.8)
[2019-09-19 07:36] LABS: WHITE BLOOD COUNT 23.3 K/UL (4.8-10.8)
[2019-09-19 07:42] LABS: PHOSPHORUS 2.8 MG/DL (2.5-4.9)
[2019-09-19 07:48] LABS: ALANINE AMINOTRANSFERASE 57 U/L (12-78); ALBUMIN 2.2 G/DL (3.4-5.0); ALBUMIN/GLOBULIN RATIO 0.5 (1.0-2.7); ALKALINE PHOSPHATASE 61 U/L (46-116); ANION GAP 8 mmol/L (5-15); ASPARTATE AMINO TRANSFERASE 19 U/L (15-37); BILIRUBIN,DIRECT 0.2 MG/DL (0.0-0.3); BILIRUBIN,TOTAL 0.5 MG/DL (0.2-1.0); BLOOD UREA NITROGEN 12 mg/dL (7-18); CALCIUM 8.2 MG/DL (8.5-10.1); CARBON DIOXIDE 29 MMOL/L (21-32); CHLORIDE 95 MMOL/L (98-107); CREATININE 0.9 MG/DL (0.55-1.30); POTASSIUM 4.3 MMOL/L (3.5-5.1)
[2019-09-19 07:53] LABS: SODIUM 132 MMOL/L (136-145)
[2019-09-19 07:57] VITALS: BP 122/79
[2019-09-19] MEDS: Lyrica 50mg cap ORAL SCH ×3 (08:54→17:11)
[2019-09-19] MEDS: Tamsulosin 0.4mg cap ORAL SCH ×2 (08:54→17:11)
[2019-09-19] MEDS: Metoprolol Tartrate 12.5mg TAB ORAL SCH (08:55)
[2019-09-19] MEDS: Aspirin Baby 81mg ORAL SCH (08:55)
[2019-09-19] MEDS: Fluconazole 100mg tab ORAL SCH (08:55)
[2019-09-19] MEDS: Docusate 100mg cap ORAL SCH ×3 (08:56→17:12)
--- NOTE | 2019-09-19 08:56 | Pulmonology Progress Note ---
Assessment/Plan Problems: (1) Community acquired bacterial pneumonia (2) Acute respiratory failure with hypoxemia (3) Lactic acidosis (4) Hyperprolactinemia (5) Sepsis (6) Diabetes mellitus out of control Assessment/Plan Plan: * Abx per ID for pneumonia and presumed parapneumonic effusion which is loculated * f/u cultures * Noted exudative effusion with negative culture and cytology * Thoracic eval pending for VATS. Consider repeat thoracentesis vs chest tube placement if this is to be delayed * Monitor volumes * Wean oxygen * Endocrine f/u Subjective ROS Limited/Unobtainable: Yes Interval Events: Feels short of breath. Effusion has reaccumulated. Awaiting thoracic eval Allergies: Coded Allergies: No Known Allergies (Unverified , 09/09/19) All Systems: reviewed and negative except above Objective Last 24 Hour Vital Signs Date Time Temp Pulse Resp B/P (MAP) Pulse Ox O2 Delivery O2 Flow Rate FiO2 09/19/19 07:57 97.0 85 17 122/79 (93) 96 09/19/19 04:00 90 09/19/19 04:00 97.8 90 18 111/72 (85) 97 09/19/19 00:00 98.0 98 20 139/41 (73) 98 09/19/19 00:00 98 09/18/19 21:00 Nasal Cannula 2.0 09/18/19 20:49 78 128/74 09/18/19 20:00 97 Nasal Cannula 2.0 28 09/18/19 20:00 97.2 78 20 137/75 (95) 96 09/18/19 20:00 78 09/18/19 16:00 97.4 80 20 118/69 (85) 96 09/18/19 16:00 82 09/18/19 12:00 71 09/18/19 12:00 97.7 89 20 103/68 (80) 97 09/18/19 09:18 84 128/72 Intake and Output 09/18/19 09/19/19 19:00 07:00 Intake Total 937.416 ml Output Total 1650 ml Balance -712.584 ml Intake Oral 570 ml IV Total 367.416 ml Output Urine Total 1650 ml # Voids 5 General Appearance: no acute distress HEENT: mucous membranes moist Respiratory/Chest: decreased breath sounds Cardiovascular: normal rate Abdomen: soft, non tender Extremities: no edema Microbiology Date/Time Source Procedure Growth Status 09/17/19 10:25 Blood Blood Culture - Preliminary NO GROWTH AFTER 24 HOURS Resulted 09/17/19 10:25 Blood Blood Culture - Preliminary NO GROWTH AFTER 24 HOURS Resulted Laboratory Tests 09/19/19 05:44: White Blood Count 23.3*H, Red Blood Count 3.58L, Hemoglobin 11.3L, Hematocrit 31.5L, Mean Corpuscular Volume 88, Mean Corpuscular Hemoglobin 31.5H, Mean Corpuscular Hemoglobin Concent 35.8, Red Cell Distribution Width 10.9L, Platelet Count 383, Mean Platelet Volume 5.0L, Neutrophils (%) (Auto) , Lymphocytes (%) (Auto) , Monocytes (%) (Auto) , Eosinophils (%) (Auto) , Basophils (%) (Auto) , Neutrophils % (Manual) [Pending], Lymphocytes % (Manual) [Pending], Platelet Estimate [Pending], Platelet Morphology [Pending], Sodium Level 132L, Potassium Level 4.3, Chloride Level 95L, Carbon Dioxide Level 29, Anion Gap 8, Blood Urea Nitrogen 12, Creatinine 0.9, Estimat Glomerular Filtration Rate , Glucose Level 144H, Uric Acid 1.7L, Calcium Level 8.2L, Phosphorus Level 2.8, Magnesium Level 1.5L, Total Bilirubin 0.5, Direct Bilirubin 0.2, Aspartate Amino Transf (AST/SGOT) 19, Alanine Aminotransferase ( ALT/SGPT) 57, Alkaline Phosphatase 61, Total Protein 6.6, Albumin 2.2L, Globulin 4.4, Albumin/Globulin Ratio 0.5L Current Medications Medications (Trade) Dose Ordered Sig/Ishaan Route PRN Reason Start Time Stop Time Status Last Admin Dose Admin Acetaminophen (Tylenol) 650 mg Q4H PRN ORAL fever 09/09/19 23:15 10/09/19 23:14 09/15/19 20:11 Acetaminophen (Tylenol) 650 mg Q4H PRN ORAL Mild Pain (Pain Scale 1-3) 09/09/19 23:15 10/09/19 23:14 09/17/19 18:19 Aspirin (ASA) 81 mg DAILY ORAL 09/12/19 09:00 10/12/19 08:59 09/18/19 09:18 Atorvastatin Calcium (Lipitor) 10 mg BEDTIME ORAL 09/10/19 21:00 10/10/19 20:59 09/17/19 21:00 Dextrose (Dextrose 50%) 25 ml Q30M PRN IV Hypoglycemia 09/15/19 13:30 10/15/19 13:29 Dextrose (Dextrose 50%) 50 ml Q30M PRN IV Hypoglycemia 09/15/19 13:30 10/15/19 13:29 Docusate Sodium (Colace) 100 mg TID ORAL 09/17/19 18:00 10/10/19 08:59 09/18/19 17:16 Enoxaparin Sodium (Lovenox) 40 mg DAILY SUBQ 09/14/19 10:45 10/14/19 10:44 09/18/19 09:22 Escitalopram Oxalate (Lexapro) 5 mg DAILY ORAL 09/10/19 09:00 10/10/19 08:59 09/18/19 09:19 Fluconazole (Diflucan) 200 mg DAILY ORAL 09/17/19 10:30 09/24/19 10:29 09/18/19 09:19 Furosemide (Lasix) 20 mg EVERY 8 HOURS IV 09/17/19 14:20 10/17/19 14:19 09/19/19 06:04 Hydralazine HCl (Apresoline) 10 mg Q4H PRN IV sbp>150, dbp>100 09/13/19 14:15 10/13/19 14:14 Hydromorphone HCl (Dilaudid) 0.5 mg Q4H PRN IVP Moderate Pain (Pain Scale 4-6) 09/17/19 19:00 09/24/19 18:59 Hydromorphone HCl (Dilaudid) 1 mg Q4H PRN IVP Severe Pain (Pain Scale 7-10) 09/17/19 19:00 09/24/19 18:59 09/18/19 14:56 Insulin Aspart (NovoLOG) BEFORE MEALS AND HS SUBQ 09/11/19 16:30 10/11/19 16:29 09/18/19 20:48 Insulin Aspart (NovoLOG) 6 units NOVOTIAC SUBQ 09/18/19 06:30 10/16/19 11:49 09/19/19 06:05 Insulin Detemir (Levemir) 18 units DAILY SUBQ 09/18/19 09:00 10/15/19 14:59 09/18/19 09:23 Metoprolol Tartrate (Lopressor) 12.5 mg Q12HR ORAL 09/12/19 09:00 10/12/19 08:59 09/18/19 09:18 Ondansetron HCl (Zofran) 4 mg Q6H PRN IVP Nausea & Vomiting 09/09/19 23:15 10/09/19 23:14 09/10/19 10:17 Pantoprazole (Protonix) 40 mg BID ORAL 09/17/19 18:00 10/16/19 13:29 09/18/19 17:17 Piperacillin Sod/ Tazobactam Sod 3.375 gm/Sodium Chloride 110 ml @ 27.5 mls/hr EVERY 8 HOURS IVPB 09/17/19 11:00 09/22/19 10:59 09/19/19 06:04 Polyethylene Glycol (Miralax) 17 gm DAILYPRN PRN ORAL Constipation 09/09/19 23:15 10/09/19 23:14 Potassium Chloride (K-Dur) 40 meq BID ORAL 09/17/19 18:00 10/15/19 08:59 09/18/19 17:14 Pregabalin (Lyrica) 50 mg THREE TIMES A DAY ORAL 09/10/19 09:00 10/10/19 08:59 09/18/19 17:17 Tamsulosin HCl (Flomax) 0.4 mg BID ORAL 09/17/19 18:00 10/10/19 08:59 09/18/19 17:14 Vancomycin HCl (Vanco rx to dose) 1 ea DAILY PRN MISC Per rx protocol 09/10/19 13:15 10/10/19 13:14 Vancomycin HCl 1 gm/Sodium Chloride 275 ml @ 183.708 mls/hr Q8H IVPB 09/17/19 12:00 09/22/19 23:59 09/19/19 04:01 Landry Barlow MD Sep 19, 2019 08:56
[2019-09-19] MEDS: Enoxaparin 40mg Inj SUBQ SCH (09:00)
[2019-09-19] MEDS: Levemir Flexpen SUBQ SCH (09:18)
--- NOTE | 2019-09-19 09:27 | General Progress Note ---
Assessment/Plan Problem List: (1) Severe sepsis ICD Codes: A41.9 - Sepsis, unspecified organism; R65.20 - Severe sepsis without septic shock SNOMED: 98290053 (2) Acute respiratory failure with hypoxemia ICD Codes: J96.01 - Acute respiratory failure with hypoxia SNOMED: 515927656 (3) Encephalopathy due to infection ICD Codes: G93.49 - Other encephalopathy; B99.9 - Unspecified infectious disease SNOMED: 85981241, 47161104 (4) Community acquired bacterial pneumonia ICD Codes: J15.9 - Unspecified bacterial pneumonia SNOMED: 183637858, 65818134 (5) Diabetes mellitus out of control ICD Codes: E11.65 - Type 2 diabetes mellitus with hyperglycemia SNOMED: 27219109, 187733345 (6) Lactic acidosis ICD Codes: E87.2 - Acidosis SNOMED: 53555265 (7) Hyperprolactinemia ICD Codes: E22.1 - Hyperprolactinemia SNOMED: 911804592 (8) Pulmonary HTN ICD Codes: I27.20 - Pulmonary hypertension, unspecified SNOMED: 60595117 (9) Diastolic CHF, acute ICD Codes: I50.31 - Acute diastolic (congestive) heart failure SNOMED: 01486581, 106106435 (10) Pleural effusion, right ICD Codes: J90 - Pleural effusion, not elsewhere classified SNOMED: 19212170 Status: stable, progressing Assessment/Plan: 73 year old presented with fever, chills, sob. Found to be hypoxic, tachycardic and febrile, +leukocytosis, CXR with infiltrates. influenza A/B negative. #Sever sepsis secondary to CAP, Likely empyema , pleural fluid exudative in nature. culture negative for 72hrs. febrile with worsening wbc. Evaluated by CT surgery Dr. Gonzalez for VATS, family has requested transfer to [facility]. #Acute respiratory failure with hypoxia #Acute encephalopathy, infection and hypoxic #large Right sided pleural effusion #Pulmonary arterial HTN telemetry s/p thoracentesis 950 cc green pleural fluid took out. Exudate follow up fluid for culture and cytology cefepime and azithromycin, vancomycin, metronidazole. spoke with ID, changed to Zosyn, vancomycin, Fluconazole. Repeat blood cultures, UA sent today 2/3, UA negative, blood cultures negative to date May need repeat thoracentesis, vs thoracic surgery involvement. speech therapy evaluation appreciated--> pureed to ground texture o2 to keep o2 sat >95% Monitor mental status pain control ID and pulmonary consults IV lasix per nephrology Pulmonary and cardiology follow up for pulmonary arterial hypertension d/w Kris Barlow and Heydi Discussed with cardiology. patient is at moderate risk for the VATS procedure and stable to proceed. #Diastolic CHF, acute #R pleural effusion #Transient Afib/Flutter #pulmonary arterial HTN Echo reviewed: Diastolic dysfunction, pulmonary HTN, systolic function seems to be okay IV lasix 40 mg once, 20 mg daily d/w cardiology Metoprolol 12.5 mg BID, ASA, Atorvastatin. #Transaminitis, ?passive congestion, pattern not obstructive , normal ALP and total bili AST/ALT 300's normal on admission, now trending down monitor follow up hepatitis panel US abdomen reviewed: Gallbladder sludge and possible small stones. Mildly ectatic common bile duct, probably related to patient's age but downstream obstruction not completely excludable. Correlate with liver function tests, consider MRCP if clinically indicated. Liver demonstrates diffusely increased echogenicity, consistent with diffuse hepatocellular disease, most likely fatty change. Trace perihepatic ascites. Large right pleural effusion. Incidental finding small lateral renal cysts. Note inability to visualize portions of the abdominal aorta #DM uncontrolled #Prolactinoma Hold home po meds Insulin basal bolus, monitor fsbg. Levemir 18 units daily , NovoLog 6 units with meals (hold if not eating), SSI. hold Bromocriptine as may have been contributing to AMS prolactin levels reviewed and high ~100 endocrinology consult Tarun Olson #Hematuria- resolved #BPH Dced heparin due to hematuria, resumed lovenox for dvt ppx. no evidence of hematuria so far. UA sent Flomax #Hypokalemia Replace as needed kdur 40 meq daily Vte ppx: start lovenox 40 mg daily 09/14, SCD boots Code: full code per daughter at bedside I spent 40 minutes on this encounter. >50% spent on counselling and care coordination. case d/w daughter and RN at bedside. I spent an additional 35 minutes in reviewing events over the weekend, exchange consultant findings and imagining and labs. Subjective Date patient seen: Sep 19, 2019 ROS Limited/Unobtainable: No Constitutional: Reports: malaise, weakness, other - pain R sided chest wall HEENT: Denies: no symptoms, eye pain, blurred vision, tearing, double vision, ear pain, ear discharge, nose pain, nose congestion, throat pain, throat swelling, mouth pain, mouth swelling, other Cardiovascular: Denies: no symptoms, chest pain, edema, irregular heart rate, lightheadedness, palpitations, syncope, other Respiratory: Reports: cough, shortness of breath Gastrointestinal/Abdominal: Denies: no symptoms, abdomen distended, abdominal pain, black stools, tarry stools, blood in stool, constipated, diarrhea, difficulty swallowing, nausea, poor appetite, poor fluid intake, rectal bleeding , vomiting, other Genitourinary: Denies: no symptoms, burning, discharge, frequency, flank pain, hematuria, incontinence, pain, urgency, other Neurologic/Psychiatric: Denies: no symptoms, anxiety, depressed, emotional problems, headache, numbness, paresthesia, pre-existing deficit, seizure, tingling, tremors, weakness, other Endocrine: Denies: no symptoms, excessive sweating, flushing, intolerance to cold, intolerance to heat, increased hunger, increased thirst, increased urine, unexplained weight gain, unexplained weight loss, other Hematologic/Lymphatic: Denies: no symptoms, anemia, easy bleeding, easy bruising, other Allergies: Coded Allergies: No Known Allergies (Unverified , 09/09/19) Subjective Seen and examined at bedside, evaluated by CT surgery Dr. Gonzalez for possible VATS, however family has requested transfer to [facility]. Had repeat CT showed persistent large loculated effusion. Fingerstick blood glucoses better controlled today. Daughter at bedside. Objective Last 24 Hour Vital Signs Date Time Temp Pulse Resp B/P (MAP) Pulse Ox O2 Delivery O2 Flow Rate FiO2 09/19/19 08:55 85 122/79 09/19/19 07:57 97.0 85 17 122/79 (93) 96 09/19/19 04:00 90 09/19/19 04:00 97.8 90 18 111/72 (85) 97 09/19/19 00:00 98.0 98 20 139/41 (73) 98 09/19/19 00:00 98 09/18/19 21:00 Nasal Cannula 2.0 09/18/19 20:49 78 128/74 09/18/19 20:00 97 Nasal Cannula 2.0 28 09/18/19 20:00 97.2 78 20 137/75 (95) 96 09/18/19 20:00 78 09/18/19 16:00 97.4 80 20 118/69 (85) 96 09/18/19 16:00 82 09/18/19 12:00 71 09/18/19 12:00 97.7 89 20 103/68 (80) 97 Intake and Output 09/18/19 09/19/19 19:00 07:00 Intake Total 937.416 ml Output Total 1650 ml Balance -712.584 ml Intake Oral 570 ml IV Total 367.416 ml Output Urine Total 1650 ml # Voids 5 Laboratory Tests 09/19/19 05:44: White Blood Count 23.3*H, Red Blood Count 3.58L, Hemoglobin 11.3L, Hematocrit 31.5L, Mean Corpuscular Volume 88, Mean Corpuscular Hemoglobin 31.5H, Mean Corpuscular Hemoglobin Concent 35.8, Red Cell Distribution Width 10.9L, Platelet Count 383, Mean Platelet Volume 5.0L, Neutrophils (%) (Auto) , Lymphocytes (%) (Auto) , Monocytes (%) (Auto) , Eosinophils (%) (Auto) , Basophils (%) (Auto) , Differential Total Cells Counted 100, Neutrophils % ( Manual) 83H, Lymphocytes % (Manual) 8L, Monocytes % (Manual) 8, Eosinophils % ( Manual) 1, Basophils % (Manual) 0, Band Neutrophils 0, Platelet Estimate Adequate, Platelet Morphology Normal, Sodium Level 132L, Potassium Level 4.3, Chloride Level 95L, Carbon Dioxide Level 29, Anion Gap 8, Blood Urea Nitrogen 12 , Creatinine 0.9, Estimat Glomerular Filtration Rate , Glucose Level 144H, Uric Acid 1.7L, Calcium Level 8.2L, Phosphorus Level 2.8, Magnesium Level 1.5L, Total Bilirubin 0.5, Direct Bilirubin 0.2, Aspartate Amino Transf (AST/SGOT) 19 , Alanine Aminotransferase (ALT/SGPT) 57, Alkaline Phosphatase 61, Total Protein 6.6, Albumin 2.2L, Globulin 4.4, Albumin/Globulin Ratio 0.5L Height (Feet): 5 Height (Inches): 5.00 Weight (Pounds): 163 Objective General Appearance: alert, moderate distress EENT: PERRL/EOMI, normal ENT inspection Neck: non-tender, normal alignment, supple Cardiovascular: normal peripheral pulses, normal rate, regular rhythm, no gallop/murmur, no JVD Respiratory/Chest: rales Abdomen: normal bowel sounds, non tender, soft, no organomegaly, no mass, distended Extremities: normal range of motion, no calf tenderness Rick Banerjee M.D. Sep 19, 2019 09:27
[2019-09-19] MEDS: HYDROmorphone 1mg/ml Carpuject IVP PRN ×2 (10:32→17:46)
--- NOTE | 2019-09-19 11:34 | Infectious Diseases Prog Note ---
Assessment/Plan Assessment/Plan ASSESSMENT AND PLAN: 1. sepsis, pneumonia, ? empyema, effusion, leukocytosis, fevers, sirs, elevated lft's - vancomycin and zosyn - day # 9 abx - diflucan added for fungal coverage - fungemia risk - leukocytosis slt better today, fevers better today - f/u on thoracentesis studies - culture negative to date - CT chest noted - loculated effusion noted - f/u on surveillance cultures and labs, f/u chest x-ray - pulmonary and thoracic surgery f/u - ? surgery - d/w daughter at length 2. Diabetes. 3. Hypertension. 4. Hyperlipidemia. 5. Blood sugar and blood pressure treatment per primary care team for diabetes, hypertension, and hyperlipidemia. 6. Hyponatremia. 7. Hypoxia. 8. Pulmonary followup. 9. History of prolactinoma. 10. No known drug allergies. 11. Social history is negative. 12. Family history is noncontributory. 13. MAR is noted. 14. Case was discussed with RN. 15. Continue treatment per primary consultants. 16. continue per primary team 17. Skin care protocol. 18. Orders were noted and entered. Subjective HEENT: Denies: congestion Respiratory: Denies: shortness of breath Gastrointestinal/Abdominal: Denies: nausea, vomiting, diarrhea Allergies: Coded Allergies: No Known Allergies (Unverified , 09/09/19) Objective Vital Signs Last 24 Hour Vital Signs Date Time Temp Pulse Resp B/P (MAP) Pulse Ox O2 Delivery O2 Flow Rate FiO2 09/19/19 09:00 Nasal Cannula 2.0 09/19/19 08:55 85 122/79 09/19/19 08:00 85 09/19/19 07:57 97.0 85 17 122/79 (93) 96 09/19/19 04:00 90 09/19/19 04:00 97.8 90 18 111/72 (85) 97 09/19/19 00:00 98.0 98 20 139/41 (73) 98 09/19/19 00:00 98 09/18/19 21:00 Nasal Cannula 2.0 09/18/19 20:49 78 128/74 09/18/19 20:00 97 Nasal Cannula 2.0 28 09/18/19 20:00 97.2 78 20 137/75 (95) 96 09/18/19 20:00 78 2/4/20 16:00 97.4 80 20 118/69 (85) 96 09/18/19 16:00 82 09/18/19 12:00 71 09/18/19 12:00 97.7 89 20 103/68 (80) 97 Height (Feet): 5 Height (Inches): 5.00 Weight (Pounds): 163 General Appearance: no acute distress HEENT: normocephalic, atraumatic, anicteric Respiratory/Chest: lungs clear, normal breath sounds, no respiratory distress Cardiovascular: normal rate, regular rhythm Abdomen: normal bowel sounds, soft, non tender, no organomegaly Extremities: no cyanosis Skin: no rash Objective CT chest - 09/12/19 - Impression: Large right pleural effusion, occupying approximately 50% of the right hemithorax. This results in compressive atelectasis of most of the right lower and middle lobes. Trace left pleural effusion and minimal left basilar atelectatic changes Borderline cardiomegaly Dilated right main pulmonary artery, consistent with pulmonary arterial hypertension Ectatic but not frankly aneurysmal ascending thoracic aorta, measuring 4.2 cm. Incidental finding of large right renal cyst and nonspecific bilateral perinephric fat stranding Chest x-ray - 09/13/19 - Indication: Shortness of breath Technique: One view of the chest Comparison: 09/12/2019 Findings: Previously demonstrated large right pleural effusion again demonstrated, may have improved slightly since previous exam. There is likewise suggestion of slightly increased aeration of the right lung. There is improved aeration of left lung, probably due to better inspiration on the current exam. The heart remains borderline enlarged. Impression: Equivocally minimally improved but still large right pleural effusion. Improved aeration of the left lung base, since previous day's exam Chest x-ray - 09/17/19 - Procedure: XRAY Chest 1v Indication: Dyspnea Comparison: 09/13/2019 A single view chest radiograph was obtained. Findings: There is a pleural-based convex density lateral right lung base which has increased in size. The heart is enlarged. Mild pulmonary vascular congestion may be present. Mild basal atelectasis is present. IMPRESSION: Pleural-based density on the right appears larger. Associated compressive atelectasis. CT chest - 09/17/19 - IMPRESSION: Mild to moderate partially loculated right pleural effusion decreased in size compared to the previous study from 09/12/2019. Associated compressive atelectasis of part of the right lower lobe. Mild pulmonary vascular congestion is not excluded. Correlate clinically Generalized cardiomegaly Atherosclerotic vascular disease. Hiatal hernia. Microbiology Date/Time Source Procedure Growth Status 09/17/19 10:25 Blood Blood Culture - Preliminary NO GROWTH AFTER 24 HOURS Resulted 09/17/19 10:25 Blood Blood Culture - Preliminary NO GROWTH AFTER 24 HOURS Resulted Laboratory Tests Test 09/19/19 05:44 White Blood Count 23.3 K/UL (4.8-10.8) *H Red Blood Count 3.58 M/UL (4.70-6.10) L Hemoglobin 11.3 G/DL (14.2-18.0) L Hematocrit 31.5 % (42.0-52.0) L Mean Corpuscular Volume 88 FL (80-99) Mean Corpuscular Hemoglobin 31.5 PG (27.0-31.0) H Mean Corpuscular Hemoglobin Concent 35.8 G/DL (32.0-36.0) Red Cell Distribution Width 10.9 % (11.6-14.8) L Platelet Count 383 K/UL (150-450) Mean Platelet Volume 5.0 FL (6.5-10.1) L Neutrophils (%) (Auto) % (45.0-75.0) Lymphocytes (%) (Auto) % (20.0-45.0) Monocytes (%) (Auto) % (1.0-10.0) Eosinophils (%) (Auto) % (0.0-3.0) Basophils (%) (Auto) % (0.0-2.0) Differential Total Cells Counted 100 Neutrophils % (Manual) 83 % (45-75) H Lymphocytes % (Manual) 8 % (20-45) L Monocytes % (Manual) 8 % (1-10) Eosinophils % (Manual) 1 % (0-3) Basophils % (Manual) 0 % (0-2) Band Neutrophils 0 % (0-8) Platelet Estimate Adequate Platelet Morphology Normal Sodium Level 132 MMOL/L (136-145) L Potassium Level 4.3 MMOL/L (3.5-5.1) Chloride Level 95 MMOL/L (98-107) L Carbon Dioxide Level 29 MMOL/L (21-32) Anion Gap 8 mmol/L (5-15) Blood Urea Nitrogen 12 mg/dL (7-18) Creatinine 0.9 MG/DL (0.55-1.30) Estimat Glomerular Filtration Rate mL/min (>60) Glucose Level 144 MG/DL (74-106) H Uric Acid 1.7 MG/DL (2.6-7.2) L Calcium Level 8.2 MG/DL (8.5-10.1) L Phosphorus Level 2.8 MG/DL (2.5-4.9) Magnesium Level 1.5 MG/DL (1.8-2.4) L Total Bilirubin 0.5 MG/DL (0.2-1.0) Direct Bilirubin 0.2 MG/DL (0.0-0.3) Aspartate Amino Transf (AST/SGOT) 19 U/L (15-37) Alanine Aminotransferase (ALT/SGPT) 57 U/L (12-78) Alkaline Phosphatase 61 U/L (46-116) Total Protein 6.6 G/DL (6.4-8.2) Albumin 2.2 G/DL (3.4-5.0) L Globulin 4.4 g/dL Albumin/Globulin Ratio 0.5 (1.0-2.7) L Current Medications Medications (Trade) Dose Ordered Sig/Ishaan Route PRN Reason Start Time Stop Time Status Last Admin Dose Admin Acetaminophen (Tylenol) 650 mg Q4H PRN ORAL fever 09/09/19 23:15 10/09/19 23:14 09/15/19 20:11 Acetaminophen (Tylenol) 650 mg Q4H PRN ORAL Mild Pain (Pain Scale 1-3) 09/09/19 23:15 10/09/19 23:14 09/17/19 18:19 Aspirin (ASA) 81 mg DAILY ORAL 09/12/19 09:00 10/12/19 08:59 09/19/19 08:55 Atorvastatin Calcium (Lipitor) 10 mg BEDTIME ORAL 09/10/19 21:00 10/10/19 20:59 09/17/19 21:00 Dextrose (Dextrose 50%) 25 ml Q30M PRN IV Hypoglycemia 09/15/19 13:30 10/15/19 13:29 Dextrose (Dextrose 50%) 50 ml Q30M PRN IV Hypoglycemia 09/15/19 13:30 10/15/19 13:29 Docusate Sodium (Colace) 100 mg TID ORAL 09/17/19 18:00 10/10/19 08:59 09/19/19 08:56 Enoxaparin Sodium (Lovenox) 40 mg DAILY SUBQ 09/14/19 10:45 10/14/19 10:44 09/18/19 09:22 Escitalopram Oxalate (Lexapro) 5 mg DAILY ORAL 09/10/19 09:00 10/10/19 08:59 09/19/19 08:55 Fluconazole (Diflucan) 200 mg DAILY ORAL 09/17/19 10:30 09/24/19 10:29 09/19/19 08:55 Furosemide (Lasix) 20 mg EVERY 8 HOURS IV 09/17/19 14:20 10/17/19 14:19 09/19/19 06:04 Hydralazine HCl (Apresoline) 10 mg Q4H PRN IV sbp>150, dbp>100 09/13/19 14:15 10/13/19 14:14 Hydromorphone HCl (Dilaudid) 0.5 mg Q4H PRN IVP Moderate Pain (Pain Scale 4-6) 09/17/19 19:00 09/24/19 18:59 Hydromorphone HCl (Dilaudid) 1 mg Q4H PRN IVP Severe Pain (Pain Scale 7-10) 09/17/19 19:00 09/24/19 18:59 09/19/19 10:32 Insulin Aspart (NovoLOG) BEFORE MEALS AND HS SUBQ 09/11/19 16:30 10/11/19 16:29 09/18/19 20:48 Insulin Aspart (NovoLOG) 6 units NOVOTIAC SUBQ 09/18/19 06:30 10/16/19 11:49 09/19/19 06:05 Insulin Detemir (Levemir) 18 units DAILY SUBQ 09/18/19 09:00 10/15/19 14:59 09/19/19 09:18 Magnesium Sulfate 100 ml @ 100 mls/hr Q1H IVPB 09/19/19 10:00 09/19/19 13:59 09/19/19 10:23 Metoprolol Tartrate (Lopressor) 12.5 mg Q12HR ORAL 09/12/19 09:00 10/12/19 08:59 09/19/19 08:55 Ondansetron HCl (Zofran) 4 mg Q6H PRN IVP Nausea & Vomiting 09/09/19 23:15 10/09/19 23:14 09/10/19 10:17 Pantoprazole (Protonix) 40 mg BID ORAL 09/17/19 18:00 10/16/19 13:29 09/19/19 08:55 Piperacillin Sod/ Tazobactam Sod 3.375 gm/Sodium Chloride 110 ml @ 27.5 mls/hr EVERY 8 HOURS IVPB 09/17/19 11:00 09/22/19 10:59 09/19/19 06:04 Polyethylene Glycol (Miralax) 17 gm DAILYPRN PRN ORAL Constipation 09/09/19 23:15 10/09/19 23:14 Potassium Chloride (K-Dur) 40 meq BID ORAL 09/17/19 18:00 10/15/19 08:59 09/18/19 17:14 Pregabalin (Lyrica) 50 mg THREE TIMES A DAY ORAL 09/10/19 09:00 10/10/19 08:59 09/19/19 08:54 Tamsulosin HCl (Flomax) 0.4 mg BID ORAL 09/17/19 18:00 10/10/19 08:59 09/19/19 08:54 Vancomycin HCl (Vanco rx to dose) 1 ea DAILY PRN MISC Per rx protocol 09/10/19 13:15 10/10/19 13:14 Vancomycin HCl 1 gm/Sodium Chloride 275 ml @ 183.708 mls/hr Q8H IVPB 09/17/19 12:00 09/22/19 23:59 09/19/19 04:01 Kesha Rebollar MD Sep 19, 2019 11:34
--- NOTE | 2019-09-19 11:35 | Cardiac Electrophysiology PN ---
Assessment/Plan Assessment/Plan 1. Atrial fibrillation, rate of 110. Converted to sinus rhythm. No history of CAD or CHF or prior atrial fibrillation. Echo EF 55%. 2. Troponin leak negative to 0.198. Right side CP only when coughs On Aspirin, Lopressor 12.5 bid and Lipitor 10 3. RBBB 4. HTN 5. Right sided pleural effusion. S/P Chest CT and 950cc Thoracentesis 09/13/2019 On Lasix 20 po daily. Had repeat Chest CT. Evaluated by Dr. Rhodes for VATS. No CAD or CHF. OK to proceed at moderate risk. Awaiting transfer to [facility] 6. Pneumonia on IV antibiotic. WBC 21 K 7. Uncontrolled diabetes. 8. Hyperprolactinemia. Further evaluation by Dr. Mcneil. 9 K 3.1, On 40 KCL po daily DW RN and Dr. Banerjee Subjective Subjective No more atrial fib. In SR with BBB. S/P 950cc yellow, greenish thoracentesis . RN at bedside. Was evaluated by Dr. RHODES for VATS.Family refused and want to go to [facility]. Awaiting bed. Objective Last 24 Hour Vital Signs Date Time Temp Pulse Resp B/P (MAP) Pulse Ox O2 Delivery O2 Flow Rate FiO2 09/19/19 09:00 Nasal Cannula 2.0 09/19/19 08:55 85 122/79 09/19/19 08:00 85 09/19/19 07:57 97.0 85 17 122/79 (93) 96 09/19/19 04:00 90 09/19/19 04:00 97.8 90 18 111/72 (85) 97 09/19/19 00:00 98.0 98 20 139/41 (73) 98 09/19/19 00:00 98 09/18/19 21:00 Nasal Cannula 2.0 09/18/19 20:49 78 128/74 09/18/19 20:00 97 Nasal Cannula 2.0 28 09/18/19 20:00 97.2 78 20 137/75 (95) 96 09/18/19 20:00 78 09/18/19 16:00 97.4 80 20 118/69 (85) 96 09/18/19 16:00 82 09/18/19 12:00 71 09/18/19 12:00 97.7 89 20 103/68 (80) 97 Intake and Output 09/18/19 09/19/19 18:59 06:59 Intake Total 937.416 ml Output Total 1650 ml Balance -712.584 ml Intake Oral 570 ml IV Total 367.416 ml Output Urine Total 1650 ml # Voids 5 Laboratory Tests Test 09/19/19 05:44 White Blood Count 23.3 K/UL (4.8-10.8) *H Red Blood Count 3.58 M/UL (4.70-6.10) L Hemoglobin 11.3 G/DL (14.2-18.0) L Hematocrit 31.5 % (42.0-52.0) L Mean Corpuscular Volume 88 FL (80-99) Mean Corpuscular Hemoglobin 31.5 PG (27.0-31.0) H Mean Corpuscular Hemoglobin Concent 35.8 G/DL (32.0-36.0) Red Cell Distribution Width 10.9 % (11.6-14.8) L Platelet Count 383 K/UL (150-450) Mean Platelet Volume 5.0 FL (6.5-10.1) L Neutrophils (%) (Auto) % (45.0-75.0) Lymphocytes (%) (Auto) % (20.0-45.0) Monocytes (%) (Auto) % (1.0-10.0) Eosinophils (%) (Auto) % (0.0-3.0) Basophils (%) (Auto) % (0.0-2.0) Differential Total Cells Counted 100 Neutrophils % (Manual) 83 % (45-75) H Lymphocytes % (Manual) 8 % (20-45) L Monocytes % (Manual) 8 % (1-10) Eosinophils % (Manual) 1 % (0-3) Basophils % (Manual) 0 % (0-2) Band Neutrophils 0 % (0-8) Platelet Estimate Adequate Platelet Morphology Normal Sodium Level 132 MMOL/L (136-145) L Potassium Level 4.3 MMOL/L (3.5-5.1) Chloride Level 95 MMOL/L (98-107) L Carbon Dioxide Level 29 MMOL/L (21-32) Anion Gap 8 mmol/L (5-15) Blood Urea Nitrogen 12 mg/dL (7-18) Creatinine 0.9 MG/DL (0.55-1.30) Estimat Glomerular Filtration Rate mL/min (>60) Glucose Level 144 MG/DL (74-106) H Uric Acid 1.7 MG/DL (2.6-7.2) L Calcium Level 8.2 MG/DL (8.5-10.1) L Phosphorus Level 2.8 MG/DL (2.5-4.9) Magnesium Level 1.5 MG/DL (1.8-2.4) L Total Bilirubin 0.5 MG/DL (0.2-1.0) Direct Bilirubin 0.2 MG/DL (0.0-0.3) Aspartate Amino Transf (AST/SGOT) 19 U/L (15-37) Alanine Aminotransferase (ALT/SGPT) 57 U/L (12-78) Alkaline Phosphatase 61 U/L (46-116) Total Protein 6.6 G/DL (6.4-8.2) Albumin 2.2 G/DL (3.4-5.0) L Globulin 4.4 g/dL Albumin/Globulin Ratio 0.5 (1.0-2.7) L Microbiology Date/Time Source Procedure Growth Status 09/17/19 10:25 Blood Blood Culture - Preliminary NO GROWTH AFTER 24 HOURS Resulted 09/17/19 10:25 Blood Blood Culture - Preliminary NO GROWTH AFTER 24 HOURS Resulted Objective HEAD AND NECK: No JVD. LUNGS: Decreased breath sounds on Right CARDIOVASCULAR: Regular S1 and S2 with no gallop or murmur. ABDOMEN: Soft. EXTREMITIES: No pitting edema. Irving Joy MD Sep 19, 2019 11:35
[2019-09-19 12:00] VITALS: BP 113/72
--- NOTE | 2019-09-19 12:22 | Nephrology Progress Note ---
Assessment/Plan Problem List: (1) Hyponatremia (2) Electrolyte imbalance (3) Sepsis (4) Diabetes mellitus out of control (5) Diabetic nephropathy Assessment HypoNatremia, Low serum Os, Low Uric Acid , high Estuardo ( on Lasix though) Electrolyte imbalance Sepsis / Pneumonia CHF / Pleural effusion HypoAlbuminemia Mild Anemia of chronic disease long h/o DM / Proteinuria , Nephropathy High Prolactin level BPH Atrial Fibrillation Troponin Leak Plan PO Fluid Restriction 3% Saline + IV Lasix- Keep I<O Mag, Phos, KCl supplement as needed Flomax Monitor lytes and chemistries per consultants Subjective ROS Limited/Unobtainable: No Constitutional: Reports: malaise, weakness Objective Objective Last 24 Hour Vital Signs Date Time Temp Pulse Resp B/P (MAP) Pulse Ox O2 Delivery O2 Flow Rate FiO2 09/19/19 12:00 97.7 78 19 113/72 (86) 96 09/19/19 09:00 Nasal Cannula 2.0 09/19/19 08:55 85 122/79 09/19/19 08:00 85 09/19/19 07:57 97.0 85 17 122/79 (93) 96 09/19/19 04:00 90 09/19/19 04:00 97.8 90 18 111/72 (85) 97 09/19/19 00:00 98.0 98 20 139/41 (73) 98 09/19/19 00:00 98 09/18/19 21:00 Nasal Cannula 2.0 09/18/19 20:49 78 128/74 09/18/19 20:00 97 Nasal Cannula 2.0 28 09/18/19 20:00 97.2 78 20 137/75 (95) 96 09/18/19 20:00 78 09/18/19 16:00 97.4 80 20 118/69 (85) 96 09/18/19 16:00 82 Intake and Output 09/18/19 09/19/19 19:00 07:00 Intake Total 937.416 ml Output Total 1650 ml Balance -712.584 ml Intake Oral 570 ml IV Total 367.416 ml Output Urine Total 1650 ml # Voids 5 Laboratory Tests 09/19/19 05:44: White Blood Count 23.3*H, Red Blood Count 3.58L, Hemoglobin 11.3L, Hematocrit 31.5L, Mean Corpuscular Volume 88, Mean Corpuscular Hemoglobin 31.5H, Mean Corpuscular Hemoglobin Concent 35.8, Red Cell Distribution Width 10.9L, Platelet Count 383, Mean Platelet Volume 5.0L, Neutrophils (%) (Auto) , Lymphocytes (%) (Auto) , Monocytes (%) (Auto) , Eosinophils (%) (Auto) , Basophils (%) (Auto) , Differential Total Cells Counted 100, Neutrophils % ( Manual) 83H, Lymphocytes % (Manual) 8L, Monocytes % (Manual) 8, Eosinophils % ( Manual) 1, Basophils % (Manual) 0, Band Neutrop Current Medications Medications (Trade) Dose Ordered Sig/Ishaan Route PRN Reason Start Time Stop Time Status Last Admin Dose Admin Acetaminophen (Tylenol) 650 mg Q4H PRN ORAL fever 09/09/19 23:15 10/09/19 23:14 09/15/19 20:11 Acetaminophen (Tylenol) 650 mg Q4H PRN ORAL Mild Pain (Pain Scale 1-3) 09/09/19 23:15 10/09/19 23:14 09/17/19 18:19 Aspirin (ASA) 81 mg DAILY ORAL 09/12/19 09:00 10/12/19 08:59 09/19/19 08:55 Atorvastatin Calcium (Lipitor) 10 mg BEDTIME ORAL 09/10/19 21:00 10/10/19 20:59 09/17/19 21:00 Dextrose (Dextrose 50%) 25 ml Q30M PRN IV Hypoglycemia 09/15/19 13:30 10/15/19 13:29 Dextrose (Dextrose 50%) 50 ml Q30M PRN IV Hypoglycemia 09/15/19 13:30 10/15/19 13:29 Docusate Sodium (Colace) 100 mg TID ORAL 09/17/19 18:00 10/10/19 08:59 09/19/19 08:56 Enoxaparin Sodium (Lovenox) 40 mg DAILY SUBQ 09/14/19 10:45 10/14/19 10:44 09/18/19 09:22 Escitalopram Oxalate (Lexapro) 5 mg DAILY ORAL 09/10/19 09:00 10/10/19 08:59 09/19/19 08:55 Fluconazole (Diflucan) 200 mg DAILY ORAL 09/17/19 10:30 09/24/19 10:29 09/19/19 08:55 Furosemide (Lasix) 20 mg EVERY 8 HOURS IV 09/17/19 14:20 10/17/19 14:19 09/19/19 06:04 Hydralazine HCl (Apresoline) 10 mg Q4H PRN IV sbp>150, dbp>100 09/13/19 14:15 10/13/19 14:14 Hydromorphone HCl (Dilaudid) 0.5 mg Q4H PRN IVP Moderate Pain (Pain Scale 4-6) 09/17/19 19:00 09/24/19 18:59 Hydromorphone HCl (Dilaudid) 1 mg Q4H PRN IVP Severe Pain (Pain Scale 7-10) 09/17/19 19:00 09/24/19 18:59 09/19/19 10:32 Insulin Aspart (NovoLOG) BEFORE MEALS AND HS SUBQ 09/11/19 16:30 10/11/19 16:29 09/18/19 20:48 Insulin Aspart (NovoLOG) 6 units NOVOTIAC SUBQ 09/18/19 06:30 10/16/19 11:49 09/19/19 06:05 Insulin Detemir (Levemir) 18 units DAILY SUBQ 09/18/19 09:00 10/15/19 14:59 09/19/19 09:18 Magnesium Sulfate 100 ml @ 100 mls/hr Q1H IVPB 09/19/19 10:00 09/19/19 13:59 09/19/19 11:38 Metoprolol Tartrate (Lopressor) 12.5 mg Q12HR ORAL 09/12/19 09:00 10/12/19 08:59 09/19/19 08:55 Ondansetron HCl (Zofran) 4 mg Q6H PRN IVP Nausea & Vomiting 09/09/19 23:15 10/09/19 23:14 09/10/19 10:17 Pantoprazole (Protonix) 40 mg BID ORAL 09/17/19 18:00 10/16/19 13:29 09/19/19 08:55 Piperacillin Sod/ Tazobactam Sod 3.375 gm/Sodium Chloride 110 ml @ 27.5 mls/hr EVERY 8 HOURS IVPB 09/17/19 11:00 09/22/19 10:59 09/19/19 06:04 Polyethylene Glycol (Miralax) 17 gm DAILYPRN PRN ORAL Constipation 09/09/19 23:15 10/09/19 23:14 Potassium Chloride (K-Dur) 40 meq BID ORAL 09/17/19 18:00 10/15/19 08:59 09/18/19 17:14 Pregabalin (Lyrica) 50 mg THREE TIMES A DAY ORAL 09/10/19 09:00 10/10/19 08:59 09/19/19 08:54 Tamsulosin HCl (Flomax) 0.4 mg BID ORAL 09/17/19 18:00 10/10/19 08:59 09/19/19 08:54 Vancomycin HCl (Vanco rx to dose) 1 ea DAILY PRN MISC Per rx protocol 09/10/19 13:15 10/10/19 13:14 Vancomycin HCl 1 gm/Sodium Chloride 275 ml @ 183.708 mls/hr Q8H IVPB 09/17/19 12:00 09/22/19 23:59 09/19/19 04:01 hils 0, Platelet Estimate Adequate, Platelet Morphology Normal, Sodium Level 132L, Potassium Level 4.3, Chloride Level 95L, Carbon Dioxide Level 29, Anion Gap 8, Blood Urea Nitrogen 12, Creatinine 0.9, Estimat Glomerular Filtration Rate , Glucose Level 144H, Uric Acid 1.7L, Calcium Level 8.2L, Phosphorus Level 2.8, Magnesium Level 1.5L, Total Bilirubin 0.5, Direct Bilirubin 0.2, Aspartate Amino Transf (AST/SGOT) 19, Alanine Aminotransferase (ALT/SGPT) 57, Alkaline Phosphatase 61, Total Protein 6.6, Albumin 2.2L, Globulin 4.4, Albumin/Globulin Ratio 0.5L Height (Feet): 5 Height (Inches): 5.00 Weight (Pounds): 163 General Appearance: no apparent distress, lethargic Cardiovascular: normal rate Respiratory/Chest: decreased breath sounds Abdomen: distended Max Garcia MD Sep 19, 2019 12:22
[2019-09-19] MEDS ORDERED: NaCl 3% 500ml 500 ML IV ONE (13:00)
[2019-09-19 16:00] VITALS: BP 118/66
[2019-09-19] MEDS ORDERED: Tubing IV Secondary IV ONE (19:49)
--- NOTE | 2019-09-22 11:08 | Discharge Summary ---
Discharge Summary Hospital Course Date of Admission Sep 09, 2019 at 22:35 Date of Discharge Sep 19, 2019 at 19:50 Admitting Diagnosis sepsis, pneumonia HPI Enrique Us is a 73 year old male who was admitted on Sep 09, 2019 at 22:35 for Sepsis,Pneumonia Consultations ID, pulmonary, Renal, Thoracic surgery Hospital Course 73 year old presented with fever, chills, sob. Found to be hypoxic, tachycardic and febrile, +leukocytosis, CXR with infiltrates. influenza A/B negative. #Sever sepsis secondary to CAP, Likely empyema , pleural fluid exudative in nature. culture negative for 72hrs. febrile with worsening wbc. Evaluated by CT surgery Dr. Gonzalez for VATS, family has requested transfer to [facility]. #Acute respiratory failure with hypoxia #Acute encephalopathy, infection and hypoxic #large Right sided pleural effusion #Pulmonary arterial HTN telemetry s/p thoracentesis 950 cc green pleural fluid took out. Exudate follow up fluid for culture and cytology cefepime and azithromycin, vancomycin, metronidazole. spoke with ID, changed to Zosyn, vancomycin, Fluconazole. Repeat blood cultures, UA sent today /, UA negative, blood cultures negative to date May need repeat thoracentesis, vs thoracic surgery involvement. speech therapy evaluation appreciated--> pureed to ground texture o2 to keep o2 sat >95% Monitor mental status pain control ID and pulmonary consults IV lasix per nephrology Pulmonary and cardiology follow up for pulmonary arterial hypertension d/w Kris Barlow and Heydi Discussed with cardiology. patient is at moderate risk for the VATS procedure and stable to proceed. #Diastolic CHF, acute #R pleural effusion #Transient Afib/Flutter #pulmonary arterial HTN Echo reviewed: Diastolic dysfunction, pulmonary HTN, systolic function seems to be okay IV lasix 40 mg once, 20 mg daily d/w cardiology Metoprolol 12.5 mg BID, ASA, Atorvastatin. #Transaminitis, ?passive congestion, pattern not obstructive , normal ALP and total bili AST/ALT 300's normal on admission, now trending down monitor follow up hepatitis panel US abdomen reviewed: Gallbladder sludge and possible small stones. Mildly ectatic common bile duct, probably related to patient's age but downstream obstruction not completely excludable. Correlate with liver function tests, consider MRCP if clinically indicated. Liver demonstrates diffusely increased echogenicity, consistent with diffuse hepatocellular disease, most likely fatty change. Trace perihepatic ascites. Large right pleural effusion. Incidental finding small lateral renal cysts. Note inability to visualize portions of the abdominal aorta #DM uncontrolled #Prolactinoma Hold home po meds Insulin basal bolus, monitor fsbg. Levemir 18 units daily , NovoLog 6 units with meals (hold if not eating), SSI. hold Bromocriptine as may have been contributing to AMS prolactin levels reviewed and high ~100 endocrinology consult Tarun Olson #Hematuria- resolved #BPH Dced heparin due to hematuria, resumed lovenox for dvt ppx. no evidence of hematuria so far. UA sent Flomax #Hypokalemia Replace as needed kdur 40 meq daily Vte ppx: start lovenox 40 mg daily 09/14, SCD boots Code: full code per daughter at bedside I spent 40 minutes on this encounter. >50% spent on counselling and care coordination. case d/w daughter and RN at bedside. I spent an additional 35 minutes in reviewing events over the weekend, assessment consultant findings and imagining and labs. PATIENT SIGNED OUT AMA Discharge Condition Upon Discharge: other Discharge Vital Signs Last Vital Signs Date Time Temp Pulse Resp B/P (MAP) Pulse Ox O2 Delivery O2 Flow Rate FiO2 09/19/19 16:00 86 09/19/19 16:00 99.0 19 118/66 (83) 98 09/19/19 09:00 Nasal Cannula 2.0 09/19/19 07:00 28 Discharge Disposition Patient was discharged to AMA Discharge Diagnoses: (1) Hyperprolactinemia (2) Lactic acidosis (3) Diabetic nephropathy (4) Severe sepsis (5) Diabetes mellitus out of control (6) Encephalopathy due to infection (7) Diastolic dysfunction (8) Pleural effusion, right (9) Diastolic CHF, acute (10) Hyponatremia Rick Banerjee M.D. Sep 22, 2019 11:08
== END 2019-09-19 19:50 | disposition left against medical advice (07) | DRG 871 ==
LOC: EDBD 20:58 → EMR 21:30 → 2E 22:35 → EDBEDREQ 09-10 14:07 → 2E 09-12 21:38
PROC: 0W993ZZ Drainage of Right Pleural Cavity, Percutaneous Approach (ICD-10-PCS; principal; 2019-09-13)
DX: A41.9 Sepsis, unspecified organism (principal); G93.41 Metabolic encephalopathy; J96.01 Acute respiratory failure with hypoxia; J18.9 Pneumonia, unspecified organism; I50.31 Acute diastolic (congestive) heart failure; E22.1 Hyperprolactinemia; C18.9 Malignant neoplasm of colon, unspecified; C78.00 Secondary malignant neoplasm of unspecified lung; J90 Pleural effusion, not elsewhere classified; E87.1 Hypo-osmolality and hyponatremia; R65.20 Severe sepsis without septic shock; I11.0 Hypertensive heart disease with heart failure; E11.65 Type 2 diabetes mellitus with hyperglycemia; E11.21 Type 2 diabetes mellitus with diabetic nephropathy; I45.10 Unspecified right bundle-branch block; I48.91 Unspecified atrial fibrillation; N40.0 Benign prostatic hyperplasia without lower urinary tract symptoms; I27.20 Pulmonary hypertension, unspecified
CPT/HCPCS: 36415; 71045; 71250; 76700; 76942; 80048; 80053; 80061; 80076; 80202; 81003; 82164; 82550; 82553; 82570; 82607; 82670; 82728; 82746; 82962; 83036; 83540; 83550; 83605; 83735; 83880; 83930; 83935; 84100; 84132; 84146; 84153; 84300; 84403; 84443; 84484; 84550; 85007; 85025; 85610; 85730; 86140; 86705; 86709; 86710; 86738; 86803; 87040; 87070; 87086; 87205; 87340; 88104; 93005; 93306; 94640; 94664; 96361; 96365; 96368; 99291; J1815; J2405; J7030; J7620; J8499; S5561